=== PATIENT | female | born 1950 | race Caucasian/White ===

== ENCOUNTER 2018-04-19 09:38 | Emergency (ER) | payer MEDICARE, MEDICAID, SELFPAY ==
[2018-04-19 09:49] VITALS: BP 136/72; PULSE 70; RESP 14; TEMP 37.2; O2SAT 99
--- NOTE | 2018-04-19 10:11 | DI.RAD.S_ITS ---
PROCEDURE: XR CHEST 2V INDICATIONS: fatigue, body ache TECHNIQUE: 2 views of the chest were acquired. COMPARISON: None. FINDINGS: Surgical changes and devices: None. Lungs and pleura: No pleural effusions or pneumothorax. Lungs are clear. Mediastinum: The cardiac contours are within normal limits. The aorta demonstrates calcification and tortuosity. Bones and chest wall: Age-appropriate bony degenerative changes are seen. No suspicious bony abnormalities. Soft tissues appear unremarkable. IMPRESSION: No focal infiltrates are seen. Dictated by: Jayesh Xie M.D. on 04/19/2018 at 9:33 Approved by: Jayesh Xie M.D. on 04/19/2018 at 9:34
[2018-04-19 10:14] LABS: Add Manual Diff / Slide Review NO; Basophils Percent Auto 0.9 % (0-2); Eosinophils Percent Auto 2.5 % (2-4); Hemoglobin 12.3 g/dL (12.0-16.0); Lymphocytes Percent Auto 34.4 % (25-40); Mean Corpuscular HGB Conc 34.1 % (30-36); Mean Corpuscular Hemoglobin 31.5 PG (26-34); Mean Corpuscular Volume 92.3 fL (80-100); Monocytes Percent Auto 7.5 % (3-14); Neutrophils Absolute Auto 3600 /uL (3000-5900); Neutrophils Percent Auto 54.7 % (50-75); Platelet Count 314 X10^3/uL (150-400); Red Blood Cell Count 3.91 X10^6/uL (4.0-5.2); Red Cell Distribution Width 13.4 % (11.6-14.8); White Blood Cell Count 6.6 X10^3/uL (4.5-11.0)
[2018-04-19] MEDS: SODIUM CHLORIDE 0.9% 1,000 ML 1000 ML IV (10:23)
[2018-04-19 10:27] LABS: Alanine Aminotransferase 38 IU/L (9-52); Albumin 4.4 g/dL (3.5-5.0); Albumin Globulin Ratio 1.6 (1.0-2.8); Alkaline Phosphatase 62 U/L (38-126); Aspartate Aminotransferase 47 IU/L (14-36); BUN Creatinine Ratio 24.3 (6-22); Bilirubin Total 0.5 mg/dL (0.2-1.3); Blood Urea Nitrogen 17 mg/dL (7-17); Calcium 9.6 mg/dL (8.4-10.2); Carbon Dioxide 27 mmol/L (22-32); Chloride 100 mmol/L (98-107); Estimated Glomerular Filt Rate > 60.0 mL/min (>60); Globulin 2.7 g/dL (1.7-4.1); Glucose 114 mg/dL (80-110); HEMOLYSIS < 15 (0-50); Potassium 3.8 mmol/L (3.4-5.1); Sodium 139 mmol/L (137-145); Total Protein 7.1 g/dL (6.3-8.2)
[2018-04-19 10:40] LABS: Troponin I < 0.012 ng/mL (0.01-0.034)
--- NOTE | 2018-04-19 11:06 | ED.RECABL ---
HPI - Recheck/Abnormal Lab/Rx General Chief Complaint: Recheck/Abnormal Lab/Rx Stated Complaint: hypocalcemic Time Seen by Provider: 04/19/18 09:50 Source: patient Mode of arrival: ambulatory Limitations: no limitations History of Present Illness HPI narrative: 67-year-old female, nonsmoker with history of hyper parathyroidism presents with a chief complaint of fatigue, mild nausea for the past day or 2. She states she feels quite similar to prior episodes of hypocalcemia. She denies any dizziness or lightheadedness. She denies any chest pain or shortness of breath. She denies vomiting or diarrhea. 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 The patient admittedly drink no water yesterday and is at the breaking point in terms of her stress level. She has not been sleeping properly. Related Data Home Medications Medication Instructions Recorded Confirmed Carditone 1 dose PO DAILY 04/19/18 04/19/18 Fish Oil 1 cap PO DAILY 04/19/18 04/19/18 Vitamin B 1 dose PO DAILY 04/19/18 04/19/18 Vitamin C 1 tab PO DAILY 04/19/18 04/19/18 benazepril 20 mg PO BEDTIME 04/19/18 04/19/18 calcium carbonate [Calcium 500] 500 mg PO DAILY 04/19/18 04/19/18 krill oil 1 cap PO DAILY 04/19/18 04/19/18 parathyroid hormone [Natpara] 100 mcg SUBCUT DAILY 04/19/18 04/19/18 vitamin E 1 cap PO DAILY 04/19/18 04/19/18 Review of Systems Review of Systems All systems reviewed & are unremarkable except as noted in HPI and below Constitutional Denies chills, Denies fever(s), Reports lethargy and Reports weakness Eyes Denies change in vision, Denies eye discharge, Denies irritation and Denies loss of vision ENT Ears, Nose, Mouth, and Throat: Denies change in voice, Denies neck pain and Denies sore throat Cardiovascular Denies chest pain, Denies irregular heart rhythm, Denies lightheadedness, Denies palpitations, Denies dyspnea, Denies dyspnea on exertion and Denies orthopnea Respiratory Denies cough, Denies dyspnea, Denies dyspnea on exertion and Denies wheezing Gastrointestinal Gastrointestinal: Denies abdominal pain, Denies change in bowel habits, Denies diarrhea, Reports nausea and Denies vomiting Genitourinary Denies hematuria, Denies flank pain, Denies urinary incontinence and Denies urinary urgency Musculoskeletal Denies neck pain Integumentary/Breasts Denies pruritus, Denies erythema, Denies rash and Denies wounds Neurologic Denies confusion, Denies loss of vision and Reports weakness Psychiatric Denies anxiety, Denies confusion, Denies depression, Denies homicidal ideation and Denies suicidal ideation Endocrine Denies palpitations Hematologic/Lymphatic Denies easy bruising Allergic/Immunologic Denies wheezing PFSH Social History Smoking Status: Never smoker Exam Narrative Exam Narrative: 67-year-old female, tearful and anxious Initial Vital Signs Initial Vital Signs: Vital Signs Temperature 99 F 04/19/18 09:49 Pulse Rate 70 04/19/18 09:49 Respiratory Rate 14 04/19/18 09:49 Blood Pressure 136/72 04/19/18 09:49 Pulse Oximetry 99 04/19/18 09:49 Const General: cooperative, well developed, in distress and anxious Nutritional Appearance: well nourished Orientation: alert, awake, oriented x3 and not confused [facility] Head: normocephalic and atraumatic Ears: external ears normal and TM's normal bilaterally Nose: external nose normal and No nasal discharge Face and sinus: sinuses nontender, face symmetric, no sinus tenderness and dry mucous membranes Teeth and gingiva: dentition normal Throat: tonsils normal and uvula midline Eyes General: appearance normal, both eyes and all related structures Eyelids: eyelids normal Conjunctivae: conjunctivae normal Sclera: sclerae normal Pupils: PERRL EOM: EOM intact bilaterally Neck Neck: normal visual inspection, trachea midline, No lymphadenopathy, No midline deformity and No JVD Lymphatic: No lymphedema Chest Chest: normal inspection of the chest Resp Effort & Inspection: normal respiratory effort, able to speak in complete sentences, no respiratory distress and no use of accessory muscles Auscultation: clear to auscultation bilaterally, no rales, no rhonchi and no wheezes GI Inspection: non-distended Palpation: soft, no hepatosplenomegaly, No guarding, No pulsatile mass and No tender Auscultation: normal bowel sounds Skin General: no rashes or lesions noted, No jaundice and No petechiae Neuro General: alert, awake, oriented x3, gait normal and no focal motor deficits Speech: speech normal Extrem General: full ROM, no clubbing, cyanosis or edema, no pedal edema and no calf tenderness Psych Appearance: well kempt Attitude: cooperative Course Orders Ordered: ED Orders 04/19/18 10:01 EKG-12 Lead Stat 04/19/18 10:07 Complete Blood Count AUTO DIFF Stat Comprehensive Metabolic Panel Stat Troponin I Stat 04/19/18 10:11 XR chest 2V Stat Discontinued Medications Sodium Chloride (Normal Saline 0.9%) 1,000 mls @ 1,000 mls/hr IV BOLUS ONE Stop: 04/19/18 11:10 Last Infusion: 04/19/18 11:21 Dose: 0 mls/hr Admin: 04/19/18 10:23 Dose: 1,000 mls/hr Reevaluation(s) Reevaluation #1: patient reports a near complete resolution of symptoms after above-stated therapies Vital Signs - 8 hr 04/19/18 11:49 Pulse Rate 65 Respiratory Rate 20 Blood Pressure [Right Arm] 116/71 Pulse Oximetry 98 MDM - Recheck/Abnormal Lab/Rx Medical Records Attestation: I reviewed the patient's medical records. Lab Data Attestation: I reviewed the patient's lab results. Result diagrams: 04/19/18 10:07 04/19/18 10:07 Lab Results 04/19/18 04/19/18 Range/Units 10:07 10:07 WBC 6.6 (4.5-11.0) X10^3/uL RBC 3.91 L (4.0-5.2) X10^6/uL Hgb 12.3 (12.0-16.0) g/dL Hct 36.0 (36-46) % MCV 92.3 (80-100) fL MCH 31.5 (26-34) PG MCHC 34.1 (30-36) % RDW 13.4 (11.6-14.8) % Plt Count 314 (150-400) X10^3/uL Neut % (Auto) 54.7 (50-75) % Lymph % (Auto) 34.4 (25-40) % Potter % (Auto) 7.5 (3-14) % Eos % (Auto) 2.5 (2-4) % Baso % (Auto) 0.9 (0-2) % Neut # (Auto) 3600 (3820-9587) /uL Sodium 139 (137-145) mmol/L Potassium 3.8 (3.4-5.1) mmol/L Chloride 100 (98-107) mmol/L Carbon Dioxide 27 (22-32) mmol/L BUN 17 (7-17) mg/dL Creatinine 0.70 (0.52-1.04) mg/dL Estimated GFR > 60.0 (>60) mL/min BUN/Creatinine Ratio 24.3 H (6-22) Glucose 114 H (80-110) mg/dL Calcium 9.6 (8.4-10.2) mg/dL Total Bilirubin 0.5 (0.2-1.3) mg/dL AST 47 H (14-36) IU/L ALT 38 (9-52) IU/L Alkaline Phosphatase 62 (38-126) U/L Troponin I < 0.012 (0.01-0.034) ng/mL Total Protein 7.1 (6.3-8.2) g/dL Albumin 4.4 (3.5-5.0) g/dL Globulin 2.7 (1.7-4.1) g/dL Albumin/Globulin Ratio 1.6 (1.0-2.8) Urine Dip Bedside Urine Glucose Negative Bedside Urine Bilirubin - Negative Bedside Urine Ketone - Negative Urine Specific [place] 1.010 Bedside Urine Occult Blood - Negative Bedside Urine pH 8.0 Bedside Urine Protein - Negative Bedside Urine Urobilinogen - Negative Bedside Urine Nitrite - Negative Bedside Urine Leukocytes - Negative Esterase MDM Narrative Medical decision making narrative: patient evaluated for potential hypocalcemia but alternative diagnoses such as cardiac disease, dehydration among others were considered. Labs with rule out hypocalcemia. Further discussion with suggest that her symptoms are multifactorial, stemming from profound stress, lack of sleep and dehydration. Discharge Plan Departure Patient Disposition: Home Clinical Impression: Acute dehydration, Fatigue Discharge Date/Time: 04/19/18 12:51 Interventions: ED Discharge Assessment Last Done: 04/19/18 12:51 Instructions: DI for Dehydration -- Adult Activity Restrictions/Additional Instructions: *You have been diagnosed with [ Acute dehydration, fatigue ] *What to do: *Take medications as directed *Follow up with your primary care provider in 2-3 days, call for an appointment. Let them know you were seen in the Emergency Department and that we ask that you be seen in follow up *Return to ER if you should have any new, worsening or concerning symptoms Prescriptions: No Action benazepril 20 mg tablet 20 mg PO BEDTIME RF: 0 parathyroid hormone [Natpara] 100 mcg/dose cartridge 100 mcg subcut DAILY RF: 0 calcium carbonate [Calcium 500] 500 mg calcium (1,250 mg) Tablet 500 mg PO DAILY RF: 0 Carditone 1 dose PO DAILY RF: 0 Fish Oil 1 cap PO DAILY RF: 0 Vitamin B 1 dose PO DAILY RF: 0 Vitamin C 1 tab PO DAILY RF: 0 krill oil 1 cap PO DAILY RF: 0 vitamin E 1 cap PO DAILY RF: 0 Referrals: Giovana Kingsley MD [Primary Care Provider] -
[2018-04-19 11:49] VITALS: BP 116/71; PULSE 59; PULSE 65; RESP 15; RESP 20; O2SAT 94; O2SAT 98
== END 2018-04-19 12:51 | disposition home or self-care (01) ==
PROVIDERS: Emergency Provider Emergency Medicine; PCP Internal Medicine Endocrinology, Diabetes & Metabolism
DX: E86.0 Dehydration (principal); R53.83 Other fatigue
CPT/HCPCS: 36415; 36591; 71046; 80053; 81003; 84484; 85025; 93005; 96360; 99283

== ENCOUNTER → 2018-11-12 11:46 | Outpatient (CLI) | payer MEDICARE, MEDICAID, SELFPAY ==
--- NOTE | 2018-11-12 | DI.MG.S_ITS ---
BILATERAL DIGITAL SCREENING MAMMOGRAM 3D/2D WITH CAD: 11/12/2018 CLINICAL: Routine screening. Comparison is made to exams dated: 11/13/2006 mammogram - [facility], 10/02/2011 mammogram, and 09/26/2010 mammogram - [facility]. The tissue of both breasts is extremely dense, which lowers the sensitivity of mammography. Current study was also evaluated with a Computer Aided Detection (CAD) system. No significant masses, calcifications, or other findings are seen in either breast. There has been no significant interval change. IMPRESSION: NEGATIVE There is no mammographic evidence of malignancy. A 1 year screening mammogram is recommended. This exam was interpreted at Station ID: [id number]. NOTE: For mammograms, a report in lay terms will be sent to the patient. Approximately 15% of breast malignancies will not be visualized mammographically. In the management of a palpable breast mass, a negative mammogram must not discourage biopsy of a clinically suspicious lesion. Electronically Signed By: Ravindra buck/leonard:11/12/2018 12:14:33 letter sent: Normal Exam ACR BI-RADS Category 1: Negative [id number]
== END ==
PROVIDERS: PCP Nurse Practitioner; Visit Provider Nurse Practitioner
DX: Z12.31 Encounter for screening mammogram for malignant neoplasm of breast (principal)
CPT/HCPCS: 77063; 77067

== ENCOUNTER → 2018-12-09 13:16 | Outpatient (CLI) | payer MEDICARE, MEDICAID, SELFPAY | PROVIDERS: PCP Nurse Practitioner; Visit Provider Nurse Practitioner Family | DX: M85.832 Other specified disorders of bone density and structure, left forearm (principal); Z78.0 Asymptomatic menopausal state | CPT/HCPCS: 77080; 77081 ==

== ENCOUNTER → 2019-03-18 09:43 | Outpatient (CLI) | payer MEDICARE, MEDICAID, SELFPAY ==
[2019-03-18 10:39] LABS: Calcium 10.2 mg/dL (8.4-10.2); Estimated Glomerular Filt Rate > 60.0 mL/min (>60)
== END ==
PROVIDERS: PCP Nurse Practitioner; Visit Provider Internal Medicine Endocrinology, Diabetes & Metabolism
DX: E20.9 Hypoparathyroidism, unspecified (principal)
CPT/HCPCS: 36415; 82310; 82565

== ENCOUNTER → 2019-03-22 11:17 | Outpatient (CLI) | payer MEDICARE, MEDICAID, SELFPAY ==
[2019-03-22 12:26] LABS: Calcium 8.3 mg/dL (8.4-10.2); Estimated Glomerular Filt Rate > 60.0 mL/min (>60)
== END ==
PROVIDERS: PCP Nurse Practitioner; Visit Provider Internal Medicine Endocrinology, Diabetes & Metabolism
DX: E20.9 Hypoparathyroidism, unspecified (principal)
CPT/HCPCS: 36415; 82310; 82565

== ENCOUNTER → 2019-04-06 16:36 | Outpatient (CLI) | payer MEDICARE, MEDICAID, SELFPAY ==
[2019-04-06 17:59] LABS: Calcium 9.3 mg/dL (8.4-10.2); Phosphorous 5.4 mg/dL (2.8-4.1)
== END ==
PROVIDERS: PCP Nurse Practitioner; Visit Provider Internal Medicine Endocrinology, Diabetes & Metabolism
DX: E20.9 Hypoparathyroidism, unspecified (principal)
CPT/HCPCS: 36415; 82310; 84100

== ENCOUNTER → 2019-04-13 15:39 | Outpatient (CLI) | payer MEDICARE, MEDICAID, SELFPAY ==
[2019-04-13 16:41] LABS: Calcium 9.4 mg/dL (8.4-10.2); Phosphorous 4.9 mg/dL (2.8-4.1)
== END ==
PROVIDERS: PCP Nurse Practitioner; Visit Provider Internal Medicine Endocrinology, Diabetes & Metabolism
DX: E20.9 Hypoparathyroidism, unspecified (principal)
CPT/HCPCS: 36415; 82310; 84100

== ENCOUNTER → 2019-04-21 08:15 | Outpatient (CLI) | payer MEDICARE, MEDICAID, SELFPAY ==
[2019-04-21 09:15] LABS: Calcium 9.1 mg/dL (8.4-10.2); Phosphorous 5.2 mg/dL (2.8-4.1)
== END ==
PROVIDERS: Visit Provider Internal Medicine Endocrinology, Diabetes & Metabolism
DX: E20.9 Hypoparathyroidism, unspecified (principal)
CPT/HCPCS: 36415; 82310; 84100

== ENCOUNTER 2019-04-22 15:00 | Outpatient (RCR) | payer MEDICARE, MEDICAID, SELFPAY ==
--- NOTE | 2018-12-31 17:00 | PT.OIE ---
Current Diagnoses Other chronic pain (12/31/18) Low back pain (12/31/18) Muscle weakness (generalized) (12/31/18) Other abnormalities of gait and mobility (12/31/18) Past Surgical History (Last Updated 01/02/19 @ 12:52 by Lisa Asif, PT) Status post total hip replacement, right (Acute) Provider Visit Care Team Role Provider Type JOSSELYN Gilman Attending Provider Non-Staff Primary Care Provider Specialty: Medical Address: [address] [place] [address], [phone] Email: Physical Therapy Initial Evaluation PT-OP-A Visit Information Start: 12/31/18 08:04 Freq: Status: Active Protocol: Document 12/31/18 09:57 LRN (Rec: 12/31/18 10:49 LRN [id number]) Out-Patient Physical Therapy Visit Information Visit Information Visit Type Initial Evaluation Visit Start Time 09:57 Visit Stop Time 10:49 Total Visit Minutes 52 Visit Number 1 Evaluation Information Evaluation Date 12/31/18 Precautions Precautions Pt reported: R MALENA - 15 yrs ago Osteoarthritis PT-OP-B Current Condition Start: 12/31/18 08:04 Freq: Status: Active Protocol: Document 12/31/18 09:57 LRN (Rec: 12/31/18 10:49 LRN [id number]) Current Condition History of Current Condition Onset Date 3.5 weeks ago Current Complaints Ongoing off/on bouts of debilitatin back pain History of Current Condition Back pain since a teenager. Had to wear a brace as a teen because of damage noted from chiropractor. HAs had bouts of back pain. 3.5 weeks ago had onset of back pain that resolved after 3 weeks. Typically the pain resolves in 3-10 days. During her 3/5 weeks of pain she was seeing the chiropractor who she sees regularly (1/week to 1x every 2.5 weeks, without insurance 1x/2 months) for good self care. Currently she is aware of some pain and must position spine to get relief of pain. Pain 1/10 sitting. Pain is a dull aching, irritating, oppressive, constant. States she tries to deny it, then it takes me out. Bouts of pain onset is every 2-3 months. Prior Treatments and Tests X-rays from [facility]. 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 Treatment Goals Patient/Caregiver Goals Wants to be able to get better and need PT to make sure her bout of pain doesn't return. Prior Functional Status Baseline Function- ADL's Independent Baseline Function- Mobility Independent Baseline Function- Recreation/Hobbies Pet sit & dog sit. Cooking Current Functional Impairments (Reported) Functional Limitations- ADL's Can't help a child into lap (3 and 7 yr old) or pick the 3 yr old up. Personal Factors Other Personal Factors That May Effect Chronic low back pain, Therapy/Recovery arthritis, neck pain, controlled HBP, R MALENA, PT-OP-C Subjective Start: 12/31/18 08:04 Freq: Status: Active Protocol: Document 12/31/18 09:57 LRN (Rec: 12/31/18 10:49 LRN [id number]) Patient Questionnaires Oswestry Low Back Index Oswestry Score 26 Oswestry Impairment 20 to 39% Impaired (Score 20- 39) OP-PT Pain Assessment Pain Assessment Grid Paper Pain Assessment Grid Completed Yes Comments Pain Comments Pain in posterior aspect of the neck, R upper back, in the low back (QL, paraspinals) and lateral R hip. Pain rated 1-4/10. PT-OP-E Functional Tests Start: 12/31/18 08:04 Freq: Status: Active Protocol: Document 12/31/18 09:57 LRN (Rec: 12/31/18 10:49 LRN [id number]) Functional Tests Timed Up and Go (TUG) Score 11 TUG Impairment Rating 1 to <20% Impaired (Score 11) PT-OP-F Manual Assessment Start: 12/31/18 08:04 Freq: Status: Active Protocol: Document 12/31/18 09:57 LRN (Rec: 12/31/18 18:59 LRN [id number]) Manual Assessments Soft Tissue Assessment Soft Tissue Mobility Assessment Muscle guarding and tenderness at L Gluteus Mina and along the L sacral border. PT-OP-G Mobility & Gait Start: 12/31/18 08:04 Freq: Status: Active Protocol: Document 12/31/18 09:57 LRN (Rec: 12/31/18 18:59 LRN [id number]) OP Mobility Evaluation Bed Mobility Supine to and from Sit Pt came up in sit up rotating in the direction she was transferring and placing her legs in a 90/90 scissored fashion. Sit to Supine she uses her R UE to assist the R leg. Transfers Sit to Stand Independent but with unequal weight bearing of the LE's. Car Transfers Uses R UE to assist R leg into car. OP Gait Assessment Comments Gait Comments Pt ambulates independently without assistive device with excessive trunk sway bilaterally. She ambulates with a Trendelenburg type gait bilaterally L>R. PT-OP-H Neuro Start: 12/31/18 08:04 Freq: Status: Active Protocol: Document 12/31/18 09:57 LRN (Rec: 12/31/18 18:59 LRN [id number]) Sensation Evaluation Gross Sensation Gross Sensation WNL Deep Tendon Reflex & Clonus Assessment Deep Tendon Reflex Right Achilles Deep Tendon Reflex 2+ Normal Left Achilles Deep Tendon Reflex 1+ Diminished Bilateral Patellar Deep Tendon Reflex 3+ Normal But Brisk PT-OP-J Posture/Palpation/Skin Start: 12/31/18 08:04 Freq: Status: Active Protocol: Document 12/31/18 09:57 LRN (Rec: 12/31/18 18:59 LRN [id number]) Posture Evaluation Comments Posture Comments Standing: Forward head, depressed R shoulder, decreased thoracic and lumbar curvature, pelvis neutral. Palpation Assessment Location Innominates Palpation Details R Leg long in supine, Longer in long sit. Sacrum Palpation Location L Lateral Border Palpation Findings Tenderness Hips Palpation Location Upper Gluteus Mina Palpation Findings Tenderness Lumbar spine Palpation Location L/S PA glides elicited no complaints of pain. PT-OP-K Range of Motion Start: 12/31/18 08:04 Freq: Status: Active Protocol: Document 12/31/18 09:57 LRN (Rec: 12/31/18 18:59 LRN [id number]) Hip Goniometric Range of Motion Hip Right Passive Testing Position Supine Straight Leg Raise 80 Extension 0 Internal Rotation 40 External Rotation 70 Left Passive Testing Position Supine Straight Leg Raise 70 Extension 5 Internal Rotation 55 External Rotation 55 PT-OP-L Special Tests Start: 12/31/18 08:04 Freq: Status: Active Protocol: Document 12/31/18 09:57 LRN (Rec: 12/31/18 18:59 LRN [id number]) Special Tests Lumbar Spine Special Tests Straight Leg Raise Test Results postive left for possible neural tension and soft tissue tightness Comments 70 deg's left due to LE tightness, 80 deg's right. PT-OP-M Strength Start: 12/31/18 08:04 Freq: Status: Active Protocol: Document 12/31/18 09:57 LRN (Rec: 12/31/18 18:59 LRN [id number]) Hip Strength Hip Manual Muscle Testing Right Flexion (L2) 3 Fair Extension (S1) 2 Poor Abduction 3 Fair Adduction 3 Fair External Rotation 3 Fair Internal Rotation 3 Fair Left Flexion (L2) 3 Fair Extension (S1) 3 Fair Abduction 3+ Fair+ Adduction 4 Good External Rotation 3 Fair Internal Rotation 3 Fair PT-OP-Q Treatments Start: 12/31/18 08:04 Freq: Status: Active Protocol: Document 12/31/18 09:57 LRN (Rec: 12/31/18 18:59 LRN [id number]) Self-Care/Home Management Treatment Education Patient Education Body Mechanics Posture Other Education Educated pt in proper body mechanics for lifting and 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 Discussed at length the effect of improper moving on her back. PT-OP-T Assessment and Plan Start: 12/31/18 08:04 Freq: Status: Active Protocol: Document 12/31/18 09:57 LRN (Rec: 12/31/18 10:49 LRN [id number]) Physical Therapy Assessment Rehab Potential Rehabilitation Potential Good Evaluation Complexity Number of Personal Factors/Comorbidities 3 or More Number of Body Systems Impaired 4 or More Clinical Presentation at Evaluation Evolving Impairments Impairments Functional Mobility Gait Pain Posture ROM Strength Transfers Other Concerns Age Related Concerns Effect of condition on social and work environment. Barriers to Rehabilitation Chronicity of condition Pt has poor self awareness R MALENA Arthritis Goals Four Impairment Excessive trunk sway with gait Short Term Goal (STG) Improve Hip strength with pt able to demonstrate good hip shift on single leg weightbearing. Care Home Goal (LTG) Pt will demonstrate improved gait mechanics of decreased trunk sway LTG Duration 03/11/19 Three Impairment Poor body mechanics Short Term Goal (STG) Pt will be educated in proper body mechanics for lifting, moving objects, sitting for sewing. STG Duration 01/07/19 Two Impairment Chronic low back pain rated 1 - 4/10 Short Term Goal (STG) Decrease R>L LBP to no greater than 1-2/10 with patient able to properly transfer and lift objects with no increase in pain greater than 2/10 STG Duration 01/21/19 Case Assembler Goal (LTG) Decrease R>L LBP to no greater than 1/10 with pt able to manage her pain. LTG Duration 03/11/19 One Impairment Pt lacks appropriate self care HEP STG Duration 02/04/19 Care Home Goal (LTG) Pt will be independent with a self care HEP. LTG Duration 03/11/19 Assessment Summary Assessment Pt presents with a pelvic obliquity (R anteriorly rotated innominate/L posteriorly rotated innominate ), possibly due to her long standing history of back pain and dysfunctional gait since her R MALENA. The pt also demonstrates poor body mechanics with transfers ( getting up from supine) and lifting, and postural deviations that would be expected to exacerbate her back pain. 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 The pt will benefit from skilled physical therapy to normalize pelvic positioning and gain stabilization of the pelvis and core with possibly use of an SIJ belt if she is unable to maintain neutral after prolonged sitting. Physical Therapy Plan Frequency and Duration Frequency of Treatment 2x/Week Plan of Care Start Date 12/31/18 Plan of Care End Date 03/11/19 Therapeutic Interventions Therapeutic Interventions Balance Training Home Exercise Program Joint Mobilizations Manual Therapy Neuromuscular Re-education Patient/Caregiver Education Self-Care/Home Management Soft Tissue Mobilization Taping Therapeutic Activities Therapeutic Exercises Next Visit Focus/Plan Next Note Type Treatment Note Next Visit Plan August Test; JMT for neutral pelvis positioning; education for pt to self correct posture & for proper body mechanics with transfers and lifting; initiation and progression of a HEP for pelvic/core stabilization; self care education for modalities; gait training. K-tape assessment and if tolerated K-tape for pelvic stabilization. End with cryotherapy is needed.
--- NOTE | 2019-01-03 16:08 | PT.OTN ---
Current Diagnoses Other chronic pain (01/03/19) Low back pain (01/03/19) Muscle weakness (generalized) (01/03/19) Other abnormalities of gait and mobility (01/03/19) Physical Therapy Treatment Note PT-OP-A Visit Information Start: 12/31/18 08:04 Freq: Status: Active Protocol: Document 01/03/19 13:34 LRN (Rec: 01/03/19 14:20 LRN [id number]) Out-Patient Physical Therapy Visit Information Visit Information Visit Type Treatment Note Visit Start Time 13:34 Visit Stop Time 14:20 Total Visit Minutes 46 Visit Number 2 Evaluation Information Evaluation Date 12/31/18 Precautions Precautions Pt reported: R MALENA - 13 yrs ago Osteoarthritis PT-OP-B Current Condition Start: 12/31/18 08:04 Freq: Status: Active Protocol: Document 12/31/18 09:57 LRN (Rec: 12/31/18 10:49 LRN [id number]) Current Condition History of Current Condition Onset Date 3.5 weeks ago Current Complaints Ongoing off/on bouts of debilitatin back pain History of Current Condition Back pain since a teenager. Had to wear a brace as a teen because of damage noted from chiropractor. HAs had bouts of back pain. 3.5 weeks ago had onset of back pain that resolved after 3 weeks. Typically the pain resolves in 3-10 days. During her 3/5 weeks of pain she was seeing the chiropractor who she sees regularly (1/week to 1x every 2.5 weeks, without insurance 1x/2 months) for good self care. Currently she is aware of some pain and must position spine to get relief of pain. Pain 1/10 sitting. Pain is a dull aching, irritating, oppressive, constant. States she tries to deny it, then it takes me out. Bouts of pain onset is every 2-3 months. Prior Treatments and Tests X-rays from [facility]. 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 Treatment Goals Patient/Caregiver Goals Wants to be able to get better and need PT to make sure her bout of pain doesn't return. Prior Functional Status Baseline Function- ADL's Independent Baseline Function- Mobility Independent Baseline Function- Recreation/Hobbies Pet sit & dog sit. Cooking Current Functional Impairments (Reported) Functional Limitations- ADL's Can't help a child into lap (3 and 7 yr old) or pick the 3 yr old up. Personal Factors Other Personal Factors That May Effect Chronic low back pain, Therapy/Recovery arthritis, neck pain, controlled HBP, R MALENA, PT-OP-C Subjective Start: 12/31/18 08:04 Freq: Status: Active Protocol: Document 01/03/19 13:34 LRN (Rec: 01/03/19 14:20 LRN [id number]) OP-PT Subjective Patient Comments Patient Comments Woke this morning with back pain. PT-OP-E Functional Tests Start: 12/31/18 08:04 Freq: Status: Active Protocol: Document 12/31/18 09:57 LRN (Rec: 12/31/18 10:49 LRN [id number]) Functional Tests Timed Up and Go (TUG) Score 11 TUG Impairment Rating 1 to <20% Impaired (Score 11) PT-OP-F Manual Assessment Start: 12/31/18 08:04 Freq: Status: Active Protocol: Document 12/31/18 09:57 LRN (Rec: 12/31/18 18:59 LRN [id number]) Manual Assessments Soft Tissue Assessment Soft Tissue Mobility Assessment Muscle guarding and tenderness at L Gluteus Mina and along the L sacral border. PT-OP-G Mobility & Gait Start: 12/31/18 08:04 Freq: Status: Active Protocol: Document 12/31/18 09:57 LRN (Rec: 12/31/18 18:59 LRN [id number]) OP Mobility Evaluation Bed Mobility Supine to and from Sit Pt came up in sit up rotating in the direction she was transferring and placing her legs in a 90/90 scissored fashion. Sit to Supine she uses her R UE to assist the R leg. Transfers Sit to Stand Independent but with unequal weight bearing of the LE's. Car Transfers Uses R UE to assist R leg into car. OP Gait Assessment Comments Gait Comments Pt ambulates independently without assistive device with excessive trunk sway bilaterally. She ambulates with a Trendelenburg type gait bilaterally L>R. PT-OP-H Neuro Start: 12/31/18 08:04 Freq: Status: Active Protocol: Document 12/31/18 09:57 LRN (Rec: 12/31/18 18:59 LRN [id number]) Sensation Evaluation Gross Sensation Gross Sensation WNL Deep Tendon Reflex & Clonus Assessment Deep Tendon Reflex Right Achilles Deep Tendon Reflex 2+ Normal Left Achilles Deep Tendon Reflex 1+ Diminished Bilateral Patellar Deep Tendon Reflex 3+ Normal But Brisk PT-OP-J Posture/Palpation/Skin Start: 12/31/18 08:04 Freq: Status: Active Protocol: Document 12/31/18 09:57 LRN (Rec: 12/31/18 18:59 LRN [id number]) Posture Evaluation Comments Posture Comments Standing: Forward head, depressed R shoulder, decreased thoracic and lumbar curvature, pelvis neutral. Palpation Assessment Location Innominates Palpation Details R Leg long in supine, Longer in long sit. Sacrum Palpation Location L Lateral Border Palpation Findings Tenderness Hips Palpation Location Upper Gluteus Mina Palpation Findings Tenderness Lumbar spine Palpation Location L/S PA glides elicited no complaints of pain. PT-OP-K Range of Motion Start: 12/31/18 08:04 Freq: Status: Active Protocol: Document 12/31/18 09:57 LRN (Rec: 12/31/18 18:59 LRN [id number]) Hip Goniometric Range of Motion Hip Right Passive Testing Position Supine Straight Leg Raise 80 Extension 0 Internal Rotation 40 External Rotation 70 Left Passive Testing Position Supine Straight Leg Raise 70 Extension 5 Internal Rotation 55 External Rotation 55 PT-OP-L Special Tests Start: 12/31/18 08:04 Freq: Status: Active Protocol: Document 12/31/18 09:57 LRN (Rec: 12/31/18 18:59 LRN [id number]) Special Tests Lumbar Spine Special Tests Straight Leg Raise Test Results postive left for possible neural tension and soft tissue tightness Comments 70 deg's left due to LE tightness, 80 deg's right. PT-OP-M Strength Start: 12/31/18 08:04 Freq: Status: Active Protocol: Document 12/31/18 09:57 LRN (Rec: 12/31/18 18:59 LRN [id number]) Hip Strength Hip Manual Muscle Testing Right Flexion (L2) 3 Fair Extension (S1) 2 Poor Abduction 3 Fair Adduction 3 Fair External Rotation 3 Fair Internal Rotation 3 Fair Left Flexion (L2) 3 Fair Extension (S1) 3 Fair Abduction 3+ Fair+ Adduction 4 Good External Rotation 3 Fair Internal Rotation 3 Fair PT-OP-Q Treatments Start: 12/31/18 08:04 Freq: Status: Active Protocol: Document 01/03/19 13:34 LRN (Rec: 01/03/19 14:20 LRN [id number]) Therapeutic Exercises Supine Exercises TA Supine Exercise Name TA Reps/Minutes 10 x 10 sec Comments Pt tightened R side > L to start and pt holds breath. Kegel Supine Exercise Name Kegel Reps/Minutes 10 x 10 sec hold Standing Exercises Training for equal weightbearing Standing Exercise Name Standing w/without R SIJ compression Comments Discussion and training Therapeutic Activity Therapeutic Activity Transfers & moving on plinth Name Shifting to right on plinth; Sup<>Sit<>Stand Comments Educating and training of patient Manual Therapy Treatment Joint Mobilizations SIJ Joint R SIJ Direction Correction for R innominate inflare Grade III Body Position Hooklying Comments CR MFR Self-Care/Home Management Treatment Education Patient Education Home Exercise Program Posture Other Education Educated pt in core anatomy and standing posture with equal weightbearing. Activities Self-Care/Home Management Activities Reviewed pt's current ex' program. Issued & reviewed HEP: LORE Hoyt ex's PT-OP-T Assessment and Plan Start: 12/31/18 08:04 Freq: Status: Active Protocol: Document 01/03/19 13:34 LRN (Rec: 01/03/19 14:20 LRN [id number]) Physical Therapy Assessment Assessment Summary Assessment + August Test more on R than L. Good Maxine understanding of isolating, but pt needs to work on isolating from hip AD' s. TA is asymmetrical and pt holds breath. Training needed for neutral positioning with ex by equal core & trunk ext muscle contractions. Compression of R SIJ provided pt relief of feeling of instability with SLS; therefore pt needs SI Belt. Physical Therapy Plan Frequency and Duration Frequency of Treatment 2x/Week Plan of Care Start Date 12/31/18 Plan of Care End Date 03/11/19 Next Visit Focus/Plan Next Note Type Treatment Note Next Visit Plan Set pt up with SI belt for compression at R SIJ. JMT for neutral pelvis positioning ( correction of R inflare); education for proper body mechanics for lifting; progression of HEP for pelvic/ core stabilization (start roll in/outs); self care education for modalities; gait training . K-tape assessment and if tolerated K-tape for pelvic stabilization. End with cryotherapy is needed.
--- NOTE | 2019-01-07 12:23 | PT.OTN ---
Current Diagnoses Other chronic pain (01/07/19) Low back pain (01/07/19) Muscle weakness (generalized) (01/07/19) Other abnormalities of gait and mobility (01/07/19) Physical Therapy Treatment Note PT-OP-A Visit Information Start: 12/31/18 08:04 Freq: Status: Active Protocol: Document 01/07/19 11:25 LRN (Rec: 01/07/19 12:21 LRN [id number]) Out-Patient Physical Therapy Visit Information Visit Information Visit Type Treatment Note Visit Start Time 11:25 Visit Stop Time 12:07 Total Visit Minutes 42 Visit Number 3 Number of BEER BREWER Visits 0 Evaluation Information Evaluation Date 12/31/18 Precautions Precautions Pt reported: R MALENA - 15 yrs ago Osteoarthritis PT-OP-B Current Condition Start: 12/31/18 08:04 Freq: Status: Active Protocol: Document 12/31/18 09:57 LRN (Rec: 12/31/18 10:49 LRN [id number]) Current Condition History of Current Condition Onset Date 3.5 weeks ago Current Complaints Ongoing off/on bouts of debilitatin back pain History of Current Condition Back pain since a teenager. Had to wear a brace as a teen because of damage noted from chiropractor. HAs had bouts of back pain. 3.5 weeks ago had onset of back pain that resolved after 3 weeks. Typically the pain resolves in 3-10 days. During her 3/5 weeks of pain she was seeing the chiropractor who she sees regularly (1/week to 1x every 2.5 weeks, without insurance 1x/2 months) for good self care. Currently she is aware of some pain and must position spine to get relief of pain. Pain 1/10 sitting. Pain is a dull aching, irritating, oppressive, constant. States she tries to deny it, then it takes me out. Bouts of pain onset is every 2-3 months. Prior Treatments and Tests X-rays from [facility]. 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 Treatment Goals Patient/Caregiver Goals Wants to be able to get better and need PT to make sure her bout of pain doesn't return. Prior Functional Status Baseline Function- ADL's Independent Baseline Function- Mobility Independent Baseline Function- Recreation/Hobbies Pet sit & dog sit. Cooking Current Functional Impairments (Reported) Functional Limitations- ADL's Can't help a child into lap (3 and 7 yr old) or pick the 3 yr old up. Personal Factors Other Personal Factors That May Effect Chronic low back pain, Therapy/Recovery arthritis, neck pain, controlled HBP, R MALENA, PT-OP-C Subjective Start: 12/31/18 08:04 Freq: Status: Active Protocol: Document 01/07/19 11:25 LRN (Rec: 01/07/19 12:21 LRN [id number]) OP-PT Subjective Patient Comments Patient Comments States she had a good day 2 days ago, but had a terrible day today after getting up from sleeping. Pain in the low back until after moving for awhile. PT-OP-E Functional Tests Start: 12/31/18 08:04 Freq: Status: Active Protocol: Document 12/31/18 09:57 LRN (Rec: 12/31/18 10:49 LRN [id number]) Functional Tests Timed Up and Go (TUG) Score 11 TUG Impairment Rating 1 to <20% Impaired (Score 11) PT-OP-F Manual Assessment Start: 12/31/18 08:04 Freq: Status: Active Protocol: Document 12/31/18 09:57 LRN (Rec: 12/31/18 18:59 LRN [id number]) Manual Assessments Soft Tissue Assessment Soft Tissue Mobility Assessment Muscle guarding and tenderness at L Gluteus Mina and along the L sacral border. PT-OP-G Mobility & Gait Start: 12/31/18 08:04 Freq: Status: Active Protocol: Document 12/31/18 09:57 LRN (Rec: 12/31/18 18:59 LRN [id number]) OP Mobility Evaluation Bed Mobility Supine to and from Sit Pt came up in sit up rotating in the direction she was transferring and placing her legs in a 90/90 scissored fashion. Sit to Supine she uses her R UE to assist the R leg. Transfers Sit to Stand Independent but with unequal weight bearing of the LE's. Car Transfers Uses R UE to assist R leg into car. OP Gait Assessment Comments Gait Comments Pt ambulates independently without assistive device with excessive trunk sway bilaterally. She ambulates with a Trendelenburg type gait bilaterally L>R. PT-OP-H Neuro Start: 12/31/18 08:04 Freq: Status: Active Protocol: Document 12/31/18 09:57 LRN (Rec: 12/31/18 18:59 LRN [id number]) Sensation Evaluation Gross Sensation Gross Sensation WNL Deep Tendon Reflex & Clonus Assessment Deep Tendon Reflex Right Achilles Deep Tendon Reflex 2+ Normal Left Achilles Deep Tendon Reflex 1+ Diminished Bilateral Patellar Deep Tendon Reflex 3+ Normal But Brisk PT-OP-J Posture/Palpation/Skin Start: 12/31/18 08:04 Freq: Status: Active Protocol: Document 12/31/18 09:57 LRN (Rec: 12/31/18 18:59 LRN [id number]) Posture Evaluation Comments Posture Comments Standing: Forward head, depressed R shoulder, decreased thoracic and lumbar curvature, pelvis neutral. Palpation Assessment Location Innominates Palpation Details R Leg long in supine, Longer in long sit. Sacrum Palpation Location L Lateral Border Palpation Findings Tenderness Hips Palpation Location Upper Gluteus Mina Palpation Findings Tenderness Lumbar spine Palpation Location L/S PA glides elicited no complaints of pain. PT-OP-K Range of Motion Start: 12/31/18 08:04 Freq: Status: Active Protocol: Document 12/31/18 09:57 LRN (Rec: 12/31/18 18:59 LRN [id number]) Hip Goniometric Range of Motion Hip Right Passive Testing Position Supine Straight Leg Raise 80 Extension 0 Internal Rotation 40 External Rotation 70 Left Passive Testing Position Supine Straight Leg Raise 70 Extension 5 Internal Rotation 55 External Rotation 55 PT-OP-L Special Tests Start: 12/31/18 08:04 Freq: Status: Active Protocol: Document 12/31/18 09:57 LRN (Rec: 12/31/18 18:59 LRN [id number]) Special Tests Lumbar Spine Special Tests Straight Leg Raise Test Results postive left for possible neural tension and soft tissue tightness Comments 70 deg's left due to LE tightness, 80 deg's right. PT-OP-M Strength Start: 12/31/18 08:04 Freq: Status: Active Protocol: Document 12/31/18 09:57 LRN (Rec: 12/31/18 18:59 LRN [id number]) Hip Strength Hip Manual Muscle Testing Right Flexion (L2) 3 Fair Extension (S1) 2 Poor Abduction 3 Fair Adduction 3 Fair External Rotation 3 Fair Internal Rotation 3 Fair Left Flexion (L2) 3 Fair Extension (S1) 3 Fair Abduction 3+ Fair+ Adduction 4 Good External Rotation 3 Fair Internal Rotation 3 Fair PT-OP-Q Treatments Start: 12/31/18 08:04 Freq: Status: Active Protocol: Document 01/07/19 11:25 LRN (Rec: 01/07/19 12:21 LRN [id number]) Therapeutic Exercises Supine Exercises TA Supine Exercise Name TA strengthening L > R Reps/Minutes 10 x 10 sec, 2 sets. Comments Extra time taken for pt to tighten L side equal to R. Therapeutic Activity Therapeutic Activity Transfers & moving on plinth Name Shifting to right on plinth; Sup<>Sit<>Stand Comments Review and training needed. Hip hinging with sit to stand. Manual Therapy Treatment Soft Tissue Mobilization LB L>R Body Location R Paraspinals & QL, L gluteals & QL Mobilization Type Cross-Friction Strumming Intensity/Depth Moderate Body Position Prone Joint Mobilizations SACRAL Joint Sacrum Direction Correction for a L rotated sacrum Body Position Prone Comments MFR & CR of hip IR. SIJ Joint R & L SIJ Direction Correction for R innominate inflare & anter rot R innominate. L outflare Grade III Body Position Supine Reps/Duration 2x R side, 1x L side. After LB STM 1x R side Comments CR MFR PT-OP-T Assessment and Plan Start: 12/31/18 08:04 Freq: Status: Active Protocol: Document 01/07/19 11:25 LRN (Rec: 01/07/19 12:21 LRN [id number]) Physical Therapy Assessment Assessment Summary Assessment Difficult correcting pelvic obliquity. Able to correct R anter rotation, not completely the R inflare/L outflare. Pt is moving well with sup<>sit and rolling. Need training for sit to stand. Pt to monitor posture more in standing to maintain neutral spine. Spine appears aligned but sacrum was L rotated. Tightness R gluteals once sacrum position corrected. Pt has weak L TA; therefore further strengthening needed to imiprove symmetry and stabilize pelvis. Physical Therapy Plan Frequency and Duration Frequency of Treatment 2x/Week Plan of Care Start Date 12/31/18 Plan of Care End Date 03/11/19 Next Visit Focus/Plan Next Note Type Treatment Note Next Visit Plan Try set up of SI belt for compression at R SIJ. Cont. JMT for neutral pelvis positioning (correction of R inflare); education for proper body mechanics for lifting; progression of HEP for pelvic/ core stabilization (start roll in/outs); self care education for modalities; gait training . K-tape assessment and if tolerated K-tape for pelvic stabilization. End with cryotherapy is needed.
--- NOTE | 2019-01-13 16:13 | PT.OTN ---
Current Diagnoses Other chronic pain (01/13/19) Low back pain (01/13/19) Muscle weakness (generalized) (01/13/19) Other abnormalities of gait and mobility (01/13/19) Physical Therapy Treatment Note PT-OP-A Visit Information Start: 12/31/18 08:04 Freq: Status: Active Protocol: Document 01/13/19 15:05 LRN (Rec: 01/13/19 16:03 LRN [id number]) Out-Patient Physical Therapy Visit Information Visit Information Visit Type Treatment Note Visit Start Time 15:05 Visit Stop Time 15:50 Total Visit Minutes 45 Visit Number 4 Number of RAILROAD SIGNAL OPERATOR Visits 0 Evaluation Information Evaluation Date 12/31/18 Precautions Precautions Pt reported: R MALENA - 15 yrs ago Osteoarthritis PT-OP-B Current Condition Start: 12/31/18 08:04 Freq: Status: Active Protocol: Document 12/31/18 09:57 LRN (Rec: 12/31/18 10:49 LRN [id number]) Current Condition History of Current Condition Onset Date 3.5 weeks ago Current Complaints Ongoing off/on bouts of debilitatin back pain History of Current Condition Back pain since a teenager. Had to wear a brace as a teen because of damage noted from chiropractor. HAs had bouts of back pain. 3.5 weeks ago had onset of back pain that resolved after 3 weeks. Typically the pain resolves in 3-10 days. During her 3/5 weeks of pain she was seeing the chiropractor who she sees regularly (1/week to 1x every 2.5 weeks, without insurance 1x/2 months) for good self care. Currently she is aware of some pain and must position spine to get relief of pain. Pain 1/10 sitting. Pain is a dull aching, irritating, oppressive, constant. States she tries to deny it, then it takes me out. Bouts of pain onset is every 2-3 months. Prior Treatments and Tests X-rays from [facility]. 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 Treatment Goals Patient/Caregiver Goals Wants to be able to get better and need PT to make sure her bout of pain doesn't return. Prior Functional Status Baseline Function- ADL's Independent Baseline Function- Mobility Independent Baseline Function- Recreation/Hobbies Pet sit & dog sit. Cooking Current Functional Impairments (Reported) Functional Limitations- ADL's Can't help a child into lap (3 and 7 yr old) or pick the 3 yr old up. Personal Factors Other Personal Factors That May Effect Chronic low back pain, Therapy/Recovery arthritis, neck pain, controlled HBP, R MALENA, PT-OP-C Subjective Start: 12/31/18 08:04 Freq: Status: Active Protocol: Document 01/13/19 15:05 LRN (Rec: 01/13/19 16:03 LRN [id number]) OP-PT Subjective Patient Comments Patient Comments States she is more aware of how she is walking when waking has pain in the R hip muscles and can press on it to relieve it while walking. Pain c/o same. PT-OP-E Functional Tests Start: 12/31/18 08:04 Freq: Status: Active Protocol: Document 12/31/18 09:57 LRN (Rec: 12/31/18 10:49 LRN [id number]) Functional Tests Timed Up and Go (TUG) Score 11 TUG Impairment Rating 1 to <20% Impaired (Score 11) PT-OP-F Manual Assessment Start: 12/31/18 08:04 Freq: Status: Active Protocol: Document 12/31/18 09:57 LRN (Rec: 12/31/18 18:59 LRN [id number]) Manual Assessments Soft Tissue Assessment Soft Tissue Mobility Assessment Muscle guarding and tenderness at L Gluteus Mina and along the L sacral border. PT-OP-G Mobility & Gait Start: 12/31/18 08:04 Freq: Status: Active Protocol: Document 12/31/18 09:57 LRN (Rec: 12/31/18 18:59 LRN [id number]) OP Mobility Evaluation Bed Mobility Supine to and from Sit Pt came up in sit up rotating in the direction she was transferring and placing her legs in a 90/90 scissored fashion. Sit to Supine she uses her R UE to assist the R leg. Transfers Sit to Stand Independent but with unequal weight bearing of the LE's. Car Transfers Uses R UE to assist R leg into car. OP Gait Assessment Comments Gait Comments Pt ambulates independently without assistive device with excessive trunk sway bilaterally. She ambulates with a Trendelenburg type gait bilaterally L>R. PT-OP-H Neuro Start: 12/31/18 08:04 Freq: Status: Active Protocol: Document 12/31/18 09:57 LRN (Rec: 12/31/18 18:59 LRN [id number]) Sensation Evaluation Gross Sensation Gross Sensation WNL Deep Tendon Reflex & Clonus Assessment Deep Tendon Reflex Right Achilles Deep Tendon Reflex 2+ Normal Left Achilles Deep Tendon Reflex 1+ Diminished Bilateral Patellar Deep Tendon Reflex 3+ Normal But Brisk PT-OP-J Posture/Palpation/Skin Start: 12/31/18 08:04 Freq: Status: Active Protocol: Document 12/31/18 09:57 LRN (Rec: 12/31/18 18:59 LRN [id number]) Posture Evaluation Comments Posture Comments Standing: Forward head, depressed R shoulder, decreased thoracic and lumbar curvature, pelvis neutral. Palpation Assessment Location Innominates Palpation Details R Leg long in supine, Longer in long sit. Sacrum Palpation Location L Lateral Border Palpation Findings Tenderness Hips Palpation Location Upper Gluteus Mina Palpation Findings Tenderness Lumbar spine Palpation Location L/S PA glides elicited no complaints of pain. PT-OP-K Range of Motion Start: 12/31/18 08:04 Freq: Status: Active Protocol: Document 12/31/18 09:57 LRN (Rec: 12/31/18 18:59 LRN [id number]) Hip Goniometric Range of Motion Hip Right Passive Testing Position Supine Straight Leg Raise 80 Extension 0 Internal Rotation 40 External Rotation 70 Left Passive Testing Position Supine Straight Leg Raise 70 Extension 5 Internal Rotation 55 External Rotation 55 PT-OP-L Special Tests Start: 12/31/18 08:04 Freq: Status: Active Protocol: Document 12/31/18 09:57 LRN (Rec: 12/31/18 18:59 LRN [id number]) Special Tests Lumbar Spine Special Tests Straight Leg Raise Test Results postive left for possible neural tension and soft tissue tightness Comments 70 deg's left due to LE tightness, 80 deg's right. PT-OP-M Strength Start: 12/31/18 08:04 Freq: Status: Active Protocol: Document 12/31/18 09:57 LRN (Rec: 12/31/18 18:59 LRN [id number]) Hip Strength Hip Manual Muscle Testing Right Flexion (L2) 3 Fair Extension (S1) 2 Poor Abduction 3 Fair Adduction 3 Fair External Rotation 3 Fair Internal Rotation 3 Fair Left Flexion (L2) 3 Fair Extension (S1) 3 Fair Abduction 3+ Fair+ Adduction 4 Good External Rotation 3 Fair Internal Rotation 3 Fair PT-OP-Q Treatments Start: 12/31/18 08:04 Freq: Status: Active Protocol: Document 01/13/19 15:05 LRN (Rec: 01/13/19 16:03 LRN [id number]) Therapeutic Exercises Supine Exercises Piriformis stretch Supine Exercise Name Piriformis Stretch Side left Reps/Minutes 2' Lateral hip stretch Supine Exercise Name Lateral Hip Stretch Side left Reps/Minutes 2' TA Supine Exercise Name TA strengthening L > R Equipment Used Ball push into thighs Reps/Minutes 10 x 10 sec, 2 sets. Comments Extra time taken for pt to tighten L side equal to R. Manual Therapy Treatment Soft Tissue Mobilization LB L>R Body Location L gluteals & QL Mobilization Type Cross-Friction Strumming Intensity/Depth Moderate Body Position Prone Joint Mobilizations Lumbar Joint L4-5, L5-S1 Direction Correcting a R rotation Grade II Body Position Prone Reps/Duration 5' SACRAL Joint Sacrum Direction Correction for a R rotated sacrum Body Position Prone Reps/Duration 6' Comments MFR. SIJ Joint L SIJ Direction Correction for R innominate inflare & anter rot R innominate. L outflare Grade III Body Position Supine Reps/Duration L side x 2 Comments CR MFR Self-Care/Home Management Treatment Education Patient Education Home Exercise Program Activities Self-Care/Home Management Activities Issue & reviewd HEP: Left Lateral Hip & Piriformis stretch PT-OP-T Assessment and Plan Start: 12/31/18 08:04 Freq: Status: Active Protocol: Document 01/13/19 15:05 LRN (Rec: 01/13/19 16:03 LRN [id number]) Physical Therapy Assessment Assessment Summary Assessment Not able to correct R inflare due to R hip pain with isometric hip AB; therefore corrected per L Outflare with difficulty. Pt contracts R abdomen > L; therefore more retraining is needed to engage L core. Pt feels unlevel when standing symmetrically. Pt is not painful in the R SIJ on palpation, but is tender in the hip muscles; therefore may not need SI Belt for compression. Tight L hip and lumbar paraspinal muscles are present. Lower lumbar spine is in R rotation. Physical Therapy Plan Frequency and Duration Frequency of Treatment 2x/Week Plan of Care Start Date 12/31/18 Plan of Care End Date 03/11/19 Next Visit Focus/Plan Next Note Type Treatment Note Next Visit Plan Assess for need of SI belt to stabilize R SIJ & K-tape if need to stabilize. Cont JMT to normalize pelvic positioning (correcting L outflare/R inflare). Add Roll in/outs & hip AB/AD symmetrical strengthening. Educate in self care with modalities. Gait training. Cryotherapy if needed.
--- NOTE | 2019-01-19 16:30 | PT.OTN ---
Current Diagnoses Other chronic pain (01/19/19) Low back pain (01/19/19) Muscle weakness (generalized) (01/19/19) Other abnormalities of gait and mobility (01/19/19) Physical Therapy Treatment Note PT-OP-A Visit Information Start: 12/31/18 08:04 Freq: Status: Active Protocol: Document 01/19/19 12:45 LRN (Rec: 01/19/19 13:33 LRN [id number]) Out-Patient Physical Therapy Visit Information Visit Information Visit Type Treatment Note Visit Start Time 12:45 Visit Stop Time 13:32 Total Visit Minutes 47 Visit Number 5 Number of CONSUMER SERVICES CONSULTANT Visits 0 Evaluation Information Evaluation Date 12/31/18 Precautions Precautions Pt reported: R MALENA - 15 yrs ago Osteoarthritis PT-OP-B Current Condition Start: 12/31/18 08:04 Freq: Status: Active Protocol: Document 12/31/18 09:57 LRN (Rec: 12/31/18 10:49 LRN [id number]) Current Condition History of Current Condition Onset Date 3.5 weeks ago Current Complaints Ongoing off/on bouts of debilitatin back pain History of Current Condition Back pain since a teenager. Had to wear a brace as a teen because of damage noted from chiropractor. HAs had bouts of back pain. 3.5 weeks ago had onset of back pain that resolved after 3 weeks. Typically the pain resolves in 3-10 days. During her 3/5 weeks of pain she was seeing the chiropractor who she sees regularly (1/week to 1x every 2.5 weeks, without insurance 1x/2 months) for good self care. Currently she is aware of some pain and must position spine to get relief of pain. Pain 1/10 sitting. Pain is a dull aching, irritating, oppressive, constant. States she tries to deny it, then it takes me out. Bouts of pain onset is every 2-3 months. Prior Treatments and Tests X-rays from [facility]. 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 Treatment Goals Patient/Caregiver Goals Wants to be able to get better and need PT to make sure her bout of pain doesn't return. Prior Functional Status Baseline Function- ADL's Independent Baseline Function- Mobility Independent Baseline Function- Recreation/Hobbies Pet sit & dog sit. Cooking Current Functional Impairments (Reported) Functional Limitations- ADL's Can't help a child into lap (3 and 7 yr old) or pick the 3 yr old up. Personal Factors Other Personal Factors That May Effect Chronic low back pain, Therapy/Recovery arthritis, neck pain, controlled HBP, R MALENA, PT-OP-C Subjective Start: 12/31/18 08:04 Freq: Status: Active Protocol: Document 01/19/19 12:45 LRN (Rec: 01/19/19 13:33 LRN [id number]) OP-PT Subjective Patient Comments Patient Comments Pain is present in the R hip every morning except today. States she eliminates the pain by putting pressure on the muscle. PT-OP-E Functional Tests Start: 12/31/18 08:04 Freq: Status: Active Protocol: Document 12/31/18 09:57 LRN (Rec: 12/31/18 10:49 LRN [id number]) Functional Tests Timed Up and Go (TUG) Score 11 TUG Impairment Rating 1 to <20% Impaired (Score 11) PT-OP-F Manual Assessment Start: 12/31/18 08:04 Freq: Status: Active Protocol: Document 12/31/18 09:57 LRN (Rec: 12/31/18 18:59 LRN [id number]) Manual Assessments Soft Tissue Assessment Soft Tissue Mobility Assessment Muscle guarding and tenderness at L Gluteus Mina and along the L sacral border. PT-OP-G Mobility & Gait Start: 12/31/18 08:04 Freq: Status: Active Protocol: Document 12/31/18 09:57 LRN (Rec: 12/31/18 18:59 LRN [id number]) OP Mobility Evaluation Bed Mobility Supine to and from Sit Pt came up in sit up rotating in the direction she was transferring and placing her legs in a 90/90 scissored fashion. Sit to Supine she uses her R UE to assist the R leg. Transfers Sit to Stand Independent but with unequal weight bearing of the LE's. Car Transfers Uses R UE to assist R leg into car. OP Gait Assessment Comments Gait Comments Pt ambulates independently without assistive device with excessive trunk sway bilaterally. She ambulates with a Trendelenburg type gait bilaterally L>R. PT-OP-H Neuro Start: 12/31/18 08:04 Freq: Status: Active Protocol: Document 12/31/18 09:57 LRN (Rec: 12/31/18 18:59 LRN [id number]) Sensation Evaluation Gross Sensation Gross Sensation WNL Deep Tendon Reflex & Clonus Assessment Deep Tendon Reflex Right Achilles Deep Tendon Reflex 2+ Normal Left Achilles Deep Tendon Reflex 1+ Diminished Bilateral Patellar Deep Tendon Reflex 3+ Normal But Brisk PT-OP-J Posture/Palpation/Skin Start: 12/31/18 08:04 Freq: Status: Active Protocol: Document 12/31/18 09:57 LRN (Rec: 12/31/18 18:59 LRN [id number]) Posture Evaluation Comments Posture Comments Standing: Forward head, depressed R shoulder, decreased thoracic and lumbar curvature, pelvis neutral. Palpation Assessment Location Innominates Palpation Details R Leg long in supine, Longer in long sit. Sacrum Palpation Location L Lateral Border Palpation Findings Tenderness Hips Palpation Location Upper Gluteus Mina Palpation Findings Tenderness Lumbar spine Palpation Location L/S PA glides elicited no complaints of pain. PT-OP-K Range of Motion Start: 12/31/18 08:04 Freq: Status: Active Protocol: Document 12/31/18 09:57 LRN (Rec: 12/31/18 18:59 LRN [id number]) Hip Goniometric Range of Motion Hip Right Passive Testing Position Supine Straight Leg Raise 80 Extension 0 Internal Rotation 40 External Rotation 70 Left Passive Testing Position Supine Straight Leg Raise 70 Extension 5 Internal Rotation 55 External Rotation 55 PT-OP-L Special Tests Start: 12/31/18 08:04 Freq: Status: Active Protocol: Document 12/31/18 09:57 LRN (Rec: 12/31/18 18:59 LRN [id number]) Special Tests Lumbar Spine Special Tests Straight Leg Raise Test Results postive left for possible neural tension and soft tissue tightness Comments 70 deg's left due to LE tightness, 80 deg's right. PT-OP-M Strength Start: 12/31/18 08:04 Freq: Status: Active Protocol: Document 12/31/18 09:57 LRN (Rec: 12/31/18 18:59 LRN [id number]) Hip Strength Hip Manual Muscle Testing Right Flexion (L2) 3 Fair Extension (S1) 2 Poor Abduction 3 Fair Adduction 3 Fair External Rotation 3 Fair Internal Rotation 3 Fair Left Flexion (L2) 3 Fair Extension (S1) 3 Fair Abduction 3+ Fair+ Adduction 4 Good External Rotation 3 Fair Internal Rotation 3 Fair PT-OP-Q Treatments Start: 12/31/18 08:04 Freq: Status: Active Protocol: Document 01/19/19 12:45 LRN (Rec: 01/19/19 13:33 LRN [id number]) Therapeutic Exercises Supine Exercises LE Roll in/out Supine Exercise Name LE Roll in/out with deep breathing Side bilateral Reps/Minutes 10 x Comments Extra time for training Piriformis stretch Supine Exercise Name Piriformis Stretch Side bilateral Reps/Minutes 2' Comments Careful of R MALENA Lateral hip stretch Supine Exercise Name Lateral Hip Stretch Side left Reps/Minutes 2' Comments Careful of R MALENA Sidelying Exercises Clamshell Sidelying Exercise Name Clamshell Side bilateral Reps/Minutes 10x Manual Therapy Treatment Soft Tissue Mobilization LB L>R Body Location L gluteals & QL Mobilization Type Cross-Friction Strumming Intensity/Depth Moderate Body Position Prone Joint Mobilizations Lumbar Joint L4-5, L5-S1 Direction Correcting a L rotation Grade II Body Position Prone Reps/Duration 5' SACRAL Joint Sacrum Direction Correction for a mild L rotated sacrum Body Position Prone Reps/Duration 3' Comments MFR. SIJ Joint L SIJ & R SIJ Direction Correction for R innominate inflare & anter rot R innominate. L outflare Grade III Body Position Supine Reps/Duration L side x 2 Comments Pt educated in self correction technique for bilateral sides, starting with R, then L if needed. Self-Care/Home Management Treatment Education Patient Education Home Exercise Program Other Education Pt educated in safe and proper removal of K-tape test spot in L lower abdomen. Pt I/S in allergic reaction symptoms with I/S to remove immediately with symptoms. Pt I/S to remove K-tape within 5 days. Activities Self-Care/Home Management Activities Issued & reviewed HEP and Lev 2 T-Band issued: LE roll in/ out. I/S pt in self mob for pelvic R inflare/L outflare (see manual therapy). I/S pt in R lateral shift of pelvis with RLE weightbearing during gait. PT-OP-T Assessment and Plan Start: 12/31/18 08:04 Freq: Status: Active Protocol: Document 01/19/19 12:45 LRN (Rec: 01/19/19 13:33 LRN [id number]) Physical Therapy Assessment Assessment Summary Assessment Pt frustrated her back continues to hurt. Pt has mild rotation of sacrum and lumbar spine now to the left. Clamshell is difficult on R: due to pelvic instability. Physical Therapy Plan Frequency and Duration Frequency of Treatment 2x/Week Plan of Care Start Date 12/31/18 Plan of Care End Date 03/11/19 Next Visit Focus/Plan Next Note Type Treatment Note Next Visit Plan Gait training, Assess response to K-tape. Review HEP (Roll in/outs with Deep breath and Kegel). Start Lumbar active mobility (table slides) Assess for need of SI belt to stabilize R SIJ & K-tape if need to stabilize. Cont JMT to normalize pelvic positioning (try correcting L outflare to start, R inflare if needed). Add hip AB/AD symmetrical strengthening. Educate in self care with modalities. Cryotherapy if needed.
--- NOTE | 2019-02-04 16:07 | PT.OTN ---
Current Diagnoses Other chronic pain (02/04/19) Low back pain (02/04/19) Muscle weakness (generalized) (02/04/19) Other abnormalities of gait and mobility (02/04/19) Physical Therapy Treatment Note PT-OP-A Visit Information Start: 12/31/18 08:04 Freq: Status: Active Protocol: Document 02/04/19 11:20 LRN (Rec: 02/04/19 12:12 LRN [id number]) Out-Patient Physical Therapy Visit Information Visit Information Visit Type Treatment Note Visit Start Time 11:20 Visit Stop Time 12:12 Total Visit Minutes 52 Visit Number 7 Number of MILL CONTROLLER Visits 0 Evaluation Information Evaluation Date 12/31/18 Precautions Precautions Pt reported: R MALENA - 15 yrs ago Osteoarthritis PT-OP-B Current Condition Start: 12/31/18 08:04 Freq: Status: Active Protocol: Document 12/31/18 09:57 LRN (Rec: 12/31/18 10:49 LRN [id number]) Current Condition History of Current Condition Onset Date 3.5 weeks ago Current Complaints Ongoing off/on bouts of debilitatin back pain History of Current Condition Back pain since a teenager. Had to wear a brace as a teen because of damage noted from chiropractor. HAs had bouts of back pain. 3.5 weeks ago had onset of back pain that resolved after 3 weeks. Typically the pain resolves in 3-10 days. During her 3/5 weeks of pain she was seeing the chiropractor who she sees regularly (1/week to 1x every 2.5 weeks, without insurance 1x/2 months) for good self care. Currently she is aware of some pain and must position spine to get relief of pain. Pain 1/10 sitting. Pain is a dull aching, irritating, oppressive, constant. States she tries to deny it, then it takes me out. Bouts of pain onset is every 2-3 months. Prior Treatments and Tests X-rays from [facility]. 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 Treatment Goals Patient/Caregiver Goals Wants to be able to get better and need PT to make sure her bout of pain doesn't return. Prior Functional Status Baseline Function- ADL's Independent Baseline Function- Mobility Independent Baseline Function- Recreation/Hobbies Pet sit & dog sit. Cooking Current Functional Impairments (Reported) Functional Limitations- ADL's Can't help a child into lap (3 and 7 yr old) or pick the 3 yr old up. Personal Factors Other Personal Factors That May Effect Chronic low back pain, Therapy/Recovery arthritis, neck pain, controlled HBP, R MALENA, PT-OP-C Subjective Start: 12/31/18 08:04 Freq: Status: Active Protocol: Document 02/04/19 11:20 LRN (Rec: 02/04/19 12:12 LRN [id number]) OP-PT Subjective Patient Comments Patient Comments No change PT-OP-E Functional Tests Start: 12/31/18 08:04 Freq: Status: Active Protocol: Document 12/31/18 09:57 LRN (Rec: 12/31/18 10:49 LRN [id number]) Functional Tests Timed Up and Go (TUG) Score 11 TUG Impairment Rating 1 to <20% Impaired (Score 11) PT-OP-F Manual Assessment Start: 12/31/18 08:04 Freq: Status: Active Protocol: Document 12/31/18 09:57 LRN (Rec: 12/31/18 18:59 LRN [id number]) Manual Assessments Soft Tissue Assessment Soft Tissue Mobility Assessment Muscle guarding and tenderness at L Gluteus Mina and along the L sacral border. PT-OP-G Mobility & Gait Start: 12/31/18 08:04 Freq: Status: Active Protocol: Document 12/31/18 09:57 LRN (Rec: 12/31/18 18:59 LRN [id number]) OP Mobility Evaluation Bed Mobility Supine to and from Sit Pt came up in sit up rotating in the direction she was transferring and placing her legs in a 90/90 scissored fashion. Sit to Supine she uses her R UE to assist the R leg. Transfers Sit to Stand Independent but with unequal weight bearing of the LE's. Car Transfers Uses R UE to assist R leg into car. OP Gait Assessment Comments Gait Comments Pt ambulates independently without assistive device with excessive trunk sway bilaterally. She ambulates with a Trendelenburg type gait bilaterally L>R. PT-OP-H Neuro Start: 12/31/18 08:04 Freq: Status: Active Protocol: Document 12/31/18 09:57 LRN (Rec: 12/31/18 18:59 LRN [id number]) Sensation Evaluation Gross Sensation Gross Sensation WNL Deep Tendon Reflex & Clonus Assessment Deep Tendon Reflex Right Achilles Deep Tendon Reflex 2+ Normal Left Achilles Deep Tendon Reflex 1+ Diminished Bilateral Patellar Deep Tendon Reflex 3+ Normal But Brisk PT-OP-J Posture/Palpation/Skin Start: 12/31/18 08:04 Freq: Status: Active Protocol: Document 12/31/18 09:57 LRN (Rec: 12/31/18 18:59 LRN [id number]) Posture Evaluation Comments Posture Comments Standing: Forward head, depressed R shoulder, decreased thoracic and lumbar curvature, pelvis neutral. Palpation Assessment Location Innominates Palpation Details R Leg long in supine, Longer in long sit. Sacrum Palpation Location L Lateral Border Palpation Findings Tenderness Hips Palpation Location Upper Gluteus Mina Palpation Findings Tenderness Lumbar spine Palpation Location L/S PA glides elicited no complaints of pain. PT-OP-K Range of Motion Start: 12/31/18 08:04 Freq: Status: Active Protocol: Document 12/31/18 09:57 LRN (Rec: 12/31/18 18:59 LRN [id number]) Hip Goniometric Range of Motion Hip Right Passive Testing Position Supine Straight Leg Raise 80 Extension 0 Internal Rotation 40 External Rotation 70 Left Passive Testing Position Supine Straight Leg Raise 70 Extension 5 Internal Rotation 55 External Rotation 55 PT-OP-L Special Tests Start: 12/31/18 08:04 Freq: Status: Active Protocol: Document 12/31/18 09:57 LRN (Rec: 12/31/18 18:59 LRN [id number]) Special Tests Lumbar Spine Special Tests Straight Leg Raise Test Results postive left for possible neural tension and soft tissue tightness Comments 70 deg's left due to LE tightness, 80 deg's right. PT-OP-M Strength Start: 12/31/18 08:04 Freq: Status: Active Protocol: Document 12/31/18 09:57 LRN (Rec: 12/31/18 18:59 LRN [id number]) Hip Strength Hip Manual Muscle Testing Right Flexion (L2) 3 Fair Extension (S1) 2 Poor Abduction 3 Fair Adduction 3 Fair External Rotation 3 Fair Internal Rotation 3 Fair Left Flexion (L2) 3 Fair Extension (S1) 3 Fair Abduction 3+ Fair+ Adduction 4 Good External Rotation 3 Fair Internal Rotation 3 Fair PT-OP-Q Treatments Start: 12/31/18 08:04 Freq: Status: Active Protocol: Document 02/04/19 11:20 LRN (Rec: 02/04/19 12:12 LRN [id number]) Therapeutic Exercises Supine Exercises TA w/nida heel slides Supine Exercise Name TA with nida heel slides Reps/Minutes 2' Sitting Exercises Lower trunk stretch Sitting Exercise Name Supported forward and sideways table lean using a chair Side bilateral LE Roll in/out w/Deep Breathing Sitting Exercise Name LE Roll in/out, Deep breathing , Kegel Reps/Minutes 10 x Comments Time taken to practice & review Standing Exercises Sit to Stand Standing Exercise Name Sit to Stand Reps/Minutes 10x Up/down stairs Standing Exercise Name Up/Down 1 set of stairs Comments Pt wearing Blue strap as L. SI compression. Gait Training Gait Activity Gait for weight shift & posture Description Gait correction training Device Used none Surface level Distance/Duration 10' Treatment Focus For wgt shift primarily L and level shoulders Manual Therapy Treatment Soft Tissue Mobilization LB L>R Body Location R>L QL, lumbar paraspinals, upper gluteals Mobilization Type Cross-Friction Strumming Intensity/Depth Moderate Body Position Prone Joint Mobilizations Lumbar Joint L4-5, L5-S1 Direction Correcting a R rotation Grade II Body Position Prone SACRAL Joint Sacrum Direction Correction for a L rotated sacrum Body Position Prone Comments MFR. SIJ Joint R SIJ Direction Correction for L innominate outflare Grade III Body Position Supine Comments L SIJ discontinued due to pain . Taping R SIJ compression Body Location R SIJ Type of Tape Kinesio Tape Comments Added short I-strip to the sacral end to keep tape from peeling off. Pt to remove in 1 day. Self-Care/Home Management Treatment Activities Self-Care/Home Management Activities Fax sent to [facility] requesting prescription of SI Belt for pt. PT-OP-T Assessment and Plan Start: 12/31/18 08:04 Freq: Status: Active Protocol: Document 02/04/19 11:20 LRN (Rec: 02/04/19 12:12 LRN [id number]) Physical Therapy Assessment Assessment Summary Assessment Pt is improving in her gait mechanics but today demonstrates a mild Trendelenberg gait to the right. K-tape for R SIJ compression doesn't appear to provide significant pain relief. Blue strap may be helpful since pt did not complain of pain with stairs and sit to stands after placement. Further assessment of benefit of use is needed. Physical Therapy Plan Frequency and Duration Frequency of Treatment 2x/Week Plan of Care Start Date 12/31/18 Plan of Care End Date 03/11/19 Next Visit Focus/Plan Next Note Type Treatment Note Next Visit Plan Assess for need of SI belt to stabilize R SIJ & assess response to K-tape; might try R SI compression with star tape at SIJ if current taping not effective. Review HEP ( Roll in/outs with Deep breath and Kegel) and Lumbar active mobility (table slides). Start lumbar ROM and strengthening ex's. Cont JMT to normalize pelvic positioning (try correcting L outflare to start, R inflare if needed). Gait training. Add hip AB/AD symmetrical strengthening. Educate in self care with modalities. Cryotherapy if needed.
--- NOTE | 2019-02-08 14:44 | PT.OTN ---
Current Diagnoses Other chronic pain (02/08/19) Low back pain (02/08/19) Muscle weakness (generalized) (02/08/19) Other abnormalities of gait and mobility (02/08/19) Physical Therapy Treatment Note PT-OP-A Visit Information Start: 12/31/18 08:04 Freq: Status: Active Protocol: Document 02/08/19 12:46 LRN (Rec: 02/08/19 13:37 LRN [id number]) Out-Patient Physical Therapy Visit Information Visit Information Visit Type Treatment Note Visit Start Time 12:55 Visit Stop Time 13:34 Total Visit Minutes 39 Visit Number 8 Number of HORSE WRANGLER Visits 0 Evaluation Information Evaluation Date 12/31/18 Precautions Precautions Pt reported: R MALENA - 15 yrs ago Osteoarthritis PT-OP-B Current Condition Start: 12/31/18 08:04 Freq: Status: Active Protocol: Document 12/31/18 09:57 LRN (Rec: 12/31/18 10:49 LRN [id number]) Current Condition History of Current Condition Onset Date 3.5 weeks ago Current Complaints Ongoing off/on bouts of debilitatin back pain History of Current Condition Back pain since a teenager. Had to wear a brace as a teen because of damage noted from chiropractor. HAs had bouts of back pain. 3.5 weeks ago had onset of back pain that resolved after 3 weeks. Typically the pain resolves in 3-10 days. During her 3/5 weeks of pain she was seeing the chiropractor who she sees regularly (1/week to 1x every 2.5 weeks, without insurance 1x/2 months) for good self care. Currently she is aware of some pain and must position spine to get relief of pain. Pain 1/10 sitting. Pain is a dull aching, irritating, oppressive, constant. States she tries to deny it, then it takes me out. Bouts of pain onset is every 2-3 months. Prior Treatments and Tests X-rays from [facility]. 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 Treatment Goals Patient/Caregiver Goals Wants to be able to get better and need PT to make sure her bout of pain doesn't return. Prior Functional Status Baseline Function- ADL's Independent Baseline Function- Mobility Independent Baseline Function- Recreation/Hobbies Pet sit & dog sit. Cooking Current Functional Impairments (Reported) Functional Limitations- ADL's Can't help a child into lap (3 and 7 yr old) or pick the 3 yr old up. Personal Factors Other Personal Factors That May Effect Chronic low back pain, Therapy/Recovery arthritis, neck pain, controlled HBP, R MALENA, PT-OP-C Subjective Start: 12/31/18 08:04 Freq: Status: Active Protocol: Document 02/08/19 12:46 LRN (Rec: 02/08/19 13:37 LRN [id number]) OP-PT Subjective Patient Comments Patient Comments Horrid pain in the morning and on 2nd IBP today due to R hip and back pain. Pain is not on standing, it is with first step and walking. PT-OP-E Functional Tests Start: 12/31/18 08:04 Freq: Status: Active Protocol: Document 12/31/18 09:57 LRN (Rec: 12/31/18 10:49 LRN [id number]) Functional Tests Timed Up and Go (TUG) Score 11 TUG Impairment Rating 1 to <20% Impaired (Score 11) PT-OP-F Manual Assessment Start: 12/31/18 08:04 Freq: Status: Active Protocol: Document 12/31/18 09:57 LRN (Rec: 12/31/18 18:59 LRN [id number]) Manual Assessments Soft Tissue Assessment Soft Tissue Mobility Assessment Muscle guarding and tenderness at L Gluteus Mina and along the L sacral border. PT-OP-G Mobility & Gait Start: 12/31/18 08:04 Freq: Status: Active Protocol: Document 12/31/18 09:57 LRN (Rec: 12/31/18 18:59 LRN [id number]) OP Mobility Evaluation Bed Mobility Supine to and from Sit Pt came up in sit up rotating in the direction she was transferring and placing her legs in a 90/90 scissored fashion. Sit to Supine she uses her R UE to assist the R leg. Transfers Sit to Stand Independent but with unequal weight bearing of the LE's. Car Transfers Uses R UE to assist R leg into car. OP Gait Assessment Comments Gait Comments Pt ambulates independently without assistive device with excessive trunk sway bilaterally. She ambulates with a Trendelenburg type gait bilaterally L>R. PT-OP-H Neuro Start: 12/31/18 08:04 Freq: Status: Active Protocol: Document 12/31/18 09:57 LRN (Rec: 12/31/18 18:59 LRN [id number]) Sensation Evaluation Gross Sensation Gross Sensation WNL Deep Tendon Reflex & Clonus Assessment Deep Tendon Reflex Right Achilles Deep Tendon Reflex 2+ Normal Left Achilles Deep Tendon Reflex 1+ Diminished Bilateral Patellar Deep Tendon Reflex 3+ Normal But Brisk PT-OP-J Posture/Palpation/Skin Start: 12/31/18 08:04 Freq: Status: Active Protocol: Document 12/31/18 09:57 LRN (Rec: 12/31/18 18:59 LRN [id number]) Posture Evaluation Comments Posture Comments Standing: Forward head, depressed R shoulder, decreased thoracic and lumbar curvature, pelvis neutral. Palpation Assessment Location Innominates Palpation Details R Leg long in supine, Longer in long sit. Sacrum Palpation Location L Lateral Border Palpation Findings Tenderness Hips Palpation Location Upper Gluteus Mina Palpation Findings Tenderness Lumbar spine Palpation Location L/S PA glides elicited no complaints of pain. PT-OP-K Range of Motion Start: 12/31/18 08:04 Freq: Status: Active Protocol: Document 12/31/18 09:57 LRN (Rec: 12/31/18 18:59 LRN [id number]) Hip Goniometric Range of Motion Hip Right Passive Testing Position Supine Straight Leg Raise 80 Extension 0 Internal Rotation 40 External Rotation 70 Left Passive Testing Position Supine Straight Leg Raise 70 Extension 5 Internal Rotation 55 External Rotation 55 PT-OP-L Special Tests Start: 12/31/18 08:04 Freq: Status: Active Protocol: Document 12/31/18 09:57 LRN (Rec: 12/31/18 18:59 LRN [id number]) Special Tests Lumbar Spine Special Tests Straight Leg Raise Test Results postive left for possible neural tension and soft tissue tightness Comments 70 deg's left due to LE tightness, 80 deg's right. PT-OP-M Strength Start: 12/31/18 08:04 Freq: Status: Active Protocol: Document 12/31/18 09:57 LRN (Rec: 12/31/18 18:59 LRN [id number]) Hip Strength Hip Manual Muscle Testing Right Flexion (L2) 3 Fair Extension (S1) 2 Poor Abduction 3 Fair Adduction 3 Fair External Rotation 3 Fair Internal Rotation 3 Fair Left Flexion (L2) 3 Fair Extension (S1) 3 Fair Abduction 3+ Fair+ Adduction 4 Good External Rotation 3 Fair Internal Rotation 3 Fair PT-OP-Q Treatments Start: 12/31/18 08:04 Freq: Status: Active Protocol: Document 02/08/19 12:46 LRN (Rec: 02/08/19 13:37 LRN [id number]) Cardio Equipment Bicycle (Upright) Duration (Minutes) 4 Resistance 3-4 Seat Position 5 Other 70+ rpm Therapeutic Exercises Supine Exercises LTR Supine Exercise Name LTR Side bilateral Reps/Minutes 10x each SKTC stretch Supine Exercise Name SKTC stretch Side bilateral Reps/Minutes 3' TA w/nida heel slides Supine Exercise Name TA with nida heel slides Reps/Minutes 2' Piriformis stretch Supine Exercise Name Piriformis Stretch Side bilateral Reps/Minutes 2' Comments Careful of R MALENA Lateral hip stretch Supine Exercise Name Lateral Hip Stretch Side left Reps/Minutes 2' Comments Careful of R MALENA Standing Exercises ABdominal Bracing/Posture Standing Exercise Name Abdominal bracing to improve posture Reps/Minutes 2' Lateral trunk stretch Standing Exercise Name Lateral trunk stretch Side right Gait Training Gait Activity Gait for weight shift & posture Description Gait correction training Device Used none Surface level Distance/Duration 10' Treatment Focus For wgt shift primarily L and level shoulders, core tight Self-Care/Home Management Treatment Education Patient Education Home Exercise Program Other Education Pt education in active ROM ex in bed prior to getting out of bed and walking. Activities Self-Care/Home Management Activities Issued & reviewed HEP: SKTC stretch and written I/S for LTR ex (knee sway). PT-OP-T Assessment and Plan Start: 12/31/18 08:04 Freq: Status: Active Protocol: Document 02/08/19 12:46 LRN (Rec: 02/08/19 13:37 LRN [id number]) Physical Therapy Assessment Goals Four Impairment Excessive trunk sway with gait Short Term Goal (STG) Improve Hip strength with pt able to demonstrate good hip shift on single leg weightbearing. Skilled Nursing Goal (LTG) Pt will demonstrate improved gait mechanics of decreased trunk sway LTG Duration 03/11/19 Three Impairment Poor body mechanics Short Term Goal (STG) Pt will be educated in proper body mechanics for lifting, moving objects, sitting for sewing. STG Duration 01/07/19 Two Impairment Chronic low back pain rated 1 - 4/10 Short Term Goal (STG) Decrease R>L LBP to no greater than 1-2/10 with patient able to properly transfer and lift objects with no increase in pain greater than 2/10 STG Duration 01/21/19 Bariatric Program Coordinator Goal (LTG) Decrease R>L LBP to no greater than 1/10 with pt able to manage her pain. LTG Duration 03/11/19 One Impairment Pt lacks appropriate self care HEP STG Duration 02/04/19 Bariatric Program Coordinator Goal (LTG) Pt will be independent with a self care HEP. LTG Duration 03/11/19 Assessment Summary Assessment Pt gait improved with less sway, but needs v. and phy. cuing still. No noteable improvement with K-tape. Physical Therapy Plan Frequency and Duration Frequency of Treatment 2x/Week Plan of Care Start Date 12/31/18 Plan of Care End Date 03/11/19 Next Visit Focus/Plan Next Note Type Treatment Note Next Visit Plan Start with blue strap for R SIJ compression before exercise. Can try R SI compression with star tape at SIJ, discuss with pt. Review HEP (Roll in/outs with Deep breath and Kegel) and Lumbar active mobility (table slides) . Start lumbar ROM (add ?R QL stretch) and strengthening ex 's. Cont JMT to normalize pelvic positioning (try correcting L outflare to start , R inflare if needed). Gait training. Add hip AB/AD symmetrical strengthening. Educate in self care with modalities. Cryotherapy if needed.
--- NOTE | 2019-02-11 11:27 | PT.OTN ---
Current Diagnoses Other chronic pain (02/11/19) Low back pain (02/11/19) Muscle weakness (generalized) (02/11/19) Other abnormalities of gait and mobility (02/11/19) Physical Therapy Treatment Note PT-OP-A Visit Information Start: 12/31/18 08:04 Freq: Status: Active Protocol: Document 02/11/19 08:15 LRN (Rec: 02/11/19 09:02 LRN [id number]) Out-Patient Physical Therapy Visit Information Visit Information Visit Type Treatment Note Visit Start Time 08:15 Visit Stop Time 08:59 Total Visit Minutes 44 Visit Number 9 Number of CABLE LAYER Visits 0 Evaluation Information Evaluation Date 12/31/18 Precautions Precautions Pt reported: R MALENA - 15 yrs ago Osteoarthritis PT-OP-B Current Condition Start: 12/31/18 08:04 Freq: Status: Active Protocol: Document 12/31/18 09:57 LRN (Rec: 12/31/18 10:49 LRN [id number]) Current Condition History of Current Condition Onset Date 3.5 weeks ago Current Complaints Ongoing off/on bouts of debilitatin back pain History of Current Condition Back pain since a teenager. Had to wear a brace as a teen because of damage noted from chiropractor. HAs had bouts of back pain. 3.5 weeks ago had onset of back pain that resolved after 3 weeks. Typically the pain resolves in 3-10 days. During her 3/5 weeks of pain she was seeing the chiropractor who she sees regularly (1/week to 1x every 2.5 weeks, without insurance 1x/2 months) for good self care. Currently she is aware of some pain and must position spine to get relief of pain. Pain 1/10 sitting. Pain is a dull aching, irritating, oppressive, constant. States she tries to deny it, then it takes me out. Bouts of pain onset is every 2-3 months. Prior Treatments and Tests X-rays from [facility]. 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 Treatment Goals Patient/Caregiver Goals Wants to be able to get better and need PT to make sure her bout of pain doesn't return. Prior Functional Status Baseline Function- ADL's Independent Baseline Function- Mobility Independent Baseline Function- Recreation/Hobbies Pet sit & dog sit. Cooking Current Functional Impairments (Reported) Functional Limitations- ADL's Can't help a child into lap (3 and 7 yr old) or pick the 3 yr old up. Personal Factors Other Personal Factors That May Effect Chronic low back pain, Therapy/Recovery arthritis, neck pain, controlled HBP, R MALENA, PT-OP-C Subjective Start: 12/31/18 08:04 Freq: Status: Active Protocol: Document 02/11/19 08:15 LRN (Rec: 02/11/19 09:02 LRN [id number]) OP-PT Subjective Patient Comments Patient Comments Glad she is now more aware of her body. States in morning no pain lying in bed, no pain in middle of the night when get up walking. The stretches in bed help in the morning to reduce the pain to a level not needing meds (6/10 vs 8/10 ). After having morning routine & coffee, pain decreases to 4/10. Pain is still constant. No pain at end of therapy. PT-OP-E Functional Tests Start: 12/31/18 08:04 Freq: Status: Active Protocol: Document 12/31/18 09:57 LRN (Rec: 12/31/18 10:49 LRN [id number]) Functional Tests Timed Up and Go (TUG) Score 11 TUG Impairment Rating 1 to <20% Impaired (Score 11) PT-OP-F Manual Assessment Start: 12/31/18 08:04 Freq: Status: Active Protocol: Document 12/31/18 09:57 LRN (Rec: 12/31/18 18:59 LRN [id number]) Manual Assessments Soft Tissue Assessment Soft Tissue Mobility Assessment Muscle guarding and tenderness at L Gluteus Mina and along the L sacral border. PT-OP-G Mobility & Gait Start: 12/31/18 08:04 Freq: Status: Active Protocol: Document 12/31/18 09:57 LRN (Rec: 12/31/18 18:59 LRN [id number]) OP Mobility Evaluation Bed Mobility Supine to and from Sit Pt came up in sit up rotating in the direction she was transferring and placing her legs in a 90/90 scissored fashion. Sit to Supine she uses her R UE to assist the R leg. Transfers Sit to Stand Independent but with unequal weight bearing of the LE's. Car Transfers Uses R UE to assist R leg into car. OP Gait Assessment Comments Gait Comments Pt ambulates independently without assistive device with excessive trunk sway bilaterally. She ambulates with a Trendelenburg type gait bilaterally L>R. PT-OP-H Neuro Start: 12/31/18 08:04 Freq: Status: Active Protocol: Document 12/31/18 09:57 LRN (Rec: 12/31/18 18:59 LRN [id number]) Sensation Evaluation Gross Sensation Gross Sensation WNL Deep Tendon Reflex & Clonus Assessment Deep Tendon Reflex Right Achilles Deep Tendon Reflex 2+ Normal Left Achilles Deep Tendon Reflex 1+ Diminished Bilateral Patellar Deep Tendon Reflex 3+ Normal But Brisk PT-OP-J Posture/Palpation/Skin Start: 12/31/18 08:04 Freq: Status: Active Protocol: Document 12/31/18 09:57 LRN (Rec: 12/31/18 18:59 LRN [id number]) Posture Evaluation Comments Posture Comments Standing: Forward head, depressed R shoulder, decreased thoracic and lumbar curvature, pelvis neutral. Palpation Assessment Location Innominates Palpation Details R Leg long in supine, Longer in long sit. Sacrum Palpation Location L Lateral Border Palpation Findings Tenderness Hips Palpation Location Upper Gluteus Mina Palpation Findings Tenderness Lumbar spine Palpation Location L/S PA glides elicited no complaints of pain. PT-OP-K Range of Motion Start: 12/31/18 08:04 Freq: Status: Active Protocol: Document 12/31/18 09:57 LRN (Rec: 12/31/18 18:59 LRN [id number]) Hip Goniometric Range of Motion Hip Right Passive Testing Position Supine Straight Leg Raise 80 Extension 0 Internal Rotation 40 External Rotation 70 Left Passive Testing Position Supine Straight Leg Raise 70 Extension 5 Internal Rotation 55 External Rotation 55 PT-OP-L Special Tests Start: 12/31/18 08:04 Freq: Status: Active Protocol: Document 12/31/18 09:57 LRN (Rec: 12/31/18 18:59 LRN [id number]) Special Tests Lumbar Spine Special Tests Straight Leg Raise Test Results postive left for possible neural tension and soft tissue tightness Comments 70 deg's left due to LE tightness, 80 deg's right. PT-OP-M Strength Start: 12/31/18 08:04 Freq: Status: Active Protocol: Document 12/31/18 09:57 LRN (Rec: 12/31/18 18:59 LRN [id number]) Hip Strength Hip Manual Muscle Testing Right Flexion (L2) 3 Fair Extension (S1) 2 Poor Abduction 3 Fair Adduction 3 Fair External Rotation 3 Fair Internal Rotation 3 Fair Left Flexion (L2) 3 Fair Extension (S1) 3 Fair Abduction 3+ Fair+ Adduction 4 Good External Rotation 3 Fair Internal Rotation 3 Fair PT-OP-Q Treatments Start: 12/31/18 08:04 Freq: Status: Active Protocol: Document 02/11/19 08:15 LRN (Rec: 02/11/19 10:28 LRN [id number]) Therapeutic Exercises Standing Exercises Gait-motor relearning Standing Exercise Name See Gait training Hamstring/LE neural stretch Standing Exercise Name Hamstring/LE neural stretch Side bilateral Equipment Used Steps Hip Hinging Standing Exercise Name Hip Hinging Reps/Minutes 3 Gait Training Gait Activity Gait for weight shift & posture Description Gait correction training Device Used none Surface level Treatment Focus For wgt shift primarily L and level shoulders, core tight Manual Therapy Treatment Soft Tissue Mobilization R Piriformis & Upper Gluteal Body Location R Piriformis & Upper Gluteal Mobilization Type Myofascial Release,Sustained Pressure Intensity/Depth Superficial & Moderate Depth Body Position Prone SIJ Body Location R SIJ Mobilization Type Myofascial Release Intensity/Depth Moderate Body Position Supine Comments PA and downward glide for release of R SIJ. Sacrum Body Location Correcting a L rotated & R SB sacrum Mobilization Type Myofascial Release Intensity/Depth Moderate Body Position Prone LB L>R Body Location R>L QL, lumbar paraspinals, upper gluteals Mobilization Type Cross-Friction,Strumming Intensity/Depth Moderate Body Position Prone Joint Mobilizations Lumbar Joint L4-5, L5-S1 Direction Correcting a R rotation Grade II Body Position Prone Self-Care/Home Management Treatment Education Other Education Pt education in Sacral/LE anatomy and positioning PT-OP-T Assessment and Plan Start: 12/31/18 08:04 Freq: Status: Active Protocol: Document 02/11/19 08:15 LRN (Rec: 08/30/19 10:28 LRN [id number]) Physical Therapy Assessment Assessment Summary Assessment Pt awareness and less back pain noted by pt. Her pain appears to be centralized at the R SIJ and Sciatic pain in superficial region of R hip. Pt R SIJ is compressed and needs further mobilization. She notes improvement and is finding ways to reduce her pain through core tightening. Physical Therapy Plan Frequency and Duration Frequency of Treatment 2x/Week Plan of Care Start Date 12/31/18 Plan of Care End Date 03/11/19 Next Visit Focus/Plan Next Visit Plan Address Body Mechanics per goal #3. Check for SI Belt referral. Check SI symmetry. Review HEP (Roll in/outs with Deep breath and Kegel) and Lumbar active mobility (table slides). Start lumbar ROM ( add ?R QL stretch) and strengthening ex's. Cont JMT to normalize pelvic positioning (try correcting L outflare to start, R inflare if needed). Gait training. Add hip AB/AD symmetrical strengthening. Educate in self care with modalities. Cryotherapy if needed.
--- NOTE | 2019-02-18 15:13 | PT.OTN ---
Current Diagnoses Other chronic pain (02/18/19) Low back pain (02/18/19) Muscle weakness (generalized) (02/18/19) Other abnormalities of gait and mobility (02/18/19) Physical Therapy Treatment Note PT-OP-A Visit Information Start: 12/31/18 08:04 Freq: Status: Active Protocol: Document 02/18/19 08:18 LRN (Rec: 02/18/19 09:07 LRN [id number]) Out-Patient Physical Therapy Visit Information Visit Information Visit Type Progress Note Visit Start Time 08:18 Visit Stop Time 09:08 Total Visit Minutes 50 Visit Number 10 Number of VP MEDICAL Visits 0 Evaluation Information Evaluation Date 12/31/18 Precautions Precautions Pt reported: R MALENA - 15 yrs ago Osteoarthritis PT-OP-B Current Condition Start: 12/31/18 08:04 Freq: Status: Active Protocol: Document 12/31/18 09:57 LRN (Rec: 12/31/18 10:49 LRN [id number]) Current Condition History of Current Condition Onset Date 3.5 weeks ago Current Complaints Ongoing off/on bouts of debilitatin back pain History of Current Condition Back pain since a teenager. Had to wear a brace as a teen because of damage noted from chiropractor. HAs had bouts of back pain. 3.5 weeks ago had onset of back pain that resolved after 3 weeks. Typically the pain resolves in 3-10 days. During her 3/5 weeks of pain she was seeing the chiropractor who she sees regularly (1/week to 1x every 2.5 weeks, without insurance 1x/2 months) for good self care. Currently she is aware of some pain and must position spine to get relief of pain. Pain 1/10 sitting. Pain is a dull aching, irritating, oppressive, constant. States she tries to deny it, then it takes me out. Bouts of pain onset is every 2-3 months. Prior Treatments and Tests X-rays from [facility]. 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 Treatment Goals Patient/Caregiver Goals Wants to be able to get better and need PT to make sure her bout of pain doesn't return. Prior Functional Status Baseline Function- ADL's Independent Baseline Function- Mobility Independent Baseline Function- Recreation/Hobbies Pet sit & dog sit. Cooking Current Functional Impairments (Reported) Functional Limitations- ADL's Can't help a child into lap (3 and 7 yr old) or pick the 3 yr old up. Personal Factors Other Personal Factors That May Effect Chronic low back pain, Therapy/Recovery arthritis, neck pain, controlled HBP, R MALENA, PT-OP-C Subjective Start: 12/31/18 08:04 Freq: Status: Active Protocol: Document 02/18/19 08:18 LRN (Rec: 02/18/19 09:07 LRN [id number]) OP-PT Subjective Patient Comments Patient Comments Having less pain when 1st walking getting out of bed by 50%. PT-OP-E Functional Tests Start: 12/31/18 08:04 Freq: Status: Active Protocol: Document 12/31/18 09:57 LRN (Rec: 12/31/18 10:49 LRN [id number]) Functional Tests Timed Up and Go (TUG) Score 11 TUG Impairment Rating 1 to <20% Impaired (Score 11) PT-OP-F Manual Assessment Start: 12/31/18 08:04 Freq: Status: Active Protocol: Document 12/31/18 09:57 LRN (Rec: 12/31/18 18:59 LRN [id number]) Manual Assessments Soft Tissue Assessment Soft Tissue Mobility Assessment Muscle guarding and tenderness at L Gluteus Mina and along the L sacral border. PT-OP-G Mobility & Gait Start: 12/31/18 08:04 Freq: Status: Active Protocol: Document 12/31/18 09:57 LRN (Rec: 12/31/18 18:59 LRN [id number]) OP Mobility Evaluation Bed Mobility Supine to and from Sit Pt came up in sit up rotating in the direction she was transferring and placing her legs in a 90/90 scissored fashion. Sit to Supine she uses her R UE to assist the R leg. Transfers Sit to Stand Independent but with unequal weight bearing of the LE's. Car Transfers Uses R UE to assist R leg into car. OP Gait Assessment Comments Gait Comments Pt ambulates independently without assistive device with excessive trunk sway bilaterally. She ambulates with a Trendelenburg type gait bilaterally L>R. PT-OP-H Neuro Start: 12/31/18 08:04 Freq: Status: Active Protocol: Document 12/31/18 09:57 LRN (Rec: 12/31/18 18:59 LRN [id number]) Sensation Evaluation Gross Sensation Gross Sensation WNL Deep Tendon Reflex & Clonus Assessment Deep Tendon Reflex Right Achilles Deep Tendon Reflex 2+ Normal Left Achilles Deep Tendon Reflex 1+ Diminished Bilateral Patellar Deep Tendon Reflex 3+ Normal But Brisk PT-OP-J Posture/Palpation/Skin Start: 12/31/18 08:04 Freq: Status: Active Protocol: Document 12/31/18 09:57 LRN (Rec: 12/31/18 18:59 LRN [id number]) Posture Evaluation Comments Posture Comments Standing: Forward head, depressed R shoulder, decreased thoracic and lumbar curvature, pelvis neutral. Palpation Assessment Location Innominates Palpation Details R Leg long in supine, Longer in long sit. Sacrum Palpation Location L Lateral Border Palpation Findings Tenderness Hips Palpation Location Upper Gluteus Mina Palpation Findings Tenderness Lumbar spine Palpation Location L/S PA glides elicited no complaints of pain. PT-OP-K Range of Motion Start: 12/31/18 08:04 Freq: Status: Active Protocol: Document 12/31/18 09:57 LRN (Rec: 12/31/18 18:59 LRN [id number]) Hip Goniometric Range of Motion Hip Right Passive Testing Position Supine Straight Leg Raise 80 Extension 0 Internal Rotation 40 External Rotation 70 Left Passive Testing Position Supine Straight Leg Raise 70 Extension 5 Internal Rotation 55 External Rotation 55 PT-OP-L Special Tests Start: 12/31/18 08:04 Freq: Status: Active Protocol: Document 12/31/18 09:57 LRN (Rec: 12/31/18 18:59 LRN [id number]) Special Tests Lumbar Spine Special Tests Straight Leg Raise Test Results postive left for possible neural tension and soft tissue tightness Comments 70 deg's left due to LE tightness, 80 deg's right. PT-OP-M Strength Start: 12/31/18 08:04 Freq: Status: Active Protocol: Document 12/31/18 09:57 LRN (Rec: 12/31/18 18:59 LRN [id number]) Hip Strength Hip Manual Muscle Testing Right Flexion (L2) 3 Fair Extension (S1) 2 Poor Abduction 3 Fair Adduction 3 Fair External Rotation 3 Fair Internal Rotation 3 Fair Left Flexion (L2) 3 Fair Extension (S1) 3 Fair Abduction 3+ Fair+ Adduction 4 Good External Rotation 3 Fair Internal Rotation 3 Fair PT-OP-Q Treatments Start: 12/31/18 08:04 Freq: Status: Active Protocol: Document 02/18/19 08:18 LRN (Rec: 02/18/19 11:10 LRN [id number]) Cardio Equipment Bicycle (Upright) Duration (Minutes) 6 Resistance 3-4 Seat Position 5 Other 70+ rpm Therapeutic Exercises Supine Exercises SLR Supine Exercise Name SLR Side bilateral Reps/Minutes 2x Comments MMT taken Piriformis stretch Supine Exercise Name Piriformis Stretch Side bilateral Reps/Minutes 2' Comments Careful of R MALENA Lateral hip stretch Supine Exercise Name Lateral Hip Stretch Side left Reps/Minutes 2' Comments Careful of R MALENA TA Supine Exercise Name TA reflexive activation Sidelying Exercises Hip AB/AD Sidelying Exercise Name Hip AB/AD Reps/Minutes 2x Comments MMT taken Clamshell Sidelying Exercise Name Clamshell Side bilateral Reps/Minutes 10x Comments Cueing for TA tightening Standing Exercises Gait-motor relearning Standing Exercise Name See Gait training Hip Hinging Standing Exercise Name Hip Hinging Reps/Minutes 1 Gait Training Gait Activity Gait for weight shift & posture Description Gait correction training Device Used none Surface level Treatment Focus For hip shift R and level shoulders, core tight Manual Therapy Treatment Soft Tissue Mobilization R Piriformis & Upper Gluteal Body Location R Piriformis & Upper Gluteal Mobilization Type Myofascial Release,Sustained Pressure Intensity/Depth Superficial & Moderate Depth Body Position Prone SIJ Body Location R & L SIJ Mobilization Type Myofascial Release Intensity/Depth Moderate Body Position Supine Comments Frankie PA and downward glide for release of R SIJ. Sacrum Body Location Correcting a L rotated & R SB sacrum Mobilization Type Myofascial Release Intensity/Depth Moderate Body Position Prone LB L>R Body Location R>L lumbar paraspinals, upper gluteals Mobilization Type Strumming Intensity/Depth Moderate Body Position Prone Joint Mobilizations Lumbar Joint L4-5, L5-S1 Direction Correcting a L rotation Grade II Body Position Prone SACRAL Joint Sacrum Direction Correction for a L rotated sacrum Body Position Prone Comments MFR. Self-Care/Home Management Treatment Education Patient Education Body Mechanics Other Education Pt educated in proper body mechanics for bending and lifting. PT-OP-T Assessment and Plan Start: 12/31/18 08:04 Freq: Status: Active Protocol: Document 02/18/19 08:18 LRN (Rec: 02/18/19 09:07 LRN [id number]) Physical Therapy Assessment Rehab Potential Rehabilitation Potential Good Evaluation Complexity Number of Personal Factors/Comorbidities 3 or More Number of Body Systems Impaired 4 or More Clinical Presentation at Evaluation Evolving Impairments Impairments Functional Mobility,Gait,Pain, Posture,ROM,Strength,Transfers Other Concerns Age Related Concerns Effect of condition on social and work environment. Barriers to Rehabilitation Chronicity of condition Pt has poor self awareness R MALENA Arthritis Goals Four Impairment Excessive trunk sway with gait Short Term Goal (STG) Improve Hip strength with pt able to demonstrate good hip shift on single leg weightbearing. STG Duration 03/11/19 (02/18/19: Improving, good hip shift after training) [employer] Protector Goal (LTG) Pt will demonstrate improved gait mechanics of decreased trunk sway LTG Duration 05/11/19 (02/18/19 Improving no sway after training) Three Impairment Poor body mechanics Short Term Goal (STG) Pt will be educated in proper body mechanics for bending, moving objects & sitting for sewing. STG Duration 03/11/19 (02/21/19: GOAL PARTIALLY MET: training given for lifting, bending) Two Impairment Chronic low back pain rated 1 - 4/10 Short Term Goal (STG) Decrease R>L LBP to no greater than 1-2/10 with patient able to properly transfer and lift objects with no increase in pain greater than 2/10. STG Duration 01/21/19 (02/18/19: GOAL MET. Can lift 2# or less and transfer w/o pain) Mcfp Goal (LTG) Decrease R>L LBP to no greater than 1/10 with pt able to manage her pain and to self identify her max capacity for lifting. LTG Duration 05/11/19 (02/18/19: Pain is 7/ 10 after lifting too heavy of weight) One Impairment Pt lacks appropriate self care HEP STG Duration 02/04/19 Mcfp Goal (LTG) Pt will be independent with a self care HEP. LTG Duration 05/11/19 (02/18/19: Progressing) Assessment Summary Assessment Pt pain decreased with first step when 1st out of bed if she stretches before getting up. Pt walks with a very mild limp after manual mob treatment or with pressure to R upper gluteal at trigger point (possibly sciatic nerve) . Pt has habitual limp. Today pt's L SIJ appears compressed but mobilizes easily. Physical Therapy Plan Frequency and Duration Frequency of Treatment 2x/Week Plan of Care Start Date 12/31/18 Plan of Care End Date 03/11/19 Therapeutic Interventions Therapeutic Interventions Balance Training,Home Exercise Program,Joint Mobilizations, Manual Therapy,Neuromuscular Re-education,Patient/Caregiver Education,Self-Care/Home Management,Soft Tissue Mobilization,Taping, Therapeutic Activities, Therapeutic Exercises Next Visit Focus/Plan Next Visit Plan Address Body Mechanics per goal #3. Check for SI Belt referral. Monitor SI symmetry . Review HEP (Roll in/outs with Deep breath and Kegel) and Lumbar active mobility ( table slides). Start lumbar ROM (add ?R QL stretch) and strengthening ex's. Cont JMT to normalize pelvic positioning (L outflare, R inflare if needed). Gait training with book on head. Add hip AB/AD symmetrical strengthening. Cryotherapy if needed.
--- NOTE | 2019-02-18 15:19 | PT.OPPN ---
Current Diagnoses Other chronic pain (02/18/19) Low back pain (02/18/19) Muscle weakness (generalized) (02/18/19) Other abnormalities of gait and mobility (02/18/19) Physical Therapy Progress Note PT-OP-A Visit Information Start: 12/31/18 08:04 Freq: Status: Active Protocol: Document 02/18/19 08:18 LRN (Rec: 02/18/19 09:07 LRN [id number]) Out-Patient Physical Therapy Visit Information Visit Information Visit Type Progress Note Visit Start Time 08:18 Visit Stop Time 09:08 Total Visit Minutes 50 Visit Number 10 Number of CAD DEVELOPER Visits 0 Evaluation Information Evaluation Date 12/31/18 Precautions Precautions Pt reported: R MALENA - 13 yrs ago Osteoarthritis PT-OP-B Current Condition Start: 12/31/18 08:04 Freq: Status: Active Protocol: Document 12/31/18 09:57 LRN (Rec: 12/31/18 10:49 LRN [id number]) Current Condition History of Current Condition Onset Date 3.5 weeks ago Current Complaints Ongoing off/on bouts of debilitatin back pain History of Current Condition Back pain since a teenager. Had to wear a brace as a teen because of damage noted from chiropractor. HAs had bouts of back pain. 3.5 weeks ago had onset of back pain that resolved after 3 weeks. Typically the pain resolves in 3-10 days. During her 3/5 weeks of pain she was seeing the chiropractor who she sees regularly (1/week to 1x every 2.5 weeks, without insurance 1x/2 months) for good self care. Currently she is aware of some pain and must position spine to get relief of pain. Pain 1/10 sitting. Pain is a dull aching, irritating, oppressive, constant. States she tries to deny it, then it takes me out. Bouts of pain onset is every 2-3 months. Prior Treatments and Tests X-rays from [facility]. 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 Treatment Goals Patient/Caregiver Goals Wants to be able to get better and need PT to make sure her bout of pain doesn't return. Prior Functional Status Baseline Function- ADL's Independent Baseline Function- Mobility Independent Baseline Function- Recreation/Hobbies Pet sit & dog sit. Cooking Current Functional Impairments (Reported) Functional Limitations- ADL's Can't help a child into lap (3 and 7 yr old) or pick the 3 yr old up. Personal Factors Other Personal Factors That May Effect Chronic low back pain, Therapy/Recovery arthritis, neck pain, controlled HBP, R MALENA, PT-OP-C Subjective Start: 12/31/18 08:04 Freq: Status: Active Protocol: Document 02/18/19 08:18 LRN (Rec: 02/18/19 09:07 LRN [id number]) OP-PT Subjective Patient Comments Patient Comments Having less pain when 1st walking getting out of bed by 50%. PT-OP-E Functional Tests Start: 12/31/18 08:04 Freq: Status: Active Protocol: Document 12/31/18 09:57 LRN (Rec: 12/31/18 10:49 LRN [id number]) Functional Tests Timed Up and Go (TUG) Score 11 TUG Impairment Rating 1 to <20% Impaired (Score 11) PT-OP-F Manual Assessment Start: 12/31/18 08:04 Freq: Status: Active Protocol: Document 12/31/18 09:57 LRN (Rec: 12/31/18 18:59 LRN [id number]) Manual Assessments Soft Tissue Assessment Soft Tissue Mobility Assessment Muscle guarding and tenderness at L Gluteus Mina and along the L sacral border. PT-OP-G Mobility & Gait Start: 12/31/18 08:04 Freq: Status: Active Protocol: Document 12/31/18 09:57 LRN (Rec: 12/31/18 18:59 LRN [id number]) OP Mobility Evaluation Bed Mobility Supine to and from Sit Pt came up in sit up rotating in the direction she was transferring and placing her legs in a 90/90 scissored fashion. Sit to Supine she uses her R UE to assist the R leg. Transfers Sit to Stand Independent but with unequal weight bearing of the LE's. Car Transfers Uses R UE to assist R leg into car. OP Gait Assessment Comments Gait Comments Pt ambulates independently without assistive device with excessive trunk sway bilaterally. She ambulates with a Trendelenburg type gait bilaterally L>R. PT-OP-H Neuro Start: 12/31/18 08:04 Freq: Status: Active Protocol: Document 12/31/18 09:57 LRN (Rec: 12/31/18 18:59 LRN [id number]) Sensation Evaluation Gross Sensation Gross Sensation WNL Deep Tendon Reflex & Clonus Assessment Deep Tendon Reflex Right Achilles Deep Tendon Reflex 2+ Normal Left Achilles Deep Tendon Reflex 1+ Diminished Bilateral Patellar Deep Tendon Reflex 3+ Normal But Brisk PT-OP-J Posture/Palpation/Skin Start: 12/31/18 08:04 Freq: Status: Active Protocol: Document 12/31/18 09:57 LRN (Rec: 12/31/18 18:59 LRN [id number]) Posture Evaluation Comments Posture Comments Standing: Forward head, depressed R shoulder, decreased thoracic and lumbar curvature, pelvis neutral. Palpation Assessment Location Innominates Palpation Details R Leg long in supine, Longer in long sit. Sacrum Palpation Location L Lateral Border Palpation Findings Tenderness Hips Palpation Location Upper Gluteus Mina Palpation Findings Tenderness Lumbar spine Palpation Location L/S PA glides elicited no complaints of pain. PT-OP-K Range of Motion Start: 12/31/18 08:04 Freq: Status: Active Protocol: Document 12/31/18 09:57 LRN (Rec: 12/31/18 18:59 LRN [id number]) Hip Goniometric Range of Motion Hip Measured in Degrees Right Passive Testing Position Supine Straight Leg Raise 80 Extension 0 Internal Rotation 40 External Rotation 70 Left Passive Testing Position Supine Straight Leg Raise 70 Extension 5 Internal Rotation 55 External Rotation 55 PT-OP-L Special Tests Start: 12/31/18 08:04 Freq: Status: Active Protocol: Document 12/31/18 09:57 LRN (Rec: 12/31/18 18:59 LRN [id number]) Special Tests Lumbar Spine Special Tests Straight Leg Raise Test Results postive left for possible neural tension and soft tissue tightness Comments 70 deg's left due to LE tightness, 80 deg's right. PT-OP-M Strength Start: 12/31/18 08:04 Freq: Status: Active Protocol: Document 12/31/18 09:57 LRN (Rec: 12/31/18 18:59 LRN [id number]) Hip Strength Hip Manual Muscle Testing Right Flexion (L2) 3 Fair Extension (S1) 2 Poor Abduction 3 Fair Adduction 3 Fair External Rotation 3 Fair Internal Rotation 3 Fair Left Flexion (L2) 3 Fair Extension (S1) 3 Fair Abduction 3+ Fair+ Adduction 4 Good External Rotation 3 Fair Internal Rotation 3 Fair PT-OP-T Assessment and Plan Start: 12/31/18 08:04 Freq: Status: Active Protocol: Document 02/18/19 08:18 LRN (Rec: 02/18/19 09:07 LRN [id number]) Physical Therapy Assessment Rehab Potential Rehabilitation Potential Good Evaluation Complexity Number of Personal Factors/Comorbidities 3 or More Number of Body Systems Impaired 4 or More Clinical Presentation at Evaluation Evolving Impairments Impairments Functional Mobility,Gait,Pain, Posture,ROM,Strength,Transfers Other Concerns Age Related Concerns Effect of condition on social and work environment. Barriers to Rehabilitation Chronicity of condition Pt has poor self awareness R MALENA Arthritis Goals Four Impairment Excessive trunk sway with gait Short Term Goal (STG) Improve Hip strength with pt able to demonstrate good hip shift on single leg weightbearing. STG Duration 03/11/19 (02/18/19: Improving, good hip shift after training) Associate Automation Engineer Goal (LTG) Pt will demonstrate improved gait mechanics of decreased trunk sway LTG Duration 05/11/19 (02/18/19 Improving no sway after training) Three Impairment Poor body mechanics Short Term Goal (STG) Pt will be educated in proper body mechanics for bending, moving objects & sitting for sewing. STG Duration 03/11/19 (02/21/19: GOAL PARTIALLY MET: training given for lifting, bending) Two Impairment Chronic low back pain rated 1 - 4/10 Short Term Goal (STG) Decrease R>L LBP to no greater than 1-2/10 with patient able to properly transfer and lift objects with no increase in pain greater than 2/10. STG Duration 01/21/19 (02/18/19: GOAL MET. Can lift 2# or less and transfer w/o pain) Associate Automation Engineer Goal (LTG) Decrease R>L LBP to no greater than 1/10 with pt able to manage her pain and to self identify her max capacity for lifting. LTG Duration 05/11/19 (02/18/19: Pain is 7/ 10 after lifting too heavy of weight) One Impairment Pt lacks appropriate self care HEP STG Duration 02/04/19 Senior Care Goal (LTG) Pt will be independent with a self care HEP. LTG Duration 05/11/19 (02/18/19: Progressing) Assessment Summary Assessment Pt pain decreased with first step when 1st out of bed if she stretches before getting up. Pt walks with a very mild limp after manual mob treatment or with pressure to R upper gluteal at trigger point (possibly sciatic nerve) . Pt has habitual limp. Today pt's L SIJ appears compressed but mobilizes easily. Physical Therapy Plan Frequency and Duration Frequency of Treatment 2x/Week Plan of Care Start Date 12/31/18 Plan of Care End Date 03/11/19 Therapeutic Interventions Therapeutic Interventions Balance Training,Home Exercise Program,Joint Mobilizations, Manual Therapy,Neuromuscular Re-education,Patient/Caregiver Education,Self-Care/Home Management,Soft Tissue Mobilization,Taping, Therapeutic Activities, Therapeutic Exercises Next Visit Focus/Plan Next Visit Plan Address Body Mechanics per goal #3. Check for SI Belt referral. Monitor SI symmetry . Review HEP (Roll in/outs with Deep breath and Kegel) and Lumbar active mobility ( table slides). Start lumbar ROM (add ?R QL stretch) and strengthening ex's. Cont JMT to normalize pelvic positioning (L outflare, R inflare if needed). Gait training with book on head. Add hip AB/AD symmetrical strengthening. Cryotherapy if needed.
--- NOTE | 2019-02-18 15:29 | PT.OTN ---
Current Diagnoses Other chronic pain (02/18/19) Low back pain (02/18/19) Muscle weakness (generalized) (02/18/19) Other abnormalities of gait and mobility (02/18/19) Physical Therapy Treatment Note PT-OP-A Visit Information Start: 12/31/18 08:04 Freq: Status: Active Protocol: Document 02/18/19 08:18 LRN (Rec: 02/18/19 09:07 LRN [id number]) Out-Patient Physical Therapy Visit Information Visit Information Visit Type Progress Note Visit Start Time 08:18 Visit Stop Time 09:08 Total Visit Minutes 50 Visit Number 10 Number of PROFESSOR OF MARKETING Visits 0 Evaluation Information Evaluation Date 12/31/18 Precautions Precautions Pt reported: R MALENA - 15 yrs ago Osteoarthritis PT-OP-B Current Condition Start: 12/31/18 08:04 Freq: Status: Active Protocol: Document 12/31/18 09:57 LRN (Rec: 12/31/18 10:49 LRN [id number]) Current Condition History of Current Condition Onset Date 3.5 weeks ago Current Complaints Ongoing off/on bouts of debilitatin back pain History of Current Condition Back pain since a teenager. Had to wear a brace as a teen because of damage noted from chiropractor. HAs had bouts of back pain. 3.5 weeks ago had onset of back pain that resolved after 3 weeks. Typically the pain resolves in 3-10 days. During her 3/5 weeks of pain she was seeing the chiropractor who she sees regularly (1/week to 1x every 2.5 weeks, without insurance 1x/2 months) for good self care. Currently she is aware of some pain and must position spine to get relief of pain. Pain 1/10 sitting. Pain is a dull aching, irritating, oppressive, constant. States she tries to deny it, then it takes me out. Bouts of pain onset is every 2-3 months. Prior Treatments and Tests X-rays from [facility]. 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 Treatment Goals Patient/Caregiver Goals Wants to be able to get better and need PT to make sure her bout of pain doesn't return. Prior Functional Status Baseline Function- ADL's Independent Baseline Function- Mobility Independent Baseline Function- Recreation/Hobbies Pet sit & dog sit. Cooking Current Functional Impairments (Reported) Functional Limitations- ADL's Can't help a child into lap (3 and 7 yr old) or pick the 3 yr old up. Personal Factors Other Personal Factors That May Effect Chronic low back pain, Therapy/Recovery arthritis, neck pain, controlled HBP, R MALENA, PT-OP-C Subjective Start: 12/31/18 08:04 Freq: Status: Active Protocol: Document 02/18/19 08:18 LRN (Rec: 02/18/19 09:07 LRN [id number]) OP-PT Subjective Patient Comments Patient Comments Having less pain when 1st walking getting out of bed by 50%. PT-OP-E Functional Tests Start: 12/31/18 08:04 Freq: Status: Active Protocol: Document 12/31/18 09:57 LRN (Rec: 12/31/18 10:49 LRN [id number]) Functional Tests Timed Up and Go (TUG) Score 11 TUG Impairment Rating 1 to <20% Impaired (Score 11) PT-OP-F Manual Assessment Start: 12/31/18 08:04 Freq: Status: Active Protocol: Document 12/31/18 09:57 LRN (Rec: 12/31/18 18:59 LRN [id number]) Manual Assessments Soft Tissue Assessment Soft Tissue Mobility Assessment Muscle guarding and tenderness at L Gluteus Mina and along the L sacral border. PT-OP-G Mobility & Gait Start: 12/31/18 08:04 Freq: Status: Active Protocol: Document 12/31/18 09:57 LRN (Rec: 12/31/18 18:59 LRN [id number]) OP Mobility Evaluation Bed Mobility Supine to and from Sit Pt came up in sit up rotating in the direction she was transferring and placing her legs in a 90/90 scissored fashion. Sit to Supine she uses her R UE to assist the R leg. Transfers Sit to Stand Independent but with unequal weight bearing of the LE's. Car Transfers Uses R UE to assist R leg into car. OP Gait Assessment Comments Gait Comments Pt ambulates independently without assistive device with excessive trunk sway bilaterally. She ambulates with a Trendelenburg type gait bilaterally L>R. PT-OP-H Neuro Start: 12/31/18 08:04 Freq: Status: Active Protocol: Document 12/31/18 09:57 LRN (Rec: 12/31/18 18:59 LRN [id number]) Sensation Evaluation Gross Sensation Gross Sensation WNL Deep Tendon Reflex & Clonus Assessment Deep Tendon Reflex Right Achilles Deep Tendon Reflex 2+ Normal Left Achilles Deep Tendon Reflex 1+ Diminished Bilateral Patellar Deep Tendon Reflex 3+ Normal But Brisk PT-OP-J Posture/Palpation/Skin Start: 12/31/18 08:04 Freq: Status: Active Protocol: Document 12/31/18 09:57 LRN (Rec: 12/31/18 18:59 LRN [id number]) Posture Evaluation Comments Posture Comments Standing: Forward head, depressed R shoulder, decreased thoracic and lumbar curvature, pelvis neutral. Palpation Assessment Location Innominates Palpation Details R Leg long in supine, Longer in long sit. Sacrum Palpation Location L Lateral Border Palpation Findings Tenderness Hips Palpation Location Upper Gluteus Mina Palpation Findings Tenderness Lumbar spine Palpation Location L/S PA glides elicited no complaints of pain. PT-OP-K Range of Motion Start: 12/31/18 08:04 Freq: Status: Active Protocol: Document 12/31/18 09:57 LRN (Rec: 12/31/18 18:59 LRN [id number]) Hip Goniometric Range of Motion Hip Right Passive Testing Position Supine Straight Leg Raise 80 Extension 0 Internal Rotation 40 External Rotation 70 Left Passive Testing Position Supine Straight Leg Raise 70 Extension 5 Internal Rotation 55 External Rotation 55 PT-OP-L Special Tests Start: 12/31/18 08:04 Freq: Status: Active Protocol: Document 12/31/18 09:57 LRN (Rec: 12/31/18 18:59 LRN [id number]) Special Tests Lumbar Spine Special Tests Straight Leg Raise Test Results postive left for possible neural tension and soft tissue tightness Comments 70 deg's left due to LE tightness, 80 deg's right. PT-OP-M Strength Start: 12/31/18 08:04 Freq: Status: Active Protocol: Document 12/31/18 09:57 LRN (Rec: 12/31/18 18:59 LRN [id number]) Hip Strength Hip Manual Muscle Testing Right Flexion (L2) 3 Fair Extension (S1) 2 Poor Abduction 3 Fair Adduction 3 Fair External Rotation 3 Fair Internal Rotation 3 Fair Left Flexion (L2) 3 Fair Extension (S1) 3 Fair Abduction 3+ Fair+ Adduction 4 Good External Rotation 3 Fair Internal Rotation 3 Fair PT-OP-Q Treatments Start: 12/31/18 08:04 Freq: Status: Active Protocol: Document 02/18/19 08:18 LRN (Rec: 02/18/19 11:10 LRN [id number]) Cardio Equipment Bicycle (Upright) Duration (Minutes) 6 Resistance 3-4 Seat Position 5 Other 70+ rpm Therapeutic Exercises Supine Exercises SLR Supine Exercise Name SLR Side bilateral Reps/Minutes 2x Comments MMT taken Piriformis stretch Supine Exercise Name Piriformis Stretch Side bilateral Reps/Minutes 2' Comments Careful of R MALENA Lateral hip stretch Supine Exercise Name Lateral Hip Stretch Side left Reps/Minutes 2' Comments Careful of R MALENA TA Supine Exercise Name TA reflexive activation Sidelying Exercises Hip AB/AD Sidelying Exercise Name Hip AB/AD Reps/Minutes 2x Comments MMT taken Clamshell Sidelying Exercise Name Clamshell Side bilateral Reps/Minutes 10x Comments Cueing for TA tightening Standing Exercises Gait-motor relearning Standing Exercise Name See Gait training Hip Hinging Standing Exercise Name Hip Hinging Reps/Minutes 1 Gait Training Gait Activity Gait for weight shift & posture Description Gait correction training Device Used none Surface level Treatment Focus For hip shift R and level shoulders, core tight Manual Therapy Treatment Soft Tissue Mobilization R Piriformis & Upper Gluteal Body Location R Piriformis & Upper Gluteal Mobilization Type Myofascial Release,Sustained Pressure Intensity/Depth Superficial & Moderate Depth Body Position Prone SIJ Body Location R & L SIJ Mobilization Type Myofascial Release Intensity/Depth Moderate Body Position Supine Comments Frankie PA and downward glide for release of R SIJ. Sacrum Body Location Correcting a L rotated & R SB sacrum Mobilization Type Myofascial Release Intensity/Depth Moderate Body Position Prone LB L>R Body Location R>L lumbar paraspinals, upper gluteals Mobilization Type Strumming Intensity/Depth Moderate Body Position Prone Joint Mobilizations Lumbar Joint L4-5, L5-S1 Direction Correcting a L rotation Grade II Body Position Prone SACRAL Joint Sacrum Direction Correction for a L rotated sacrum Body Position Prone Comments MFR. Self-Care/Home Management Treatment Education Patient Education Body Mechanics Other Education Pt educated in proper body mechanics for bending and lifting. PT-OP-T Assessment and Plan Start: 12/31/18 08:04 Freq: Status: Active Protocol: Document 02/18/19 08:18 LRN (Rec: 02/18/19 09:07 LRN [id number]) Physical Therapy Assessment Rehab Potential Rehabilitation Potential Good Evaluation Complexity Number of Personal Factors/Comorbidities 3 or More Number of Body Systems Impaired 4 or More Clinical Presentation at Evaluation Evolving Impairments Impairments Functional Mobility,Gait,Pain, Posture,ROM,Strength,Transfers Other Concerns Age Related Concerns Effect of condition on social and work environment. Barriers to Rehabilitation Chronicity of condition Pt has poor self awareness R MALENA Arthritis Goals Four Impairment Excessive trunk sway with gait Short Term Goal (STG) Improve Hip strength with pt able to demonstrate good hip shift on single leg weightbearing. STG Duration 03/11/19 (02/18/19: Improving, good hip shift after training) Appeals Nurse Goal (LTG) Pt will demonstrate improved gait mechanics of decreased trunk sway LTG Duration 05/11/19 (02/18/19 Improving no sway after training) Three Impairment Poor body mechanics Short Term Goal (STG) Pt will be educated in proper body mechanics for bending, moving objects & sitting for sewing. STG Duration 03/11/19 (02/21/19: GOAL PARTIALLY MET: training given for lifting, bending) Two Impairment Chronic low back pain rated 1 - 4/10 Short Term Goal (STG) Decrease R>L LBP to no greater than 1-2/10 with patient able to properly transfer and lift objects with no increase in pain greater than 2/10. STG Duration 01/21/19 (02/18/19: GOAL MET. Can lift 2# or less and transfer w/o pain) Longterm Goal (LTG) Decrease R>L LBP to no greater than 1/10 with pt able to manage her pain and to self identify her max capacity for lifting. LTG Duration 05/11/19 (02/18/19: Pain is 7/ 10 after lifting too heavy of weight) One Impairment Pt lacks appropriate self care HEP STG Duration 02/04/19 Longterm Goal (LTG) Pt will be independent with a self care HEP. LTG Duration 05/11/19 (02/18/19: Progressing) Assessment Summary Assessment Pt pain decreased with first step when 1st out of bed if she stretches before getting up. Pt walks with a very mild limp after manual mob treatment or with pressure to R upper gluteal at trigger point (possibly sciatic nerve) . Pt has habitual limp. Today pt's L SIJ appears compressed but mobilizes easily. Physical Therapy Plan Frequency and Duration Frequency of Treatment 2x/Week Plan of Care Start Date 12/31/18 Plan of Care End Date 05/11/19 Therapeutic Interventions Therapeutic Interventions Balance Training,Home Exercise Program,Joint Mobilizations, Manual Therapy,Neuromuscular Re-education,Patient/Caregiver Education,Self-Care/Home Management,Soft Tissue Mobilization,Taping, Therapeutic Activities, Therapeutic Exercises Next Visit Focus/Plan Next Visit Plan Address Body Mechanics per goal #3. Check for SI Belt referral. Monitor SI symmetry . Review HEP (Roll in/outs with Deep breath and Kegel) and Lumbar active mobility ( table slides). Start lumbar ROM (add ?R QL stretch) and strengthening ex's. Cont JMT to normalize pelvic positioning (L outflare, R inflare if needed). Gait training with book on head. Add hip AB/AD symmetrical strengthening. Cryotherapy if needed.
--- NOTE | 2019-03-04 15:28 | PT.OTN ---
Current Diagnoses Other chronic pain (03/04/19) Low back pain (03/04/19) Muscle weakness (generalized) (03/04/19) Other abnormalities of gait and mobility (03/04/19) Physical Therapy Treatment Note PT-OP-A Visit Information Start: 12/31/18 08:04 Freq: Status: Active Protocol: Document 03/04/19 12:47 LRN (Rec: 03/04/19 13:37 LRN [id number]) Out-Patient Physical Therapy Visit Information Visit Information Visit Type Treatment Note Visit Note 06/24 after PN Visit Start Time 12:47 Visit Stop Time 13:33 Total Visit Minutes 46 Visit Number 11 Number of CUPOLA TAPPER HELPER Visits 0 Evaluation Information Evaluation Date 12/31/18 Precautions Precautions Pt reported: R MALENA - 15 yrs ago Osteoarthritis PT-OP-B Current Condition Start: 12/31/18 08:04 Freq: Status: Active Protocol: Document 12/31/18 09:57 LRN (Rec: 12/31/18 10:49 LRN [id number]) Current Condition History of Current Condition Onset Date 3.5 weeks ago Current Complaints Ongoing off/on bouts of debilitatin back pain History of Current Condition Back pain since a teenager. Had to wear a brace as a teen because of damage noted from chiropractor. HAs had bouts of back pain. 3.5 weeks ago had onset of back pain that resolved after 3 weeks. Typically the pain resolves in 3-10 days. During her 3/5 weeks of pain she was seeing the chiropractor who she sees regularly (1/week to 1x every 2.5 weeks, without insurance 1x/2 months) for good self care. Currently she is aware of some pain and must position spine to get relief of pain. Pain 1/10 sitting. Pain is a dull aching, irritating, oppressive, constant. States she tries to deny it, then it takes me out. Bouts of pain onset is every 2-3 months. Prior Treatments and Tests X-rays from [facility]. 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 Treatment Goals Patient/Caregiver Goals Wants to be able to get better and need PT to make sure her bout of pain doesn't return. Prior Functional Status Baseline Function- ADL's Independent Baseline Function- Mobility Independent Baseline Function- Recreation/Hobbies Pet sit & dog sit. Cooking Current Functional Impairments (Reported) Functional Limitations- ADL's Can't help a child into lap (3 and 7 yr old) or pick the 3 yr old up. Personal Factors Other Personal Factors That May Effect Chronic low back pain, Therapy/Recovery arthritis, neck pain, controlled HBP, R MALENA, PT-OP-C Subjective Start: 12/31/18 08:04 Freq: Status: Active Protocol: Document 03/04/19 12:47 LRN (Rec: 03/04/19 13:37 LRN [id number]) OP-PT Subjective Patient Comments Patient Comments Been on vacation 10 days, drove 3 days at a time. Past 10 days have been doing ex's prior to getting out of bed and has been painfree without medications. She has been very conscientious of doing ex 's and is still training herself in proper transfer techniques. States she would prefer not to get SI Belt at this time since she has not been having pain during vacation. Patient Reported Progress Improving PT-OP-E Functional Tests Start: 12/31/18 08:04 Freq: Status: Active Protocol: Document 12/31/18 09:57 LRN (Rec: 12/31/18 10:49 LRN [id number]) Functional Tests Timed Up and Go (TUG) Score 11 TUG Impairment Rating 1 to <20% Impaired (Score 11) PT-OP-F Manual Assessment Start: 12/31/18 08:04 Freq: Status: Active Protocol: Document 12/31/18 09:57 LRN (Rec: 12/31/18 18:59 LRN [id number]) Manual Assessments Soft Tissue Assessment Soft Tissue Mobility Assessment Muscle guarding and tenderness at L Gluteus Mina and along the L sacral border. PT-OP-G Mobility & Gait Start: 12/31/18 08:04 Freq: Status: Active Protocol: Document 12/31/18 09:57 LRN (Rec: 12/31/18 18:59 LRN [id number]) OP Mobility Evaluation Bed Mobility Supine to and from Sit Pt came up in sit up rotating in the direction she was transferring and placing her legs in a 90/90 scissored fashion. Sit to Supine she uses her R UE to assist the R leg. Transfers Sit to Stand Independent but with unequal weight bearing of the LE's. Car Transfers Uses R UE to assist R leg into car. OP Gait Assessment Comments Gait Comments Pt ambulates independently without assistive device with excessive trunk sway bilaterally. She ambulates with a Trendelenburg type gait bilaterally L>R. PT-OP-H Neuro Start: 12/31/18 08:04 Freq: Status: Active Protocol: Document 12/31/18 09:57 LRN (Rec: 12/31/18 18:59 LRN [id number]) Sensation Evaluation Gross Sensation Gross Sensation WNL Deep Tendon Reflex & Clonus Assessment Deep Tendon Reflex Right Achilles Deep Tendon Reflex 2+ Normal Left Achilles Deep Tendon Reflex 1+ Diminished Bilateral Patellar Deep Tendon Reflex 3+ Normal But Brisk PT-OP-J Posture/Palpation/Skin Start: 12/31/18 08:04 Freq: Status: Active Protocol: Document 12/31/18 09:57 LRN (Rec: 12/31/18 18:59 LRN [id number]) Posture Evaluation Comments Posture Comments Standing: Forward head, depressed R shoulder, decreased thoracic and lumbar curvature, pelvis neutral. Palpation Assessment Location Innominates Palpation Details R Leg long in supine, Longer in long sit. Sacrum Palpation Location L Lateral Border Palpation Findings Tenderness Hips Palpation Location Upper Gluteus Mina Palpation Findings Tenderness Lumbar spine Palpation Location L/S PA glides elicited no complaints of pain. PT-OP-K Range of Motion Start: 12/31/18 08:04 Freq: Status: Active Protocol: Document 12/31/18 09:57 LRN (Rec: 12/31/18 18:59 LRN [id number]) Hip Goniometric Range of Motion Hip Right Passive Testing Position Supine Straight Leg Raise 80 Extension 0 Internal Rotation 40 External Rotation 70 Left Passive Testing Position Supine Straight Leg Raise 70 Extension 5 Internal Rotation 55 External Rotation 55 PT-OP-L Special Tests Start: 12/31/18 08:04 Freq: Status: Active Protocol: Document 12/31/18 09:57 LRN (Rec: 12/31/18 18:59 LRN [id number]) Special Tests Lumbar Spine Special Tests Straight Leg Raise Test Results postive left for possible neural tension and soft tissue tightness Comments 70 deg's left due to LE tightness, 80 deg's right. PT-OP-M Strength Start: 12/31/18 08:04 Freq: Status: Active Protocol: Document 03/04/19 12:47 LRN (Rec: 03/04/19 15:13 LRN [id number]) Hip Strength Hip Manual Muscle Testing Right Abduction 3 Fair Adduction 3+ Fair+ Left Abduction 4- Good- Adduction 5 Normal PT-OP-Q Treatments Start: 12/31/18 08:04 Freq: Status: Active Protocol: Document 03/04/19 12:47 LRN (Rec: 03/04/19 13:37 LRN [id number]) Cardio Equipment Bicycle (Upright) Duration (Minutes) 7 Resistance 3-4 Seat Position 5 Other 70+ rpm Gym Equipment Cable Column (Body Solid) Leg Extension Details Seat 5 holes showing Resistance 10# Reps/Time 10x Leg Curl Details Seat 5 holes showing Resistance 20# Reps/Time 10x Therapeutic Exercises Supine Exercises Iliopsoas stretch Supine Exercise Name Iliopsoas stretch f/b active stretch Side bilateral Reps/Minutes 60 sec stretch x 2 Therapeutic Activity Therapeutic Activity Body mechanics training Name Body mechanics training Reps/Minutes 4' Comments Transfers, squatting, lifting, pushing, pulling. Discussed pros/cons for use of SI Belt. Neuro Re-Education Treatment Movement Re-Education Movement Re-education Activities Walking with improved posture with book on head. PT-OP-T Assessment and Plan Start: 12/31/18 08:04 Freq: Status: Active Protocol: Document 03/04/19 12:47 LRN (Rec: 03/04/19 13:37 LRN [id number]) Physical Therapy Assessment Goals Four Impairment Excessive trunk sway with gait Short Term Goal (STG) Improve Hip strength with pt able to demonstrate good hip shift on single leg weightbearing. STG Duration 03/11/19 (02/18/19: Improving, good hip shift after training) Group Home Goal (LTG) Pt will demonstrate improved gait mechanics of decreased trunk sway LTG Duration 05/11/19 (02/18/19 Improving no sway after training) Three Impairment Poor body mechanics Short Term Goal (STG) Pt will be educated in proper body mechanics for bending, moving objects & sitting for sewing. STG Duration 03/11/19 (02/21/19: GOAL MOSTLY MET: training needed for sitting to sew) Two Impairment Chronic low back pain rated 1 - 4/10 Short Term Goal (STG) Decrease R>L LBP to no greater than 1-2/10 with patient able to properly transfer and lift objects with no increase in pain greater than 2/10. STG Duration 01/21/19 (02/18/19: GOAL MET. Can lift 2# or less and transfer w/o pain) Wood Heel Flap Trimmer Goal (LTG) Decrease R>L LBP to no greater than 1/10 with pt able to manage her pain and to self identify her max capacity for lifting. LTG Duration 05/11/19 (02/18/19: Pain is 7/ 10 after lifting too heavy of weight) One Impairment Pt lacks appropriate self care HEP STG Duration 02/04/19 Group Home Goal (LTG) Pt will be independent with a self care HEP. LTG Duration 05/11/19 (02/18/19: Progressing) Assessment Summary Assessment Pt has had resolution of back pain during vacation, possible psychological component if pain returns now that the patient will be back to her normal routine. Pt not wanting SI Belt since no pain. Pt shows mild trunk sway with gait and is able to make 2/6 passes with soft book on head without book falling during neuro re-ed training. Pt lacks automatic stabilization of core anteriorly with all activities , much vcuing is still needed. Physical Therapy Plan Frequency and Duration Frequency of Treatment 2x/Week Plan of Care Start Date 12/31/18 Plan of Care End Date 05/11/19 Next Visit Focus/Plan Next Note Type Treatment Note Next Visit Plan Address Body Mechanics for sitting and sewing, per goal # 3. Monitor SI symmetry. Review HEP (Roll in/outs with Deep breath and Kegel) and Lumbar active mobility (table slides). Start lumbar ROM ( add ?R QL stretch). Progress core stabilization ex's for elimination of pain with lifting of pt's max weighted objects. Cont JMT to normalize pelvic positioning ( L outflare, R inflare if needed). Add hip AB/AD symmetrical strengthening. Cryotherapy if needed.
--- NOTE | 2019-03-08 12:46 | PT.OTN ---
Current Diagnoses Other chronic pain (03/08/19) Low back pain (03/08/19) Muscle weakness (generalized) (03/08/19) Other abnormalities of gait and mobility (03/08/19) Physical Therapy Treatment Note PT-OP-A Visit Information Start: 12/31/18 08:04 Freq: Status: Active Protocol: Document 03/08/19 09:06 LRN (Rec: 03/08/19 09:52 LRN [id number]) Out-Patient Physical Therapy Visit Information Visit Information Visit Type Treatment Note Visit Note 07/25 after PN Visit Start Time 09:06 Visit Stop Time 09:48 Total Visit Minutes 42 Visit Number 12 Number of HEATING AND VENTILATING TENDER Visits 0 Evaluation Information Evaluation Date 12/31/18 Precautions Precautions Pt reported: R MALENA - 15 yrs ago Osteoarthritis PT-OP-B Current Condition Start: 12/31/18 08:04 Freq: Status: Active Protocol: Document 12/31/18 09:57 LRN (Rec: 12/31/18 10:49 LRN [id number]) Current Condition History of Current Condition Onset Date 3.5 weeks ago Current Complaints Ongoing off/on bouts of debilitatin back pain History of Current Condition Back pain since a teenager. Had to wear a brace as a teen because of damage noted from chiropractor. HAs had bouts of back pain. 3.5 weeks ago had onset of back pain that resolved after 3 weeks. Typically the pain resolves in 3-10 days. During her 3/5 weeks of pain she was seeing the chiropractor who she sees regularly (1/week to 1x every 2.5 weeks, without insurance 1x/2 months) for good self care. Currently she is aware of some pain and must position spine to get relief of pain. Pain 1/10 sitting. Pain is a dull aching, irritating, oppressive, constant. States she tries to deny it, then it takes me out. Bouts of pain onset is every 2-3 months. Prior Treatments and Tests [facility]rays from [facility]. 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 Treatment Goals Patient/Caregiver Goals Wants to be able to get better and need PT to make sure her bout of pain doesn't return. Prior Functional Status Baseline Function- ADL's Independent Baseline Function- Mobility Independent Baseline Function- Recreation/Hobbies Pet sit & dog sit. Cooking Current Functional Impairments (Reported) Functional Limitations- ADL's Can't help a child into lap (3 and 7 yr old) or pick the 3 yr old up. 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 Pain 1st in the morning returned the past few days requiring use of medication. PT-OP-E Functional Tests Start: 12/31/18 08:04 Freq: Status: Active Protocol: Document 12/31/18 09:57 LRN (Rec: 12/31/18 10:49 LRN [id number]) Functional Tests Timed Up and Go (TUG) Score 11 TUG Impairment Rating 1 to <20% Impaired (Score 11) PT-OP-F Manual Assessment Start: 12/31/18 08:04 Freq: Status: Active Protocol: Document 12/31/18 09:57 LRN (Rec: 12/31/18 18:59 LRN [id number]) Manual Assessments Soft Tissue Assessment Soft Tissue Mobility Assessment Muscle guarding and tenderness at L Gluteus Mina and along the L sacral border. PT-OP-G Mobility & Gait Start: 12/31/18 08:04 Freq: Status: Active Protocol: Document 12/31/18 09:57 LRN (Rec: 12/31/18 18:59 LRN [id number]) OP Mobility Evaluation Bed Mobility Supine to and from Sit Pt came up in sit up rotating in the direction she was transferring and placing her legs in a 90/90 scissored fashion. Sit to Supine she uses her R UE to assist the R leg. Transfers Sit to Stand Independent but with unequal weight bearing of the LE's. Car Transfers Uses R UE to assist R leg into car. OP Gait Assessment Comments Gait Comments Pt ambulates independently without assistive device with excessive trunk sway bilaterally. She ambulates with a Trendelenburg type gait bilaterally L>R. PT-OP-H Neuro Start: 12/31/18 08:04 Freq: Status: Active Protocol: Document 12/31/18 09:57 LRN (Rec: 12/31/18 18:59 LRN [id number]) Sensation Evaluation Gross Sensation Gross Sensation WNL Deep Tendon Reflex & Clonus Assessment Deep Tendon Reflex Right Achilles Deep Tendon Reflex 2+ Normal Left Achilles Deep Tendon Reflex 1+ Diminished Bilateral Patellar Deep Tendon Reflex 3+ Normal But Brisk PT-OP-J Posture/Palpation/Skin Start: 12/31/18 08:04 Freq: Status: Active Protocol: Document 12/31/18 09:57 LRN (Rec: 12/31/18 18:59 LRN [id number]) Posture Evaluation Comments Posture Comments Standing: Forward head, depressed R shoulder, decreased thoracic and lumbar curvature, pelvis neutral. Palpation Assessment Location Innominates Palpation Details R Leg long in supine, Longer in long sit. Sacrum Palpation Location L Lateral Border Palpation Findings Tenderness Hips Palpation Location Upper Gluteus Mina Palpation Findings Tenderness Lumbar spine Palpation Location L/S PA glides elicited no complaints of pain. PT-OP-K Range of Motion Start: 12/31/18 08:04 Freq: Status: Active Protocol: Document 12/31/18 09:57 LRN (Rec: 12/31/18 18:59 LRN [id number]) Hip Goniometric Range of Motion Hip Right Passive Testing Position Supine Straight Leg Raise 80 Extension 0 Internal Rotation 40 External Rotation 70 Left Passive Testing Position Supine Straight Leg Raise 70 Extension 5 Internal Rotation 55 External Rotation 55 PT-OP-L Special Tests Start: 12/31/18 08:04 Freq: Status: Active Protocol: Document 12/31/18 09:57 LRN (Rec: 12/31/18 18:59 LRN [id number]) Special Tests Lumbar Spine Special Tests Straight Leg Raise Test Results postive left for possible neural tension and soft tissue tightness Comments 70 deg's left due to LE tightness, 80 deg's right. PT-OP-M Strength Start: 12/31/18 08:04 Freq: Status: Active Protocol: Document 03/04/19 12:47 LRN (Rec: 03/04/19 15:13 LRN [id number]) Hip Strength Hip Manual Muscle Testing Right Abduction 3 Fair Adduction 3+ Fair+ Left Abduction 4- Good- Adduction 5 Normal PT-OP-Q Treatments Start: 12/31/18 08:04 Freq: Status: Active Protocol: Document 03/08/19 09:06 LRN (Rec: 03/08/19 09:52 LRN [id number]) Cardio Equipment Bicycle (Upright) Duration (Minutes) 8 Resistance 3-4 Seat Position 5 Other 70+ rpm Gym Equipment Cable Column (Body Solid) Hip Adduction Details Seat 5 holes Resistance 20# Reps/Time 10x Hip Abduction Details Seat 5 holes Resistance 10# Reps/Time 10x Therapeutic Exercises Supine Exercises TA w/frankie heel slides Supine Exercise Name TA with frankie heel slides Reps/Minutes 6' Sitting Exercises Trunk rotation Sitting Exercise Name Trunk rotatiob Side bilateral Reps/Minutes 10 x each Therapeutic Activity Therapeutic Activity Body mechanics training Name Body mechanics training Reps/Minutes 8' Comments Sitting for sewing motions, Transfers, squatting, lifting. Gait Training Gait Activity Gait for weight shift & posture Description Gait correction training Device Used none Surface level Treatment Focus For hip shift R and level shoulders, core tight Manual Therapy Treatment Joint Mobilizations SIJ Joint R SIJ Direction Correcting a R inflared innominate Body Position Supine Reps/Duration 12' Comments MFR Self-Care/Home Management Treatment Activities Self-Care/Home Management Activities Pt to work on Frankie heel slides, frankie BKFO in supine, transfers & squatting & properly. She will monitor sleep position and bed quality. Pt to hold Ilipsoas stretch. PT-OP-T Assessment and Plan Start: 12/31/18 08:04 Freq: Status: Active Protocol: Document 03/08/19 09:06 LRN (Rec: 03/08/19 09:52 LRN [id number]) Physical Therapy Assessment Goals Four Impairment Excessive trunk sway with gait Short Term Goal (STG) Improve Hip strength with pt able to demonstrate good hip shift on single leg weightbearing. STG Duration 03/11/19 (02/18/19: Improving, good hip shift after training) Care Home Goal (LTG) Pt will demonstrate improved gait mechanics of decreased trunk sway LTG Duration 05/11/19 (02/18/19 Improving no sway after training) Three Impairment Poor body mechanics Short Term Goal (STG) Pt will be educated in proper body mechanics for bending, moving objects & sitting for sewing. STG Duration 03/11/19 (03/08/19: GOAL MET) Two Impairment Chronic low back pain rated 1 - 4/10 Short Term Goal (STG) Decrease R>L LBP to no greater than 1-2/10 with patient able to properly transfer and lift objects with no increase in pain greater than 2/10. STG Duration 01/21/19 (02/18/19: GOAL MET. Can lift 2# or less and transfer w/o pain) Support Team Member Goal (LTG) Decrease R>L LBP to no greater than 1/10 with pt able to manage her pain and to self identify her max capacity for lifting. LTG Duration 05/11/19 (02/18/19: Pain is 7/ 10 after lifting too heavy of weight) One Impairment Pt lacks appropriate self care HEP STG Duration 02/04/19 Care Home Goal (LTG) Pt will be independent with a self care HEP. LTG Duration 05/11/19 (02/18/19: Progressing) Progress Towards Goals Progress Comments GOAL #3 MET. Assessment Summary Assessment Pt R innominate inflared but easily corrected. Her back no longer clicks but she describes rubbing feeling. Pt cognitively feeling the R leg is long although it appears symmetrical in length. Pt trunk leans with gait out of habit. Physical Therapy Plan Frequency and Duration Frequency of Treatment 2x/Week Plan of Care Start Date 12/31/18 Plan of Care End Date 05/11/19 Next Visit Focus/Plan Next Note Type Treatment Note Next Visit Plan Monitor SI symmetry. Review HEP (Roll in/outs with Deep breath and Kegel) and Lumbar active mobility (table slides) . Start lumbar ROM (add ?R QL stretch). Progress core stabilization ex's for elimination of pain with lifting of pt's max weighted objects. Cont JMT to normalize pelvic positioning ( L outflare, R inflare if needed). Cryotherapy if needed.
--- NOTE | 2019-03-11 14:59 | PT.OTN ---
Current Diagnoses Other chronic pain (03/11/19) Low back pain (03/11/19) Muscle weakness (generalized) (03/11/19) Other abnormalities of gait and mobility (03/11/19) Physical Therapy Treatment Note PT-OP-A Visit Information Start: 12/31/18 08:04 Freq: Status: Active Protocol: Document 03/11/19 12:50 LRN (Rec: 03/11/19 13:16 LRN [id number]) Out-Patient Physical Therapy Visit Information Visit Information Visit Type Treatment Note Visit Note 08/22 after PN Visit Start Time 12:50 Visit Stop Time 13:39 Total Visit Minutes 49 Visit Number 13 Number of CERTIFIED INCOME TAX PREPARER Visits 0 Evaluation Information Evaluation Date 12/31/18 Precautions Precautions Pt reported: R MALENA - 15 yrs ago Osteoarthritis PT-OP-B Current Condition Start: 12/31/18 08:04 Freq: Status: Active Protocol: Document 12/31/18 09:57 LRN (Rec: 12/31/18 10:49 LRN [id number]) Current Condition History of Current Condition Onset Date 3.5 weeks ago Current Complaints Ongoing off/on bouts of debilitatin back pain History of Current Condition Back pain since a teenager. Had to wear a brace as a teen because of damage noted from chiropractor. HAs had bouts of back pain. 3.5 weeks ago had onset of back pain that resolved after 3 weeks. Typically the pain resolves in 3-10 days. During her 3/5 weeks of pain she was seeing the chiropractor who she sees regularly (1/week to 1x every 2.5 weeks, without insurance 1x/2 months) for good self care. Currently she is aware of some pain and must position spine to get relief of pain. Pain 1/10 sitting. Pain is a dull aching, irritating, oppressive, constant. States she tries to deny it, then it takes me out. Bouts of pain onset is every 2-3 months. Prior Treatments and Tests X-rays from [facility]. 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 Treatment Goals Patient/Caregiver Goals Wants to be able to get better and need PT to make sure her bout of pain doesn't return. Prior Functional Status Baseline Function- ADL's Independent Baseline Function- Mobility Independent Baseline Function- Recreation/Hobbies Pet sit & dog sit. Cooking Current Functional Impairments (Reported) Functional Limitations- ADL's Can't help a child into lap (3 and 7 yr old) or pick the 3 yr old up. Personal Factors Other Personal Factors That May Effect Chronic low back pain, Therapy/Recovery arthritis, neck pain, controlled HBP, R MALENA, PT-OP-C Subjective Start: 12/31/18 08:04 Freq: Status: Active Protocol: Document 03/11/19 12:50 LRN (Rec: 03/11/19 13:16 LRN [id number]) OP-PT Subjective Patient Comments Patient Comments Since last visit she states she has felt good. Getting up first in morning doing bed ex 's and not having pain with first step. PT-OP-E Functional Tests Start: 12/31/18 08:04 Freq: Status: Active Protocol: Document 12/31/18 09:57 LRN (Rec: 12/31/18 10:49 LRN [id number]) Functional Tests Timed Up and Go (TUG) Score 11 TUG Impairment Rating 1 to <20% Impaired (Score 11) PT-OP-F Manual Assessment Start: 12/31/18 08:04 Freq: Status: Active Protocol: Document 12/31/18 09:57 LRN (Rec: 12/31/18 18:59 LRN [id number]) Manual Assessments Soft Tissue Assessment Soft Tissue Mobility Assessment Muscle guarding and tenderness at L Gluteus Mina and along the L sacral border. PT-OP-G Mobility & Gait Start: 12/31/18 08:04 Freq: Status: Active Protocol: Document 12/31/18 09:57 LRN (Rec: 12/31/18 18:59 LRN [id number]) OP Mobility Evaluation Bed Mobility Supine to and from Sit Pt came up in sit up rotating in the direction she was transferring and placing her legs in a 90/90 scissored fashion. Sit to Supine she uses her R UE to assist the R leg. Transfers Sit to Stand Independent but with unequal weight bearing of the LE's. Car Transfers Uses R UE to assist R leg into car. OP Gait Assessment Comments Gait Comments Pt ambulates independently without assistive device with excessive trunk sway bilaterally. She ambulates with a Trendelenburg type gait bilaterally L>R. PT-OP-H Neuro Start: 12/31/18 08:04 Freq: Status: Active Protocol: Document 12/31/18 09:57 LRN (Rec: 12/31/18 18:59 LRN [id number]) Sensation Evaluation Gross Sensation Gross Sensation WNL Deep Tendon Reflex & Clonus Assessment Deep Tendon Reflex Right Achilles Deep Tendon Reflex 2+ Normal Left Achilles Deep Tendon Reflex 1+ Diminished Bilateral Patellar Deep Tendon Reflex 3+ Normal But Brisk PT-OP-J Posture/Palpation/Skin Start: 12/31/18 08:04 Freq: Status: Active Protocol: Document 12/31/18 09:57 LRN (Rec: 12/31/18 18:59 LRN [id number]) Posture Evaluation Comments Posture Comments Standing: Forward head, depressed R shoulder, decreased thoracic and lumbar curvature, pelvis neutral. Palpation Assessment Location Innominates Palpation Details R Leg long in supine, Longer in long sit. Sacrum Palpation Location L Lateral Border Palpation Findings Tenderness Hips Palpation Location Upper Gluteus Mina Palpation Findings Tenderness Lumbar spine Palpation Location L/S PA glides elicited no complaints of pain. PT-OP-K Range of Motion Start: 12/31/18 08:04 Freq: Status: Active Protocol: Document 12/31/18 09:57 LRN (Rec: 12/31/18 18:59 LRN [id number]) Hip Goniometric Range of Motion Hip Right Passive Testing Position Supine Straight Leg Raise 80 Extension 0 Internal Rotation 40 External Rotation 70 Left Passive Testing Position Supine Straight Leg Raise 70 Extension 5 Internal Rotation 55 External Rotation 55 PT-OP-L Special Tests Start: 12/31/18 08:04 Freq: Status: Active Protocol: Document 12/31/18 09:57 LRN (Rec: 12/31/18 18:59 LRN [id number]) Special Tests Lumbar Spine Special Tests Straight Leg Raise Test Results postive left for possible neural tension and soft tissue tightness Comments 70 deg's left due to LE tightness, 80 deg's right. PT-OP-M Strength Start: 12/31/18 08:04 Freq: Status: Active Protocol: Document 03/04/19 12:47 LRN (Rec: 03/04/19 15:13 LRN [id number]) Hip Strength Hip Manual Muscle Testing Right Abduction 3 Fair Adduction 3+ Fair+ Left Abduction 4- Good- Adduction 5 Normal PT-OP-Q Treatments Start: 12/31/18 08:04 Freq: Status: Active Protocol: Document 03/11/19 12:50 LRN (Rec: 03/11/19 13:16 LRN [id number]) Cardio Equipment Bicycle (Upright) Duration (Minutes) 8 Resistance 4 Seat Position 5 Other 70+ rpm Gym Equipment Cable Column (Body Solid) Hip Adduction Details Seat 5 holes Resistance 20# Reps/Time 15x 2 Hip Abduction Details Seat 5 holes Resistance 10# Reps/Time 15x , 10x Leg Extension Details Seat 5 holes showing Resistance 10# Reps/Time 15x 2 Leg Curl Details Seat 5 holes showing Resistance 20# Reps/Time 15x 2 Gait Training Gait Activity Gait for weight shift & posture Description Gait correction training Device Used none Surface level Treatment Focus For hip shift R and level shoulders, core tight Manual Therapy Treatment Joint Mobilizations SIJ Joint R SIJ Direction Correcting a R inflared innominate Body Position Supine Reps/Duration 8' Comments MFR Self-Care/Home Management Treatment Education Patient Education Home Exercise Program Activities Self-Care/Home Management Activities I/S and reviewed with pt SI joint dysfunction correction for a R innominate inflare. Discussed appropriate exercises for R vs L and when to use the self correction technique. PT-OP-T Assessment and Plan Start: 12/31/18 08:04 Freq: Status: Active Protocol: Document 03/11/19 12:50 LRN (Rec: 03/11/19 13:17 LRN [id number]) Physical Therapy Assessment Assessment Summary Assessment R innominate inflare corrected (after dual fabricio strengthening) with MET treatment. Pt conts to have reports of no clicking in her back. LBP after hip AD strengthening on dual fabricio due to max positioning of hip AD's to start, possibly innominate inflare. Pt habitually walks with trunk sway due to lack of left hip shifting; therefore continued training needed. Physical Therapy Plan Frequency and Duration Frequency of Treatment 2x/Week Plan of Care Start Date 12/31/18 Plan of Care End Date 05/11/19 Next Visit Focus/Plan Next Note Type Treatment Note Next Visit Plan Monitor SI symmetry. Review HEP (Roll in/outs with Deep breath and Kegel) and Lumbar active mobility (table slides) . Start lumbar ROM (add ?R QL stretch). Progress core stabilization ex's for elimination of pain with lifting of pt's max weighted objects (~3#). Cont JMT to normalize pelvic positioning ( L outflare, R inflare if needed). Cryotherapy if needed.
--- NOTE | 2019-03-18 16:54 | PT.OTN ---
Current Diagnoses Other chronic pain (03/18/19) Low back pain (03/18/19) Muscle weakness (generalized) (03/18/19) Other abnormalities of gait and mobility (03/18/19) Physical Therapy Treatment Note PT-OP-A Visit Information Start: 12/31/18 08:04 Freq: Status: Active Protocol: Document 03/18/19 10:00 LRN (Rec: 03/18/19 10:34 LRN [id number]) Out-Patient Physical Therapy Visit Information Visit Information Visit Type Treatment Note Visit Note 09/22 after PN Visit Start Time 10:00 Visit Stop Time 10:22 Total Visit Minutes 20 Visit Number 14 Number of CHARTER COACH DRIVER Visits 0 Evaluation Information Evaluation Date 12/31/18 Precautions Precautions Pt reported: R MALENA - 15 yrs ago Osteoarthritis PT-OP-B Current Condition Start: 12/31/18 08:04 Freq: Status: Active Protocol: Document 12/31/18 09:57 LRN (Rec: 12/31/18 10:49 LRN [id number]) Current Condition History of Current Condition Onset Date 3.5 weeks ago Current Complaints Ongoing off/on bouts of debilitatin back pain History of Current Condition Back pain since a teenager. Had to wear a brace as a teen because of damage noted from chiropractor. HAs had bouts of back pain. 3.5 weeks ago had onset of back pain that resolved after 3 weeks. Typically the pain resolves in 3-10 days. During her 3/5 weeks of pain she was seeing the chiropractor who she sees regularly (1/week to 1x every 2.5 weeks, without insurance 1x/2 months) for good self care. Currently she is aware of some pain and must position spine to get relief of pain. Pain 1/10 sitting. Pain is a dull aching, irritating, oppressive, constant. States she tries to deny it, then it takes me out. Bouts of pain onset is every 2-3 months. Prior Treatments and Tests X-rays from [facility]. 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 Treatment Goals Patient/Caregiver Goals Wants to be able to get better and need PT to make sure her bout of pain doesn't return. Prior Functional Status Baseline Function- ADL's Independent Baseline Function- Mobility Independent Baseline Function- Recreation/Hobbies Pet sit & dog sit. Cooking Current Functional Impairments (Reported) Functional Limitations- ADL's Can't help a child into lap (3 and 7 yr old) or pick the 3 yr old up. Personal Factors Other Personal Factors That May Effect Chronic low back pain, Therapy/Recovery arthritis, neck pain, controlled HBP, R MALENA, PT-OP-C Subjective Start: 12/31/18 08:04 Freq: Status: Active Protocol: Document 03/18/19 10:00 LRN (Rec: 03/18/19 10:34 LRN [id number]) OP-PT Subjective Patient Comments Patient Comments Having testing for other health issues; therefore requests only 10' treatment today. Has not had pain getting up in the morning if she does her ex's. PT-OP-E Functional Tests Start: 12/31/18 08:04 Freq: Status: Active Protocol: Document 12/31/18 09:57 LRN (Rec: 12/31/18 10:49 LRN [id number]) Functional Tests Timed Up and Go (TUG) Score 11 TUG Impairment Rating 1 to <20% Impaired (Score 11) PT-OP-F Manual Assessment Start: 12/31/18 08:04 Freq: Status: Active Protocol: Document 12/31/18 09:57 LRN (Rec: 12/31/18 18:59 LRN [id number]) Manual Assessments Soft Tissue Assessment Soft Tissue Mobility Assessment Muscle guarding and tenderness at L Gluteus Mina and along the L sacral border. PT-OP-G Mobility & Gait Start: 12/31/18 08:04 Freq: Status: Active Protocol: Document 12/31/18 09:57 LRN (Rec: 12/31/18 18:59 LRN [id number]) OP Mobility Evaluation Bed Mobility Supine to and from Sit Pt came up in sit up rotating in the direction she was transferring and placing her legs in a 90/90 scissored fashion. Sit to Supine she uses her R UE to assist the R leg. Transfers Sit to Stand Independent but with unequal weight bearing of the LE's. Car Transfers Uses R UE to assist R leg into car. OP Gait Assessment Comments Gait Comments Pt ambulates independently without assistive device with excessive trunk sway bilaterally. She ambulates with a Trendelenburg type gait bilaterally L>R. PT-OP-H Neuro Start: 12/31/18 08:04 Freq: Status: Active Protocol: Document 12/31/18 09:57 LRN (Rec: 12/31/18 18:59 LRN [id number]) Sensation Evaluation Gross Sensation Gross Sensation WNL Deep Tendon Reflex & Clonus Assessment Deep Tendon Reflex Right Achilles Deep Tendon Reflex 2+ Normal Left Achilles Deep Tendon Reflex 1+ Diminished Bilateral Patellar Deep Tendon Reflex 3+ Normal But Brisk PT-OP-J Posture/Palpation/Skin Start: 12/31/18 08:04 Freq: Status: Active Protocol: Document 12/31/18 09:57 LRN (Rec: 12/31/18 18:59 LRN [id number]) Posture Evaluation Comments Posture Comments Standing: Forward head, depressed R shoulder, decreased thoracic and lumbar curvature, pelvis neutral. Palpation Assessment Location Innominates Palpation Details R Leg long in supine, Longer in long sit. Sacrum Palpation Location L Lateral Border Palpation Findings Tenderness Hips Palpation Location Upper Gluteus Mina Palpation Findings Tenderness Lumbar spine Palpation Location L/S PA glides elicited no complaints of pain. PT-OP-K Range of Motion Start: 12/31/18 08:04 Freq: Status: Active Protocol: Document 12/31/18 09:57 LRN (Rec: 12/31/18 18:59 LRN [id number]) Hip Goniometric Range of Motion Hip Right Passive Testing Position Supine Straight Leg Raise 80 Extension 0 Internal Rotation 40 External Rotation 70 Left Passive Testing Position Supine Straight Leg Raise 70 Extension 5 Internal Rotation 55 External Rotation 55 PT-OP-L Special Tests Start: 12/31/18 08:04 Freq: Status: Active Protocol: Document 12/31/18 09:57 LRN (Rec: 12/31/18 18:59 LRN [id number]) Special Tests Lumbar Spine Special Tests Straight Leg Raise Test Results postive left for possible neural tension and soft tissue tightness Comments 70 deg's left due to LE tightness, 80 deg's right. PT-OP-M Strength Start: 12/31/18 08:04 Freq: Status: Active Protocol: Document 03/04/19 12:47 LRN (Rec: 03/04/19 15:13 LRN [id number]) Hip Strength Hip Manual Muscle Testing Right Abduction 3 Fair Adduction 3+ Fair+ Left Abduction 4- Good- Adduction 5 Normal PT-OP-Q Treatments Start: 12/31/18 08:04 Freq: Status: Active Protocol: Document 03/18/19 10:00 LRN (Rec: 03/18/19 10:34 LRN [id number]) Gym Equipment Cable Column (Body Solid) Hip Adduction Details Seat 5 holes Resistance 30# Reps/Time 10x 2 Hip Abduction Details Seat 5 holes Resistance 15# Reps/Time 10 x 2 Leg Extension Details Seat 5 holes showing Resistance 15# Reps/Time 10x 2 Leg Curl Details Seat 5 holes showing Resistance 25# Reps/Time 10x 2 Therapeutic Exercises Sitting Exercises TA Double heel slide Sitting Exercise Name TA Double heel slides > nida hip flex Side bilateral Gait Training Gait Activity Gait for weight shift & posture Description Gait correction training Device Used none Surface level Treatment Focus For hip shift R and level shoulders, core tight PT-OP-T Assessment and Plan Start: 12/31/18 08:04 Freq: Status: Active Protocol: Document 03/18/19 10:00 LRN (Rec: 03/18/19 10:34 LRN [id number]) Physical Therapy Assessment Goals Three Impairment Poor body mechanics Short Term Goal (STG) Pt will be educated in proper body mechanics for bending, moving objects & sitting for sewing. STG Duration 03/11/19 (03/08/19: GOAL MET) Two Impairment Chronic low back pain rated 1 - 4/10 Short Term Goal (STG) Decrease R>L LBP to no greater than 1-2/10 with patient able to properly transfer and lift objects with no increase in pain greater than 2/10. STG Duration 01/21/19 (02/18/19: GOAL MET. Can lift 2# or less and transfer w/o pain) Platform Man Goal (LTG) Decrease R>L LBP to no greater than 1/10 with pt able to manage her pain and to self identify her max capacity for lifting. LTG Duration 05/11/19 (02/18/19: Pain is 7/ 10 after lifting too heavy of weight) One Impairment Pt lacks appropriate self care HEP STG Duration 02/04/19 Fdc Goal (LTG) Pt will be independent with a self care HEP. LTG Duration 05/11/19 (: Pt needs self care mobs for SI dys) Progress Towards Goals Progress Comments Goal #1: Progressing. STG #2 MET LTG #2: Needs assessment. GOAL #3 MET. STG: #4 Need MMT of hip strength. LT MET. Assessment Summary Assessment Pt is able to walk properly when concentrating. Habitually she has a limping gait. Pt not having pain in the mornings currently. Physical Therapy Plan Frequency and Duration Frequency of Treatment 2x/Week Plan of Care Start Date 12/31/18 Plan of Care End Date 05/11/19 Next Visit Focus/Plan Next Note Type Treatment Note Next Visit Plan Cont plan for progression for self care to DC and decrease pain with lifting max weight limit knowledge. Need to review self care for SI dysfunction: Monitor SI symmetry. Review HEP (Roll in /outs with Deep breath and Kegel) and Lumbar active mobility (table slides). Start lumbar ROM (add ?R QL stretch). Progress core stabilization ex's for elimination of pain with lifting of pt's max weighted objects (~3#). JMT as needed to normalize pelvic positioning (L outflare, R inflare if needed).
--- NOTE | 2019-03-29 11:00 | PT.OTN ---
Current Diagnoses Other chronic pain (03/29/19) Low back pain (03/29/19) Muscle weakness (generalized) (03/29/19) Other abnormalities of gait and mobility (03/29/19) Physical Therapy Treatment Note PT-OP-A Visit Information Start: 12/31/18 08:04 Freq: Status: Active Protocol: Document 03/29/19 09:53 LRN (Rec: 03/29/19 10:37 LRN [id number]) Out-Patient Physical Therapy Visit Information Visit Information Visit Type Treatment Note Visit Note 10/22 after PN Visit Start Time 09:53 Visit Stop Time 10:37 Total Visit Minutes 44 Visit Number 15 Number of ELECTRO MECHANIC Visits 0 Evaluation Information Evaluation Date 12/31/18 Precautions Precautions Pt reported: R MALENA - 15 yrs ago Osteoarthritis PT-OP-B Current Condition Start: 12/31/18 08:04 Freq: Status: Active Protocol: Document 12/31/18 09:57 LRN (Rec: 12/31/18 10:49 LRN [id number]) Current Condition History of Current Condition Onset Date 3.5 weeks ago Current Complaints Ongoing off/on bouts of debilitatin back pain History of Current Condition Back pain since a teenager. Had to wear a brace as a teen because of damage noted from chiropractor. HAs had bouts of back pain. 3.5 weeks ago had onset of back pain that resolved after 3 weeks. Typically the pain resolves in 3-10 days. During her 3/5 weeks of pain she was seeing the chiropractor who she sees regularly (1/week to 1x every 2.5 weeks, without insurance 1x/2 months) for good self care. Currently she is aware of some pain and must position spine to get relief of pain. Pain 1/10 sitting. Pain is a dull aching, irritating, oppressive, constant. States she tries to deny it, then it takes me out. Bouts of pain onset is every 2-3 months. Prior Treatments and Tests X-rays from [facility]. 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 Treatment Goals Patient/Caregiver Goals Wants to be able to get better and need PT to make sure her bout of pain doesn't return. Prior Functional Status Baseline Function- ADL's Independent Baseline Function- Mobility Independent Baseline Function- Recreation/Hobbies Pet sit & dog sit. Cooking Current Functional Impairments (Reported) Functional Limitations- ADL's Can't help a child into lap (3 and 7 yr old) or pick the 3 yr old up. Personal Factors Other Personal Factors That May Effect Chronic low back pain, Therapy/Recovery arthritis, neck pain, controlled HBP, R MALENA, PT-OP-C Subjective Start: 12/31/18 08:04 Freq: Status: Active Protocol: Document 03/29/19 09:53 LRN (Rec: 03/29/19 10:37 LRN [id number]) OP-PT Subjective Patient Comments Patient Comments Having more good days than bad . This morning got up and did stretches and had pain for 1 hour. States she had climbed over a fence the day before. PT-OP-E Functional Tests Start: 12/31/18 08:04 Freq: Status: Active Protocol: Document 12/31/18 09:57 LRN (Rec: 12/31/18 10:49 LRN [id number]) Functional Tests Timed Up and Go (TUG) Score 11 TUG Impairment Rating 1 to <20% Impaired (Score 11) PT-OP-F Manual Assessment Start: 12/31/18 08:04 Freq: Status: Active Protocol: Document 12/31/18 09:57 LRN (Rec: 12/31/18 18:59 LRN [id number]) Manual Assessments Soft Tissue Assessment Soft Tissue Mobility Assessment Muscle guarding and tenderness at L Gluteus Mina and along the L sacral border. PT-OP-G Mobility & Gait Start: 12/31/18 08:04 Freq: Status: Active Protocol: Document 12/31/18 09:57 LRN (Rec: 12/31/18 18:59 LRN [id number]) OP Mobility Evaluation Bed Mobility Supine to and from Sit Pt came up in sit up rotating in the direction she was transferring and placing her legs in a 90/90 scissored fashion. Sit to Supine she uses her R UE to assist the R leg. Transfers Sit to Stand Independent but with unequal weight bearing of the LE's. Car Transfers Uses R UE to assist R leg into car. OP Gait Assessment Comments Gait Comments Pt ambulates independently without assistive device with excessive trunk sway bilaterally. She ambulates with a Trendelenburg type gait bilaterally L>R. PT-OP-H Neuro Start: 12/31/18 08:04 Freq: Status: Active Protocol: Document 12/31/18 09:57 LRN (Rec: 12/31/18 18:59 LRN [id number]) Sensation Evaluation Gross Sensation Gross Sensation WNL Deep Tendon Reflex & Clonus Assessment Deep Tendon Reflex Right Achilles Deep Tendon Reflex 2+ Normal Left Achilles Deep Tendon Reflex 1+ Diminished Bilateral Patellar Deep Tendon Reflex 3+ Normal But Brisk PT-OP-J Posture/Palpation/Skin Start: 12/31/18 08:04 Freq: Status: Active Protocol: Document 12/31/18 09:57 LRN (Rec: 12/31/18 18:59 LRN [id number]) Posture Evaluation Comments Posture Comments Standing: Forward head, depressed R shoulder, decreased thoracic and lumbar curvature, pelvis neutral. Palpation Assessment Location Innominates Palpation Details R Leg long in supine, Longer in long sit. Sacrum Palpation Location L Lateral Border Palpation Findings Tenderness Hips Palpation Location Upper Gluteus Mina Palpation Findings Tenderness Lumbar spine Palpation Location L/S PA glides elicited no complaints of pain. PT-OP-K Range of Motion Start: 12/31/18 08:04 Freq: Status: Active Protocol: Document 12/31/18 09:57 LRN (Rec: 12/31/18 18:59 LRN [id number]) Hip Goniometric Range of Motion Hip Right Passive Testing Position Supine Straight Leg Raise 80 Extension 0 Internal Rotation 40 External Rotation 70 Left Passive Testing Position Supine Straight Leg Raise 70 Extension 5 Internal Rotation 55 External Rotation 55 PT-OP-L Special Tests Start: 12/31/18 08:04 Freq: Status: Active Protocol: Document 12/31/18 09:57 LRN (Rec: 12/31/18 18:59 LRN [id number]) Special Tests Lumbar Spine Special Tests Straight Leg Raise Test Results postive left for possible neural tension and soft tissue tightness Comments 70 deg's left due to LE tightness, 80 deg's right. PT-OP-M Strength Start: 12/31/18 08:04 Freq: Status: Active Protocol: Document 03/04/19 12:47 LRN (Rec: 03/04/19 15:13 LRN [id number]) Hip Strength Hip Manual Muscle Testing Right Abduction 3 Fair Adduction 3+ Fair+ Left Abduction 4- Good- Adduction 5 Normal PT-OP-Q Treatments Start: 12/31/18 08:04 Freq: Status: Active Protocol: Document 03/29/19 09:53 LRN (Rec: 03/29/19 10:37 LRN [id number]) Gym Equipment Cable Column (Body Solid) Hip Adduction Details Seat 5 holes Resistance 25# Reps/Time 10x 3 Hip Abduction Details Seat 5 holes Resistance 15# Reps/Time 10 x 3 Leg Extension Details Seat 5 holes showing Resistance 15# Reps/Time 6x Leg Curl Details Seat 5 holes showing Resistance 25# Reps/Time 10x 3 Therapeutic Exercises Supine Exercises Sacral Rocking Supine Exercise Name Sacral rocking: Head>Feet Reps/Minutes 3' DKTC stretch Supine Exercise Name DKTC stretch Reps/Minutes 3' Hamstring/LE neural stretch Supine Exercise Name Hamstring/LE neural stretch Side bilateral Reps/Minutes 4' SKTC stretch Supine Exercise Name SKTC stretch Side bilateral Reps/Minutes 3' Piriformis stretch Supine Exercise Name Piriformis Stretch Side bilateral Reps/Minutes 3' Comments Careful of R MALENA Self-Care/Home Management Treatment Education Patient Education Home Exercise Program Activities Self-Care/Home Management Activities Issued & reviewed HEP: Frankie knee flex/ext & hip AB strengthening with T-Band. Reviewed and educated pt in self correction technique for SIJ rotational dysfunction. PT-OP-T Assessment and Plan Start: 12/31/18 08:04 Freq: Status: Active Protocol: Document 03/29/19 09:53 LRN (Rec: 03/29/19 10:37 LRN [id number]) Physical Therapy Assessment Goals Four Impairment Excessive trunk sway with gait Short Term Goal (STG) Improve Hip strength with pt able to demonstrate good hip shift on single leg weightbearing. STG Duration 03/11/19 (02/18/19: Improving, good hip shift after training) Shelter Goal (LTG) Pt will demonstrate improved gait mechanics of decreased trunk sway LTG Duration 05/11/19 (02/18/19 Improving no sway after training) Three Impairment Poor body mechanics Short Term Goal (STG) Pt will be educated in proper body mechanics for bending, moving objects & sitting for sewing. STG Duration 03/11/19 (03/08/19: GOAL MET) Two Impairment Chronic low back pain rated 1 - 4/10 Short Term Goal (STG) Decrease R>L LBP to no greater than 1-2/10 with patient able to properly transfer and lift objects with no increase in pain greater than 2/10. STG Duration 01/21/19 (02/18/19: GOAL MET. Can lift 2# or less and transfer w/o pain) Shelter Goal (LTG) Decrease R>L LBP to no greater than 1/10 with pt able to manage her pain and to self identify her max capacity for lifting. LTG Duration 05/11/19 (02/18/19: Pain is 7/ 10 after lifting too heavy of weight) One Impairment Pt lacks appropriate self care HEP STG Duration 02/04/19 Shelter Goal (LTG) Pt will be independent with a self care HEP. LTG Duration 05/11/19 (: Pt needs review of self care mobs for SI dys) Assessment Summary Assessment Pt has fair recall of ex's; therefore handouts needed for HEP. Pt habitually walking with a limp. Overall pt's pain is intermittent, but appears related to activities that can cause onset of pain. Pt needs improved awareness of activities that can cause increase in pain Physical Therapy Plan Frequency and Duration Frequency of Treatment 2x/Week Plan of Care Start Date 12/31/18 Plan of Care End Date 05/11/19 Next Visit Focus/Plan Next Note Type Treatment Note Next Visit Plan Review HEP (Roll in/outs with Deep breath and Kegel) and Lumbar active mobility (table slides). Start lumbar ROM ( add ?R QL stretch). Monitor SI symmetry for JMT to normalize pelvic positioning ( L outflare, R inflare if needed). Review self care for SI dysfunction until pt able to perform independently for self care. Progress core stabilization ex's for elimination of pain with lifting of pt's max weighted objects (~3#). Assess for DC when pt is on an indep self care program.
--- NOTE | 2019-04-01 15:26 | PT.OTN ---
Current Diagnoses Other chronic pain (04/01/19) Low back pain (04/01/19) Muscle weakness (generalized) (04/01/19) Other abnormalities of gait and mobility (04/01/19) Physical Therapy Treatment Note PT-OP-A Visit Information Start: 12/31/18 08:04 Freq: Status: Active Protocol: Document 04/01/19 09:13 LRN (Rec: 04/01/19 09:57 LRN [id number]) Out-Patient Physical Therapy Visit Information Visit Information Visit Type Treatment Note Visit Note 11/22 after PN Visit Start Time 09:13 Visit Stop Time 09:56 Total Visit Minutes 43 Visit Number 16 Number of MEDIA LAW FACULTY MEMBER Visits 0 Evaluation Information Evaluation Date 12/31/18 Precautions Precautions Pt reported: R MALENA - 15 yrs ago Osteoarthritis PT-OP-B Current Condition Start: 12/31/18 08:04 Freq: Status: Active Protocol: Document 12/31/18 09:57 LRN (Rec: 12/31/18 10:49 LRN [id number]) Current Condition History of Current Condition Onset Date 3.5 weeks ago Current Complaints Ongoing off/on bouts of debilitatin back pain History of Current Condition Back pain since a teenager. Had to wear a brace as a teen because of damage noted from chiropractor. HAs had bouts of back pain. 3.5 weeks ago had onset of back pain that resolved after 3 weeks. Typically the pain resolves in 3-10 days. During her 3/5 weeks of pain she was seeing the chiropractor who she sees regularly (1/week to 1x every 2.5 weeks, without insurance 1x/2 months) for good self care. Currently she is aware of some pain and must position spine to get relief of pain. Pain 1/10 sitting. Pain is a dull aching, irritating, oppressive, constant. States she tries to deny it, then it takes me out. Bouts of pain onset is every 2-3 months. Prior Treatments and Tests X-rays from [facility]. 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 Treatment Goals Patient/Caregiver Goals Wants to be able to get better and need PT to make sure her bout of pain doesn't return. Prior Functional Status Baseline Function- ADL's Independent Baseline Function- Mobility Independent Baseline Function- Recreation/Hobbies Pet sit & dog sit. Cooking Current Functional Impairments (Reported) Functional Limitations- ADL's Can't help a child into lap (3 and 7 yr old) or pick the 3 yr old up. Personal Factors Other Personal Factors That May Effect Chronic low back pain, Therapy/Recovery arthritis, neck pain, controlled HBP, R MALENA, PT-OP-C Subjective Start: 12/31/18 08:04 Freq: Status: Active Protocol: Document 04/01/19 09:13 LRN (Rec: 04/01/19 09:57 LRN [id number]) OP-PT Subjective Patient Comments Patient Comments States she has had 1 day in the past month she has had to use medication for pain. States she is doing her stretches in the morning. If having pain it only lasts 1/2 day. Last visit she had anxiety and emotional stress because she had thought her house had caught on fire, but it hadn't. PT-OP-E Functional Tests Start: 12/31/18 08:04 Freq: Status: Active Protocol: Document 12/31/18 09:57 LRN (Rec: 12/31/18 10:49 LRN [id number]) Functional Tests Timed Up and Go (TUG) Score 11 TUG Impairment Rating 1 to <20% Impaired (Score 11) PT-OP-F Manual Assessment Start: 12/31/18 08:04 Freq: Status: Active Protocol: Document 12/31/18 09:57 LRN (Rec: 12/31/18 18:59 LRN [id number]) Manual Assessments Soft Tissue Assessment Soft Tissue Mobility Assessment Muscle guarding and tenderness at L Gluteus Mina and along the L sacral border. PT-OP-G Mobility & Gait Start: 12/31/18 08:04 Freq: Status: Active Protocol: Document 12/31/18 09:57 LRN (Rec: 12/31/18 18:59 LRN [id number]) OP Mobility Evaluation Bed Mobility Supine to and from Sit Pt came up in sit up rotating in the direction she was transferring and placing her legs in a 90/90 scissored fashion. Sit to Supine she uses her R UE to assist the R leg. Transfers Sit to Stand Independent but with unequal weight bearing of the LE's. Car Transfers Uses R UE to assist R leg into car. OP Gait Assessment Comments Gait Comments Pt ambulates independently without assistive device with excessive trunk sway bilaterally. She ambulates with a Trendelenburg type gait bilaterally L>R. PT-OP-H Neuro Start: 12/31/18 08:04 Freq: Status: Active Protocol: Document 12/31/18 09:57 LRN (Rec: 12/31/18 18:59 LRN [id number]) Sensation Evaluation Gross Sensation Gross Sensation WNL Deep Tendon Reflex & Clonus Assessment Deep Tendon Reflex Right Achilles Deep Tendon Reflex 2+ Normal Left Achilles Deep Tendon Reflex 1+ Diminished Bilateral Patellar Deep Tendon Reflex 3+ Normal But Brisk PT-OP-J Posture/Palpation/Skin Start: 12/31/18 08:04 Freq: Status: Active Protocol: Document 12/31/18 09:57 LRN (Rec: 12/31/18 18:59 LRN [id number]) Posture Evaluation Comments Posture Comments Standing: Forward head, depressed R shoulder, decreased thoracic and lumbar curvature, pelvis neutral. Palpation Assessment Location Innominates Palpation Details R Leg long in supine, Longer in long sit. Sacrum Palpation Location L Lateral Border Palpation Findings Tenderness Hips Palpation Location Upper Gluteus Mina Palpation Findings Tenderness Lumbar spine Palpation Location L/S PA glides elicited no complaints of pain. PT-OP-K Range of Motion Start: 12/31/18 08:04 Freq: Status: Active Protocol: Document 12/31/18 09:57 LRN (Rec: 12/31/18 18:59 LRN [id number]) Hip Goniometric Range of Motion Hip Right Passive Testing Position Supine Straight Leg Raise 80 Extension 0 Internal Rotation 40 External Rotation 70 Left Passive Testing Position Supine Straight Leg Raise 70 Extension 5 Internal Rotation 55 External Rotation 55 PT-OP-L Special Tests Start: 12/31/18 08:04 Freq: Status: Active Protocol: Document 12/31/18 09:57 LRN (Rec: 12/31/18 18:59 LRN [id number]) Special Tests Lumbar Spine Special Tests Straight Leg Raise Test Results postive left for possible neural tension and soft tissue tightness Comments 70 deg's left due to LE tightness, 80 deg's right. PT-OP-M Strength Start: 12/31/18 08:04 Freq: Status: Active Protocol: Document 03/04/19 12:47 LRN (Rec: 03/04/19 15:13 LRN [id number]) Hip Strength Hip Manual Muscle Testing Right Abduction 3 Fair Adduction 3+ Fair+ Left Abduction 4- Good- Adduction 5 Normal PT-OP-Q Treatments Start: 12/31/18 08:04 Freq: Status: Active Protocol: Document 04/01/19 09:13 LRN (Rec: 04/01/19 09:57 LRN [id number]) Cardio Equipment Bicycle (Upright) Duration (Minutes) 8 Resistance 4 Seat Position 5 Other 70+ rpm Therapeutic Exercises Supine Exercises DKTC stretch Supine Exercise Name DKTC stretch Reps/Minutes 3' Hamstring/LE neural stretch Supine Exercise Name Hamstring/LE neural stretch Side bilateral Reps/Minutes 4' LE Roll in/out Supine Exercise Name LE Roll in/out with Kegel & deep breathing Side bilateral Reps/Minutes 10 x Comments Extra time for review TA Supine Exercise Name Bains training for automatic TA contraction Reps/Minutes 2' Kegel Supine Exercise Name Kegel in conjunction with LE roll in/out ex Sitting Exercises Trunk flex Sitting Exercise Name Reaching forward (table slide) Comments Pt must prevent lumbar flexion due to pain. Trunk rotation Sitting Exercise Name Reaching forward with rotation (table slide). Gait Training Gait Activity Gait for weight shift & posture Description Review of Gait correction Surface level Treatment Focus For hip shift R and level shoulders, core tight Neuro Re-Education Treatment Other Activities Core stab ex's Details Bridging and pivoting on hips with reaching foward/rot in sitting Comments Pt had lessening of back pain with training for stability vs allowing segmental lumbar flexion with bridging or reaching (forward or with rotation). Self-Care/Home Management Treatment Education Patient Education Home Exercise Program Activities Self-Care/Home Management Activities Reviewed HEP of self correction for rotated innominate. I/S pt in self correction technique for a R inflare/outflare. Reviewed previously issued HEP of T-Band ex's. PT-OP-T Assessment and Plan Start: 12/31/18 08:04 Freq: Status: Active Protocol: Document 04/01/19 09:13 LRN (Rec: 04/01/19 09:57 LRN [id number]) Physical Therapy Assessment Goals Four Impairment Excessive trunk sway with gait Short Term Goal (STG) Improve Hip strength with pt able to demonstrate good hip shift on single leg weightbearing. STG Duration 03/11/19 (02/18/19: Improving, good hip shift after training) Snf Goal (LTG) Pt will demonstrate improved gait mechanics of decreased trunk sway LTG Duration 05/11/19 (02/18/19 Improving, no sway after training) Three Impairment Poor body mechanics Short Term Goal (STG) Pt will be educated in proper body mechanics for bending, moving objects & sitting for sewing. STG Duration 03/11/19 (03/08/19: GOAL MET) Two Impairment Chronic low back pain rated 1 - 4/10 Short Term Goal (STG) Decrease R>L LBP to no greater than 1-2/10 with patient able to properly transfer and lift objects with no increase in pain greater than 2/10. STG Duration 01/21/19 (02/18/19: GOAL MET. Can lift 2# or less and transfer w/o pain) Service Station Cashier Goal (LTG) Decrease R>L LBP to no greater than 1/10 with pt able to manage her pain and to self identify her max capacity for lifting. LTG Duration 05/11/19 (02/18/19: Pain is 7/ 10 after lifting too heavy of weight) One Impairment Pt lacks appropriate self care HEP STG Duration 02/04/19 Service Station Cashier Goal (LTG) Pt will be independent with a self care HEP. LTG Duration 05/11/19 (: Pt needs review of self care mobs for SI dys) Progress Towards Goals Progress Comments Goal #1: Progressing. STG #2 MET LTG #2: Needs assessment. GOAL #3 MET. STG: #4 Need MMT of hip strength. LT MET. Assessment Summary Assessment Pt much improved, pain meds needed 1x in 1 month. She needed review of home ex's. Her lumbar spine has low tolerance to flex due to mechanical changes in her spine. No c/o pain if she is able to maintain neutral with movement. She appears to be able to maintain symmetry in the pelvis thus far. She has fair recall for correction techniques; therefore further training is needed. Assess LTG #2 & goal #4 STG/LTG before DC to indep HEP. Physical Therapy Plan Frequency and Duration Frequency of Treatment 2x/Week Plan of Care Start Date 12/31/18 Plan of Care End Date 05/11/19 Next Visit Focus/Plan Next Note Type Discharge Summary Next Visit Plan Monitor SI symmetry, review pt self correction technique for inflare/outflare & innominate rotation. Assess goals #1,#2 , #4. Place on indep HEP to meet goal #1.
--- NOTE | 2019-04-14 16:06 | PT-OP ANOTE ---
No Show. Pt mailbox was full; therefore unable to leave message for next appt.
--- NOTE | 2019-04-19 16:08 | PT.OTN ---
Current Diagnoses Other chronic pain (04/19/19) Low back pain (04/19/19) Muscle weakness (generalized) (04/19/19) Other abnormalities of gait and mobility (04/19/19) Physical Therapy Treatment Note PT-OP-A Visit Information Start: 12/31/18 08:04 Freq: Status: Active Protocol: Document 04/19/19 15:02 LRN (Rec: 04/19/19 16:06 LRN [id number]) Out-Patient Physical Therapy Visit Information Visit Information Visit Type Treatment Note Visit Note 12/22 after PN Visit Start Time 15:02 Visit Stop Time 15:43 Total Visit Minutes 41 Visit Number 17 Number of ANSWERER Visits 0 Evaluation Information Evaluation Date 12/31/18 Precautions Precautions Pt reported: R MALENA - 15 yrs ago Osteoarthritis PT-OP-B Current Condition Start: 12/31/18 08:04 Freq: Status: Active Protocol: Document 12/31/18 09:57 LRN (Rec: 12/31/18 10:49 LRN [id number]) Current Condition History of Current Condition Onset Date 3.5 weeks ago Current Complaints Ongoing off/on bouts of debilitatin back pain History of Current Condition Back pain since a teenager. Had to wear a brace as a teen because of damage noted from chiropractor. HAs had bouts of back pain. 3.5 weeks ago had onset of back pain that resolved after 3 weeks. Typically the pain resolves in 3-10 days. During her 3/5 weeks of pain she was seeing the chiropractor who she sees regularly (1/week to 1x every 2.5 weeks, without insurance 1x/2 months) for good self care. Currently she is aware of some pain and must position spine to get relief of pain. Pain 1/10 sitting. Pain is a dull aching, irritating, oppressive, constant. States she tries to deny it, then it takes me out. Bouts of pain onset is every 2-3 months. Prior Treatments and Tests X-rays from [facility]. 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 Treatment Goals Patient/Caregiver Goals Wants to be able to get better and need PT to make sure her bout of pain doesn't return. Prior Functional Status Baseline Function- ADL's Independent Baseline Function- Mobility Independent Baseline Function- Recreation/Hobbies Pet sit & dog sit. Cooking Current Functional Impairments (Reported) Functional Limitations- ADL's Can't help a child into lap (3 and 7 yr old) or pick the 3 yr old up. Personal Factors Other Personal Factors That May Effect Chronic low back pain, Therapy/Recovery arthritis, neck pain, controlled HBP, R MALENA, PT-OP-C Subjective Start: 12/31/18 08:04 Freq: Status: Active Protocol: Document 04/19/19 15:02 LRN (Rec: 04/19/19 16:06 LRN [id number]) OP-PT Subjective Patient Comments Patient Comments States there has been a long time without pain in the morning. States she has become more aware when she has pain to figure out what to change. PT-OP-E Functional Tests Start: 12/31/18 08:04 Freq: Status: Active Protocol: Document 12/31/18 09:57 LRN (Rec: 12/31/18 10:49 LRN [id number]) Functional Tests Timed Up and Go (TUG) Score 11 TUG Impairment Rating 1 to <20% Impaired (Score 11) PT-OP-F Manual Assessment Start: 12/31/18 08:04 Freq: Status: Active Protocol: Document 12/31/18 09:57 LRN (Rec: 12/31/18 18:59 LRN [id number]) Manual Assessments Soft Tissue Assessment Soft Tissue Mobility Assessment Muscle guarding and tenderness at L Gluteus Mina and along the L sacral border. PT-OP-G Mobility & Gait Start: 12/31/18 08:04 Freq: Status: Active Protocol: Document 12/31/18 09:57 LRN (Rec: 12/31/18 18:59 LRN [id number]) OP Mobility Evaluation Bed Mobility Supine to and from Sit Pt came up in sit up rotating in the direction she was transferring and placing her legs in a 90/90 scissored fashion. Sit to Supine she uses her R UE to assist the R leg. Transfers Sit to Stand Independent but with unequal weight bearing of the LE's. Car Transfers Uses R UE to assist R leg into car. OP Gait Assessment Comments Gait Comments Pt ambulates independently without assistive device with excessive trunk sway bilaterally. She ambulates with a Trendelenburg type gait bilaterally L>R. PT-OP-H Neuro Start: 12/31/18 08:04 Freq: Status: Active Protocol: Document 12/31/18 09:57 LRN (Rec: 12/31/18 18:59 LRN [id number]) Sensation Evaluation Gross Sensation Gross Sensation WNL Deep Tendon Reflex & Clonus Assessment Deep Tendon Reflex Right Achilles Deep Tendon Reflex 2+ Normal Left Achilles Deep Tendon Reflex 1+ Diminished Bilateral Patellar Deep Tendon Reflex 3+ Normal But Brisk PT-OP-J Posture/Palpation/Skin Start: 12/31/18 08:04 Freq: Status: Active Protocol: Document 12/31/18 09:57 LRN (Rec: 12/31/18 18:59 LRN [id number]) Posture Evaluation Comments Posture Comments Standing: Forward head, depressed R shoulder, decreased thoracic and lumbar curvature, pelvis neutral. Palpation Assessment Location Innominates Palpation Details R Leg long in supine, Longer in long sit. Sacrum Palpation Location L Lateral Border Palpation Findings Tenderness Hips Palpation Location Upper Gluteus Mina Palpation Findings Tenderness Lumbar spine Palpation Location L/S PA glides elicited no complaints of pain. PT-OP-K Range of Motion Start: 12/31/18 08:04 Freq: Status: Active Protocol: Document 12/31/18 09:57 LRN (Rec: 12/31/18 18:59 LRN [id number]) Hip Goniometric Range of Motion Hip Right Passive Testing Position Supine Straight Leg Raise 80 Extension 0 Internal Rotation 40 External Rotation 70 Left Passive Testing Position Supine Straight Leg Raise 70 Extension 5 Internal Rotation 55 External Rotation 55 PT-OP-L Special Tests Start: 12/31/18 08:04 Freq: Status: Active Protocol: Document 12/31/18 09:57 LRN (Rec: 12/31/18 18:59 LRN [id number]) Special Tests Lumbar Spine Special Tests Straight Leg Raise Test Results postive left for possible neural tension and soft tissue tightness Comments 70 deg's left due to LE tightness, 80 deg's right. PT-OP-M Strength Start: 12/31/18 08:04 Freq: Status: Active Protocol: Document 03/04/19 12:47 LRN (Rec: 03/04/19 15:13 LRN [id number]) Hip Strength Hip Manual Muscle Testing Right Abduction 3 Fair Adduction 3+ Fair+ Left Abduction 4- Good- Adduction 5 Normal PT-OP-Q Treatments Start: 12/31/18 08:04 Freq: Status: Active Protocol: Document 04/19/19 15:02 LRN (Rec: 04/19/19 16:06 LRN [id number]) Cardio Equipment Bicycle (Upright) Duration (Minutes) 8 Resistance 4 Seat Position 5 Other 70+ rpm Therapeutic Exercises Standing Exercises Gait-motor relearning Standing Exercise Name See Gait training Gait Training Gait Activity Gait for weight shift & posture Description Gait correction for lateral sway Device Used Book on head Surface level Treatment Focus For hip shift R and level shoulders, core tight Manual Therapy Treatment Soft Tissue Mobilization SIJ Body Location L Piriformis Mobilization Type Myofascial Release Intensity/Depth Moderate Body Position Prone Sacrum Body Location Correcting a L rotated & R SB sacrum Mobilization Type Myofascial Release Intensity/Depth Moderate Body Position Prone Joint Mobilizations SIJ Joint R SIJ Direction Correcting a R inflared innominate Body Position Supine Reps/Duration 8' Comments MFR Self-Care/Home Management Treatment Education Patient Education Home Exercise Program Activities Self-Care/Home Management Activities Reviewed pt education for self care if R innominate inflared and assessment for anteriorly rotated innominate treatment. PT-OP-T Assessment and Plan Start: 12/31/18 08:04 Freq: Status: Active Protocol: Document 04/19/19 15:02 LRN (Rec: 04/19/19 16:06 LRN [id number]) Physical Therapy Assessment Goals Four Impairment Excessive trunk sway with gait Short Term Goal (STG) Improve Hip strength with pt able to demonstrate good hip shift on single leg weightbearing. STG Duration 03/11/19 (02/18/19: Improving, good hip shift after training) Ict Customer Support Officer Goal (LTG) Pt will demonstrate improved gait mechanics of decreased trunk sway LTG Duration 05/11/19 (04/19/19: GOAL MET) Three Impairment Poor body mechanics Short Term Goal (STG) Pt will be educated in proper body mechanics for bending, moving objects & sitting for sewing. STG Duration 03/11/19 (03/08/19: GOAL MET) Two Impairment Chronic low back pain rated 1 - 4/10 Short Term Goal (STG) Decrease R>L LBP to no greater than 1-2/10 with patient able to properly transfer and lift objects with no increase in pain greater than 2/10. STG Duration 01/21/19 (02/18/19: GOAL MET. Can lift 2# or less and transfer w/o pain) [facility]cf Goal (LTG) Decrease R>L LBP to no greater than 1/10 with pt able to manage her pain and to self identify her max capacity for lifting. LTG Duration 05/11/19 (02/18/19: Pain is 7/ 10 after lifting too heavy of weight) One Impairment Pt lacks appropriate self care HEP STG Duration 02/04/19 Ict Customer Support Officer Goal (LTG) Pt will be independent with a self care HEP. LTG Duration 05/11/19 (: Pt needs review of self care mobs for SI dys) Progress Towards Goals Progress Towards Goals Goals Met Progress Comments Goal #1: Progressing, self care for rotated innominate. STG #2 MET LTG #2: Pain is reportedly 1/2 . GOAL #3 MET. STG: #4 Need MMT of hip strength. LTG: #4 MET. Assessment Summary Assessment Pt is having difficulty with self assessment of inflare. She is not able to visualize or palpate it. Pt may have to self correct based on symptoms. She is able to understand today for the first time self assessment for innominate rotation using a stick to align ASIS'. Still uncertain she truely understands. Will need review one more time. Physical Therapy Plan Frequency and Duration Frequency of Treatment 2x/Week Plan of Care Start Date 12/31/18 Plan of Care End Date 05/11/19 Next Visit Focus/Plan Next Note Type Discharge Summary Next Visit Plan Monitor SI symmetry, review pt self correction technique for inflare/outflare & innominate rotation. Assess goals #1,#2 LTG, #[address] on indep HEP to meet goal #1. DC to HEP.
--- NOTE | 2019-04-22 16:10 | PT.OTN ---
Current Diagnoses Other chronic pain (04/22/19) Low back pain (04/22/19) Muscle weakness (generalized) (04/22/19) Other abnormalities of gait and mobility (04/22/19) Physical Therapy Treatment Note PT-OP-A Visit Information Start: 12/31/18 08:04 Freq: Status: Active Protocol: Document 04/22/19 15:12 LRN (Rec: 04/22/19 16:05 LRN [id number]) Out-Patient Physical Therapy Visit Information Visit Information Visit Type Treatment Note Visit Start Time 15:12 Visit Stop Time 15:51 Total Visit Minutes 39 Visit Number 18 Number of STEEL ROLLER Visits 0 Evaluation Information Evaluation Date 12/31/18 Precautions Precautions Pt reported: R MALENA - 15 yrs ago Osteoarthritis PT-OP-B Current Condition Start: 12/31/18 08:04 Freq: Status: Active Protocol: Document 12/31/18 09:57 LRN (Rec: 12/31/18 10:49 LRN [id number]) Current Condition History of Current Condition Onset Date 3.5 weeks ago Current Complaints Ongoing off/on bouts of debilitatin back pain History of Current Condition Back pain since a teenager. Had to wear a brace as a teen because of damage noted from chiropractor. HAs had bouts of back pain. 3.5 weeks ago had onset of back pain that resolved after 3 weeks. Typically the pain resolves in 3-10 days. During her 3/5 weeks of pain she was seeing the chiropractor who she sees regularly (1/week to 1x every 2.5 weeks, without insurance 1x/2 months) for good self care. Currently she is aware of some pain and must position spine to get relief of pain. Pain 1/10 sitting. Pain is a dull aching, irritating, oppressive, constant. States she tries to deny it, then it takes me out. Bouts of pain onset is every 2-3 months. Prior Treatments and Tests X-rays from [facility]. 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 Treatment Goals Patient/Caregiver Goals Wants to be able to get better and need PT to make sure her bout of pain doesn't return. Prior Functional Status Baseline Function- ADL's Independent Baseline Function- Mobility Independent Baseline Function- Recreation/Hobbies Pet sit & dog sit. Cooking Current Functional Impairments (Reported) Functional Limitations- ADL's Can't help a child into lap (3 and 7 yr old) or pick the 3 yr old up. Personal Factors Other Personal Factors That May Effect Chronic low back pain, Therapy/Recovery arthritis, neck pain, controlled HBP, R MAELNA, PT-OP-C Subjective Start: 12/31/18 08:04 Freq: Status: Active Protocol: Document 04/22/19 15:12 LRN (Rec: 04/22/19 16:05 LRN [id number]) OP-PT Subjective Patient Comments Patient Comments States she knows she needs to continue with daily ex's because when she skips a day she has increased stiffness. Patient Questionnaires Oswestry Low Back Index Oswestry Score 2 Oswestry Impairment 1 to 19% Impaired (Score 1-19) OP-PT Pain Assessment Comments Pain Comments R hip and neck rated today 1/ 10. PT-OP-E Functional Tests Start: 12/31/18 08:04 Freq: Status: Active Protocol: Document 12/31/18 09:57 LRN (Rec: 12/31/18 10:49 LRN [id number]) Functional Tests Timed Up and Go (TUG) Score 11 TUG Impairment Rating 1 to <20% Impaired (Score 11) PT-OP-F Manual Assessment Start: 12/31/18 08:04 Freq: Status: Active Protocol: Document 12/31/18 09:57 LRN (Rec: 12/31/18 18:59 LRN [id number]) Manual Assessments Soft Tissue Assessment Soft Tissue Mobility Assessment Muscle guarding and tenderness at L Gluteus Mina and along the L sacral border. PT-OP-G Mobility & Gait Start: 12/31/18 08:04 Freq: Status: Active Protocol: Document 04/22/19 15:12 LRN (Rec: 04/22/19 16:05 LRN [id number]) OP Gait Assessment Gait Gait Assistance Required: Independent Able to Maintain Weight Bearing Status Yes During Gait Assistive Devices Assistive Device None Gait Deviations General Gait Pattern Lateral Trunk Lean Factors Limiting Gait Function Factors Limiting Gait Function Decreased Strength Comments Gait Comments Pt has mild trunk sway, but is able to correct her habiual lean with conscious thought. PT-OP-H Neuro Start: 12/31/18 08:04 Freq: Status: Active Protocol: Document 12/31/18 09:57 LRN (Rec: 12/31/18 18:59 LRN [id number]) Sensation Evaluation Gross Sensation Gross Sensation WNL Deep Tendon Reflex & Clonus Assessment Deep Tendon Reflex Right Achilles Deep Tendon Reflex 2+ Normal Left Achilles Deep Tendon Reflex 1+ Diminished Bilateral Patellar Deep Tendon Reflex 3+ Normal But Brisk PT-OP-J Posture/Palpation/Skin Start: 12/31/18 08:04 Freq: Status: Active Protocol: Document 12/31/18 09:57 LRN (Rec: 12/31/18 18:59 LRN [id number]) Posture Evaluation Comments Posture Comments Standing: Forward head, depressed R shoulder, decreased thoracic and lumbar curvature, pelvis neutral. Palpation Assessment Location Innominates Palpation Details R Leg long in supine, Longer in long sit. Sacrum Palpation Location L Lateral Border Palpation Findings Tenderness Hips Palpation Location Upper Gluteus Mina Palpation Findings Tenderness Lumbar spine Palpation Location L/S PA glides elicited no complaints of pain. PT-OP-K Range of Motion Start: 12/31/18 08:04 Freq: Status: Active Protocol: Document 12/31/18 09:57 LRN (Rec: 12/31/18 18:59 LRN [id number]) Hip Goniometric Range of Motion Hip Right Passive Testing Position Supine Straight Leg Raise 80 Extension 0 Internal Rotation 40 External Rotation 70 Left Passive Testing Position Supine Straight Leg Raise 70 Extension 5 Internal Rotation 55 External Rotation 55 PT-OP-L Special Tests Start: 12/31/18 08:04 Freq: Status: Active Protocol: Document 12/31/18 09:57 LRN (Rec: 12/31/18 18:59 LRN [id number]) Special Tests Lumbar Spine Special Tests Straight Leg Raise Test Results postive left for possible neural tension and soft tissue tightness Comments 70 deg's left due to LE tightness, 80 deg's right. PT-OP-M Strength Start: 12/31/18 08:04 Freq: Status: Active Protocol: Document 03/04/19 12:47 LRN (Rec: 03/04/19 15:13 LRN [id number]) Hip Strength Hip Manual Muscle Testing Right Abduction 3 Fair Adduction 3+ Fair+ Left Abduction 4- Good- Adduction 5 Normal PT-OP-Q Treatments Start: 12/31/18 08:04 Freq: Status: Active Protocol: Document 04/22/19 15:12 LRN (Rec: 04/22/19 16:05 LRN [id number]) Gym Equipment Cable Column (Body Solid) Hip Adduction Details Seat 5 holes Resistance 25# Reps/Time 10x Hip Abduction Details Seat 5 holes Resistance 15# Reps/Time 10 x Leg Extension Details Seat 5 holes showing Resistance 15# Reps/Time 10x Leg Curl Details Seat 5 holes showing Resistance 25# Reps/Time 10x 1 Therapeutic Exercises Sitting Exercises Knee ext Sitting Exercise Name Knee ext Side bilateral Resistance Lev 2 T-Band Comments Issued T-Band for home use Standing Exercises Weight shifting for SLS Standing Exercise Name Weight shifting and SLS Side right Gait-motor relearning Standing Exercise Name See Gait training Gait Training Gait Activity Gait for weight shift & posture Description Gait correction for lateral sway Surface level Treatment Focus For hip shift R and level shoulders, core tight Comments Use of mirror and reflexions on glass for training of self care. Self-Care/Home Management Treatment Activities Self-Care/Home Management Activities Issued Lev 2 T-Band for home use of knee strengthening ex's . PT-OP-T Assessment and Plan Start: 12/31/18 08:04 Freq: Status: Active Protocol: Document 04/22/19 15:12 LRN (Rec: 04/22/19 16:05 LRN [id number]) Physical Therapy Assessment Goals Four Impairment Excessive trunk sway with gait Short Term Goal (STG) Improve Hip strength with pt able to demonstrate good hip shift on single leg weightbearing. STG Duration 03/11/19 (04/22/19: GOAL MET, instability felt with R SLS) Assisted Goal (LTG) Pt will demonstrate improved gait mechanics of decreased trunk sway LTG Duration 05/11/19 (04/19/19: GOAL MET) Three Impairment Poor body mechanics Short Term Goal (STG) Pt will be educated in proper body mechanics for bending, moving objects & sitting for sewing. STG Duration 03/11/19 (03/08/19: GOAL MET) Two Impairment Chronic low back pain rated 1 - 4/10 Short Term Goal (STG) Decrease R>L LBP to no greater than 1-2/10 with patient able to properly transfer and lift objects with no increase in pain greater than 2/10. STG Duration 01/21/19 (02/18/19: GOAL MET. Can lift 2# or less and transfer w/o pain) Peanut Cleaner Goal (LTG) Decrease R>L LBP to no greater than 1/10 with pt able to manage her pain and to self identify her max capacity for lifting. LTG Duration 05/11/19 (04/22/19: GOAL MET. Pain is 0/10 after lifting) One Impairment Pt lacks appropriate self care HEP Peanut Cleaner Goal (LTG) Pt will be independent with a self care HEP. LTG Duration 05/11/19 (04/22/19: GOALS MET) Assessment Summary Assessment Pt has met goals. She habitually has a mild trunk sway with gait, but is able to control the sway with concentration on gait. She demonstrates good hip shift with SLS, but notes instability at the R hip joint on SLS. The pt has gained great awareness of her posture , body mechanics, gait and home self care program. Pt is ready for DC to independent HEP. Physical Therapy Plan Discharge Physical Therapy Discharge Reasons Goals Met Discharge Comments Pt to continue with her independent HEP and gait practice. Thank you for your referral.
== END 2019-04-22 16:00 ==
LOC: PHYS 15:00
PROVIDERS: PCP Nurse Practitioner; Visit Provider Nurse Practitioner
DX: M54.5 Low back pain (principal); G89.29 Other chronic pain; R26.89 Other abnormalities of gait and mobility; M62.81 Muscle weakness (generalized)
CPT/HCPCS: 97110; 97112; 97116; 97140; 97162; 97530; 97535

== ENCOUNTER → 2019-05-05 10:17 | Outpatient (CLI) | payer MEDICARE, MEDICAID, SELFPAY ==
[2019-05-05 11:35] LABS: Calcium 9.3 mg/dL (8.4-10.2); Phosphorous 5.4 mg/dL (2.8-4.1)
== END ==
PROVIDERS: PCP Nurse Practitioner Family; Visit Provider Internal Medicine Endocrinology, Diabetes & Metabolism
DX: E20.9 Hypoparathyroidism, unspecified (principal)
CPT/HCPCS: 36415; 82310; 84100

== ENCOUNTER → 2019-05-13 16:27 | Outpatient (CLI) | payer MEDICARE, MEDICAID, SELFPAY ==
[2019-05-13 17:08] LABS: Calcium 8.8 mg/dL (8.4-10.2); Phosphorous 4.9 mg/dL (2.8-4.1)
== END ==
PROVIDERS: Family Provider Nurse Practitioner Family; PCP Nurse Practitioner Family; Visit Provider Internal Medicine Endocrinology, Diabetes & Metabolism
DX: E20.9 Hypoparathyroidism, unspecified (principal)
CPT/HCPCS: 36415; 82310; 84100

== ENCOUNTER → 2019-05-20 10:29 | Outpatient (CLI) | payer MEDICARE, MEDICAID, SELFPAY ==
[2019-05-20 11:09] LABS: Hematocrit 34.4 % (36-46); Hemoglobin 11.5 g/dL (12.0-16.0); Mean Corpuscular HGB Conc 33.5 % (30-36); Mean Corpuscular Hemoglobin 30.7 PG (26-34); Mean Corpuscular Volume 91.7 fL (80-100); Platelet Count 386 X10^3/uL (150-400); Red Blood Cell Count 3.75 X10^6/uL (4.0-5.2); White Blood Cell Count 5.6 X10^3/uL (4.5-11.0)
[2019-05-20 11:55] LABS: Alanine Aminotransferase 25 IU/L (<35); Albumin 4.2 g/dL (3.5-5.0); Albumin Globulin Ratio 1.6 (1.0-2.8); Alkaline Phosphatase 64 U/L (38-126); Aspartate Aminotransferase 45 IU/L (14-36); BUN Creatinine Ratio 16.3 (6-22); Bilirubin Total 0.7 mg/dL (0.2-1.3); Blood Urea Nitrogen 13 mg/dL (7-17); Calcium 8.9 mg/dL (8.4-10.2); Carbon Dioxide 31 mmol/L (22-32); Chloride 95 mmol/L (98-107); Cholesterol 240 mg/dL (140-199); Estimated Glomerular Filt Rate > 60.0 mL/min (>60); Globulin 2.7 g/dL (1.7-4.1); Glucose 90 mg/dL (80-110); HDL Cholesterol 74 mg/dL (40-60); HEMOLYSIS < 15 (0-50); LDL Cholesterol Calculated 154 mg/dL (<100); Magnesium 1.6 mg/dL (1.6-2.3); Sodium 137 mmol/L (137-145); Total Protein 6.9 g/dL (6.3-8.2); Triglycerides 58 mg/dL (35-150)
[2019-05-20 12:23] LABS: TSH w/ Reflex to FT4 2.91 uIU/mL (0.47-4.68)
[2019-05-24 14:15] LABS: Parathyroid Hormone Int 5 pg/mL (14-64)
== END ==
PROVIDERS: PCP Nurse Practitioner Family; Visit Provider Nurse Practitioner Family
DX: Z00.00 Encounter for general adult medical examination without abnormal findings (principal); Z13.6 Encounter for screening for cardiovascular disorders; E20.9 Hypoparathyroidism, unspecified; Z86.39 Personal history of other endocrine, nutritional and metabolic disease
CPT/HCPCS: 36415; 80053; 80061; 83735; 83970; 84443; 85027

== ENCOUNTER → 2019-05-25 17:33 | Outpatient (CLI) | payer MEDICARE, MEDICAID, SELFPAY ==
[2019-05-25 19:17] LABS: Creatinine Urine Random 35.4 mg/dL
[2019-05-25 19:18] LABS: Collection Time Urine 24 Hours; Creatinine 24 Hour Urine 871 mg/day (800-1800); Creatinine Urine Random 36.3 mg/dL; Total Volume Urine 2400 mL
[2019-05-25 19:22] LABS: Microalbumi Creatinin Ratio Ur 16.9 ug/mg CR (<30); Microalbumin Urine Random < 0.6 mg/dL (0-1.6)
[2019-05-25 20:15] LABS: Calcium 24 Hour Urine 209 mg/day (100-300); Calcium Urine Random 8.7; Collection Time Urine 24 Hours; Total Volume Urine 2400 mL
== END ==
PROVIDERS: PCP Nurse Practitioner Family; Visit Provider Nurse Practitioner Family
DX: E20.9 Hypoparathyroidism, unspecified (principal); I10 Essential (primary) hypertension
CPT/HCPCS: 82043; 82340; 82570

== ENCOUNTER 2019-06-20 06:51 | Day surgery (SDC) | payer MEDICARE, MEDICAID, SELFPAY ==
[2019-06-20] VITALS (7 sets, daily range): BP systolic 95–135; BP diastolic 56–79; PULSE 75–88; RESP 12–96; TEMP 36.1–36.8; O2SAT 15–96; BMI 21.5
[2019-06-20] MEDS: SODIUM CHLORIDE 0.9% 1,000 ML 200 ML IV (07:35)
--- NOTE | 2019-06-20 07:53 | PM.HP.1 ---
History of Present Illness History of Present Illness Date Patient Seen: 06/20/19 Time Patient Seen: 07:54 Chief complaint: [id number] Narrative: Patient presents for colorectal screening. They have never had a prior colonoscopy. No personal or family history of colon cancer. On further history denies any recent gastrointestinal symptoms. No nausea, vomiting, abdominal pain, loss of appetite, unexplained weight loss, change in bowel habits, diarrhea, constipation, melena, hematochezia, or bright red blood per rectum. Patient History Medical History Cataracts, bilateral (Chronic ~2017) Chronic back pain (Chronic ~1963) Essential hypertension (Acute 2004) Hypoparathyroidism (Acute 1990) Low hemoglobin (Acute) Mixed hyperlipidemia (Acute 05/2019) Thyroid nodule (Chronic ~1990) Vitiligo (Inactive ~1963) Surgical History Status post total hip replacement, right (Acute) Family & Social History Family History Family/Other Mental health problem Tobacco & Substance use: Smoking Status Never smoker alcohol intake current Meds Home Medications and Allergies Home Medications Medication Instructions Recorded Confirmed Type Fish Oil 1 cap PO DAILY 04/19/18 06/01/19 History Vitamin B 1 dose PO DAILY 04/19/18 06/01/19 History Vitamin C 1 tab PO DAILY 04/19/18 06/01/19 History krill oil 1 cap PO DAILY 04/19/18 06/01/19 History 5HTP 100 mg PO BID 05/05/19 06/01/19 History calcitriol 0.5 mcg capsule 0.5 mcg PO BID cap 05/05/19 06/01/19 History calcium carbonate 500 mg calcium 250 mg PO DAILY PRN tab 05/05/19 06/01/19 History (1,250 mg) tablet essential enzymes PO DAILY 05/05/19 06/01/19 History hydrocodone 5 mg-acetaminophen 325 1 tab PO BID PRN #10 tab 05/05/19 06/01/19 Rx mg tablet lactobacillus combination no.9 4 8,000 mmu cells PO DAILY cap 05/05/19 06/01/19 History billion cell capsule magnesium hydroxide 400 mg/5 mL 400 mg PO DAILY PRN 05/05/19 06/01/19 History oral suspension melatonin 3 mg capsule 9 mg PO BEDTIME PRN cap 05/05/19 06/01/19 History turmeric PO 05/05/19 06/01/19 History +CBD Oil 1 cap PO DAILY 06/01/19 06/01/19 History benazepril 20 mg tablet 20 mg PO BEDTIME #90 tab 06/17/19 Rx Allergies Allergy/AdvReac Type Severity Reaction Status Date / Time No Known Drug Allergies Allergy Verified 06/20/19 07:45 Review of Systems Review of Systems ROS Unobtainable: All systems reviewed & are unremarkable except as noted in HPI and below Exam Vital Signs (past 8 hours): - 06/20/19 07:14 Temperature 97.6 F Pulse Rate 88 Respiratory Rate 16 Blood Pressure 135/79 Pulse Oximetry 94 Oxygen Delivery Method Room Air Narrative Exam Narrative: General-no acute distress, well nourished HEENT-moist mucous membranes, no scleral icterus Neck-supple, no lymphadenopathy Chest- non labored respirations, clear to auscultation bilaterally Cardiac-regular rate no peripheral edema Abdomen-soft, nontender, non distended Extremities-warm, well perfused Neurological-alert and oriented, no focal deficits Assessment & Plan Assessment & Plan narrative: The patient requires colorectal screening and colonoscopy is recommended. Technical details were discussed. Risks, benefits, alternatives explained. Risks including but not limited to myocardial infarction, aspiration, bleeding, pain, missed lesion, incomplete examination, need for further radiographic studies, colonic perforation, and need for major abdominal surgery were discussed. All questions were answered to their satisfaction, and they are in agreement with this plan.
[2019-06-20] MEDS: fentaNYL 250 MCG/5 ML INJ IV (08:13)
[2019-06-20] MEDS: MIDAZOLAM 5 MG/5 ML VIAL IV (08:13)
--- NOTE | 2019-06-20 08:28 | PM.OP.ENDO ---
Operative Date/Time/Diagnoses Date of procedure: 06/20/19 Time of procedure: 08:28 Pre-op diagnosis: Screening colonoscopy Post-op diagnosis: same Procedure & Clinicians Study performed: Colonoscopy Same procedure as scheduled: Yes Indications: 68-year-old female no prior colonoscopy presents for screening endoscopy Surgeon: Genaro Portillo Procedure Notes SCOAP/Timeout: Performed Procedure in detail: Patient placed in left lateral decubitus position. Time out was performed. Procedural sedation was administered with Versed and Fentanyl. A rectal exam demonstrated no external hemorrhoids no internal masses. Colonoscopy scope was placed into the rectum and advanced through the colon to the cecum. The ileocecal valve was identified. The scope was then slowly withdrawn examining colon thoroughly in all directions. The colonoscopy was notable for the following 1. Sigmoid diverticulosis 2. Quality of prep excellent 3. No masses polyps Scope withdrawal time: 7 Sedation minutes: 26 Findings: diverticulosis Specimen(s): none sent Complications: none Impression: Diverticulosis Post-procedure Recommendations: Colonscopy in 10 years Disposition: same day surgery
== END 2019-06-20 09:19 | disposition home or self-care (01) ==
PROVIDERS: PCP Nurse Practitioner Family; Visit Provider Surgery
PROC: 0DJD8ZZ Inspection of Lower Intestinal Tract, Via Natural or Artificial Opening Endoscopic (ICD-10-PCS; CPT 45378; principal; 2019-06-20 07:45)
DX: Z12.11 Encounter for screening for malignant neoplasm of colon (principal); I10 Essential (primary) hypertension; E20.9 Hypoparathyroidism, unspecified; K57.30 Diverticulosis of large intestine without perforation or abscess without bleeding
CPT/HCPCS: G0121; 99152; 99153; J2250; J3010

== ENCOUNTER → 2019-06-23 12:10 | Outpatient (CLI) | payer MEDICARE, MEDICAID, SELFPAY ==
[2019-06-23 15:13] LABS: Calcium 8.8 mg/dL (8.4-10.2)
== END ==
PROVIDERS: PCP Nurse Practitioner Family; Visit Provider Nurse Practitioner Family
DX: E83.51 Hypocalcemia (principal)
CPT/HCPCS: 36415; 82310

== ENCOUNTER → 2019-12-16 07:32 | Outpatient (CLI) | payer MEDICARE, MEDICAID, SELFPAY ==
[2019-12-16 10:57] LABS: Calcium 24 Hour Urine 254 mg/day (100-300); Calcium Urine Random 8.2 mg/dL; Collection Time Urine 24 Hours; Total Volume Urine 3100 mL
[2019-12-16 13:02] LABS: Hematocrit 34.9 % (36-46); Hemoglobin 11.7 g/dL (12.0-16.0); Mean Corpuscular HGB Conc 33.7 % (30-36); Mean Corpuscular Hemoglobin 30.9 PG (26-34); Mean Corpuscular Volume 91.7 fL (80-100); Platelet Count 320 X10^3/uL (150-400); Red Cell Distribution Width 13.4 % (11.6-14.8); White Blood Cell Count 5.7 X10^3/uL (4.5-11.0)
[2019-12-16 13:13] LABS: HEMOLYSIS < 15 (0-50); Iron 103 ug/dL (37-170)
[2019-12-16 13:15] LABS: Alanine Aminotransferase 30 IU/L (<35); Albumin 4.3 g/dL (3.5-5.0); Albumin Globulin Ratio 1.6 (1.0-2.8); Alkaline Phosphatase 53 U/L (38-126); Aspartate Aminotransferase 52 IU/L (14-36); Bilirubin Total 0.5 mg/dL (0.2-1.3); Blood Urea Nitrogen 15 mg/dL (7-17); Calcium 9.2 mg/dL (8.4-10.2); Carbon Dioxide 31 mmol/L (22-32); Chloride 97 mmol/L (98-107); Estimated Glomerular Filt Rate > 60.0 mL/min (>60); Globulin 2.7 g/dL (1.7-4.1); Glucose 90 mg/dL (80-110); HEMOLYSIS < 15 (0-50); Potassium 4.1 mmol/L (3.4-5.1); Sodium 135 mmol/L (137-145)
[2019-12-16 13:24] LABS: Percent Iron Saturation 33 % (15-50); Total Iron Binding Capacity 314 ug/dL (265-497); Transferrin 257 mg/dL (206-381)
[2019-12-16 13:50] LABS: Ferritin 23 ng/mL (11-264)
[2019-12-16 14:20] LABS: Folate > 20.0 ng/mL (2.76-20.0); Vitamin B12 199 pg/mL (239-931)
[2019-12-16 14:46] LABS: Creatinine Urine Random 40.9 mg/dL
[2019-12-16 14:52] LABS: Microalbumi Creatinin Ratio Ur 14.6 ug/mg CR (<30); Microalbumin Urine Random < 0.6 mg/dL (0-1.6)
[2019-12-16 15:02] LABS: Vitamin D 25 Hydroxy (D3) 56.1 ng/mL (30.0-100.0)
[2019-12-17 06:35] LABS: Calcium 8.9 mg/dL (8.7-10.3); Parathyroid Hormone, Intact 10 pg/mL (15-65)
[2019-12-17 10:38] LABS: Ionized Calcium 4.7 mg/dL (4.5-5.6)
== END ==
PROVIDERS: PCP Nurse Practitioner Family; Referring Provider Nurse Practitioner Family; Visit Provider Nurse Practitioner Family
DX: E20.9 Hypoparathyroidism, unspecified (principal); D64.9 Anemia, unspecified; R74.0 Nonspecific elevation of levels of transaminase and lactic acid dehydrogenase [LDH]; I10 Essential (primary) hypertension
CPT/HCPCS: 36415; 80053; 82043; 82306; 82310; 82330; 82340; 82570; 82607; 82728; 82746; 83540; 83550; 83970; 85027

== ENCOUNTER → 2020-02-04 12:24 | Outpatient (CLI) | payer MEDICARE, MEDICAID, SELFPAY ==
[2020-02-04 13:20] LABS: Calcium 8.7 mg/dL (8.4-10.2); Phosphorous 4.4 mg/dL (2.8-4.1)
[2020-02-04 14:12] LABS: Vitamin B12 567 pg/mL (239-931)
== END ==
PROVIDERS: PCP Nurse Practitioner Family; Referring Provider Nurse Practitioner Family; Visit Provider Nurse Practitioner Family
DX: E53.8 Deficiency of other specified B group vitamins (principal); E20.9 Hypoparathyroidism, unspecified
CPT/HCPCS: 36415; 82310; 82607; 84100

== ENCOUNTER → 2020-03-14 16:00 | Outpatient (CLI) | payer MEDICARE, MEDICAID, SELFPAY ==
[2020-03-14 17:00] LABS: Calcium 9.1 mg/dL (8.4-10.2)
== END ==
PROVIDERS: PCP Nurse Practitioner Family; Referring Provider Nurse Practitioner Family; Visit Provider Nurse Practitioner Family
DX: E20.9 Hypoparathyroidism, unspecified (principal); E83.51 Hypocalcemia
CPT/HCPCS: 36415; 82310

== ENCOUNTER → 2020-05-29 16:45 | Outpatient (CLI) | payer MEDICARE, MEDICAID, SELFPAY ==
[2020-05-29 17:29] LABS: Phosphorous 4.1 mg/dL (2.8-4.1)
[2020-05-29 18:16] LABS: Vitamin B12 517 pg/mL (239-931)
== END ==
PROVIDERS: PCP Nurse Practitioner Family; Referring Provider Nurse Practitioner Family; Visit Provider Nurse Practitioner Family
DX: E20.9 Hypoparathyroidism, unspecified (principal); E53.8 Deficiency of other specified B group vitamins
CPT/HCPCS: 36415; 82607; 84100

== ENCOUNTER → 2020-06-09 13:27 | Outpatient (CLI) | payer MEDICARE, MEDICAID, SELFPAY ==
--- NOTE | 2020-06-09 13:28 | DI.MG.S_ITS ---
BILATERAL DIGITAL SCREENING MAMMOGRAM 3D/2D WITH CAD: 06/09/2020 CLINICAL: Routine screening. Comparison is made to exams dated: 11/12/2018 mammogram - [facility] and 10/02/2011 mammogram - [facility]. The tissue of both breasts is extremely dense, which lowers the sensitivity of mammography. Current study was also evaluated with a Computer Aided Detection (CAD) system. No significant masses, calcifications, or other findings are seen in either breast. There has been no significant interval change. IMPRESSION: NEGATIVE There is no mammographic evidence of malignancy. A 1 year screening mammogram is recommended. This exam was interpreted at Station ID: [id number]. NOTE: For mammograms, a report in lay terms will be sent to the patient. Approximately 15% of breast malignancies will not be visualized mammographically. In the management of a palpable breast mass, a negative mammogram must not discourage biopsy of a clinically suspicious lesion. Electronically Signed By: Benjamín santacruz/leonard:06/11/2020 14:02:53 letter sent: Normal Exam ACR BI-RADS Category 1: Negative [id number]
== END ==
PROVIDERS: PCP Nurse Practitioner Family; Referring Provider Registered Nurse; Visit Provider Registered Nurse
DX: Z12.31 Encounter for screening mammogram for malignant neoplasm of breast (principal)
CPT/HCPCS: 77063; 77067

== ENCOUNTER → 2020-09-21 16:45 | Outpatient (CLI) | payer MEDICARE, MEDICAID, SELFPAY ==
--- NOTE | 2020-09-21 16:46 | DI.MRI.S_ITS ---
PROCEDURE: MR LUMBAR SPINE WO CON INDICATIONS: L5/S1 slip, previous L spine fx TECHNIQUE: Noncontrast sagittal T1 spin echo and T2 fast echo, sagittal STIR, axial T1 and T2 fast spin echo through the lumbar spine. In cases with scoliosis, additional coronal T2 fast spin echo may be performed. COMPARISON: [facility], MR, LUMBAR SPINE W/O CONTRAST, 12/18/2011, 17:16. FINDINGS: Image quality: Excellent. Alignment and Curvature: There is rightward scoliotic curvature with apex at L2-3. There is Grade I/II anterolithesis of L5 on S1 measuring 8 mm. Bone Marrow: Marrow is of normal overall signal. Mild reactive endplate changes are present throughout the lumbar spine. No acute vertebral body compression fractures. Spinal Cord: Conus medullaris terminates at the L1 level. Visualized cord demonstrates normal signal and size. Large predominately right sided Tarlov Paraspinous Soft Tissues: No paravertebral masses. Discs: Severe dessication is present at L3-4 thorugh L5-S1, moderate in L1-2, L2-3. L1-L2: Miimal disc bulge without spinal stenosis or foraminal narrowing. L2-L3: Minimal disc bulge with minimal canal narrowing. No foraminal narrowing. Facet and ligamentum flavum hypertrophy is present with minimal epidural lipomatosis. L3-L4: Mild disc bulge with minimal canal narrowing. Moderate left and mild right foraminal narrowing. Facet and ligamentum flavum hypertrophy is present with mild epidural lipomatosis. L4-L5: Mild disc bulge with minimal canal narrowing. Moderate right and mild left foraminal narrowing. Facet and ligamentum flavum hypertrophy is present. L5-S1: Mild disc bulge with minimal canal narrowing. Severe bilateral right greater than left foraminal narrowing, with nerve root flattening on the right. Biateral pars defect is present. Facet and ligamentum flavum hypertrophy is present with mild epidural lipomatosis. IMPRESSION: 1. Grade I/II anterolithesis of L5-S1. 2. Multilevel disc bulges. 3. Severe foraminal narrowing at L5-S1 secondary to anterolithesis, as well as facet hypertrophy. Dictated by: Charlee Armas M.D. on 09/24/2020 at 11:13 Approved by: Charlee Armas M.D. on 09/24/2020 at 12:13
== END ==
PROVIDERS: PCP Nurse Practitioner Family; Referring Provider Physical Medicine & Rehabilitation; Visit Provider Physical Medicine & Rehabilitation
DX: S32.020A Wedge compression fracture of second lumbar vertebra, initial encounter for closed fracture (principal); M43.17 Spondylolisthesis, lumbosacral region; M51.26 Other intervertebral disc displacement, lumbar region; M48.07 Spinal stenosis, lumbosacral region
CPT/HCPCS: 72148

== ENCOUNTER → 2020-10-03 13:42 | Outpatient (CLI) | payer MEDICARE, MEDICAID, SELFPAY ==
--- NOTE | 2020-10-03 13:44 | DI.RAD.S_ITS ---
PROCEDURE: XR LUMBAR SPINE MIN 4V INDICATIONS: L5/S1 slip, previous L spine fx TECHNIQUE: 5 views of the lumbar spine acquired, including flexion and extension views. COMPARISON: None. FINDINGS: Bones: 5 nonrib-bearing vertebrae are present. There is normal bony alignment. No vertebral body compression fractures. No suspicious bony lesions. Degenerative disc disease along the lumbosacral spine is moderately severe overall. There is very slight convex rightward scoliosis centered at the L2-3 level of the LS spine. Degenerative disc height reduction is mild at L1-2 and L2-3. It is moderately severe at L3-4, L4-5 and L5-S1 where grade 2 anterolisthesis is associated with both disc height reduction and endplate osteophyte formation. This also is associated with progressively greater facet osteoarthritis from L3 through S1. Ligamentous laxity is the likely cause. Soft tissues: Overlying bowel gas pattern is normal. No suspicious soft tissue calcifications. Flexion/extension: There is normal range of motion, with preserved normal alignment. IMPRESSION: The degenerative changes along the lumbosacral spine is moderately severe to severe over the lower half, with both disc height reduction and facet osteoarthritis, and this allows anterolisthesis grade 2 of L5 on S1 due to the prominent degenerative disc height reduction and facet osteoarthritic change present at that level. Significant spinal and foraminal stenosis is likely present at L4-5 and virtually certainly present at L5-S1. Dictated by: Anwtan Khan M.D. on 10/03/2020 at 15:56 Approved by: Antwan Khan M.D. on 10/03/2020 at 15:58
[2020-10-03 14:59] LABS: Calcium 8.5 mg/dL (8.4-10.2)
[2020-10-04 08:14] LABS: Calcium 8.5 mg/dL (8.7-10.3); Parathyroid Hormone, Intact 12 pg/mL (15-65)
== END ==
PROVIDERS: PCP Nurse Practitioner Family; Referring Provider Physical Medicine & Rehabilitation; Visit Provider Physical Medicine & Rehabilitation
DX: M43.17 Spondylolisthesis, lumbosacral region (principal); M47.817 Spondylosis without myelopathy or radiculopathy, lumbosacral region; E20.9 Hypoparathyroidism, unspecified; S32.020S Wedge compression fracture of second lumbar vertebra, sequela
CPT/HCPCS: 36415; 72110; 82310; 83970; 99215

== ENCOUNTER → 2020-11-28 15:50 | Outpatient (CLI) | payer MEDICARE, MEDICAID, SELFPAY ==
[2020-11-28 16:54] LABS: Alanine Aminotransferase 30 IU/L (<35); Albumin 4.2 g/dL (3.5-5.0); Albumin Globulin Ratio 1.3 (1.0-2.8); Alkaline Phosphatase 50 U/L (38-126); Aspartate Aminotransferase 47 IU/L (14-36); BUN Creatinine Ratio 20.8 (6-22); Bilirubin Total 0.3 mg/dL (0.2-1.3); Blood Urea Nitrogen 15 mg/dL (7-17); Carbon Dioxide 30 mmol/L (22-32); Chloride 101 mmol/L (98-107); Estimated Glomerular Filt Rate > 60.0 mL/min (>60); Globulin 3.2 g/dL (1.7-4.1); Glucose 153 mg/dL (80-110); HEMOLYSIS < 15 (0-50); Phosphorous 3.9 mg/dL (2.8-4.1); Potassium 3.6 mmol/L (3.4-5.1); Sodium 139 mmol/L (137-145); Total Protein 7.4 g/dL (6.3-8.2)
[2020-11-28 17:39] LABS: TSH w/ Reflex to FT4 3.05 uIU/mL (0.47-4.68)
[2020-11-28 17:41] LABS: Vitamin B12 210 pg/mL (239-931)
[2020-11-29 08:09] LABS: Calcium 8.7 mg/dL (8.7-10.3); Parathyroid Hormone, Intact 10 pg/mL (15-65)
== END ==
PROVIDERS: PCP Nurse Practitioner Family; Referring Provider Nurse Practitioner Family; Visit Provider Nurse Practitioner Family
DX: Z00.00 Encounter for general adult medical examination without abnormal findings (principal); E04.1 Nontoxic single thyroid nodule; E20.9 Hypoparathyroidism, unspecified; E53.8 Deficiency of other specified B group vitamins
CPT/HCPCS: 36415; 80053; 82310; 82607; 83970; 84100; 84443

== ENCOUNTER → 2020-12-08 12:39 | Outpatient (CLI) | payer MEDICARE, MEDICAID, SELFPAY ==
[2020-12-08 14:02] LABS: BUN Creatinine Ratio 18.3 (6-22); Blood Urea Nitrogen 13 mg/dL (7-17); Calcium 8.3 mg/dL (8.4-10.2); Carbon Dioxide 29 mmol/L (22-32); Chloride 103 mmol/L (98-107); Estimated Glomerular Filt Rate > 60.0 mL/min (>60); Glucose 98 mg/dL (80-110); HEMOLYSIS < 15 (0-50); Phosphorous 4.2 mg/dL (2.8-4.1); Potassium 3.8 mmol/L (3.4-5.1); Sodium 138 mmol/L (137-145)
== END ==
PROVIDERS: PCP Nurse Practitioner Family; Referring Provider Nurse Practitioner Family; Visit Provider Nurse Practitioner Family
DX: E20.9 Hypoparathyroidism, unspecified (principal)
CPT/HCPCS: 36415; 80069

== ENCOUNTER → 2020-12-19 14:08 | Outpatient (CLI) | payer MEDICARE, MEDICAID, SELFPAY ==
[2020-12-21 16:31] LABS: Fecal Immunochemical Test Negative (Negative)
== END ==
PROVIDERS: PCP Nurse Practitioner Family; Referring Provider Nurse Practitioner Family; Visit Provider Nurse Practitioner Family
DX: Z12.11 Encounter for screening for malignant neoplasm of colon (principal)
CPT/HCPCS: 82274

== ENCOUNTER → 2020-12-25 10:26 | Outpatient (CLI) | payer MEDICARE, MEDICAID, SELFPAY ==
--- NOTE | 2020-12-25 10:28 | DI.RAD.S_ITS ---
PROCEDURE: XR DEXA AXIAL SKELETON INDICATIONS: osteopenia COMPARISON: Located [facility], CR, XR DEXA AXIAL SKELETON, 12/09/2018, 13:46. FINDINGS: This blank DEXA report has been sent in error by the PACS system. The correct and complete report will be forthcoming in 1-2 days. Thank you for your patience and understanding. Dictated by: Aby Peck MD, PhD on 12/25/2020 at 17:32 Approved by: Aby Peck MD, PhD on 12/25/2020 at 17:32
== END ==
PROVIDERS: PCP Nurse Practitioner Family; Referring Provider Nurse Practitioner Family; Visit Provider Nurse Practitioner Family
DX: M81.0 Age-related osteoporosis without current pathological fracture (principal); Z78.0 Asymptomatic menopausal state; E20.9 Hypoparathyroidism, unspecified
CPT/HCPCS: 77080

== ENCOUNTER → 2021-01-19 14:08 | Outpatient (CLI) | payer MEDICARE, MEDICAID, SELFPAY ==
[2021-01-19 14:21] LABS: Hematocrit 35.9 % (36-46); Hemoglobin 11.9 g/dL (12.0-16.0); Mean Corpuscular Hemoglobin 30.4 PG (26-34); Mean Corpuscular Volume 91.9 fL (80-100); Platelet Count 358 X10^3/uL (150-400); Red Blood Cell Count 3.91 X10^6/uL (4.0-5.2); Red Cell Distribution Width 14.5 % (11.6-14.8); White Blood Cell Count 7.5 X10^3/uL (4.5-11.0)
[2021-01-19 14:47] LABS: Alanine Aminotransferase 30 IU/L (<35); Albumin 4.1 g/dL (3.5-5.0); Albumin Globulin Ratio 1.3 (1.0-2.8); Alkaline Phosphatase 55 U/L (38-126); Aspartate Aminotransferase 51 IU/L (14-36); BUN Creatinine Ratio 23.9 (6-22); Bilirubin Total 0.4 mg/dL (0.2-1.3); Bilirubin Unconjugated 0.3 mg/dL (0.0-1.1); Blood Urea Nitrogen 21 mg/dL (7-17); Carbon Dioxide 30 mmol/L (22-32); Chloride 99 mmol/L (98-107); Estimated Glomerular Filt Rate > 60.0 mL/min (>60); Globulin 3.2 g/dL (1.7-4.1); Glucose 104 mg/dL (80-110); HEMOLYSIS < 15 (0-50); Potassium 3.8 mmol/L (3.4-5.1); Sodium 137 mmol/L (137-145); Total Protein 7.3 g/dL (6.3-8.2)
[2021-01-19 15:36] LABS: Vitamin B12 468 pg/mL (239-931)
[2021-01-20 09:07] LABS: Parathyroid Hormone, Intact 13 pg/mL (15-65)
== END ==
PROVIDERS: PCP Nurse Practitioner Family; Referring Provider Nurse Practitioner Family; Visit Provider Nurse Practitioner Family
DX: D64.9 Anemia, unspecified (principal); E20.9 Hypoparathyroidism, unspecified; E83.51 Hypocalcemia; R74.01 Elevation of levels of liver transaminase levels; Z00.00 Encounter for general adult medical examination without abnormal findings; Z78.0 Asymptomatic menopausal state; E53.8 Deficiency of other specified B group vitamins
CPT/HCPCS: 36415; 80048; 80076; 82310; 82607; 83970; 85027

== ENCOUNTER → 2021-03-02 11:22 | Outpatient (CLI) | payer MEDICARE, MEDICAID, SELFPAY ==
[2021-03-02 11:38] LABS: Add Manual Diff / Slide Review NO; Basophils Absolute Auto 0 /uL (0-100); Basophils Percent Auto 0.7 % (0-2); Eosinophils Absolute Auto 100 /uL (0-450); Eosinophils Percent Auto 1.7 % (2-4); Hematocrit 35.5 % (36-46); Hemoglobin 11.7 g/dL (12.0-16.0); Lymphocytes Absolute Auto 2000 /uL (1100-4500); Lymphocytes Percent Auto 34.3 % (25-40); Mean Corpuscular HGB Conc 32.9 % (30-36); Mean Corpuscular Hemoglobin 30.3 PG (26-34); Monocytes Absolute Auto 600 /uL (0-900); Monocytes Percent Auto 9.5 % (3-14); Neutrophils Absolute Auto 3200 /uL (1500-7000); Neutrophils Percent Auto 53.8 % (50-75); Platelet Count 333 X10^3/uL (150-400); Red Blood Cell Count 3.86 X10^6/uL (4.0-5.2); Red Cell Distribution Width 13.9 % (11.6-14.8); White Blood Cell Count 5.9 X10^3/uL (4.5-11.0)
[2021-03-02 12:19] LABS: Alanine Aminotransferase 28 IU/L (<35); Albumin 4.2 g/dL (3.5-5.0); Albumin Globulin Ratio 1.4 (1.0-2.8); Alkaline Phosphatase 49 U/L (38-126); Aspartate Aminotransferase 42 IU/L (14-36); BUN Creatinine Ratio 22.2 (6-22); Bilirubin Total 0.5 mg/dL (0.2-1.3); Bilirubin Unconjugated 0.3 mg/dL (0.0-1.1); Blood Urea Nitrogen 18 mg/dL (7-17); Calcium 8.4 mg/dL (8.4-10.2); Carbon Dioxide 32 mmol/L (22-32); Chloride 101 mmol/L (98-107); Estimated Glomerular Filt Rate > 60.0 mL/min (>60); Globulin 3.1 g/dL (1.7-4.1); Glucose 118 mg/dL (80-110); HEMOLYSIS < 15 (0-50); Potassium 3.9 mmol/L (3.4-5.1); Sodium 138 mmol/L (137-145); Total Protein 7.3 g/dL (6.3-8.2)
== END ==
PROVIDERS: PCP Nurse Practitioner Family; Referring Provider Nurse Practitioner Family; Visit Provider Nurse Practitioner Family
DX: R19.8 Other specified symptoms and signs involving the digestive system and abdomen (principal); Z00.00 Encounter for general adult medical examination without abnormal findings; R74.01 Elevation of levels of liver transaminase levels
CPT/HCPCS: 36415; 80053; 80076; 85025

== ENCOUNTER → 2021-03-05 08:20 | Outpatient (CLI) | payer MEDICARE, MEDICAID, SELFPAY ==
--- NOTE | 2021-03-05 08:23 | DI.US.S_ITS ---
PROCEDURE: US ABDOMEN COMPLETE INDICATIONS: ABDOMINAL BLOAT AND ENLARGEMENT TECHNIQUE: Real-time scanning was performed of the abdominal and retroperitoneal organs, with image documentation. COMPARISON: [facility], CR, XR LUMBAR SPINE MIN 4V, 10/03/2020, 13:44. [facility], MR, MR LUMBAR SPINE WO CON, 09/21/2020, 16:51. FINDINGS: Liver: Liver is normal in size and homogeneous in echotexture. Gallbladder: Nondilated. No stones or sludge. Normal gallbladder wall thickness. No pericholecystic fluid. Negative sonographic Molina's sign. Biliary ducts: Intrahepatic bile ducts are non-dilated. Extrahepatic bile duct caliber measures 6 mm. Normal is 6-7 mm or less in diameter, or 10 mm or less post-cholecystectomy. Pancreas: Visualized portions of the pancreas are sonographically normal. The tail is not well seen. Spleen: Measures approximately 7.4 cm. Limited visualization. Kidneys: Kidneys are normal in size and echotexture. Right kidney measures 10.2 cm long; left kidney measures 10.2 cm long. No hydronephrosis. Echogenic focus in the left kidney inferior pole. No solid masses. Aorta: Visualized aorta is normal in caliber at less than 3 cm. Mild atherosclerotic plaque. Iliacs: Proximal common iliac arteries are normal in caliber at less than 2.5 cm. IVC: Intrahepatic inferior vena cava is patent. Miscellaneous: No free abdominal fluid. IMPRESSION: 1. No acute abnormality identified. No ascites. 2. No gallstones. 3. Possible small nonobstructing left kidney stone. Dictated by: Michael Ruffin M.D. on 03/05/2021 at 9:00 Approved by: Michael Ruffin M.D. on 03/05/2021 at 9:04
== END ==
PROVIDERS: PCP Nurse Practitioner Family; Referring Provider Nurse Practitioner Family; Visit Provider Nurse Practitioner Family
DX: R19.8 Other specified symptoms and signs involving the digestive system and abdomen (principal)
CPT/HCPCS: 76700

== ENCOUNTER → 2021-03-30 11:58 | Outpatient (CLI) | payer MEDICARE, MEDICAID, SELFPAY ==
[2021-03-30 12:30] LABS: Hematocrit 38.6 % (36-46); Hemoglobin 12.5 g/dL (12.0-16.0); Mean Corpuscular HGB Conc 32.5 % (30-36); Mean Corpuscular Hemoglobin 30.2 PG (26-34); Platelet Count 354 X10^3/uL (150-400); Red Blood Cell Count 4.15 X10^6/uL (4.0-5.2); Red Cell Distribution Width 14.3 % (11.6-14.8); White Blood Cell Count 6.6 X10^3/uL (4.5-11.0)
[2021-03-30 12:45] LABS: Alanine Aminotransferase 34 IU/L (<35); Albumin 4.4 g/dL (3.5-5.0); Albumin Globulin Ratio 1.5 (1.0-2.8); Alkaline Phosphatase 62 U/L (38-126); Aspartate Aminotransferase 50 IU/L (14-36); BUN Creatinine Ratio 24.7 (6-22); Bilirubin Total 0.4 mg/dL (0.2-1.3); Blood Urea Nitrogen 18 mg/dL (7-17); Calcium 8.8 mg/dL (8.4-10.2); Carbon Dioxide 32 mmol/L (22-32); Chloride 99 mmol/L (98-107); Estimated Glomerular Filt Rate > 60.0 mL/min (>60); Glucose 132 mg/dL (80-110); HEMOLYSIS < 15 (0-50); Phosphorous 4.5 mg/dL (2.8-4.1); Potassium 4.1 mmol/L (3.4-5.1); Sodium 138 mmol/L (137-145); Total Protein 7.4 g/dL (6.3-8.2)
[2021-03-30 13:15] LABS: TSH w/ Reflex to FT4 2.42 uIU/mL (0.47-4.68)
[2021-03-30 13:35] LABS: Vitamin B12 426 pg/mL (239-931)
[2021-03-30 13:51] LABS: Calcium 24 Hour Urine 154 mg/day (100-300); Calcium Urine Random 4.6 mg/dL; Collection Time Urine 24 Hours; Total Volume Urine 3350 mL
[2021-03-31 11:08] LABS: Calcium 8.7 mg/dL (8.7-10.3); Parathyroid Hormone, Intact 13 pg/mL (15-65)
== END ==
PROVIDERS: PCP Nurse Practitioner Family; Referring Provider Nurse Practitioner Family; Visit Provider Nurse Practitioner Family
DX: Z00.00 Encounter for general adult medical examination without abnormal findings (principal); E04.1 Nontoxic single thyroid nodule; E20.9 Hypoparathyroidism, unspecified; E83.51 Hypocalcemia; I10 Essential (primary) hypertension; E53.8 Deficiency of other specified B group vitamins
CPT/HCPCS: 36415; 80053; 82306; 82310; 82340; 82607; 83970; 84100; 84443; 85027

== ENCOUNTER → 2021-04-13 12:17 | Outpatient (CLI) | payer MEDICARE, MEDICAID, SELFPAY ==
[2021-04-13 12:53] LABS: Calcium 8.8 mg/dL (8.4-10.2); Phosphorous 4.3 mg/dL (2.8-4.1)
== END ==
PROVIDERS: PCP Nurse Practitioner Family; Referring Provider Internal Medicine Endocrinology, Diabetes & Metabolism; Visit Provider Internal Medicine Endocrinology, Diabetes & Metabolism
DX: E20.9 Hypoparathyroidism, unspecified (principal)
CPT/HCPCS: 36415; 82310; 84100

== ENCOUNTER → 2021-06-03 12:07 | Outpatient (CLI) | payer MEDICARE, MEDICAID, SELFPAY ==
[2021-06-03 22:01] LABS: Hep C Virus Ab w/Reflex Quant NEGATIVE s/c (NEGATIVE)
[2021-06-04 02:36] LABS: Hepatitis A Antibody Total Positive (Negative); Hepatitis B Surf AB Quant >1000.0 mIU/mL (Immunity>9.9)
[2021-06-04 04:21] LABS: Hepatitis B Core Antibody Negative (Negative)
[2021-06-06 17:53] LABS: Hepatitis B Surface Antigen NEGATIVE s/c (NEGATIVE)
== END ==
PROVIDERS: PCP Nurse Practitioner Family; Referring Provider Internal Medicine Gastroenterology; Visit Provider Internal Medicine Gastroenterology
DX: R79.89 Other specified abnormal findings of blood chemistry (principal)
CPT/HCPCS: 36415; 86704; 86706; 86708; 86803; 87340

== ENCOUNTER → 2021-06-05 14:50 | Outpatient (CLI) | payer MEDICARE, MEDICAID, SELFPAY ==
--- NOTE | 2021-06-05 14:51 | DI.US.S_ITS ---
PROCEDURE: US ABDOMEN LIMITED INDICATIONS: ?UMBILICAL HERNIA TECHNIQUE: Real-time focused scanning was performed of the abdomen, with image documentation. COMPARISON: None. FINDINGS: Fat containing umbilical hernia is noted. The herniated fat is partially reducible. Hernia neck measures approximately 1.9 x 1.3 centimeters. IMPRESSION: Fat containing, partially reducible umbilical hernia. Dictated by: Aby Peck MD, PhD on 06/05/2021 at 16:31 Approved by: Aby Peck MD, PhD on 06/05/2021 at 16:32
== END ==
PROVIDERS: PCP Nurse Practitioner Family; Referring Provider Registered Nurse Diabetes Educator; Visit Provider Registered Nurse Diabetes Educator
DX: K42.9 Umbilical hernia without obstruction or gangrene (principal)
CPT/HCPCS: 76705

== ENCOUNTER → 2021-06-20 15:55 | Outpatient (CLI) | payer MEDICARE, MEDICAID, SELFPAY ==
[2021-06-20 17:59] LABS: Calcium 8.3 mg/dL (8.4-10.2); Phosphorous 4.4 mg/dL (2.8-4.1)
== END ==
PROVIDERS: PCP Nurse Practitioner Family; Referring Provider Nurse Practitioner Family; Visit Provider Nurse Practitioner Family
DX: E20.9 Hypoparathyroidism, unspecified (principal)
CPT/HCPCS: 36415; 82310; 84100

== ENCOUNTER → 2021-06-25 14:27 | Outpatient (CLI) | payer MEDICARE, MEDICAID, SELFPAY ==
[2021-06-25 16:52] LABS: COVID19 -Nasal RAPID Negative (Negative)
== END ==
PROVIDERS: PCP Nurse Practitioner Family; Referring Provider Surgery; Visit Provider Surgery
DX: Z01.812 Encounter for preprocedural laboratory examination (principal); Z20.822 Contact with and (suspected) exposure to COVID-19; K42.9 Umbilical hernia without obstruction or gangrene
CPT/HCPCS: 87635; 99213

== ENCOUNTER → 2021-07-18 10:55 | Outpatient (CLI) | payer MEDICARE, MEDICAID, SELFPAY ==
[2021-07-18 11:29] LABS: Hematocrit 35.7 % (36-46); Hemoglobin 11.8 g/dL (12.0-16.0); Mean Corpuscular HGB Conc 33.1 % (30-36); Mean Corpuscular Hemoglobin 29.7 PG (26-34); Mean Corpuscular Volume 89.5 fL (80-100); Platelet Count 357 X10^3/uL (150-400); Red Blood Cell Count 3.99 X10^6/uL (4.0-5.2); Red Cell Distribution Width 14.1 % (11.6-14.8); White Blood Cell Count 5.5 X10^3/uL (4.5-11.0)
[2021-07-18 11:42] LABS: Alanine Aminotransferase 29 IU/L (<35); Albumin 4.4 g/dL (3.5-5.0); Albumin Globulin Ratio 1.3 (1.0-2.8); Alkaline Phosphatase 59 U/L (38-126); Aspartate Aminotransferase 46 IU/L (14-36); Bilirubin Total 0.5 mg/dL (0.2-1.3); Bilirubin Unconjugated 0.5 mg/dL (0.0-1.1); Globulin 3.3 g/dL (1.7-4.1); HEMOLYSIS < 15 (0-50); Total Protein 7.7 g/dL (6.3-8.2)
[2021-07-18 11:45] LABS: Alanine Aminotransferase 30 IU/L (<35); Albumin 4.4 g/dL (3.5-5.0); Albumin Globulin Ratio 1.4 (1.0-2.8); Alkaline Phosphatase 58 U/L (38-126); Aspartate Aminotransferase 47 IU/L (14-36); BUN Creatinine Ratio 12.3 (6-22); Bilirubin Total 0.5 mg/dL (0.2-1.3); Blood Urea Nitrogen 15 mg/dL (7-17); Calcium 8.1 mg/dL (8.4-10.2); Carbon Dioxide 32 mmol/L (22-32); Chloride 99 mmol/L (98-107); Cholesterol 269 mg/dL (140-199); Estimated Glomerular Filt Rate 43.3 mL/min (>60); Globulin 3.2 g/dL (1.7-4.1); Glucose 100 mg/dL (80-110); HDL Cholesterol 87 mg/dL (40-60); HEMOLYSIS < 15 (0-50); LDL Cholesterol Calculated 167 mg/dL (<100); Potassium 3.7 mmol/L (3.4-5.1); Sodium 138 mmol/L (137-145); Total Protein 7.6 g/dL (6.3-8.2); Triglycerides 73 mg/dL (35-150)
[2021-07-18 11:59] LABS: Vitamin D 25 Hydroxy (D3) 58.8 ng/mL (30.0-100.0)
[2021-07-18 12:34] LABS: Vitamin B12 339 pg/mL (239-931)
== END ==
PROVIDERS: PCP Nurse Practitioner Family; Referring Provider Internal Medicine Gastroenterology; Visit Provider Internal Medicine Gastroenterology
DX: R79.89 Other specified abnormal findings of blood chemistry (principal); E78.2 Mixed hyperlipidemia; M81.0 Age-related osteoporosis without current pathological fracture; E53.8 Deficiency of other specified B group vitamins; I10 Essential (primary) hypertension; Z00.00 Encounter for general adult medical examination without abnormal findings; E83.51 Hypocalcemia; Z13.6 Encounter for screening for cardiovascular disorders
CPT/HCPCS: 36415; 80053; 80061; 80076; 82306; 82607; 84100; 85027

== ENCOUNTER → 2021-09-02 15:38 | Outpatient (CLI) | payer MEDICARE, MEDICAID, SELFPAY ==
[2021-09-02 18:07] LABS: COVID19 -Nasal RAPID Negative (Negative)
== END ==
PROVIDERS: PCP Nurse Practitioner Family; Visit Provider Surgery
DX: Z01.812 Encounter for preprocedural laboratory examination (principal); Z20.822 Contact with and (suspected) exposure to COVID-19
CPT/HCPCS: 87635; C9803

== ENCOUNTER 2021-09-03 08:20 | Day surgery (SDC) | payer MEDICARE, MEDICAID, SELFPAY ==
[2021-08-29 10:50] VITALS: BMI 23.4
[2021-09-03] VITALS (8 sets, daily range): BP systolic 117–164; BP diastolic 66–96; PULSE 68–90; RESP 14–18; TEMP 36.3–36.8; O2SAT 18–100; BMI 23.4
[2021-09-03] MEDS: LACTATED RINGERS 1,000 ML 84 ML IV (09:10)
--- NOTE | 2021-09-03 09:22 | SUR.OPER ---
Supine on padded OR bed, head on pillow, arms secured on padded arm boards at <90 degrees abduction, legs uncrossed, safety belt at thigh, tape over blanket over lower legs.
--- NOTE | 2021-09-03 10:11 | PM.HP.1 ---
History of Present Illness History of Present Illness Date Patient Seen: 09/03/21 Time Patient Seen: 10:11 Chief complaint: AZC Narrative: 71-year-old woman with a symptomatic supraumbilical hernia. Please see the office note from June 25 for details. Patient History Medical History Abdominal enlargement Anemia Cataracts, bilateral (~2017) Chronic back pain (~1963) Compression fracture of L2 (1953) Elevated AST (SGOT) Essential hypertension (2004) Hepatitis A Hypoparathyroidism (1990) Incontinence Low hemoglobin Mixed hyperlipidemia (05/2019) Osteopenia after menopause Osteoporosis Rash and nonspecific skin eruption Raynauds disease Spondylolisthesis at L5-S1 level Thyroid nodule (~1990) Vitamin B12 deficiency Vitiligo (~1963) Surgical History Status post total hip replacement, right Family & Social History Family History Family/Other Mental health problem Social History: household members none Tobacco & Substance use: Smoking Status Never smoker alcohol intake current alcohol intake frequency 0-2 drinks per day Substance Use Type does not use Meds Home Medications and Allergies Home Medications Medication Instructions Recorded Confirmed Type Fish Oil 1 cap PO DAILY 04/19/18 09/03/21 History Vitamin C 1 tab PO DAILY 04/19/18 09/03/21 History krill oil 1 cap PO DAILY 04/19/18 09/03/21 History essential enzymes 1 tab PO DAILY 05/05/19 09/03/21 History lactobacillus combination no.9 4 8,000 mmu cells PO DAILY cap 05/05/19 09/03/21 History billion cell capsule (Adult 50 Plus Probiotic) magnesium hydroxide 400 mg/5 mL 400 mg PO DAILY PRN 05/05/19 09/03/21 History oral suspension +CBD Oil See Rx Instructions PO TID 12/07/19 09/03/21 History diclofenac sodium 1 % topical gel 4 g TOPICAL QID #100 g 11/15/20 08/29/21 Rx calcitriol 0.5 mcg capsule 0.25 mcg PO DAILY cap 12/13/20 09/03/21 History (Rocaltrol) cyanocobalamin (vitamin B-12) 1,000 mcg IM QMONTH #1 ml 12/18/20 09/03/21 Rx 1,000 mcg/mL injection solution zinc 25 mg PO DAILY 02/28/21 09/03/21 History hydrocodone 5 mg-acetaminophen 325 1 tab PO BID PRN #40 tab 05/22/21 09/03/21 Rx mg tablet calcium citrate 250 mg PO BID tab 07/02/21 09/03/21 History benazepril 20 mg tablet 20 mg PO DAILY 09/03/21 09/03/21 History cyclosporine 0.05 % eye drops in a 1 drp EYE-BOTH BID 09/03/21 09/03/21 History dropperette (Restasis) Allergies Allergy/AdvReac Type Severity Reaction Status Date / Time No Known Drug Allergies Allergy Verified 09/03/21 08:43 Exam Vital Signs (past 8 hours): - 09/03/21 09:06 Temperature 97.7 F Pulse Rate 90 Respiratory Rate 16 Blood Pressure 164/96 H Pulse Oximetry 98 Oxygen Delivery Method Room Air Const General: healthy appearing Resp Effort & Inspection: normal respiratory effort GI Other: Small reducible supraumbilical hernia Assessment & Plan Assessment and plan (1) Umbilical hernia: Qualifiers: Obstruction and gangrene presence: without obstruction or gangrene Qualified Code(s): K42.9 - Umbilical hernia without obstruction or gangrene Status: Acute Plan Plan for open supraumbilical hernia repair with mesh. She would like to proceed. COVID-19 COVID-19 status: Negative Result date/Date tested (Pos, Neg/Pending): 09/02/21 Time Spent With Patient Critical Care time: I spent a total of [] minutes of critical care time on this patient's care today; this time is exclusive of procedural time.
[2021-09-03] MEDS: CEFAZOLIN 2 GM/20 ML SYRINGE IV (10:25)
[2021-09-03] MEDS: LIDOCAINE 1% W/EPI 20 ML INJ (10:47)
[2021-09-03] MEDS: BUPIVACAINE 0.25% (PF) VIAL 30 ML INJ (10:48)
--- NOTE | 2021-09-03 11:16 | P.OP_ITS ---
Operative Date/Time/Diagnoses Date of procedure: 09/03/21 Time of procedure: 11:16 Pre-op diagnosis: Ventral hernia Post-op diagnosis: same Procedure & Clinicians Procedure: Open ventral hernia repair with mesh Same procedure as scheduled: Yes Surgeon: Ramón Velasquez Anesthesia Type: General Operative Notes Procedure in detail: Ancef was administered. The patient was brought to the operating room, placed on the table in the supine position and general endotracheal anesthesia was induced. The abdomen was prepped and draped in the usual fashion. A time-out was performed. A 5 cm transverse incision was made about 2 fingerbreadths above the umbilicus. Dissection was carried down to the hernia sac. The hernia appeared to contain only preperitoneal fat. The hernia was freed from the fascial ring. There appeared to be a 1 cm fascial defect and a smaller fascial defect just superior. The fatty contents of both defects were freed and allowed to fall back into the preperitoneum. The fascia was then closed with multiple interrupted 0 Ethibond sutures in a transverse fashion. Local anesthetic was injected into fascia around the defects. The subcutaneous adipose tissue was cleared off of the anterior sheath circumferentially about 2 cm in each directi on. A piece of polypropylene mesh was trimmed to fit over the fascial closure and secured with Tisseel. Once the Tisseel was dried the subcutaneous adipose tissue was closed with interrupted 3-0 Vicryl sutures. The skin was closed with multiple interrupted 3-0 Vicryl dermal sutures followed by a running 4 Monocryl subcuticular closure. Steri-Strips were applied and an abdominal binder was applied. Post-operative Condition: stable Disposition: PACU
--- NOTE | 2021-09-03 12:25 | SUR.PHASEII ---
d/c instructions discussed, pt voiced an understanding, binder in place, ice to site, remained c/d/i. [facility] table worker meds per pt request. Pt left unit in stable condition.
== END 2021-09-03 12:25 | disposition home or self-care (01) ==
PROVIDERS: PCP Nurse Practitioner Family; Referring Provider Surgery; Visit Provider Surgery
PROC: (CPT 49560; principal; 2021-09-03 09:45)
DX: K43.9 Ventral hernia without obstruction or gangrene (principal); I10 Essential (primary) hypertension; E03.9 Hypothyroidism, unspecified
CPT/HCPCS: 49560; 49568; J0690; J1100; J2250; J2405; J2704; J3010

== ENCOUNTER → 2021-09-21 12:21 | Outpatient (CLI) | payer MEDICARE, MEDICAID, SELFPAY ==
[2021-09-21 13:28] LABS: Alanine Aminotransferase 25 IU/L (<35); Albumin 4.2 g/dL (3.5-5.0); Albumin Globulin Ratio 1.4 (1.0-2.8); Alkaline Phosphatase 55 U/L (38-126); Aspartate Aminotransferase 41 IU/L (14-36); Bilirubin Total 0.6 mg/dL (0.2-1.3); Blood Urea Nitrogen 16 mg/dL (7-17); Carbon Dioxide 29 mmol/L (22-32); Chloride 100 mmol/L (98-107); Estimated Glomerular Filt Rate > 60.0 mL/min (>60); Globulin 2.9 g/dL (1.7-4.1); Glucose 97 mg/dL (80-110); HEMOLYSIS < 15 (0-50); Sodium 138 mmol/L (137-145); Total Protein 7.1 g/dL (6.3-8.2)
[2021-09-21 14:16] LABS: Vitamin B12 394 pg/mL (239-931)
[2021-09-22 10:56] LABS: Thyroid Peroxidase Antibodies 129 IU/mL (0-34)
[2021-09-22 11:56] LABS: Parathyroid Hormone Int 12 pg/mL (15-65)
[2021-09-23 14:39] LABS: Deamidated Gliadin Ab IgA 4 units (0-19); Deamidated Gliadin Ab IgG 1 units (0-19); Immunoglobulin A,Qn 269 mg/dL (64-422); t-Transglutaminase IgA <2 U/mL (0-3)
[2021-09-23 18:10] LABS: Ionized Calcium 4.4 mg/dL (4.5-5.6)
[2021-09-24 12:09] LABS: Intrinsic Factor Blocking Aby 12.1 AU/mL (0.0-1.1)
[2021-09-24 20:08] LABS: Anti Thyroglobulin Antibody <1.0 IU/mL (0.0-0.9)
== END ==
PROVIDERS: PCP Nurse Practitioner Family; Referring Provider Internal Medicine Endocrinology, Diabetes & Metabolism; Visit Provider Internal Medicine Endocrinology, Diabetes & Metabolism
DX: E20.9 Hypoparathyroidism, unspecified (principal)
CPT/HCPCS: 36415; 80053; 82330; 82607; 82784; 83516; 83970; 86340; 86376; 86800

== ENCOUNTER → 2021-10-26 11:30 | Outpatient (CLI) | payer MEDICARE, MEDICAID, SELFPAY ==
[2021-10-26 12:19] LABS: Hematocrit 34.5 % (36-46); Hemoglobin 11.7 g/dL (12.0-16.0); Mean Corpuscular HGB Conc 33.8 % (30-36); Mean Corpuscular Hemoglobin 29.9 PG (26-34); Mean Corpuscular Volume 88.5 fL (80-100); Platelet Count 357 X10^3/uL (150-400); Red Cell Distribution Width 14.3 % (11.6-14.8); White Blood Cell Count 6.4 X10^3/uL (4.5-11.0)
[2021-10-26 12:42] LABS: Alanine Aminotransferase 28 IU/L (<35); Albumin 4.2 g/dL (3.5-5.0); Albumin Globulin Ratio 1.4 (1.0-2.8); Alkaline Phosphatase 60 U/L (38-126); Aspartate Aminotransferase 48 IU/L (14-36); BUN Creatinine Ratio 20.5 (6-22); Bilirubin Total 0.5 mg/dL (0.2-1.3); Blood Urea Nitrogen 16 mg/dL (7-17); Calcium 8.2 mg/dL (8.4-10.2); Carbon Dioxide 31 mmol/L (22-32); Chloride 98 mmol/L (98-107); Cholesterol 272 mg/dL (140-199); Estimated Glomerular Filt Rate > 60 mL/min (>60); Glucose 92 mg/dL (80-110); HDL Cholesterol 89 mg/dL (40-60); HEMOLYSIS < 15 (0-50); LDL Cholesterol Calculated 169 mg/dL (<100); Phosphorous 4.9 mg/dL (2.8-4.1); Potassium 4.1 mmol/L (3.4-5.1); Sodium 136 mmol/L (137-145); Total Protein 7.2 g/dL (6.3-8.2); Triglycerides 71 mg/dL (35-150)
[2021-10-26 13:27] LABS: Vitamin B12 548 pg/mL (239-931)
== END ==
PROVIDERS: PCP Nurse Practitioner Family; Referring Provider Nurse Practitioner Family; Visit Provider Nurse Practitioner Family
DX: Z00.00 Encounter for general adult medical examination without abnormal findings (principal); I10 Essential (primary) hypertension; E20.9 Hypoparathyroidism, unspecified; E53.8 Deficiency of other specified B group vitamins; R79.89 Other specified abnormal findings of blood chemistry; E78.2 Mixed hyperlipidemia
CPT/HCPCS: 36415; 80053; 80061; 82607; 84100; 85027

== ENCOUNTER → 2021-11-30 11:22 | Outpatient (CLI) | payer MEDICARE, MEDICAID, SELFPAY ==
[2021-11-30 12:46] LABS: BUN Creatinine Ratio 26.2 (6-22); Blood Urea Nitrogen 22 mg/dL (7-17); Estimated Glomerular Filt Rate > 60 mL/min (>60)
== END ==
PROVIDERS: PCP Nurse Practitioner Family; Referring Provider Surgery; Visit Provider Surgery
DX: K43.2 Incisional hernia without obstruction or gangrene (principal)
CPT/HCPCS: 36415; 82565; 84520

== ENCOUNTER → 2021-12-03 10:36 | Outpatient (CLI) | payer MEDICARE, MEDICAID, SELFPAY ==
--- NOTE | 2021-12-03 12:22 | DI.CT.S_ITS ---
PROCEDURE: CT ABDOMEN PELVIS W CON INDICATIONS: Recurrent ventral hernia TECHNIQUE: After the administration of intravenous contrast, axial sections acquired from the lung bases to the pubic symphysis. Coronal and sagittal reformats were performed. For radiation dose reduction, the following was used: automated exposure control, adjustment of mA and/or kV according to patient size. COMPARISON: None. FINDINGS: Image quality: Excellent. Lung bases: Unremarkable. Heart: No significant findings. ABDOMEN: Liver: Unremarkable. Gallbladder: Unremarkable. Biliary ducts: Unremarkable. Pancreas: Unremarkable. Spleen: Unremarkable. Adrenal Glands: Unremarkable. Kidneys and Ureters: Unremarkable. Stomach and Bowel: Stomach, small bowel loops, and colon are unremarkable. Peritoneum: No abnormal intraperitoneal fluid. No free air. Ventral Wall: A midline ventral hernia measures 2.6 cm contains fat without bowel involvement Abdominal Nodes: No retroperitoneal or mesenteric adenopathy by size criteria. Vessels: Aorta and inferior vena cava are normal in size. PELVIS: Pelvic Organs: Unremarkable. Bladder: Unremarkable. Pelvic Nodes: No enlarged lymph nodes. Miscellaneous: No hernias are seen. Bones: Right hip prosthesis. L5 pars defects associated with grade 2 anterior spondylolisthesis. Large the perineural sacral cysts results in remodeling of the sacral foramina IMPRESSION: Small ventral hernia measures 2.6 cm contains fat without bowel involvement. Grade 2 isthmic spondylolisthesis at L5-S1 Approved by: Sami Alaniz M.D. on 12/03/2021 at 18:32
== END ==
PROVIDERS: Referring Provider Surgery; Visit Provider Surgery
DX: K43.2 Incisional hernia without obstruction or gangrene (principal); M43.17 Spondylolisthesis, lumbosacral region
CPT/HCPCS: 74177

== ENCOUNTER → 2022-01-08 17:13 | Outpatient (CLI) | payer MEDICARE, MEDICAID, SELFPAY ==
[2022-01-08 17:42] LABS: Add Manual Diff / Slide Review NO; Basophils Absolute Auto 0 /uL (0-100); Basophils Percent Auto 0.6 % (0-2); Eosinophils Absolute Auto 100 /uL (0-450); Hematocrit 33.9 % (36-46); Hemoglobin 11.2 g/dL (12.0-16.0); Lymphocytes Absolute Auto 2100 /uL (1100-4500); Lymphocytes Percent Auto 33.6 % (25-40); Mean Corpuscular HGB Conc 33.1 % (30-36); Mean Corpuscular Hemoglobin 28.8 PG (26-34); Mean Corpuscular Volume 87.1 fL (80-100); Monocytes Absolute Auto 600 /uL (0-900); Monocytes Percent Auto 8.6 % (3-14); Neutrophils Absolute Auto 3500 /uL (1500-7000); Neutrophils Percent Auto 55.2 % (50-75); Platelet Count 330 X10^3/uL (150-400); Red Cell Distribution Width 14.6 % (11.6-14.8); White Blood Cell Count 6.4 X10^3/uL (4.5-11.0)
[2022-01-08 17:57] LABS: Alanine Aminotransferase 27 IU/L (<35); Albumin 4.3 g/dL (3.5-5.0); Albumin Globulin Ratio 1.4 (1.0-2.8); Alkaline Phosphatase 59 U/L (38-126); Aspartate Aminotransferase 45 IU/L (14-36); BUN Creatinine Ratio 22.9 (6-22); Bilirubin Total 0.3 mg/dL (0.2-1.3); Blood Urea Nitrogen 19 mg/dL (7-17); Carbon Dioxide 30 mmol/L (22-32); Chloride 98 mmol/L (98-107); Estimated Glomerular Filt Rate > 60 mL/min (>60); Glucose 93 mg/dL (80-110); HEMOLYSIS < 15 (0-50); Potassium 3.6 mmol/L (3.4-5.1); Sodium 137 mmol/L (137-145); Total Protein 7.3 g/dL (6.3-8.2)
[2022-01-08 18:26] LABS: Creatinine Urine Random 43.3 mg/dL
[2022-01-08 18:32] LABS: Microalbumin Urine Random < 0.6 mg/dL (0-1.6)
[2022-01-08 18:41] LABS: TSH w/ Reflex to FT4 2.08 uIU/mL (0.47-4.68)
[2022-01-10 20:28] LABS: Calcium 8.4 mg/dL (8.7-10.3); Parathyroid Hormone, Intact 13 pg/mL (15-65)
== END ==
PROVIDERS: PCP Family Medicine; Referring Provider Family Medicine; Visit Provider Family Medicine
DX: K43.2 Incisional hernia without obstruction or gangrene (principal); M81.6 Localized osteoporosis [Lequesne]; E11.9 Type 2 diabetes mellitus without complications
CPT/HCPCS: 36415; 80053; 82043; 82310; 82570; 83970; 84443; 85025; Q3014

== ENCOUNTER → 2022-01-13 16:10 | Outpatient (CLI) | payer MEDICARE, MEDICAID, SELFPAY ==
[2022-01-13 16:36] LABS: COVID19 -Nasal RAPID Negative (Negative)
== END ==
PROVIDERS: PCP Family Medicine; Visit Provider Surgery
DX: Z20.822 Contact with and (suspected) exposure to COVID-19 (principal); Z01.812 Encounter for preprocedural laboratory examination
CPT/HCPCS: 87635; C9803

== ENCOUNTER 2022-01-14 06:29 | Day surgery (SDC) | payer MEDICARE, MEDICAID, SELFPAY ==
[2022-01-14 06:53] VITALS: BMI 22.4
[2022-01-14 07:04] VITALS: BP 148/97; PULSE 83; RESP 16; TEMP 36.2; O2SAT 97
--- NOTE | 2022-01-14 07:09 | SUR.OPER ---
Supine on padded OR bed, head on pillow, arms secured on padded arm boards at <90 degrees abduction, legs uncrossed, safety belt at thigh, tape over blanket over lower legs.
[2022-01-14] MEDS: LACTATED RINGERS 1,000 ML 84 ML IV (07:19)
--- NOTE | 2022-01-14 07:45 | PM.PREOP ---
Pre-operative Note COVID-19 COVID-19 status: Negative Result date/Date tested (Pos, Neg/Pending): 01/13/22 Interval Note History & Physical reviewed/Exam performed by Physician: Yes Changes to H&P: No ASA Class (for procedural sedation): II
[2022-01-14] MEDS: LIDOCAINE 1% W/EPI 20 ML INJ (08:36)
[2022-01-14] MEDS: CEFAZOLIN 2 GM IN 0.9 % NACL 100 ML IV (08:37)
[2022-01-14 08:58] VITALS: BP 95/58; PULSE 73; RESP 16; TEMP 36.4; O2SAT 96
[2022-01-14 09:03] VITALS: BP 97/63; PULSE 76; RESP 16; O2SAT 95
--- NOTE | 2022-01-14 09:05 | PM.OP.1 ---
Operative Date/Time/Diagnoses Date of procedure: 01/14/22 Time of procedure: 09:05 Pre-op diagnosis: Recurrent ventral hernia Post-op diagnosis: other ([place] umbilical hernia) Procedure & Clinicians Procedure: Umbilical hernia repair with mesh Same procedure as scheduled: No Surgeon: Ramón Velasquez Anesthesia Type: General Operative Notes Procedure in detail: The patient is a 71-year-old woman who had undergone a ventral epigastric hernia repair with mesh several months prior and had developed a recurrent bulge inferior to the prior scar which was felt to be a recurrence. Ancef was administered. The patient was brought to the operating room, placed on the table in the supine position and general anesthesia was induced via LMA. The abdomen was prepped and draped in the usual fashion. A time-out was performed. A 6 cm curvilinear incision was made just inferior to the umbilicus. The umbilical stalk was dissected free and grasped with a Nanci clamp. The umbilical stalk was divided at its base revealing the 1 cm oval defect in the fascia. There was some preperitoneal fat which was reduced. The fascia was cleared of subcutaneous adipose tissue in all directions over 1-2 cm. At the superior edge of the cleared fascia we could feel the inferior edge of the existing mesh. There was no recurrent defect there. A finger was inserted into the abdominal cavity and no other defects were palpable. We then injected some local anesthetic into planes above and below the fascia. The fascia was then closed with multiple interrupted 0 Ethibond sutures in a transverse fashion. A piece of polypropylene mesh was trimmed to fit over the fascial closure and secured with Tisseel. Once the Tisseel was dried we tacked the umbilical skin to the mesh with the 3-0 Vicryl stitch. The skin was closed with multiple interrupted 3-0 Vicryl dermal sutures followed by a running 4 Monocryl subcuticular closure. Steri-Strips were applied and an abdominal binder was applied. EBL: 10 mL Post-operative Condition: stable Disposition: PACU
[2022-01-14 09:08] VITALS: BP 109/71; PULSE 73; RESP 19; O2SAT 95
[2022-01-14 09:13] VITALS: BP 129/80; PULSE 72; RESP 16; O2SAT 96
[2022-01-14 09:17] VITALS: BP 132/78; PULSE 70; RESP 16; O2SAT 96
== END 2022-01-14 09:26 | disposition home or self-care (01) ==
PROVIDERS: PCP Family Medicine; Referring Provider Surgery; Visit Provider Surgery
PROC: (CPT 49585; principal; 2022-01-14 07:45)
DX: K42.9 Umbilical hernia without obstruction or gangrene (principal); I10 Essential (primary) hypertension; E03.9 Hypothyroidism, unspecified
CPT/HCPCS: 49585; J0690; J1100; J2250; J2405; J2704; J3010

== ENCOUNTER → 2022-03-22 07:56 | Outpatient (CLI) | payer MEDICARE, MEDICAID, SELFPAY ==
--- NOTE | 2022-03-22 08:00 | DI.MRI.S_ITS ---
PROCEDURE: MR CERVICAL SPINE WO CON INDICATIONS: Radiculopathy, cervical region// TECHNIQUE: Noncontrast sagittal T1 spin echo and T2 fast spin echo, sagittal STIR, foraminal oblique sagittal T2 fast spin echo, and axial gradient echo or T2 fast spin echo through the cervical spine. COMPARISON: None. FINDINGS: Image quality: Excellent. Alignment and Curvature: There is straightening of the normal cervical lordosis. There is minimal anterolisthesis at C4-C5, with minimal retrolisthesis at C6-C7. Bone Marrow: Marrow demonstrates normal overall signal. Spinal Cord: Visualized spinal cord has normal size and signal. No cerebellar tonsillar herniation. Paraspinous Soft Tissues: No paravertebral masses. Prevertebral soft tissues are normal in thickness. C2-C3: The disc height is well-preserved. Loss of disc signal is seen at this level. A mild degree of generalized disc osteophyte complex is seen. There is mild right-sided and moderate to prominent left-sided facet hypertrophy seen. There is at least moderate left-sided and no right-sided neural foraminal narrowing. Minimal central canal narrowing is seen. C3-C4: At least moderate loss of disc height and disc signal can be seen. Moderate disc osteophyte complex is seen, which is eccentric to the left. There is mild right-sided and at least moderate left-sided neural foraminal narrowing. There is moderate to severe left-sided and at least moderate right-sided neural foraminal narrowing. Moderate central canal narrowing is seen. There is associated mass effect upon the ventral spinal cord. C4-C5: Moderate to severe loss of disc height and disc signal can be seen. There is a degree vertebral body fusion seen. At least moderate disc osteophyte complex is seen. Uncovertebral joint hypertrophy is seen at this level. Moderate facet hypertrophy is seen, right worse than left. There is moderate to severe right-sided and at least moderate left-sided neural foraminal narrowing. Moderate central canal narrowing is seen. There is associated mass effect upon the ventral spinal cord. C5-C6: Moderate to severe loss of disc height and disc signal can be seen. Reactive marrow endplate changes are seen, which are hyperintense on T1-weighted and T2-weighted imaging and most consistent with fatty metaplasia (Modic type II changes). At least moderate disc osteophyte complex is seen. There is a central disc osteophyte protrusion. Uncovertebral joint hypertrophy is seen at this level. Moderate facet joint hypertrophy is seen. There is moderate to severe bilateral neural foraminal narrowing seen, right worse than left. At least moderate central canal narrowing is seen, with associated mass effect upon the ventral spinal cord. C6-C7: Moderate to severe loss of disc height and disc signal can be seen. Reactive marrow endplate changes are seen, which demonstrate mixed T1 weighted and T2-weighted signal, and are attributed to a combination of edema and fatty metaplasia (Modic type I and Modic type II changes). At least moderate disc osteophyte complex is seen, which is eccentric to the left. Uncovertebral joint hypertrophy is seen at this level. Wall there is a central disc osteophyte protrusion seen. Mild to moderate facet hypertrophy is seen. Moderate to severe bilateral neural foraminal narrowing can be seen. Moderate central canal narrowing is seen. There is associated mass effect upon the ventral spinal cord. C7-T1: At least moderate loss of disc height and disc signal can be seen. Moderate generalized disc osteophyte complex is seen. There is a central disc osteophyte protrusion seen. Mild to moderate facet hypertrophy is seen. There is moderate to severe bilateral neural foraminal narrowing seen. Moderate central canal narrowing is seen. IMPRESSION: Multiple levels of cervical spine degenerative change are seen, which are worst inferiorly. Straightening of the normal cervical lordosis is seen, which is commonly observed in patients with muscular spasm. Several levels of moderate to severe neural foraminal narrowing can be seen. Dictated by: Jayesh Xie M.D. on 03/24/2022 at 9:58 Approved by: Jayesh Xie M.D. on 03/24/2022 at 10:04
--- NOTE | 2022-03-22 08:01 | DI.MG.S_ITS ---
BILATERAL DIGITAL SCREENING MAMMOGRAM 3D/2D WITH CAD: 03/22/2022 CLINICAL: Routine screening. Comparison is made to exams dated: 06/09/2020 mammogram, 11/12/2018 mammogram - [facility], and 10/02/2011 mammogram - [facility]. Both breasts are extremely dense, which lowers the sensitivity of mammography (category d />75% glandular tissue). Current study was also evaluated with a Computer Aided Detection (CAD) system. No significant masses, calcifications, or other findings are seen in either breast. There has been no significant interval change. IMPRESSION: NEGATIVE There is no mammographic evidence of malignancy. A 1 year screening mammogram is recommended. Based on the Tyrer Cuzick model (a risk assessment model) the patient's lifetime risk is 11.2% and her 10 year risk is 9.2%. According to the ACR, ACS, and NCCN guidelines, an annual breast MRI exam along with mammogram is recommended if the patient's lifetime risk is 20% or greater. This exam was interpreted at Station ID: [id number]. NOTE: For mammograms, a report in lay terms will be sent to the patient. Approximately 15% of breast malignancies will not be visualized mammographically. In the management of a palpable breast mass, a negative mammogram must not discourage biopsy of a clinically suspicious lesion. Electronically Signed By: Itz anne/leonard:03/24/2022 09:17:29 letter sent: Normal Exam ACR BI-RADS Category 1: Negative [id number]
[2022-03-22 10:04] LABS: Alanine Aminotransferase 28 IU/L (<35); Albumin 4.3 g/dL (3.5-5.0); Albumin Globulin Ratio 1.3 (1.0-2.8); Alkaline Phosphatase 66 U/L (38-126); Aspartate Aminotransferase 43 IU/L (14-36); BUN Creatinine Ratio 20.5 (6-22); Bilirubin Total 0.4 mg/dL (0.2-1.3); Blood Urea Nitrogen 17 mg/dL (7-17); Carbon Dioxide 31 mmol/L (22-32); Chloride 96 mmol/L (98-107); Estimated Glomerular Filt Rate > 60 mL/min (>60); Globulin 3.4 g/dL (1.7-4.1); Glucose 107 mg/dL (80-110); HEMOLYSIS < 15 (0-50); Potassium 3.5 mmol/L (3.4-5.1); Sodium 136 mmol/L (137-145); Total Protein 7.7 g/dL (6.3-8.2)
[2022-03-22 10:16] LABS: HEMOLYSIS < 15 (0-50); Iron 68 ug/dL (37-170)
[2022-03-22 10:27] LABS: Percent Iron Saturation 18 % (15-50); Total Iron Binding Capacity 380 ug/dL (265-497); Transferrin 280 mg/dL (206-381)
[2022-03-22 10:36] LABS: Ferritin 9 ng/mL (11-264)
== END ==
PROVIDERS: PCP Family Medicine; Referring Provider Family Medicine; Visit Provider Family Medicine
DX: Z12.31 Encounter for screening mammogram for malignant neoplasm of breast (principal); M47.22 Other spondylosis with radiculopathy, cervical region; M48.02 Spinal stenosis, cervical region; D64.9 Anemia, unspecified; E20.0 Idiopathic hypoparathyroidism; E53.8 Deficiency of other specified B group vitamins; E78.2 Mixed hyperlipidemia; I10 Essential (primary) hypertension; M43.16 Spondylolisthesis, lumbar region; R74.01 Elevation of levels of liver transaminase levels
CPT/HCPCS: 36415; 72141; 77063; 77067; 80053; 82728; 83540; 83550; 84100; 85025

== ENCOUNTER → 2022-04-02 16:42 | Outpatient (CLI) | payer MEDICARE, MEDICAID, SELFPAY ==
[2022-04-02 17:10] LABS: COVID19 -Nasal RAPID Negative (Negative)
== END ==
PROVIDERS: Radiology Diagnostic Radiology; PCP Family Medicine; Referring Provider Internal Medicine Cardiovascular Disease; Visit Provider Internal Medicine Cardiovascular Disease
DX: Z20.822 Contact with and (suspected) exposure to COVID-19 (principal)
CPT/HCPCS: 87635; C9803

== ENCOUNTER → 2022-04-03 08:10 | Outpatient (CLI) | payer MEDICARE, MEDICAID, SELFPAY ==
--- NOTE | 2022-04-03 | DI.ECHO.S_ITS ---
[facility]+ [facility] +---------+ : : [address] : : : : [id number] : : : : Phone: [phone]---------+ Echocardiogram Report + + :Name: JORGE CALDERON I Study Date: 04/03/2022 Height: 66 in : :[facility] ReadingLocation: Weight: 138 lb : : Gender: Female BSA: 1.7 m2 : :: 1950 Age: 71 yrs BP: 133/87 mmHg: :Reason For Study: FATIGUE, HYPERTENSION, RT ATRIAL ENLARGEMENT : :Ordering Physician: JULIA, : :BENNIE Performed By: Floridalma Diaz : :Referring: LEEANN DUMONT : + + Interpretation Summary The left ventricle is grossly normal size. There is mild concentric left ventricular hypertrophy. The ejection fraction is estimated to be 60-65%. The right ventricle is normal in size and function. There is moderate tricuspid regurgitation. The right ventricular systolic pressure is estimated to be at least 21 mmHg based on an estimated right atrial pressure of 3 mm Hg. There is mild luminal irregularity and echogenicity in the abdominal aorta, suggestive of aortic atherosclerotic disease. Mild atherosclerotic plaque(s) in the aortic arch. Procedure: A two-dimensional transthoracic echocardiogram with color flow and Doppler was performed. The study quality was technically adequate. There is no prior echocardiogram noted for this patient. The patient was in sinus rhythm with heart rates between 73-80 bpm during the exam. Left Ventricle: There is mild concentric left ventricular hypertrophy. The left ventricle is grossly normal size. There is no thrombus. The ejection fraction is estimated to be 60-65%. There are no focal wall motion abnormalities. Diastolic parameters suggest a relaxation abnormality of the left ventricle, consistent with probable normal filling pressures. Right Ventricle: The right ventricle is normal in size and function. Atria: The left atrial size is normal. Right atrial size is normal. There is no Doppler evidence for an interatrial shunt. The thickening of interatrial septum suggests lipomatous hypertrophy. Mitral Valve: There is mild mitral annular calcification. The mitral valve chordae are thickened and/or calcified. There is trace mitral regurgitation. Aortic Valve: The aortic valve is trileaflet. The aortic valve opens well. There is mild aortic valve sclerosis. There is no aortic valve stenosis. No aortic regurgitation is present. Tricuspid Valve: The tricuspid valve leaflets are thin and pliable. There is moderate tricuspid regurgitation. The right ventricular systolic pressure is estimated to be at least 21 mmHg based on an estimated right atrial pressure of 3 mm Hg. Pulmonic Valve: The pulmonic valve is not well visualized. There is trace pulmonic regurgitation. Great Vessels: The aortic root is normal size. The dimensions of the ascending aorta are normal. There is mild luminal irregularity and echogenicity in the abdominal aorta, suggestive of aortic atherosclerotic disease. Mild atherosclerotic plaque(s) in the aortic arch. The IVC is of normal diameter and collapses greater than 50% with a sniff. This suggests a low right atrial pressure of 3 mm Hg. Pericardium/ Pleura There is no pericardial effusion. There is an anterior echo-free space consistent with a fat pad. There is no pleural effusion. MMode/2D Measurements & Calculations LVIDd: 3.8 cm LVOT diam: 2.0 cm LVIDs: 2.4 cm Ao root diam: 3.1 cm FS: 37.4 % asc Aorta Diam: 3.3 cm IVSd: 1.1 cm Ao Arch Diam (Prox Trans): 2.3 cm LVPWd: 1.2 cm LV burnett. diameter/BSA (cm/m^2): 2.2 LV sys. diameter/BSA (cm/m^2): 1.4 LA A2 area: 15.7 cm2 RA long axis: 3.8 cm LA A4 area: 13.0 cm2 RA area: 10.8 cm2 LA length (vol): 4.3 cm RA vol: 26.0 ml LA vol: 39.9 ml RA : 15.2 ml/m2 LA vol index: 23.3 ml/m2 IVC diam: 1.7 cm RVD1 (basal): 3.7 cm RVD2 (mid): 2.5 cm TAPSE: 2.0 cm Doppler Measurements & Calculations Ao V2 max: 140.6 cm/sec LVOT Max Meño: 94.6 cm/sec Ao V2 mean: 104.5 cm/sec LV V1 max P.6 mmHg Ao max P.9 mmHg LV V1 VTI: 19.2 cm Ao mean P.8 mmHg SANDRA(I,D): 2.0 cm2 Ao V2 VTI: 31.0 cm SANDRA(V,D): 2.2 cm2 sev ratio: 0.62 SANDRA indexed to BSA (cm^2/m^2): 1.2 MV E max meño: 63.0 cm/sec TR max meño: 210.2 cm/sec MV A max meño: 91.2 cm/sec TR max P.7 mmHg MV E/A: 0.69 PA V2 max: 89.6 cm/sec Med Peak E' Meño: 5.6 cm/sec PA V2 mean: 59.9 cm/sec E/E' med: 11.2 PA mean P.6 mmHg Lat Peak E' Meño: 6.5 cm/sec PA pr(Accel): 10.5 mmHg E/E' lat: 9.7 E/e' average: 10.5 MV dec time: 0.27 sec SV(LVOT): 61.9 ml Reading Physician:01:14 PM
--- NOTE | 2022-04-04 10:32 | DI.NM.S_ITS ---
DATE OF SERVICE: 04/03/2022 PROCEDURE: Exercise stress test. INDICATION: Fatigue, hypertension. CARDIAC STRESS: The patient underwent exercise stress test under the supervision of an attending staff. He walked on Robby protocol for 6 minutes, 01 second, achieved a maximum heart rate of 164, which was 112 percent of target heart rate. Baseline blood pressure 140/90 mmHg. Peak blood pressure 160/96 mmHg. The patient achieved 7 METs of workload and MIRELA -28 percent. No chest pain. [place] fatigue and dyspnea. Baseline rhythm was sinus. During stress, no convincing ischemic EKG changes seen. The patient has intermittent PACs and rare PVCs, as well as brief run of atrial tachycardia in recovery. No obvious atrial fibrillation or ventricular tachycardia seen. CONCLUSION: Exercise stress test is negative for inducible ischemia. Good exercise tolerance. Functional aerobic impairment -28 percent. Baseline blood pressure 140/90 mmHg and peak blood pressure 160/96 mmHg. Intermittent premature atrial contractions and rare premature ventricular contractions during stress and in recovery a short run of atrial tachycardia without any obvious atrial fibrillation or ventricular tachycardia. Overall, low-risk exercise stress test. Ashley Garcia - ANTONIO/chetan/fadi doc#: [id number]/job#: [id number] dd: 04/03/2022 17:31:00 dt: 04/03/2022 20:40:00 DICTATING /COPIES TO: Jaleesa Galarza MD COPIES MNE: TIFFANIE;
== END ==
PROVIDERS: PCP Family Medicine; Referring Provider Internal Medicine Cardiovascular Disease; Visit Provider Internal Medicine Cardiovascular Disease
DX: I08.2 Rheumatic disorders of both aortic and tricuspid valves (principal); I10 Essential (primary) hypertension; R53.83 Other fatigue
CPT/HCPCS: 93017; 93306

== ENCOUNTER → 2022-05-05 12:00 | Outpatient (CLI) | payer MEDICARE, MEDICAID, SELFPAY ==
[2022-05-05 16:41] LABS: Alanine Aminotransferase 35 IU/L (<35); Albumin 4.2 g/dL (3.5-5.0); Albumin Globulin Ratio 1.2 (1.0-2.8); Alkaline Phosphatase 68 U/L (38-126); Aspartate Aminotransferase 45 IU/L (14-36); BUN Creatinine Ratio 12.7 (6-22); Bilirubin Total 0.5 mg/dL (0.2-1.3); Blood Urea Nitrogen 15 mg/dL (7-17); Calcium 7.8 mg/dL (8.4-10.2); Carbon Dioxide 31 mmol/L (22-32); Chloride 97 mmol/L (98-107); Estimated Glomerular Filt Rate 49 mL/min (>60); Globulin 3.4 g/dL (1.7-4.1); Glucose 103 mg/dL (80-110); HEMOLYSIS < 15 (0-50); Potassium 3.9 mmol/L (3.4-5.1); Sodium 136 mmol/L (137-145); Total Protein 7.6 g/dL (6.3-8.2)
== END ==
PROVIDERS: PCP Family Medicine; Referring Provider Internal Medicine Endocrinology, Diabetes & Metabolism; Visit Provider Internal Medicine Endocrinology, Diabetes & Metabolism
DX: E20.0 Idiopathic hypoparathyroidism (principal)
CPT/HCPCS: 36415; 80053

== ENCOUNTER → 2022-05-30 15:31 | Outpatient (CLI) | payer MEDICARE, MEDICAID, SELFPAY ==
[2022-05-30 19:25] LABS: Calcium 24 Hour Urine 80 mg/day (100-300); Calcium Urine Random 2.5 mg/dL; Collection Time Urine 24 Hours; Total Volume Urine 3200 mL
[2022-05-30 19:25] LABS: Collection Time Urine 24 Hours; Creatinine 24 Hour Urine 1248 mg/day (800-1800); Total Volume Urine 3200 mL
== END ==
PROVIDERS: PCP Family Medicine; Referring Provider Internal Medicine Endocrinology, Diabetes & Metabolism; Visit Provider Internal Medicine Endocrinology, Diabetes & Metabolism
DX: E20.0 Idiopathic hypoparathyroidism (principal)
CPT/HCPCS: 82340; 82570

== ENCOUNTER → 2022-06-22 12:39 | Outpatient (CLI) | payer MEDICARE, MEDICAID, SELFPAY ==
[2022-06-22 13:33] LABS: Alanine Aminotransferase 33 IU/L (<35); Albumin 4.2 g/dL (3.5-5.0); Albumin Globulin Ratio 1.4 (1.0-2.8); Alkaline Phosphatase 78 U/L (38-126); Aspartate Aminotransferase 51 IU/L (14-36); BUN Creatinine Ratio 15.2 (6-22); Bilirubin Total 0.3 mg/dL (0.2-1.3); Blood Urea Nitrogen 12 mg/dL (7-17); Calcium 7.6 mg/dL (8.4-10.2); Carbon Dioxide 32 mmol/L (22-32); Chloride 94 mmol/L (98-107); Estimated Glomerular Filt Rate > 60 mL/min (>60); Globulin 3.1 g/dL (1.7-4.1); Glucose 103 mg/dL (80-110); HEMOLYSIS < 15 (0-50); Potassium 4.1 mmol/L (3.4-5.1); Sodium 135 mmol/L (137-145); Total Protein 7.3 g/dL (6.3-8.2)
== END ==
PROVIDERS: PCP Family Medicine; Referring Provider Internal Medicine Endocrinology, Diabetes & Metabolism; Visit Provider Internal Medicine Endocrinology, Diabetes & Metabolism
DX: E20.0 Idiopathic hypoparathyroidism (principal)
CPT/HCPCS: 36415; 80053

== ENCOUNTER → 2022-07-10 13:26 | Outpatient (CLI) | payer MEDICARE, MEDICAID, SELFPAY ==
[2022-07-10 14:23] LABS: Calcium 7.9 mg/dL (8.4-10.2)
[2022-07-10 15:51] LABS: Vitamin D 25 Hydroxy (D3) 55.4 ng/mL (30.0-100.0)
[2022-07-11 10:49] LABS: Parathyroid Hormone Int 9 pg/mL (15-65)
== END ==
PROVIDERS: PCP Family Medicine; Referring Provider Internal Medicine Endocrinology, Diabetes & Metabolism; Visit Provider Internal Medicine Endocrinology, Diabetes & Metabolism
DX: E20.0 Idiopathic hypoparathyroidism (principal)
CPT/HCPCS: 36415; 82306; 82310; 83970

== ENCOUNTER → 2022-07-16 13:14 | Outpatient (CLI) | payer MEDICARE, MEDICAID, SELFPAY ==
[2022-07-16 14:34] LABS: Calcium 8.5 mg/dL (8.4-10.2)
[2022-07-16 15:47] LABS: Collection Time Urine 24 Hours; Creatinine 24 Hour Urine 1000 mg/day (800-1800); Creatinine Urine Random 29.4 mg/dL; Total Volume Urine 3400 mL
[2022-07-16 17:15] LABS: Vitamin D 25 Hydroxy (D3) 67.7 ng/mL (30.0-100.0)
[2022-07-16 17:44] LABS: Calcium 24 Hour Urine 265 mg/day (100-300); Calcium Urine Random 7.8 mg/dL; Collection Time Urine 24 Hours; Total Volume Urine 3400 mL
[2022-07-17 09:15] LABS: Parathyroid Hormone Int 10 pg/mL (15-65)
== END ==
PROVIDERS: PCP Family Medicine; Referring Provider Internal Medicine Endocrinology, Diabetes & Metabolism; Visit Provider Internal Medicine Endocrinology, Diabetes & Metabolism
DX: E20.0 Idiopathic hypoparathyroidism (principal)
CPT/HCPCS: 36415; 82306; 82310; 82340; 82570; 83970

== ENCOUNTER → 2022-07-26 11:41 | Outpatient (CLI) | payer MEDICARE, MEDICAID, SELFPAY ==
[2022-07-26 14:28] LABS: Calcium 7.7 mg/dL (8.4-10.2); Magnesium 1.8 mg/dL (1.6-2.3); Phosphorous 5.4 mg/dL (2.8-4.1)
== END ==
PROVIDERS: PCP Family Medicine; Referring Provider Internal Medicine Endocrinology, Diabetes & Metabolism; Visit Provider Internal Medicine Endocrinology, Diabetes & Metabolism
DX: E20.0 Idiopathic hypoparathyroidism (principal)
CPT/HCPCS: 36415; 82310; 83735; 84100

== ENCOUNTER → 2022-08-01 14:54 | Outpatient (CLI) | payer MEDICARE, MEDICAID, SELFPAY ==
[2022-08-01 15:54] LABS: Calcium 8.1 mg/dL (8.4-10.2); Phosphorous 4.8 mg/dL (2.8-4.1)
== END ==
PROVIDERS: PCP Family Medicine; Referring Provider Internal Medicine Endocrinology, Diabetes & Metabolism; Visit Provider Internal Medicine Endocrinology, Diabetes & Metabolism
DX: E20.0 Idiopathic hypoparathyroidism (principal)
CPT/HCPCS: 36415; 82310; 84100

== ENCOUNTER → 2022-08-16 11:53 | Outpatient (CLI) | payer MEDICARE, MEDICAID, SELFPAY ==
[2022-08-19 07:46] LABS: Parathyroid Hormone Int 10 pg/mL (15-65)
== END ==
PROVIDERS: PCP Family Medicine; Referring Provider Internal Medicine Endocrinology, Diabetes & Metabolism; Visit Provider Internal Medicine Endocrinology, Diabetes & Metabolism
DX: E20.0 Idiopathic hypoparathyroidism (principal)
CPT/HCPCS: 36415; 82310; 83970; 84100

== ENCOUNTER → 2022-09-06 12:52 | Outpatient (CLI) | payer MEDICARE, MEDICAID, SELFPAY ==
[2022-09-06 13:43] LABS: Calcium 8.1 mg/dL (8.4-10.2); Phosphorous 4.8 mg/dL (2.8-4.1)
[2022-09-06 14:40] LABS: Vitamin D 25 Hydroxy (D3) 41.8 ng/mL (30.0-100.0)
[2022-09-09 07:51] LABS: Parathyroid Hormone Int 10 pg/mL (15-65)
== END ==
PROVIDERS: PCP Family Medicine; Referring Provider Internal Medicine Endocrinology, Diabetes & Metabolism; Visit Provider Internal Medicine Endocrinology, Diabetes & Metabolism
DX: E20.0 Idiopathic hypoparathyroidism (principal)
CPT/HCPCS: 36415; 82306; 82310; 83970; 84100

== ENCOUNTER → 2022-10-03 12:19 | Outpatient (CLI) | payer MEDICARE, MEDICAID, SELFPAY ==
[2022-10-03 13:30] LABS: Calcium 8.4 mg/dL (8.4-10.2); Phosphorous 4.9 mg/dL (2.8-4.1)
[2022-10-07 12:08] LABS: Parathyroid Hormone Int 10 pg/mL (15-65)
[2022-10-10 00:36] LABS: 25 hydroxy Vitamin D 2 5.5 ng/mL (.); 25 hydroxy Vitamin D3 55 ng/mL (.)
== END ==
PROVIDERS: PCP Family Medicine; Referring Provider Internal Medicine Endocrinology, Diabetes & Metabolism; Visit Provider Internal Medicine Endocrinology, Diabetes & Metabolism
DX: E20.0 Idiopathic hypoparathyroidism (principal)
CPT/HCPCS: 36415; 82306; 82310; 83970; 84100

== ENCOUNTER → 2022-10-07 14:42 | Outpatient (CLI) | payer MEDICARE, MEDICAID, SELFPAY ==
[2022-10-07 15:34] LABS: Alanine Aminotransferase 24 IU/L (<35); Albumin 4.3 g/dL (3.5-5.0); Albumin Globulin Ratio 1.4 (1.0-2.8); Alkaline Phosphatase 58 U/L (38-126); Aspartate Aminotransferase 38 IU/L (14-36); BUN Creatinine Ratio 22.1 (6-22); Bilirubin Total 0.2 mg/dL (0.2-1.3); Blood Urea Nitrogen 17 mg/dL (7-17); Calcium 7.9 mg/dL (8.4-10.2); Carbon Dioxide 32 mmol/L (22-32); Chloride 97 mmol/L (98-107); Estimated Glomerular Filt Rate > 60 mL/min (>60); Globulin 3.1 g/dL (1.7-4.1); Glucose 88 mg/dL (80-110); HEMOLYSIS < 15 (0-50); Potassium 3.9 mmol/L (3.4-5.1); Sodium 136 mmol/L (137-145); Total Protein 7.4 g/dL (6.3-8.2)
[2022-10-07 16:05] LABS: Ferritin 7 ng/mL (11-264)
[2022-10-07 16:15] LABS: HEMOLYSIS < 15 (0-50); Iron 33 ug/dL (37-170)
[2022-10-07 16:20] LABS: Vitamin B12 502 pg/mL (239-931)
[2022-10-07 16:27] LABS: Percent Iron Saturation 8 % (15-50); Total Iron Binding Capacity 404 ug/dL (265-497); Transferrin 315 mg/dL (206-381)
== END ==
PROVIDERS: PCP Family Medicine; Referring Provider Internal Medicine Endocrinology, Diabetes & Metabolism; Visit Provider Internal Medicine Endocrinology, Diabetes & Metabolism
DX: D64.9 Anemia, unspecified (principal); E20.0 Idiopathic hypoparathyroidism; B15.9 Hepatitis A without hepatic coma; E53.8 Deficiency of other specified B group vitamins
CPT/HCPCS: 36415; 80053; 82607; 82728; 83540; 83550; 83735

== ENCOUNTER → 2022-10-18 12:13 | Outpatient (CLI) | payer MEDICARE, MEDICAID, SELFPAY ==
[2022-10-18 13:18] LABS: BUN Creatinine Ratio 21.6 (6-22); Blood Urea Nitrogen 16 mg/dL (7-17); Calcium 8.3 mg/dL (8.4-10.2); Carbon Dioxide 31 mmol/L (22-32); Chloride 97 mmol/L (98-107); Estimated Glomerular Filt Rate > 60 mL/min (>60); Glucose 125 mg/dL (80-110); HEMOLYSIS < 15 (0-50); Potassium 4.1 mmol/L (3.4-5.1); Sodium 135 mmol/L (137-145)
== END ==
PROVIDERS: PCP Family Medicine; Referring Provider Internal Medicine Endocrinology, Diabetes & Metabolism; Visit Provider Internal Medicine Endocrinology, Diabetes & Metabolism
DX: E83.51 Hypocalcemia (principal); E20.0 Idiopathic hypoparathyroidism
CPT/HCPCS: 36415; 80048

== ENCOUNTER → 2022-11-08 12:19 | Outpatient (CLI) | payer MEDICARE, MEDICAID, SELFPAY ==
[2022-11-08 13:12] LABS: BUN Creatinine Ratio 19.2 (6-22); Blood Urea Nitrogen 15 mg/dL (7-17); Calcium 7.7 mg/dL (8.4-10.2); Carbon Dioxide 29 mmol/L (22-32); Chloride 97 mmol/L (98-107); Estimated Glomerular Filt Rate > 60 mL/min (>60); Glucose 149 mg/dL (80-110); HEMOLYSIS < 15 (0-50); Potassium 4.5 mmol/L (3.4-5.1); Sodium 136 mmol/L (137-145)
== END ==
PROVIDERS: PCP Family Medicine; Referring Provider Internal Medicine Endocrinology, Diabetes & Metabolism; Visit Provider Internal Medicine Endocrinology, Diabetes & Metabolism
DX: E20.0 Idiopathic hypoparathyroidism (principal)
CPT/HCPCS: 36415; 80048

== ENCOUNTER → 2022-11-15 12:12 | Outpatient (CLI) | payer MEDICARE, MEDICAID, SELFPAY ==
[2022-11-15 13:34] LABS: Blood Urea Nitrogen 17 mg/dL (7-17); Calcium 8.1 mg/dL (8.4-10.2); Carbon Dioxide 31 mmol/L (22-32); Chloride 94 mmol/L (98-107); Estimated Glomerular Filt Rate > 60 mL/min (>60); Glucose 135 mg/dL (80-110); HEMOLYSIS < 15 (0-50); Potassium 4.7 mmol/L (3.4-5.1); Sodium 133 mmol/L (137-145)
== END ==
PROVIDERS: PCP Family Medicine; Referring Provider Internal Medicine Endocrinology, Diabetes & Metabolism; Visit Provider Internal Medicine Endocrinology, Diabetes & Metabolism
DX: E20.0 Idiopathic hypoparathyroidism (principal)
CPT/HCPCS: 36415; 80048

== ENCOUNTER → 2022-11-22 10:40 | Outpatient (CLI) | payer MEDICARE, MEDICAID, SELFPAY ==
[2022-11-22 13:08] LABS: BUN Creatinine Ratio 21.3 (6-22); Blood Urea Nitrogen 16 mg/dL (7-17); Carbon Dioxide 31 mmol/L (22-32); Chloride 97 mmol/L (98-107); Estimated Glomerular Filt Rate > 60 mL/min (>60); Glucose 97 mg/dL (80-110); HEMOLYSIS < 15 (0-50); Phosphorous 5.1 mg/dL (2.8-4.1); Potassium 4.1 mmol/L (3.4-5.1); Sodium 134 mmol/L (137-145)
[2022-11-23 07:45] LABS: x Labcorp Estim. Avg Glu (eAG) 128 mg/dL (.); x Labcorp Hemoglobin A1c 6.1 % (4.8-5.6)
== END ==
PROVIDERS: PCP Family Medicine; Referring Provider Internal Medicine Endocrinology, Diabetes & Metabolism; Visit Provider Internal Medicine Endocrinology, Diabetes & Metabolism
DX: R73.9 Hyperglycemia, unspecified (principal); E20.0 Idiopathic hypoparathyroidism
CPT/HCPCS: 36415; 80048; 83036; 84100

== ENCOUNTER → 2022-12-03 13:43 | Outpatient (CLI) | payer MEDICARE, MEDICAID, SELFPAY ==
[2022-12-03 14:52] LABS: Add Manual Diff / Slide Review NO; Basophils Absolute Auto 0 /uL (0-100); Basophils Percent Auto 0.6 % (0-2); Eosinophils Absolute Auto 100 /uL (0-450); Hematocrit 31.7 % (36-46); Hemoglobin 10.2 g/dL (12.0-16.0); Lymphocytes Absolute Auto 2100 /uL (1100-4500); Lymphocytes Percent Auto 33.4 % (25-40); Mean Corpuscular HGB Conc 32.2 % (30-36); Mean Corpuscular Hemoglobin 26.7 PG (26-34); Mean Corpuscular Volume 82.9 fL (80-100); Monocytes Absolute Auto 600 /uL (0-900); Neutrophils Absolute Auto 3400 /uL (1500-7000); Platelet Count 391 X10^3/uL (150-400); Red Blood Cell Count 3.82 X10^6/uL (4.0-5.2); Red Cell Distribution Width 14.9 % (11.6-14.8); White Blood Cell Count 6.3 X10^3/uL (4.5-11.0)
[2022-12-03 15:41] LABS: Ferritin 9 ng/mL (11-264)
[2022-12-03 15:46] LABS: HEMOLYSIS < 15 (0-50); Iron 25 ug/dL (37-170)
[2022-12-03 15:58] LABS: Percent Iron Saturation 6 % (15-50); Total Iron Binding Capacity 421 ug/dL (265-497); Transferrin 318 mg/dL (206-381)
[2022-12-04 12:16] LABS: Blood Urea Nitrogen 19 mg/dL (7-17); Calcium 7.8 mg/dL (8.4-10.2); Carbon Dioxide 31 mmol/L (22-32); Chloride 96 mmol/L (98-107); Estimated Glomerular Filt Rate > 60 mL/min (>60); Glucose 102 mg/dL (80-110); HEMOLYSIS < 15 (0-50); Potassium 4.3 mmol/L (3.4-5.1); Sodium 136 mmol/L (137-145)
== END ==
PROVIDERS: PCP Family Medicine; Referring Provider Internal Medicine Endocrinology, Diabetes & Metabolism; Visit Provider Internal Medicine Endocrinology, Diabetes & Metabolism
DX: D64.9 Anemia, unspecified (principal); E20.0 Idiopathic hypoparathyroidism; E20.9 Hypoparathyroidism, unspecified; E61.1 Iron deficiency; I10 Essential (primary) hypertension
CPT/HCPCS: 36415; 80048; 82728; 83540; 83550; 85025

== ENCOUNTER → 2022-12-12 16:06 | Outpatient (CLI) | payer MEDICARE, MEDICAID, SELFPAY ==
[2022-12-12 16:50] LABS: BUN Creatinine Ratio 24.4 (6-22); Blood Urea Nitrogen 22 mg/dL (7-17); Calcium 8.1 mg/dL (8.4-10.2); Carbon Dioxide 31 mmol/L (22-32); Chloride 95 mmol/L (98-107); Estimated Glomerular Filt Rate > 60 mL/min (>60); Glucose 95 mg/dL (80-110); HEMOLYSIS < 15 (0-50); Potassium 3.9 mmol/L (3.4-5.1); Sodium 133 mmol/L (137-145)
== END ==
PROVIDERS: PCP Family Medicine; Referring Provider Internal Medicine Endocrinology, Diabetes & Metabolism; Visit Provider Internal Medicine Endocrinology, Diabetes & Metabolism
DX: E20.0 Idiopathic hypoparathyroidism (principal)
CPT/HCPCS: 36415; 80048

== ENCOUNTER → 2022-12-30 13:59 | Outpatient (CLI) | payer MEDICARE, MEDICAID, SELFPAY ==
[2022-12-30 15:35] LABS: Sodium Urine Random 30 mmol/L (30-90)
[2022-12-31 21:04] LABS: Osmolality Urine 241 mOsmol/kg (.)
== END ==
PROVIDERS: PCP Family Medicine; Referring Provider Internal Medicine Endocrinology, Diabetes & Metabolism; Visit Provider Internal Medicine Endocrinology, Diabetes & Metabolism
DX: E87.1 Hypo-osmolality and hyponatremia (principal)
CPT/HCPCS: 83935; 84300

== ENCOUNTER → 2023-01-10 10:23 | Outpatient (CLI) | payer MEDICARE, MEDICAID, SELFPAY ==
[2023-01-10 11:22] LABS: Add Manual Diff / Slide Review NO; Basophils Absolute Auto 100 /uL (0-100); Basophils Percent Auto 1.2 % (0-2); Eosinophils Absolute Auto 100 /uL (0-450); Eosinophils Percent Auto 1.5 % (2-4); Hematocrit 34.6 % (36-46); Hemoglobin 11.5 g/dL (12.0-16.0); Lymphocytes Absolute Auto 1500 /uL (1100-4500); Lymphocytes Percent Auto 29.8 % (25-40); Mean Corpuscular HGB Conc 33.1 % (30-36); Mean Corpuscular Hemoglobin 28.5 PG (26-34); Mean Corpuscular Volume 85.9 fL (80-100); Monocytes Absolute Auto 400 /uL (0-900); Monocytes Percent Auto 8.2 % (3-14); Neutrophils Absolute Auto 2900 /uL (1500-7000); Neutrophils Percent Auto 59.3 % (50-75); Platelet Count 320 X10^3/uL (150-400); Red Blood Cell Count 4.03 X10^6/uL (4.0-5.2); Red Cell Distribution Width 19.7 % (11.6-14.8); White Blood Cell Count 4.9 X10^3/uL (4.5-11.0)
[2023-01-10 11:31] LABS: HEMOLYSIS < 15 (0-50); Iron 136 ug/dL (37-170)
[2023-01-10 11:42] LABS: Percent Iron Saturation 45 % (15-50); Total Iron Binding Capacity 299 ug/dL (265-497); Transferrin 222 mg/dL (206-381)
[2023-01-10 12:07] LABS: Ferritin 118 ng/mL (11-264)
[2023-01-10 12:21] LABS: Vitamin B12 595 pg/mL (239-931)
== END ==
PROVIDERS: PCP Family Medicine; Referring Provider Family Medicine; Visit Provider Family Medicine
DX: D64.9 Anemia, unspecified (principal); E53.8 Deficiency of other specified B group vitamins
CPT/HCPCS: 36415; 82607; 82728; 83540; 83550; 85025

== ENCOUNTER 2023-01-24 09:37 | Emergency (ER) | payer MEDICARE, MEDICAID, SELFPAY ==
[2023-01-24 09:55] VITALS: BP 184/88; PULSE 82; RESP 20; TEMP 36.4; O2SAT 96; BMI 21.7
--- NOTE | 2023-01-24 10:01 | DI.CT.S_ITS ---
PROCEDURE: CT FACIAL BONES WO CON INDICATIONS: Fall onto face TECHNIQUE: Noncontrast 2.5 mm thick axial images acquired from the mandible through the frontal sinuses, with coronal and sagittal reformatting. For radiation dose reduction, the following was used: automated exposure control, adjustment of mA and/or kV according to patient size. COMPARISON: CT head from same date. FINDINGS: Image quality: Excellent. Bones and teeth: Orbital rinaldi are intact. Sinus rinaldi show no fracture or deformity. Nasal bones and septum are intact. Visualized portions of the mandible demonstrate no fractures or subluxation. Zygomatic arches are intact. Pterygoid plates are intact. Visualized portions of the skull base and auditory canals are intact. Sinuses: Paranasal sinuses are aerated, without fluid levels, mucosal thickening, or mucoceles. Mastoid air cells are aerated. Soft tissues: There is edema over the right greater than left cheek extending to the superior orbital rim. Normal appearance of the intraconal fat. No masses, or fluid collections. No enlarged lymph nodes. No soft tissue lacerations or debris. Vascular: Visualized vascular structures appear normal in the absence of contrast. Bony vascular foramina and canals are intact. IMPRESSION: Right greater than left preseptal edema without fracture. Dictated by: Maycol Nielsen M.D. on 01/24/2023 at 9:42 Approved by: Maycol Nielsen M.D. on 01/24/2023 at 9:44
--- NOTE | 2023-01-24 10:01 | DI.CT.S_ITS ---
PROCEDURE: CT HEAD/BRAIN WO CON INDICATIONS: Fall onto face TECHNIQUE: Noncontrast 4.5 mm thick angled axial sections acquired from the foramen magnum to the vertex, with coronal and sagittal reformats. For radiation dose reduction, the following was used: automated exposure control, adjustment of mA and/or kV according to patient size. COMPARISON: [facility], CT, CT FACIAL BONES WO CON, 01/24/2023, 10:09. FINDINGS: Image quality: Excellent. CSF spaces: Basal cisterns are patent. No extra-axial fluid collections. The ventricles are symmetric in size and shape. Brain: No intracranial bleeds or masses. There is cerebral volume loss for age, with resultant ventricular and sulcal prominence. There are periventricular and deep white matter chronic small vessel ischemic changes. There is intracranial internal carotid artery atherosclerosis. Skull and face: Calvarium and visualized facial bones appear intact, without suspicious lesions. Soft tissue swelling over the right cheek and preseptal orbit. Slight amount of edema over the left cheek. Normal appearance of the intraconal fat Sinuses: Visualized sinuses and mastoids are clear. IMPRESSION: No intracranial hemorrhage or fracture identified. Right greater than left cheek swelling and preseptal orbital edema Dictated by: Maycol Nielsen M.D. on 01/24/2023 at 9:38 Approved by: Maycol Nielsen M.D. on 01/24/2023 at 9:42
--- NOTE | 2023-01-24 11:23 | ED.FALL ---
HPI - Fall General Chief Complaint: Fall Stated Complaint: black fall from a fall Time Seen by Provider: 01/24/23 10:51 Source: patient Mode of arrival: Ambulatory Limitations: no limitations History of Present Illness HPI Narrative: This is a 72-year-old female with history of hypoparathyroid and hypertension. Patient states she was having her usual day was out in the garden, she walked into the household and caught the edge of her threshold with her toe fell forward and was able to get her arms upper catch herself. She states this happened yesterday. She has quite a bit of bruising around both eyes and over the cheeks. She states she has a mild headache today. She did not have 1 yesterday. No vision changes. No dizziness. She denies lost consciousness. Denies neck or back pain. States she is some generalized muscle aches but denies any other injuries. Denies nausea no vomiting. No chest pain or shortness of breath. No diarrhea constipation. No urinary incontinence. No numbness tingling or weakness. Normal movement of all extremities with no other issues. Patient states calcitriol and calcium citrate for hypopyon parathyroidism, benazepril for hypertension. No aspirin or other thinners. Patient states no major surgeries. She states her parathyroid does quit working about 30 years ago. No tobacco, no alcohol or illicit. Patient states she is been going to physical therapy to prevent falls. She states she does not normally fall. She presents today because she developed a little bit of headache which she did not have yesterday. Related Data Home Medications Medication Instructions Recorded Confirmed Fish Oil 1 cap PO DAILY 04/19/18 10/30/22 Vitamin C 1 tab PO DAILY 04/19/18 10/30/22 krill oil 1 cap PO DAILY 04/19/18 10/30/22 essential enzymes 1 tab PO DAILY 05/05/19 10/30/22 lactobacillus combination no.9 4 8,000 mmu cells PO DAILY 05/05/19 10/30/22 billion cell capsule (Adult 50 Plus Probiotic) magnesium hydroxide 400 mg/5 mL 400 mg PO DAILY PRN Constipation 05/05/19 10/30/22 oral suspension +CBD Oil See Rx Instructions PO TID 12/07/19 10/30/22 calcium citrate 400 mg PO QID 10/23/22 10/30/22 Previous Rx's Medication Instructions Recorded calcitriol 0.5 mcg capsule 0.25 mcg PO BID #180 caps 01/03/22 (Rocaltrol) cyanocobalamin (vitamin B-12) 1,000 mcg IM QMONTH #1 mL 02/11/22 1,000 mcg/mL injection solution benazepril 10 mg tablet 10 mg PO BID #180 tabs 09/04/22 ferrous sulfate 324 mg (65 mg 324 mg PO DAILY #90 tabs 10/23/22 iron) tablet,delayed release hydrocodone 5 mg-acetaminophen 325 1 tab PO BID PRN pain #40 tabs 12/29/22 mg tablet Allergies Allergy/AdvReac Type Severity Reaction Status Date / Time No Known Drug Allergies Allergy Verified 01/24/23 10:01 Review of Systems Review of Systems ROS Unobtainable: All systems reviewed & are unremarkable except as noted in HPI and below Patient History Medical History Abdominal enlargement Anemia Bilateral foot pain Cataracts, bilateral (~2017) Cervical somatic dysfunction Chronic back pain (~1963) Chronic pain in left shoulder Chronic right-sided low back pain without sciatica Compression fracture of L2 (1953) Cranial somatic dysfunction Elevated AST (SGOT) Essential hypertension (2004) Hepatitis A Hypoparathyroidism (1990) Iliotibial band syndrome of both sides Iliotibial band syndrome, right leg Incontinence Intermittent lightheadedness Low hemoglobin Lumbar region somatic dysfunction Mixed hyperlipidemia (05/2019) Osteopenia after menopause Osteoporosis Pelvic somatic dysfunction Rash and nonspecific skin eruption Raynauds disease Right buttock pain Sacral region somatic dysfunction Somatic dysfunction of lower extremity Spondylolisthesis at L5-S1 level Spondylolisthesis, lumbar region Thoracic region somatic dysfunction Thyroid nodule (~1990) Vitamin B12 deficiency Vitiligo (~1963) Surgical History Status post total hip replacement, right Family History Family/Other Mental health problem Social History household members: none Smoking Status: Never smoker second hand exposure: No alcohol intake: former substance use type: does not use Smoking Status: Never smoker alcohol intake frequency: 0-2 drinks per day Substance Use Type: does not use Exam Narrative Exam Narrative: GEN: Patient appears in mild distress. HEAD: Patient has significant periorbital bruising on the right and infraorbital bruising on the left along with raccoon sign and bruising across the forehead., No Vee sign. NECK: Nontender, painless range of motion, trachea midline Negative Nexus criteria, there is no midline line tenderness, distracting injury, altered mental status, neuro deficit, recent EtOH. EYES: PERRLA, EOMI, no scleral hematoma. ENT: External inspection normal, trachea is midline, TM's are normal no hemotypanum, Nares are clear, no septal hematoma, no dental or oral injury, airway is normal and with normal occlusion, No bony tenderness RESP: Chest is nontender and has symmetric movement, no ecchymosis, breath sounds are normal no crackles, wheezes or rales CVS: Heart sounds are normal, no murmur noted, No JVD. ABG/GI: Nontender, soft, normal bowel sounds, no distention, no organomegaly, pelvic rock is negative NEURO: Oriented AOx3, neuro is grossly intact, sensation and motor is normal all 4 extremities moving, cranial nerves II through XII are intact, GCS is 15 PSYCH: Normal mood and affect SKIN: Intact, warm and dry, no crepitus and without decubitus BACK: No CVA tenderness, no vertebral tenderness, no step-off's, no crepitus EXT: Atraumatic, hips are nontender, no pedal edema, normal color and temperature, normal range of motion of extremities with normal tendon exam, 2+ pulses in all four extremities Initial Vital Signs Initial Vital Signs: Vital Signs Temperature 97.6 F 01/24/23 09:55 Pulse Rate 82 01/24/23 09:55 Respiratory Rate 20 01/24/23 09:55 Blood Pressure 184/88 H 01/24/23 09:55 Pulse Oximetry 96 01/24/23 09:55 Oxygen Delivery Method Room Air 01/24/23 09:55 Scores GCS Kia coma scale eye opening: Spontaneous Kia coma scale verbal response: Orientated Kia coma scale motor response: Obey commands Kia coma scale total score: 15 Nexus Score for C-Spine Focal Neurologic deficit present: No Midline spinal tenderness present: No Altered level of conciousness present: No Intoxication present: No Distracting Injury Present: No Nexus Criteria for C-spine: 0 Course Orders Ordered: ED Orders 01/24/23 10:01 CT facial bones wo con Stat CT head/brain wo con Stat Vital Signs Vital signs: Vital Signs - 8 hr 01/24/23 11:49 Blood Pressure 168/85 H MDM - Fall Imaging Data CT scan - head: Radiologist's Impression: [address] [address] [address] Scan Report Signed Patient: Ashley Garcia I MR#: [id number] : 1950 Acct:[id number] Age/Sex: 72 / F Date of Service: 01/24/23 Loc: ED Accession Number: [id number] ?? Procedure: CT head/brain wo con Ordering Provider: Monica Hinkle D.O. PROCEDURE:? CT HEAD/BRAIN WO CON ? INDICATIONS:? Fall onto face ? TECHNIQUE:? Noncontrast 4.5 mm thick angled axial sections acquired from the foramen magnum to the vertex, with coronal and sagittal reformats.? For radiation dose reduction, the following was used:? automated exposure control, adjustment of mA and/or kV according to patient size.? ? COMPARISON:? [facility], CT, CT FACIAL BONES WO CON, 01/24/2023, 10:09. ? FINDINGS:? Image quality:? Excellent.? ? CSF spaces:? Basal cisterns are patent.? No extra-axial fluid collections.? The ventricles are symmetric in size and shape.? ? Brain:? No intracranial bleeds or masses.? There is cerebral volume loss for age, with resultant ventricular and sulcal prominence.? There are periventricular and deep white matter chronic small vessel ischemic changes.? There is intracranial internal carotid artery atherosclerosis.? ? Skull and face:? Calvarium and visualized facial bones appear intact, without suspicious lesions.? Soft tissue swelling over the right cheek and preseptal orbit.? Slight amount of edema over the left cheek.? Normal appearance of the intraconal fat ? Sinuses:? Visualized sinuses and mastoids are clear.? ? IMPRESSION:? No intracranial hemorrhage or fracture identified. Right greater than left cheek swelling and preseptal orbital edema ? Dictated by: Maycol Nielsen M.D. on 01/24/2023 at 9:38 ? ? Approved by: Maycol Nielsen M.D. on 01/24/2023 at 9:42?? CT Facial bones: Radiologist's Impression: Close Head CT (Signed) Maycol Nielsen - 01/24/[address] (Signed) Maycol Nielsen - 01/24/23 Radiology Report (Cancelled) Jaleesa Galarza - 04/04/22 Echocardiogram Ultrasound (Signed) Jaleesa Galarza - 04/03/22 Mammogram Screening (Signed) Itz Bronson - 03/22/22 Cervical Spine MRI (Signed) Jayesh Xie - 03/22/22 Abdomen/Pelvis CT (Signed) Sami Alaniz - 12/03/21 Abdomen Ultrasound (Signed) Aby Peck - 06/05/21 Abdomen Ultrasound (Signed) Michael Ruffin - 03/05/21 Bone Densitometry (Signed) Aby Peck - 12/25/20 DEXA Result 12/25/20 Lumbar Spine X-Ray (Signed) Antwan Khan - 10/03/20 Lumbar Spine MRI (Signed) Charlee Armas - 09/21/20 Mammogram Screening (Signed) Benjamín Almaguer - 06/09/20 Telemetry Strips 06/20/19 Bone Densitometry 12/09/18 Mammogram Screening (Signed) Ravindra Schwartz - 11/12/18 Chest X-Ray (Signed) Jayesh Xie - 04/19/18 [place] [address] CT Scan Report Signed Patient: Ashley Garcia I MR#: [id number] : 1950 Acct:[id number] Age/Sex: 72 / F Date of Service: 01/24/23 Loc: ED Accession Number: [id number] ?? Procedure: CT facial bones wo con Ordering Provider: Monica Hinkle D.O. PROCEDURE:? CT FACIAL BONES WO CON ? INDICATIONS:? Fall onto face ? TECHNIQUE:? Noncontrast 2.5 mm thick axial images acquired from the mandible through the frontal sinuses, with coronal and sagittal reformatting.? For radiation dose reduction, the following was used:? automated exposure control, adjustment of mA and/or kV according to patient size.? ? COMPARISON:? CT head from same date. ? FINDINGS:? Image quality:? Excellent.? ? Bones and teeth:? Orbital rinaldi are intact.? Sinus rinaldi show no fracture or deformity.? Nasal bones and septum are intact.? Visualized portions of the mandible demonstrate no fractures or subluxation.? Zygomatic arches are intact.? Pterygoid plates are intact.? Visualized portions of the skull base and auditory canals are intact.? ? Sinuses:? Paranasal sinuses are aerated, without fluid levels, mucosal thickening, or mucoceles.? Mastoid air cells are aerated.? ? Soft tissues:? There is edema over the right greater than left cheek extending to the superior orbital rim.? Normal appearance of the intraconal fat.? No masses, or fluid collections.? No enlarged lymph nodes.? No soft tissue lacerations or debris.? ? Vascular:? Visualized vascular structures appear normal in the absence of contrast.? Bony vascular foramina and canals are intact.? ? IMPRESSION:? Right greater than left preseptal edema without fracture. ? ? Dictated by: Maycol Nielsen M.D. on 01/24/2023 at 9:42 ? ? Approved by: Maycol Nielsen M.D. on 01/24/2023 at 9:44?? MDM Narrative Medical decision making narrative: 72-year-old female presents approximately 18 hours after fall, patient describes mechanical ground level fall was unable to catch herself and has significant bruising over her face and forehead. She developed a mild headache today so prompted her to come for evaluation. She denies any anticoagulants no aspirin, Plavix or other thinners. Patient has quite a bit of bruising. Head CT and facial bones are negative for fracture, bleed or other intracranial acute abnormality. Patient does not have any neck pain. C-spine imaging was deferred. Patient is otherwise very well-appearing and ambulating. She to does have some swelling consistent with her bruising. Discussed return precautions. Patient feels comfortable return home. She states very rare for her to fall she is actually been to PT to stabilize her core states she does not fall typically. She caught the toe on the edge of her threshold walking into the house and I suspect she just did not have enough time to catch herself. Discussed with patient if she feels she has increased fall risk there are some resources available she feels comfortable following with primary care as needed. Discharge Plan Departure Patient Disposition: Home Clinical Impression: Traumatic ecchymosis of face Instructions: DI for Concussion Activity Restrictions/Additional Instructions: You have quite a bit of bruising today this will probably take 1-2 weeks to really resolve and may take a little bit longer to completely resolve. Your imaging today of your head as well as facial bones shows no fractures or breaks of the bone. No bleed inside your brain. Please return for new or severe headaches, sudden vision changes, pack lightheadedness or passing out, new numbness, tingling or weakness, neck or back pain or other new or concerning changes. Prescriptions: No Action calcitriol [Rocaltrol] 0.5 mcg capsule 0.25 mcg PO BID Qty: 180 3RF Rx Instructions: stop generic brand cyanocobalamin (vitamin B-12) 1,000 mcg/mL solution 1,000 mcg IM QMONTH Qty: 1 11RF Rx Instructions: once monthly. benazepril 10 mg tablet 10 mg PO BID Qty: 180 2RF hydrocodone-acetaminophen 5-325 mg tablet 1 tab PO BID PRN (Reason: pain) Qty: 40 0RF Rx Instructions: take one as needed Adult 50 Plus Probiotic 4 billion cell capsule 8,000 mmu cells PO DAILY essential enzymes 1 tab PO DAILY Rx Instructions: 2-4 caps daily magnesium hydroxide 400 mg/5 mL suspension 400 mg PO DAILY PRN (Reason: Constipation) +CBD Oil See Rx Instructions PO TID Rx Instructions: 30 drops PO three times a day; 15 mg (1 tab) daily ferrous sulfate 324 mg (65 mg iron) tablet,delayed release (DR/EC) 324 mg PO DAILY Qty: 90 3RF Fish Oil 1 cap PO DAILY Vitamin C 1 tab PO DAILY krill oil 1 cap PO DAILY calcium citrate 250 mg calcium tablet 400 mg PO QID Referrals: Darien Adams MD [Primary Care Provider] - Stand Alone Forms: Patient Portal/API
[2023-01-24 11:49] VITALS: BP 168/85
== END 2023-01-24 11:50 | disposition home or self-care (01) ==
PROVIDERS: Emergency Provider Emergency Medicine; PCP Family Medicine
DX: S00.12XA Contusion of left eyelid and periocular area, initial encounter (principal); S00.11XA Contusion of right eyelid and periocular area, initial encounter; S00.83XA Contusion of other part of head, initial encounter; W01.0XXA Fall on same level from slipping, tripping and stumbling without subsequent striking against object, initial encounter; E20.0 Idiopathic hypoparathyroidism; E87.1 Hypo-osmolality and hyponatremia
CPT/HCPCS: 36415; 70450; 70486; 80048; 82306; 84100; 99281; 99284

== ENCOUNTER → 2023-01-24 11:46 | Outpatient (CLI) | payer MEDICARE, MEDICAID, SELFPAY ==
[2023-01-24 13:48] LABS: BUN Creatinine Ratio 15.9 (6-22); Blood Urea Nitrogen 11 mg/dL (7-17); Calcium 8.1 mg/dL (8.4-10.2); Carbon Dioxide 32 mmol/L (22-32); Chloride 96 mmol/L (98-107); Estimated Glomerular Filt Rate > 60 mL/min (>60); Glucose 88 mg/dL (80-110); HEMOLYSIS < 15 (0-50); Phosphorous 5.2 mg/dL (2.8-4.1); Potassium 3.8 mmol/L (3.4-5.1); Sodium 137 mmol/L (137-145)
[2023-01-24 14:49] LABS: Vitamin D 25 Hydroxy (D3) 51.3 ng/mL (30.0-100.0)
== END ==
PROVIDERS: PCP Family Medicine; Referring Provider Internal Medicine Endocrinology, Diabetes & Metabolism; Visit Provider Internal Medicine Endocrinology, Diabetes & Metabolism
DX: E20.0 Idiopathic hypoparathyroidism (principal); E87.1 Hypo-osmolality and hyponatremia
CPT/HCPCS: 36415; 80048; 82306; 84100

== ENCOUNTER → 2023-02-12 13:51 | Outpatient (CLI) | payer MEDICARE, MEDICAID, SELFPAY ==
[2023-02-12 14:42] LABS: BUN Creatinine Ratio 26.2 (6-22); Blood Urea Nitrogen 17 mg/dL (7-17); Calcium 8.5 mg/dL (8.4-10.2); Carbon Dioxide 34 mmol/L (22-32); Chloride 98 mmol/L (98-107); Estimated Glomerular Filt Rate > 60 mL/min (>60); Glucose 93 mg/dL (80-110); HEMOLYSIS < 15 (0-50); Phosphorous 4.8 mg/dL (2.8-4.1); Potassium 3.9 mmol/L (3.4-5.1); Sodium 138 mmol/L (137-145)
== END ==
PROVIDERS: PCP Family Medicine; Referring Provider Internal Medicine Endocrinology, Diabetes & Metabolism; Visit Provider Internal Medicine Endocrinology, Diabetes & Metabolism
DX: E20.0 Idiopathic hypoparathyroidism (principal)
CPT/HCPCS: 36415; 80048; 84100

== ENCOUNTER → 2023-02-24 16:02 | Outpatient (CLI) | payer MEDICARE, MEDICAID, SELFPAY | PROVIDERS: PCP Family Medicine; Referring Provider Internal Medicine Endocrinology, Diabetes & Metabolism; Visit Provider Internal Medicine Endocrinology, Diabetes & Metabolism | DX: E20.0 Idiopathic hypoparathyroidism (principal) | CPT/HCPCS: 82340; 82570 ==

== ENCOUNTER → 2023-03-10 11:01 | Outpatient (CLI) | payer MEDICAID, MEDICARE, SELFPAY ==
--- NOTE | 2023-03-10 11:08 | DI.RAD.S_ITS ---
Bone Density Report Name: JORGE CALDERON I Age: 72 Sex: Female Ethnicity: White Date of : 1950 Indication: postmenopausal; screening for osteoporosis; Referring Provider: MENDEL ADAMS Study: Bone densitometry was performed. Exam Date: March 10, 2023 Accession number: [id number] Bone Density: Region BMD T-score Z-score Classification AP Spine(L1-L4) 1.009 -0.3 2.0 Normal Femoral Neck (Left) 0.753 -0.9 1.2 Normal Total Hip (Left) 0.920 -0.2 1.6 Normal Total Forearm (Left) 0.491 -1.6 0.8 Osteopenia 1/3 Forearm (Left) 0.639 -0.9 1.6 Normal UD Forearm (Left) 0.300 -2.5 -0.7 Osteoporosis World Health Organization criteria for BMD impression classify patients as: Normal (T-score at or above -1.0), Osteopenia (T-score between -1.0 and -2.5), or Osteoporosis (T-score at or below -2.5). 10-year Fracture Risk: FRAX not reported because: All T-scores for Spine Total, Hip Total, Femoral Neck at or above -1.0 Previous Exams: -- Region Exam Age BMD T-score BMD Change BMD Change Date g/cm2 vs Baseline vs Previous -- AP Spine (L1-L4) 03/10/2023 72 1.009 -0.3 -0.072 (-6.7%)# -0.072 (-6.7%)# 12/25/2020 70 1.081 0.3 Total Hip(Left) 03/10/2023 72 0.920 -0.2 -0.022 (-2.3%)# -0.022 (-2.3%)# 12/25/2020 70 0.942 0.0 -- *Denotes significance at 95% confidence level, LSC for AP Spine = 0.022 g/cm2, LSC for Total Hip = 0.027 g/cm2 # Denotes dissimilar scan types or analysis methods Impression: The patient has normal bone mass. No significant bone loss was observed. Discussion: BONE DENSITY IS ABOVE THE MINIMUM DESIRABLE LEVEL AT ALL SKELETAL SITES TESTED. This patient's bone mineral density is above the minimum desirable level (T-score -1.0 or better) at all sites measured. The patient should follow a healthful lifestyle (good nutrition with adequate calcium and vitamin D, and appropriate weight-bearing exercise). Follow-Up: Consider repeating this study in 5 years or sooner if there is some new clinical indication. Reported by: KRISTEN WAYNE M.D. on 03/10/2023 11:44:00 AM.
[2023-03-10 12:51] LABS: Add Manual Diff / Slide Review NO; Basophils Absolute Auto 100 /uL (0-100); Eosinophils Absolute Auto 200 /uL (0-450); Eosinophils Percent Auto 3.9 % (2-4); Hemoglobin 12.4 g/dL (12.0-16.0); Lymphocytes Absolute Auto 1700 /uL (1100-4500); Lymphocytes Percent Auto 27.6 % (25-40); Mean Corpuscular HGB Conc 33.4 % (30-36); Mean Corpuscular Hemoglobin 29.9 PG (26-34); Mean Corpuscular Volume 89.5 fL (80-100); Monocytes Absolute Auto 500 /uL (0-900); Monocytes Percent Auto 8.8 % (3-14); Neutrophils Absolute Auto 3600 /uL (1500-7000); Neutrophils Percent Auto 58.7 % (50-75); Platelet Count 300 X10^3/uL (150-400); Red Blood Cell Count 4.13 X10^6/uL (4.0-5.2); Red Cell Distribution Width 17.3 % (11.6-14.8); White Blood Cell Count 6.2 X10^3/uL (4.5-11.0)
[2023-03-10 13:22] LABS: HEMOLYSIS < 15 (0-50); Iron 84 ug/dL (37-170)
[2023-03-10 13:27] LABS: BUN Creatinine Ratio 20.7 (6-22); Blood Urea Nitrogen 17 mg/dL (7-17); Calcium 8.5 mg/dL (8.4-10.2); Carbon Dioxide 27 mmol/L (22-32); Chloride 100 mmol/L (98-107); Estimated Glomerular Filt Rate > 60 mL/min (>60); Glucose 104 mg/dL (80-110); HEMOLYSIS < 15 (0-50); Phosphorous 5.4 mg/dL (2.8-4.1); Potassium 4.1 mmol/L (3.4-5.1); Sodium 136 mmol/L (137-145)
[2023-03-10 13:36] LABS: Percent Iron Saturation 28 % (15-50); Total Iron Binding Capacity 299 ug/dL (265-497); Transferrin 224 mg/dL (206-381)
[2023-03-10 13:59] LABS: Ferritin 70 ng/mL (11-264)
== END ==
PROVIDERS: PCP Family Medicine; Referring Provider Internal Medicine Endocrinology, Diabetes & Metabolism; Visit Provider Internal Medicine Endocrinology, Diabetes & Metabolism
DX: Z78.0 Asymptomatic menopausal state (principal); E20.0 Idiopathic hypoparathyroidism; R29.890 Loss of height; E83.51 Hypocalcemia; D64.9 Anemia, unspecified; E61.1 Iron deficiency
CPT/HCPCS: 36415; 77080; 77081; 80048; 82728; 83540; 83550; 84100; 85025

== ENCOUNTER → 2023-03-24 13:04 | Outpatient (CLI) | payer MEDICARE, MEDICAID, SELFPAY ==
[2023-03-24 13:58] LABS: Add Manual Diff / Slide Review NO; Basophils Absolute Auto 100 /uL (0-100); Basophils Percent Auto 0.9 % (0-2); Eosinophils Absolute Auto 200 /uL (0-450); Eosinophils Percent Auto 2.6 % (2-4); Hematocrit 38.6 % (36-46); Hemoglobin 12.9 g/dL (12.0-16.0); Lymphocytes Absolute Auto 2200 /uL (1100-4500); Lymphocytes Percent Auto 36.5 % (25-40); Mean Corpuscular HGB Conc 33.3 % (30-36); Mean Corpuscular Hemoglobin 29.9 PG (26-34); Mean Corpuscular Volume 89.7 fL (80-100); Monocytes Absolute Auto 500 /uL (0-900); Monocytes Percent Auto 8.8 % (3-14); Neutrophils Absolute Auto 3000 /uL (1500-7000); Neutrophils Percent Auto 51.2 % (50-75); Platelet Count 328 X10^3/uL (150-400); Red Blood Cell Count 4.31 X10^6/uL (4.0-5.2); Red Cell Distribution Width 16.5 % (11.6-14.8); White Blood Cell Count 5.9 X10^3/uL (4.5-11.0)
[2023-03-24 14:42] LABS: HEMOLYSIS < 15 (0-50); Iron 129 ug/dL (37-170)
[2023-03-24 14:54] LABS: Percent Iron Saturation 45 % (15-50); Total Iron Binding Capacity 287 ug/dL (265-497); Transferrin 210 mg/dL (206-381)
[2023-03-26 16:41] LABS: Albumin 3.9 g/dL (2.9-4.4); Alpha-1-Globulin 0.2 g/dL (0.0-0.4); Alpha-2-Globulin 0.6 g/dL (0.4-1.0); Globulin Total 2.7 g/dL (2.2-3.9); Protein, Total 6.6 g/dL (6.0-8.5)
== END ==
PROVIDERS: PCP Family Medicine; Referring Provider Family Medicine; Visit Provider Family Medicine
DX: E61.1 Iron deficiency (principal); D64.9 Anemia, unspecified
CPT/HCPCS: 36415; 83540; 83550; 84155; 84165; 85025

== ENCOUNTER → 2023-04-07 12:53 | Outpatient (CLI) | payer MEDICARE, MEDICAID, SELFPAY ==
[2023-04-07 15:18] LABS: BUN Creatinine Ratio 20.3 (6-22); Blood Urea Nitrogen 16 mg/dL (7-17); Calcium 8.5 mg/dL (8.4-10.2); Carbon Dioxide 30 mmol/L (22-32); Chloride 97 mmol/L (98-107); Estimated Glomerular Filt Rate > 60 mL/min (>60); Glucose 173 mg/dL (80-110); HEMOLYSIS < 15 (0-50); Magnesium 1.8 mg/dL (1.6-2.3); Potassium 4.2 mmol/L (3.4-5.1); Sodium 136 mmol/L (137-145)
== END ==
PROVIDERS: PCP Family Medicine; Referring Provider Internal Medicine Endocrinology, Diabetes & Metabolism; Visit Provider Internal Medicine Endocrinology, Diabetes & Metabolism
DX: E20.0 Idiopathic hypoparathyroidism (principal)
CPT/HCPCS: 36415; 80048; 83735

== ENCOUNTER → 2023-05-29 16:05 | Outpatient (CLI) | payer MEDICARE, MEDICAID, SELFPAY ==
[2023-05-29 17:03] LABS: Hemoglobin A1C% w Est Avg Glu 5.9 % (4.0-6.0)
[2023-05-29 17:30] LABS: BUN Creatinine Ratio 27.5 (6-22); Blood Urea Nitrogen 19 mg/dL (7-17); Calcium 8.7 mg/dL (8.4-10.2); Carbon Dioxide 31 mmol/L (22-32); Chloride 96 mmol/L (98-107); Estimated Glomerular Filt Rate > 60 mL/min (>60); Glucose 254 mg/dL (80-110); HEMOLYSIS < 15 (0-50); Magnesium 1.8 mg/dL (1.6-2.3); Phosphorous 4.4 mg/dL (2.8-4.1); Potassium 3.5 mmol/L (3.4-5.1); Sodium 135 mmol/L (137-145)
[2023-06-02 20:17] LABS: Calcium 8.4 mg/dL (8.7-10.3); Parathyroid Hormone, Intact 8 pg/mL (15-65)
[2023-06-03 21:27] LABS: Calcitonin <2.0 pg/mL (0.0-5.0)
== END ==
PROVIDERS: PCP Family Medicine; Referring Provider Internal Medicine Endocrinology, Diabetes & Metabolism; Visit Provider Internal Medicine Endocrinology, Diabetes & Metabolism
DX: R73.09 Other abnormal glucose (principal); E20.0 Idiopathic hypoparathyroidism; E87.1 Hypo-osmolality and hyponatremia
CPT/HCPCS: 36415; 80048; 82308; 82310; 83036; 83735; 83970; 84100

== ENCOUNTER → 2023-06-26 16:23 | Outpatient (CLI) | payer MEDICARE, MEDICAID, SELFPAY ==
[2023-06-26 17:26] LABS: BUN Creatinine Ratio 25.3 (6-22); Blood Urea Nitrogen 20 mg/dL (7-17); Calcium 7.7 mg/dL (8.4-10.2); Carbon Dioxide 32 mmol/L (22-32); Chloride 95 mmol/L (98-107); Estimated Glomerular Filt Rate > 60 mL/min (>60); Glucose 112 mg/dL (80-110); HEMOLYSIS < 15 (0-50); Magnesium 1.9 mg/dL (1.6-2.3); Potassium 3.5 mmol/L (3.4-5.1); Sodium 134 mmol/L (137-145)
== END ==
PROVIDERS: PCP Family Medicine; Referring Provider Internal Medicine Endocrinology, Diabetes & Metabolism; Visit Provider Internal Medicine Endocrinology, Diabetes & Metabolism
DX: E20.0 Idiopathic hypoparathyroidism (principal); R73.09 Other abnormal glucose
CPT/HCPCS: 36415; 80048; 83735

== ENCOUNTER → 2023-07-04 12:25 | Outpatient (CLI) | payer MEDICARE, MEDICAID, SELFPAY ==
[2023-07-06 07:45] LABS: Ionized Calcium 4.2 mg/dL (4.5-5.6)
[2023-07-08 08:44] LABS: Calcium 7.4 mg/dL (8.7-10.3); Parathyroid Hormone, Intact 8 pg/mL (15-65)
== END ==
LOC: LAB 12:26
PROVIDERS: PCP Family Medicine; Referring Provider Internal Medicine Endocrinology, Diabetes & Metabolism; Visit Provider Internal Medicine Endocrinology, Diabetes & Metabolism
DX: E20.0 Idiopathic hypoparathyroidism (principal)
CPT/HCPCS: 36415; 82310; 82330; 83970

== ENCOUNTER 2023-07-19 18:18 | Emergency (ER) | payer MEDICARE, MEDICAID, SELFPAY ==
[2023-07-19 18:42] VITALS: BP 177/89; PULSE 103; RESP 20; TEMP 36.7; O2SAT 98; BMI 21.7
[2023-07-19 19:40] LABS: Add Manual Diff / Slide Review NO; Basophils Absolute Auto 100 /uL (0-100); Basophils Percent Auto 0.9 % (0-2); Eosinophils Absolute Auto 200 /uL (0-450); Eosinophils Percent Auto 3.8 % (2-4); Hematocrit 36.9 % (36-46); Hemoglobin 12.1 g/dL (12.0-16.0); Lymphocytes Absolute Auto 2200 /uL (1100-4500); Lymphocytes Percent Auto 34.2 % (25-40); Mean Corpuscular HGB Conc 32.9 % (30-36); Mean Corpuscular Hemoglobin 30.2 PG (26-34); Monocytes Absolute Auto 600 /uL (0-900); Monocytes Percent Auto 9.8 % (3-14); Neutrophils Absolute Auto 3400 /uL (1500-7000); Neutrophils Percent Auto 51.3 % (50-75); Platelet Count 345 X10^3/uL (150-400); Red Blood Cell Count 4.01 X10^6/uL (4.0-5.2); Red Cell Distribution Width 14.2 % (11.6-14.8); White Blood Cell Count 6.6 X10^3/uL (4.5-11.0)
[2023-07-19 19:55] LABS: Alanine Aminotransferase 28 IU/L (<35); Albumin 4.1 g/dL (3.5-5.0); Albumin Globulin Ratio 1.2 (1.0-2.8); Alkaline Phosphatase 57 U/L (38-126); Aspartate Aminotransferase 51 IU/L (14-36); BUN Creatinine Ratio 28.2 (6-22); Bilirubin Total 0.4 mg/dL (0.2-1.3); Blood Urea Nitrogen 20 mg/dL (7-17); Calcium 8.8 mg/dL (8.4-10.2); Carbon Dioxide 32 mmol/L (22-32); Chloride 99 mmol/L (98-107); Estimated Glomerular Filt Rate > 60 mL/min (>60); Globulin 3.4 g/dL (1.7-4.1); Glucose 90 mg/dL (80-110); HEMOLYSIS < 15 (0-50); Potassium 3.8 mmol/L (3.4-5.1); Sodium 137 mmol/L (137-145); Total Protein 7.5 g/dL (6.3-8.2)
--- NOTE | 2023-07-19 22:36 | ED_ITS ---
HPI - Recheck/Abnormal Lab/Rx General Chief Complaint: Recheck/Abnormal Lab/Rx Stated Complaint: states hypocalcemic Time Seen by Provider: 07/19/23 20:35 Source: patient Mode of arrival: Ambulatory History of Present Illness HPI narrative: 72-year-old female with history of hypoparathyroidism and recurrent episodes of low calcium. She came in today concerned that her calcium was low. Says she feels mentally fuzzy, a bit shaky and weak. She has not had shortness of breath chest pain syncope or fevers. No nausea or vomiting. She has been taking calcium supplements at home. Related Data Home Medications Medication Instructions Recorded Confirmed Vitamin C 1 tab PO DAILY 04/19/18 02/12/23 krill oil 1 cap PO DAILY 04/19/18 02/12/23 essential enzymes 1 tab PO DAILY 05/05/19 02/12/23 lactobacillus combination no.9 4 8,000 mmu cells PO DAILY 05/05/19 02/12/23 billion cell capsule (Adult 50 Plus Probiotic) magnesium hydroxide 400 mg/5 mL 400 mg PO DAILY PRN Constipation 05/05/19 02/12/23 oral suspension calcium citrate 400 mg PO QID 10/23/22 02/12/23 Previous Rx's Medication Instructions Recorded calcitriol 0.5 mcg capsule 0.25 mcg (1/2 x 0.5 mcg) PO BID 01/03/22 (Rocaltrol) #180 caps cyanocobalamin (vitamin B-12) 1,000 mcg IM QMONTH #1 mL 02/11/22 1,000 mcg/mL injection solution ferrous sulfate 324 mg (65 mg 324 mg PO DAILY #90 tabs 10/23/22 iron) tablet,delayed release hydrocodone 5 mg-acetaminophen 325 1 tab PO BID PRN pain #40 tabs 03/29/23 mg tablet benazepril 10 mg tablet 10 mg PO BID #180 tabs 05/26/23 Allergies Allergy/AdvReac Type Severity Reaction Status Date / Time No Known Drug Allergies Allergy Verified 07/19/23 18:43 Patient History Medical History (Updated 07/19/23 @ 22:36 by Gerhard Ann MD) Iron deficiency Intermittent lightheadedness Iliotibial band syndrome of both sides Bilateral foot pain Sacral region somatic dysfunction Thoracic region somatic dysfunction Cervical somatic dysfunction Cranial somatic dysfunction Lumbar region somatic dysfunction Chronic right-sided low back pain without sciatica Chronic pain in left shoulder Spondylolisthesis, lumbar region Iliotibial band syndrome, right leg Somatic dysfunction of lower extremity Pelvic somatic dysfunction Right buttock pain Hepatitis A Osteoporosis Abdominal enlargement Osteopenia after menopause Elevated AST (SGOT) Anemia Compression fracture of L2 (1954) Spondylolisthesis at L5-S1 level Incontinence Vitamin B12 deficiency Rash and nonspecific skin eruption Raynauds disease Low hemoglobin Mixed hyperlipidemia (05/2019) Vitiligo (~1963) Chronic back pain (~1963) Cataracts, bilateral (~2017) Thyroid nodule (~1990) Essential hypertension (2004) Hypoparathyroidism (1990) Surgical History Status post total hip replacement, right Family History Family/Other Mental health problem Social History household members: none Smoking Status: Never smoker second hand exposure: No alcohol intake: former substance use type: does not use Smoking Status: Never smoker alcohol intake frequency: 0-2 drinks per day Substance Use Type: does not use Exam Narrative Exam Narrative: Alert, no acute distress HEENT: Normocephalic, atraumaitic moist mucus membranes Neck: Supple no midline tenderness Lungs: Clear to ascultaion, no respiratory distress Heart: Regular rhythm and rate no murmur Abdomen: Normal bowel sounds, soft and nontender Extremeties: Full range of motion no deformity Neuro: Alert and oriented, normal speech moves x4 deep tendon reflexes are normal and symmetric. No [place] Initial Vital Signs Initial Vital Signs: Vital Signs Temperature 98.1 F 07/19/23 18:42 Pulse Rate 103 H 07/19/23 18:42 Respiratory Rate 20 07/19/23 18:42 Blood Pressure 177/89 H 07/19/23 18:42 Pulse Oximetry 98 07/19/23 18:42 Oxygen Delivery Method Room Air 07/19/23 18:42 Course Orders Ordered: ED Orders 07/19/23 19:25 CMP [Comprehensive Metabolic Panel] Stat Complete Blood Count AUTO DIFF Stat Vital Signs Vital signs: Vital Signs - 8 hr 07/19/23 18:42 Temperature 98.1 F Pulse Rate 103 H Respiratory Rate 20 Blood Pressure 177/89 H Pulse Oximetry 98 Oxygen Delivery Method Room Air MDM - Recheck/Abnormal Lab/Rx Lab Data Lab results narrative: Calcium is normal, CBC with diff is unremarkable CMP is otherwise unremarkable. 07/19/23 19:25 07/19/23 19:25 Labs: Lab Results 07/19/23 Range/Units 19:25 WBC 6.6 (4.5-11.0) X10^3/uL RBC 4.01 (4.0-5.2) X10^6/uL Hgb 12.1 (12.0-16.0) g/dL Hct 36.9 (36-46) % MCV 92.0 (80-100) fL MCH 30.2 (26-34) PG MCHC 32.9 (30-36) % RDW 14.2 (11.6-14.8) % Plt Count 345 (150-400) X10^3/uL Neut % (Auto) 51.3 (50-75) % Lymph % (Auto) 34.2 (25-40) % [place] % (Auto) 9.8 (3-14) % Eos % (Auto) 3.8 (2-4) % Baso % (Auto) 0.9 (0-2) % Neut # (Auto) 3400 (3398-5611) /uL Lymph # (Auto) 2200 (0125-2808) /uL [place] # (Auto) 600 (0-900) /uL Eos # (Auto) 200 (0-450) /uL Baso # (Auto) 100 (0-100) /uL Sodium 137 (137-145) mmol/L Potassium 3.8 (3.4-5.1) mmol/L Chloride 99 (98-107) mmol/L Carbon Dioxide 32 (22-32) mmol/L BUN 20 H (7-17) mg/dL Creatinine 0.71 (0.52-1.04) mg/dL Estimated GFR > 60 (>60) mL/min BUN/Creatinine Ratio 28.2 H (6-22) Glucose 90 (80-110) mg/dL Calcium 8.8 (8.4-10.2) mg/dL Total Bilirubin 0.4 (0.2-1.3) mg/dL AST 51 H (14-36) IU/L ALT 28 (<35) IU/L Alkaline Phosphatase 57 (38-126) U/L Total Protein 7.5 (6.3-8.2) g/dL Albumin 4.1 (3.5-5.0) g/dL Globulin 3.4 (1.7-4.1) g/dL Albumin/Globulin Ratio 1.2 (1.0-2.8) MDM Narrative Medical decision making narrative: 72-year-old female with a history of hypoparathyroidism and hypocalcemia presenting concerned about hypocalcemia. Symptoms she describes are nonspecific. Exam is reassuring, vital signs are normal no physical exam findings for hypocalcemia and calcium is normal on labs. Patient is reassured and discharged home. Discharge Plan Departure Patient Disposition: Home Clinical Impression: Hypoparathyroidism Qualifiers: Hypoparathyroidism type: unspecified Qualified Code(s): E20.9 - Hypoparathyroidism, unspecified Activity Restrictions/Additional Instructions: Today, we saw you for concern about low calcium. Calcium is normal on our blood draw today. Your exam is otherwise reassuring. I think it is safe to go home and follow up soon with your primary care provider. Continue to take your supplemental calcium. If you are having acute symptoms such as chest pain shortness of breath fevers etc. recheck in the emergency department. Also, your blood work does suggest you might be a little dehydrated that could be contributing to your symptoms. Get adequate fluids. Prescriptions: No Action calcitriol [Rocaltrol] 0.5 mcg capsule 0.25 mcg PO BID Qty: 180 3RF Rx Instructions: stop generic brand cyanocobalamin (vitamin B-12) 1,000 mcg/mL solution 1,000 mcg IM QMONTH Qty: 1 11RF Rx Instructions: once monthly. hydrocodone-acetaminophen 5-325 mg tablet 1 tab PO BID PRN (Reason: pain) Qty: 40 0RF Rx Instructions: take one as needed benazepril 10 mg tablet 10 mg PO BID Qty: 180 2RF Adult 50 Plus Probiotic 4 billion cell capsule 8,000 mmu cells PO DAILY essential enzymes 1 tab PO DAILY Rx Instructions: 2-4 caps daily magnesium hydroxide 400 mg/5 mL suspension 400 mg PO DAILY PRN (Reason: Constipation) ferrous sulfate 324 mg (65 mg iron) tablet,delayed release (DR/EC) 324 mg PO DAILY Qty: 90 3RF Vitamin C 1 tab PO DAILY krill oil 1 cap PO DAILY calcium citrate 250 mg calcium tablet 400 mg PO QID Referrals: Darien Adams MD [Primary Care Provider] - Stand Alone Forms: Patient Portal/API
== END 2023-07-19 22:43 | disposition home or self-care (01) ==
PROVIDERS: Emergency Provider Emergency Medicine; PCP Family Medicine
DX: E20.9 Hypoparathyroidism, unspecified (principal)
CPT/HCPCS: 36415; 80053; 85025; 99281; 99283

== ENCOUNTER → 2023-08-11 14:34 | Outpatient (CLI) | payer MEDICARE, MEDICAID, SELFPAY | PROVIDERS: PCP Family Medicine; Visit Provider Physician Assistant | DX: R39.15 Urgency of urination (principal) | CPT/HCPCS: 87077; 87086; 87186 ==

== ENCOUNTER → 2023-08-28 11:54 | Outpatient (CLI) | payer MEDICARE, MEDICAID, SELFPAY | PROVIDERS: PCP Family Medicine; Visit Provider Family Medicine | DX: R30.0 Dysuria (principal) | CPT/HCPCS: 87086 ==

== ENCOUNTER → 2023-09-17 12:45 | Outpatient (CLI) | payer MEDICARE, MEDICAID, SELFPAY ==
--- NOTE | 2023-09-17 12:46 | DI.MRI.S_ITS ---
PROCEDURE: MR STROKE Pre- and post-contrast brain MRI, non-contrast brain MR angiogram, pre- and postcontrast neck MR angiogram INDICATIONS: short term memory loss TECHNIQUE: Brain: Noncontrast axial T1 spin echo, axial T2 fast spin echo, sagittal and axial FLAIR, coronal T2 fast spin echo, axial gradient echo, axial diffusion and ADC through the brain. After the administration of contrast, axial 3D VIBE of the cranial vasculature and brain. Brain MRA: Non-contrast 3-D time of flight MR angiogram, with multiple raauoej-ywmvsbdaa-zntrijxiht (MIP) reformats performed. Neck MRA: Axial and sagittal TruFISP through the neck. Coronal dynamic MR angiogram during administration of contrast in the arterial and venous phases, with 3-dimenstional zxlazeu-yjghpspyf-bdwygiamqi (MIP) reformats constructed from subtraction images. COMPARISON: [facility], CT, CT HEAD/BRAIN WO CON, 01/24/2023, 10:09. FINDINGS: Image quality: Excellent. BRAIN: CSF spaces: Ventricles are normal in size and shape. Basal cisterns are patent. No extra-axial fluid collections. Brain: There is an extra-axial mass seen anterior to the right frontal lobe, measuring up to 13 mm. This demonstrates a broad attachment to the dura. Prior hemosiderin deposition can be seen within the right frontal lobe, as on series 19, image 17. Barragan-white matter interface is normal. Diffusion weighted images show no acute infarct. Brainstem appears normal. Normal intravascular flow voids are present. No abnormal intracranial enhancement. Note is made of age-appropriate brain parenchymal volume loss and chronic small vessel ischemic changes. Skull and face: Calvarial marrow signal is normal. Orbits appear normal. Note is made of bilateral lens replacements. Sinuses: Sinuses and mastoids are clear. BRAIN MR ANGIOGRAM: Anterior circulation: Intracranial internal carotid arteries are normal in size and flow. There is a diminutive right A1 segment, with a corresponding robust left A1 segment. This is considered to be a normal developmental variant of the douglas of Chung, of typically no clinical consequence. The flow within the paired anterior cerebral arteries is otherwise normal and symmetric. The flow within the middle cerebral arteries is normal and symmetric. The anterior communicating artery is seen. No aneurysms are seen. Posterior circulation: The visualized portions of the vertebral arteries demonstrate normal caliber, and join to form a normal appearing basilar artery. The flow within the posterior cerebral arteries is normal and symmetric. No stenoses, occlusions, or aneurysms. NECK MR ANGIOGRAM: Carotids: Great vessels demonstrate a conventional anatomy as they arise from the aortic arch. The origins of the common carotid arteries appear patent. The calibers and courses of both common carotid arteries are normal. The bifurcation regions appear normal bilaterally. The internal carotid arteries demonstrate normal course and caliber. Posterior circulation: The origins of the vertebral arteries appear patent. More superior portions of both vertebral arteries demonstrate normal course and caliber, and join to form a normal appearing basilar artery. Miscellaneous: Subclavian arteries appear patent. Pre-contrast images through the neck show no soft tissue abnormalities. IMPRESSION: BRAIN MRI: No imaging explanation is found for this patient's presenting symptoms. No prior territorial infarct can be seen. No findings of acute or subacute infarction can be seen. 13 mm extra-axial mass seen anterior to the right frontal lobe, which represents a meningioma until proven otherwise. Prior hemosiderin deposition can be seen involving the right frontal lobe. Please correlate with patient history, including prior trauma. BRAIN MR ANGIOGRAM: No significant intracranial arterial abnormality is seen. Gupajp-hz-Cddtbg developmental anomalies are incidentally noted. NECK MR ANGIOGRAM: Within the arteries of the neck, no hemodynamically significant stenosis can be seen. Dictated by: Jaeysh Xie M.D. on 09/17/2023 at 13:38 Approved by: Jayesh Xie M.D. on 09/17/2023 at 13:42
--- NOTE | 2023-09-17 12:48 | DI.RAD.S_ITS ---
PROCEDURE: XR HAND LT MIN 3V INDICATIONS: bilateral thumb pain TECHNIQUE: Three views of the hand(s) acquired. COMPARISON: [facility], CR, XR HAND RT MIN 3V, 09/17/2023, 12:53. FINDINGS: Bones: There is severe 1st carpometacarpal joint space loss and flattening of the trapezium. There are prominent adjacent osteophytes. There is moderate to severe MCP joint space loss 1st, 2nd, and 3rd joints, and a scattered joint space loss with gall wing deformity and osseous remodeling at the 1st and 5th PIP and 2nd DIP joints. Subcortical cystic changes seen at the base of the 4th metacarpal and at the radiocarpal articulation. Soft tissues: No suspicious soft tissue calcifications. IMPRESSION: There are findings consistent with osteoarthritis, most severely affecting the 1st carpometacarpal joint. Dictated by: Bhumi Dillard M.D. on 09/17/2023 at 14:59 Approved by: Bhumi Dillard M.D. on 09/17/2023 at 15:02
--- NOTE | 2023-09-17 12:48 | DI.RAD.S_ITS ---
PROCEDURE: XR HAND RT MIN 3V INDICATIONS: bilateral thumb pain TECHNIQUE: 3 views of the hand(s) acquired. COMPARISON: None. FINDINGS: Bones: Moderately severe joint space loss at the 1st and 3rd metacarpal phalangeal joints. Moderate joint space loss with spurring of throughout the proximal interphalangeal joints. There is medial subluxation at the 5th PIP joint and lateral subluxation at the 1st PIP joint with dystrophic calcifications in the soft tissue. Small spurs present at the 2nd and 3rd DIP joints. Soft tissues: No suspicious soft tissue calcifications. IMPRESSION: Scattered arthritic changes, most pronounced at the MCP and PIP joints as described Dictated by: Bhumi Dillard M.D. on 09/17/2023 at 14:57 Approved by: Bhumi Dillard M.D. on 09/17/2023 at 14:59
== END ==
PROVIDERS: PCP Family Medicine; Referring Provider Family Medicine; Visit Provider Family Medicine
DX: D32.0 Benign neoplasm of cerebral meninges (principal); R41.3 Other amnesia; I10 Essential (primary) hypertension; M79.644 Pain in right finger(s); M79.645 Pain in left finger(s)
CPT/HCPCS: 70544; 70549; 70553; 73130; A9579

== ENCOUNTER → 2023-09-26 10:09 | Outpatient (CLI) | payer MEDICARE, MEDICAID, SELFPAY ==
[2023-09-26 10:50] LABS: Add Manual Diff / Slide Review NO; Basophils Absolute Auto 100 /uL (0-100); Basophils Percent Auto 0.9 % (0-2); Eosinophils Absolute Auto 200 /uL (0-450); Eosinophils Percent Auto 2.8 % (2-4); Hematocrit 37.4 % (36-46); Hemoglobin 12.3 g/dL (12.0-16.0); Lymphocytes Absolute Auto 1900 /uL (1100-4500); Lymphocytes Percent Auto 31.1 % (25-40); Mean Corpuscular HGB Conc 32.9 % (30-36); Mean Corpuscular Hemoglobin 30.2 PG (26-34); Mean Corpuscular Volume 91.8 fL (80-100); Monocytes Absolute Auto 500 /uL (0-900); Monocytes Percent Auto 8.1 % (3-14); Neutrophils Absolute Auto 3500 /uL (1500-7000); Neutrophils Percent Auto 57.1 % (50-75); Platelet Count 306 X10^3/uL (150-400); Red Blood Cell Count 4.07 X10^6/uL (4.0-5.2); Red Cell Distribution Width 13.7 % (11.6-14.8); White Blood Cell Count 6.2 X10^3/uL (4.5-11.0)
[2023-09-26 11:25] LABS: HEMOLYSIS < 15 (0-50); Iron 119 ug/dL (37-170)
[2023-09-26 11:36] LABS: Percent Iron Saturation 44 % (15-50); Total Iron Binding Capacity 268 ug/dL (265-497); Transferrin 223 mg/dL (206-381)
[2023-09-26 12:01] LABS: Ferritin 62 ng/mL (11-264)
[2023-09-26 12:15] LABS: Vitamin B12 Reflex MMA if <400 365 pg/mL (239-931)
[2023-09-30 07:35] LABS: Methylmalonic Acid,Serum 204 nmol/L (0-378)
== END ==
LOC: LAB 10:10
PROVIDERS: PCP Family Medicine; Referring Provider Family Medicine; Visit Provider Family Medicine
DX: R41.3 Other amnesia (principal); E61.1 Iron deficiency; R74.01 Elevation of levels of liver transaminase levels; D64.9 Anemia, unspecified
CPT/HCPCS: 36415; 82607; 82728; 83540; 83550; 83921; 85025

== ENCOUNTER → 2023-11-03 13:27 | Outpatient (CLI) | payer MEDICARE, MEDICAID, SELFPAY ==
[2023-11-03 19:11] LABS: Appearance Urine UA CLEAR; Bilirubin Urine UA NEGATIVE (NEGATIVE); Color Urine UA YELLOW; Glucose Urine UA NEGATIVE (Negative); Ketones Urine UA NEGATIVE (NEGATIVE); Leukocyte Esterase Urine UA 1+ (NEGATIVE); Nitrite Urine UA NEGATIVE (Negative); Occult Blood Urine UA NEGATIVE (Negative); Protein Urine UA NEGATIVE (Negative); Specific Gravity Urine UA <=1.005 (1.000-1.035); Urobilinogen Urine UA 0.2 E.U./dL (0.2)
[2023-11-03 19:25] LABS: Bacteria Urine Few (2-10); Culture Indicated Urine Specimen Cultured; RBC Urine None Seen (0-5/HPF); Squamous Epithelial Cell Urine 0-1 /HPF (0-5/HPF); Urine Volume 10mL (spun); WBC Urine 0-1/HPF (0-5/HPF)
== END ==
PROVIDERS: Family Provider Family Medicine; PCP Family Medicine; Visit Provider Family Medicine
DX: N39.0 Urinary tract infection, site not specified (principal)
CPT/HCPCS: 81001; 87086

== ENCOUNTER 2023-11-03 16:49 | Emergency (ER) | payer MEDICARE, MEDICAID, SELFPAY ==
[2023-11-03 16:55] VITALS: BP 174/82; PULSE 76; RESP 18; TEMP 36.9; O2SAT 98; BMI 20.9
--- NOTE | 2023-11-03 17:03 | DI.RAD.S_ITS ---
PROCEDURE: XR CHEST 1V INDICATIONS: chest pain TECHNIQUE: One view of the chest was acquired. COMPARISON: [facility], CR, XR CHEST 2V, 04/19/2018, 11:12. FINDINGS: Surgical changes and devices: None. Lungs and pleura: Lungs are clear. No pleural effusions or pneumothorax. Mediastinum: Mediastinal contours appear normal. Heart size is normal. Bones and chest wall: No suspicious bony lesions. Overlying soft tissues appear unremarkable. IMPRESSION: No acute cardiopulmonary abnormality is seen. Dictated by: Jean Paul Dodson M.D. on 11/03/2023 at 18:06 Approved by: Jean Paul Dodson M.D. on 11/03/2023 at 18:06
--- NOTE | 2023-11-03 17:27 | ED_ITS ---
HPI - General Adult <Jon Hobbs PA-C - Last Filed: 11/03/23 19:33> General Chief complaint: Hypertension Stated complaint: HTN, sent by MD Time Seen by Provider: 11/03/23 17:05 Source: patient Mode of arrival: Ambulatory History of Present Illness HPI narrative: 73-year-old female with past medical history essential hypertension, hypoparathyroidism, osteoporosis, vitamin B12 deficiency, hyperlipidemia presents to the ED for feeling shaky and having high blood pressure readings over the last week. Patient was seen earlier at her PCP's office for a routine scheduled vitamin B12 injection. Patient states that she had been feeling shaky all week, requested a blood pressure to be taken. The doctor's office noted a high blood pressure reading and in combination with patient's symptoms, sent her to the ED for further evaluation. Patient does note she has a history of hypoparathyroidism, and is concerned that she might be hypocalcemic as a result today. Patient states that she has come into the ED if you times with similar symptoms, suspecting hypocalcemia, however it has turned out to be dehydration instead. Patient states that she has not drunk enough water today yet. Patient states that she has been feeling more tired than usual when climbing stairs, feels shaky on the inside. Patient denies fever, chills, cough, rhinorrhea, chest pain, shortness of breath, nausea, vomiting, abdominal pain, dysuria, lightheadedness, dizziness, syncope. Patient states she has some balance issues at baseline, but denies any changes to that. Patient did have a urine tested at Dr. Mejia's office earlier today, was positive for leukocyte esterase and blood. Sample was sent to the lab for culture. No microbiology was performed on it. Related Data Previous Rx's Medication Instructions Recorded calcitriol 0.5 mcg capsule 0.25 mcg (1/2 x 0.5 mcg) PO BID 01/03/22 (Rocaltrol) #180 caps cyanocobalamin (vitamin B-12) 1,000 mcg IM QMONTH #1 mL 02/11/22 1,000 mcg/mL injection solution benazepril 10 mg tablet 10 mg PO BID #180 tabs 05/26/23 cephalexin 500 mg capsule 500 mg PO BID 5 days #10 caps 11/03/23 Allergies Allergy/AdvReac Type Severity Reaction Status Date / Time No Known Drug Allergies Allergy Verified 09/29/23 13:31 Review of Systems <Jon Hobbs PA-C - Last Filed: 11/03/23 19:33> Constitutional Constitutional: Denies chills, Reports fatigue, Denies fever(s), Denies frequent falls, Denies lethargy and Denies weakness Eyes Eyes: Denies change in vision, Denies eye discharge, Denies irritation and Denies loss of vision ENT Ears, Nose, Mouth, and Throat: Denies change in voice, Denies dizziness, Denies neck pain, Denies sore throat and Denies throat swelling Cardiovascular Cardiovascular: Denies chest pain, Denies irregular heart rhythm, Denies lightheadedness, Denies palpitations, Denies dyspnea, Denies dyspnea on exertion and Denies orthopnea Respiratory Respiratory: Denies cough, Denies dyspnea, Denies dyspnea on exertion and Denies wheezing Gastrointestinal Gastrointestinal: Denies abdominal pain, Denies change in bowel habits, Denies diarrhea, Denies nausea and Denies vomiting Musculoskeletal Musculoskeletal: Denies neck pain and Denies numbness Integumentary/Breasts Skin/Breast: Denies pruritus, Denies erythema, Denies rash and Denies wounds Neurologic Neurologic: Denies behavioral changes, Denies confusion, Denies dizziness, Denies frequent falls, Denies loss of vision, Denies numbness and Denies weakness Psychiatric Psychiatric: Denies anxiety, Denies behavioral changes, Denies confusion, Denies depression, Denies homicidal ideation and Denies suicidal ideation Endocrine Endocrine: Reports fatigue, Denies flushing and Denies palpitations Hematologic/Lymphatic Hematologic/Lymphatic: Denies easy bruising Allergic/Immunologic Allergic/Immunologic: Denies urticaria, Denies throat swelling and Denies wheezing Patient History <Jon Hobbs PA-C - Last Filed: 11/03/23 19:33> Medical History Meningioma of uncertain behavior Short-term memory loss Iron deficiency Intermittent lightheadedness Iliotibial band syndrome of both sides Bilateral foot pain Sacral region somatic dysfunction Thoracic region somatic dysfunction Cervical somatic dysfunction Cranial somatic dysfunction Lumbar region somatic dysfunction Chronic right-sided low back pain without sciatica Chronic pain in left shoulder Spondylolisthesis, lumbar region Iliotibial band syndrome, right leg Somatic dysfunction of lower extremity Pelvic somatic dysfunction Right buttock pain Hepatitis A Osteoporosis Abdominal enlargement Osteopenia after menopause Elevated AST (SGOT) Anemia Compression fracture of L2 (1954) Spondylolisthesis at L5-S1 level Incontinence Vitamin B12 deficiency Rash and nonspecific skin eruption Raynauds disease Low hemoglobin Mixed hyperlipidemia (05/2019) Vitiligo (~1963) Chronic back pain (~1963) Cataracts, bilateral (~2017) Thyroid nodule (~1990) Essential hypertension (2004) Hypoparathyroidism (1990) Surgical History Status post total hip replacement, right Family History Family/Other Mental health problem Social History household members: none Smoking Status: Never smoker second hand exposure: No alcohol intake: former substance use type: does not use Smoking Status: Never smoker alcohol intake frequency: 0-2 drinks per day Substance Use Type: does not use Exam <Jon Hobbs PA-C - Last Filed: 11/03/23 19:33> Narrative Exam Narrative: Const General:?cooperative, healthy appearing and comfortable [facility] Head:?normal to inspection Ears:?hearing grossly normal bilaterally Nose:?external nose normal Face and sinus:?normal facial exam and sinuses nontender Mouth:?oral mucosae normal Throat:?posterior oropharynx normal Eyes General:?appearance normal, both eyes and all related structures Neck Neck:?normal visual inspection and no lymphadenopathy noted Resp Effort & Inspection:?normal respiratory effort Auscultation:?clear to auscultation bilaterally Cardio Rate:?regular rate Rhythm:?regular rhythm GI Abdomen is soft, nondistended, nontender to palpation. Neuro General:?patient alert, patient awake and patient oriented x3 Initial Vital Signs Initial Vital Signs: Vital Signs Temperature 98.4 F 11/03/23 16:55 Pulse Rate 76 11/03/23 16:55 Respiratory Rate 18 11/03/23 16:55 Blood Pressure 174/82 H 11/03/23 16:55 Pulse Oximetry 98 11/03/23 16:55 Oxygen Delivery Method Room Air 11/03/23 16:55 <Brijesh Triplett DO - Last Filed: 11/03/23 19:55> Initial Vital Signs Initial Vital Signs: Vital Signs Temperature 98.4 F 11/03/23 16:55 Pulse Rate 76 11/03/23 16:55 Respiratory Rate 18 11/03/23 16:55 Blood Pressure 174/82 H 11/03/23 16:55 Pulse Oximetry 98 11/03/23 16:55 Oxygen Delivery Method Room Air 11/03/23 16:55 Course <Jon Hobbs PA-C - Last Filed: 11/03/23 19:33> Orders Ordered: ED Orders 11/03/23 17:03 XR chest 1V Stat EKG-12 Lead Stat 11/03/23 17:28 Complete Blood Count AUTO DIFF Stat Comprehensive Metabolic Panel Stat Lipase Stat Magnesium Stat PTT Partial Thromboplastin Rodrigue Stat Prothrombin Time INR Stat Troponin & CK Cardiac Panel Stat 11/03/23 17:40 Urine Microscopic Stat Discontinued Medications Aspirin (Aspirin 81 Mg Chew Tab) 324 mg PO NOW ONE Stop: 11/03/23 17:04 Last Admin: 11/03/23 17:28 Dose: Not Given Documented By: TITI Calcium Gluconate 4.65 meq/ (Sodium Chloride) 60 mls @ 180 mls/hr IV NOW ONE Stop: 11/03/23 18:47 Last Infusion: 11/03/23 19:20 Dose: Infused Documented By: Admin: 11/03/23 18:48 Dose: 180 mls/hr Documented By: JUAN J Sodium Chloride (Normal Saline 0.9%) 1,000 mls @ 1,000 mls/hr IV BOLUS ONE Stop: 11/03/23 19:50 Last Infusion: 11/03/23 19:39 Dose: Infused Documented By: TITI(2) Admin: 11/03/23 19:01 Dose: 1,000 mls/hr Documented By: JUAN J Vital Signs Vital signs: Vital Signs - 8 hr 11/03/23 16:55 11/03/23 19:00 11/03/23 19:00 Temperature 98.4 F Pulse Rate 76 68 Respiratory Rate 18 19 Blood Pressure 174/82 H 158/76 H Pulse Oximetry 98 96 Oxygen Delivery Method Room Air Room Air 11/03/23 19:25 11/03/23 19:25 11/03/23 19:30 Temperature Pulse Rate 69 68 Respiratory Rate 18 Blood Pressure 186/92 H Pulse Oximetry 95 95 Oxygen Delivery Method Room Air Room Air <Brijesh Triplett DO - Last Filed: 11/03/23 19:55> Orders Ordered: ED Orders 11/03/23 17:03 XR chest 1V Stat EKG-12 Lead Stat 11/03/23 17:28 Complete Blood Count AUTO DIFF Stat Comprehensive Metabolic Panel Stat Lipase Stat Magnesium Stat PTT Partial Thromboplastin Rodrigue Stat Prothrombin Time INR Stat Troponin & CK Cardiac Panel Stat 11/03/23 17:40 Urine Microscopic Stat Discontinued Medications Aspirin (Aspirin 81 Mg Chew Tab) 324 mg PO NOW ONE Stop: 11/03/23 17:04 Last Admin: 11/03/23 17:28 Dose: Not Given Documented By: TITI Calcium Gluconate 4.65 meq/ (Sodium Chloride) 60 mls @ 180 mls/hr IV NOW ONE Stop: 11/03/23 18:47 Last Infusion: 11/03/23 19:20 Dose: Infused Documented By: Admin: 11/03/23 18:48 Dose: 180 mls/hr Documented By: JUAN J Sodium Chloride (Normal Saline 0.9%) 1,000 mls @ 1,000 mls/hr IV BOLUS ONE Stop: 11/03/23 19:50 Last Infusion: 11/03/23 19:39 Dose: Infused Documented By: TITI(2) Admin: 11/03/23 19:01 Dose: 1,000 mls/hr Documented By: JUAN J Vital Signs Vital signs: Vital Signs - 8 hr 11/03/23 16:55 11/03/23 19:00 11/03/23 19:00 Temperature 98.4 F Pulse Rate 76 68 Respiratory Rate 18 19 Blood Pressure 174/82 H 158/76 H Pulse Oximetry 98 96 Oxygen Delivery Method Room Air Room Air 11/03/23 19:25 11/03/23 19:25 11/03/23 19:30 Temperature Pulse Rate 69 68 Respiratory Rate 18 Blood Pressure 186/92 H Pulse Oximetry 95 95 Oxygen Delivery Method Room Air Room Air Medical Decision Making <Jon Hobbs PA-C - Last Filed: 11/03/23 19:33> Lab Data 11/03/23 17:28 11/03/23 17:28 Labs: Lab Results 11/03/23 11/03/23 Range/Units 17:28 17:40 WBC 5.9 (4.5-11.0) X10^3/uL RBC 3.90 L (4.0-5.2) X10^6/uL Hgb 12.1 (12.0-16.0) g/dL Hct 35.6 L (36-46) % MCV 91.1 (80-100) fL MCH 31.0 (26-34) PG MCHC 34.1 (30-36) % RDW 14.3 (11.6-14.8) % Plt Count 344 (150-400) X10^3/uL Neut % (Auto) 56.1 (50-75) % Lymph % (Auto) 32.2 (25-40) % [place] % (Auto) 8.7 (3-14) % Eos % (Auto) 2.1 (2-4) % Baso % (Auto) 0.9 (0-2) % Neut # (Auto) 3300 (5400-9811) /uL Lymph # (Auto) 1900 (1158-4780) /uL [place] # (Auto) 500 (0-900) /uL Eos # (Auto) 100 (0-450) /uL Baso # (Auto) 100 (0-100) /uL PT 11.6 (9.4-12.5) SECONDS INR 1.0 (0.9-1.3) APTT 38 H (25.1-36.5) SECONDS Sodium 137 (137-145) mmol/L Potassium 3.9 (3.4-5.1) mmol/L Chloride 102 (98-107) mmol/L Carbon Dioxide 30 (22-32) mmol/L BUN 21 H (7-17) mg/dL Creatinine 0.79 (0.52-1.04) mg/dL Estimated GFR > 60 (>60) mL/min BUN/Creatinine Ratio 26.6 H (6-22) Glucose 94 (80-110) mg/dL Calcium 7.5 L (8.4-10.2) mg/dL Magnesium 2.1 (1.6-2.3) mg/dL Total Bilirubin 0.4 (0.2-1.3) mg/dL AST 38 H (14-36) IU/L ALT 21 (<35) IU/L Alkaline Phosphatase 65 (38-126) U/L Total Creatine Kinase 427 H (30-135) U/L Troponin I < 0.012 (0.01-0.034) ng/mL Total Protein 6.9 (6.3-8.2) g/dL Albumin 4.2 (3.5-5.0) g/dL Globulin 2.7 (1.7-4.1) g/dL Albumin/Globulin Ratio 1.6 (1.0-2.8) Lipase 148 (23-300) U/L Urine RBC None seen (0-5/HPF) Urine WBC None seen (0-5/HPF) Ur Squamous Epith Cells None seen (0-5/HPF) Urine Bacteria Few (2-10) H (None) Ur Culture Indicated? Cult not indicated Vol Urine Centrifuged 10ml (spun) MDM Narrative Medical decision making narrative: 73-year-old female with past medical history essential hypertension, hypoparathyroidism, osteoporosis, vitamin B12 deficiency, hyperlipidemia presents to the ED for feeling shaky and having high blood pressure readings over the last week. Concern for ACS versus hypocalcemia versus electrolyte derangement versus dehydration versus UTI versus other. Will obtain chest x- ray, EKG, labs, troponin, UA. Will re-evaluate. EKG is normal sinus rhythm with a ventricular rate of 72, QT/QTC of 422/462. No acute ST-T changes. No axis deviation. Chest x-ray without acute findings. Urine is positive for leukocyte esterase, negative for WBCs. Creatinine kinase is elevated to 427. Troponin within normal limits. Calcium mildly low at 7.5 with calcium corrected for albumin at 7.3. All other labs within normal limits. Given patient states that she feels somewhat shaky, she could be symptomatic from the hypocalcemia. Will replete with 1 g of IV calcium gluconate. Will give IV fluids. In further conversation with the patient, she did state that she has been assaulting her water due to her impression that it better hydrate her. Counseled patient to stop salting the water and reducing salt in the diet, since it might be elevating her blood pressure. Patient was thankful for the advice and agrees. Discussed findings with patient. Recommend continued hydration and calcium supplements. Recommend following up with PCP Dr. Mejia for the elevated blood pressure readings. ED return precautions discussed with patient. Patient verbalized understanding. Medical records reviewed: Yes <Brijesh Triplett DO - Last Filed: 11/03/23 19:55> Lab Data Labs: Lab Results 05/21/24 05/21/24 Range/Units 17:28 17:40 WBC 5.9 (4.5-11.0) X10^3/uL RBC 3.90 L (4.0-5.2) X10^6/uL Hgb 12.1 (12.0-16.0) g/dL Hct 35.6 L (36-46) % MCV 91.1 (80-100) fL MCH 31.0 (26-34) PG MCHC 34.1 (30-36) % RDW 14.3 (11.6-14.8) % Plt Count 344 (150-400) X10^3/uL Neut % (Auto) 56.1 (50-75) % Lymph % (Auto) 32.2 (25-40) % [place] % (Auto) 8.7 (3-14) % Eos % (Auto) 2.1 (2-4) % Baso % (Auto) 0.9 (0-2) % Neut # (Auto) 3300 (6245-2849) /uL Lymph # (Auto) 1900 (4399-1674) /uL [place] # (Auto) 500 (0-900) /uL Eos # (Auto) 100 (0-450) /uL Baso # (Auto) 100 (0-100) /uL PT 11.6 (9.4-12.5) SECONDS INR 1.0 (0.9-1.3) APTT 38 H (25.1-36.5) SECONDS Sodium 137 (137-145) mmol/L Potassium 3.9 (3.4-5.1) mmol/L Chloride 102 (98-107) mmol/L Carbon Dioxide 30 (22-32) mmol/L BUN 21 H (7-17) mg/dL Creatinine 0.79 (0.52-1.04) mg/dL Estimated GFR > 60 (>60) mL/min BUN/Creatinine Ratio 26.6 H (6-22) Glucose 94 (80-110) mg/dL Calcium 7.5 L (8.4-10.2) mg/dL Magnesium 2.1 (1.6-2.3) mg/dL Total Bilirubin 0.4 (0.2-1.3) mg/dL AST 38 H (14-36) IU/L ALT 21 (<35) IU/L Alkaline Phosphatase 65 (38-126) U/L Total Creatine Kinase 427 H (30-135) U/L Troponin I < 0.012 (0.01-0.034) ng/mL Total Protein 6.9 (6.3-8.2) g/dL Albumin 4.2 (3.5-5.0) g/dL Globulin 2.7 (1.7-4.1) g/dL Albumin/Globulin Ratio 1.6 (1.0-2.8) Lipase 148 (23-300) U/L Urine RBC None seen (0-5/HPF) Urine WBC None seen (0-5/HPF) Ur Squamous Epith Cells None seen (0-5/HPF) Urine Bacteria Few (2-10) H (None) Ur Culture Indicated? Cult not indicated Vol Urine Centrifuged 10ml (spun) Discharge Plan Departure Patient Disposition: Home Clinical Impression: Hypocalcemia High blood pressure Qualifiers: Hypertension type: unspecified Qualified Code(s): I10 - Essential (primary) hypertension Instructions: DI for High Blood Pressure, DI for Hypocalcemia Activity Restrictions/Additional Instructions: You were evaluated in the ED today for high blood pressure and feeling shaky. Your labs did show that your calcium was mildly low, we have given you a dose of calcium. You were also given some IV fluids for hydration. Please continue to stay well hydrated. Please follow-up with your PCP Dr. Mejia regarding your elevated blood pressure readings. Return to the ED if you have worsening symptoms, chest pain, shortness of breath. Prescriptions: No Action calcitriol [Rocaltrol] 0.5 mcg capsule 0.25 mcg PO BID Qty: 180 3RF Rx Instructions: stop generic brand cyanocobalamin (vitamin B-12) 1,000 mcg/mL solution 1,000 mcg IM QMONTH Qty: 1 11RF Rx Instructions: once monthly. benazepril 10 mg tablet 10 mg PO BID Qty: 180 2RF cephalexin 500 mg capsule 500 mg PO BID 5 Days Qty: 10 0RF Referrals: Darien Adams MD [Primary Care Provider] - Stand Alone Forms: Patient Portal/API ED Sign-out <Brijesh Triplett DO - Last Filed: 11/03/23 19:55> Cosign ED Attending Cosignature Attestation: Dr Triplett Co-Sign Statement: I was available for consultation during this patient's emergency department visit. This chart is signed by myself for administrative purposes only. I did not have direct contact with this patient during this visit. They were seen independently by the APC.
[2023-11-03 17:40] LABS: Add Manual Diff / Slide Review NO; Basophils Absolute Auto 100 /uL (0-100); Basophils Percent Auto 0.9 % (0-2); Eosinophils Absolute Auto 100 /uL (0-450); Eosinophils Percent Auto 2.1 % (2-4); Hematocrit 35.6 % (36-46); Hemoglobin 12.1 g/dL (12.0-16.0); Lymphocytes Absolute Auto 1900 /uL (1100-4500); Lymphocytes Percent Auto 32.2 % (25-40); Mean Corpuscular HGB Conc 34.1 % (30-36); Mean Corpuscular Volume 91.1 fL (80-100); Monocytes Absolute Auto 500 /uL (0-900); Monocytes Percent Auto 8.7 % (3-14); Neutrophils Absolute Auto 3300 /uL (1500-7000); Neutrophils Percent Auto 56.1 % (50-75); Platelet Count 344 X10^3/uL (150-400); Red Cell Distribution Width 14.3 % (11.6-14.8); White Blood Cell Count 5.9 X10^3/uL (4.5-11.0)
[2023-11-03 17:52] LABS: Prothrombin Time 11.6 SECONDS (9.4-12.5)
[2023-11-03 17:55] LABS: PTT Partial Thromboplastin Tim 38 SECONDS (25.1-36.5)
[2023-11-03 18:01] LABS: Alanine Aminotransferase 21 IU/L (<35); Albumin 4.2 g/dL (3.5-5.0); Alkaline Phosphatase 65 U/L (38-126); Aspartate Aminotransferase 38 IU/L (14-36); Blood Urea Nitrogen 21 mg/dL (7-17); Calcium 7.5 mg/dL (8.4-10.2); Carbon Dioxide 30 mmol/L (22-32); Chloride 102 mmol/L (98-107); Creatine Kinase 427 U/L (30-135); Glucose 94 mg/dL (80-110); HEMOLYSIS < 15 (0-50); Lipase 148 U/L (23-300); Magnesium 2.1 mg/dL (1.6-2.3); Potassium 3.9 mmol/L (3.4-5.1); Sodium 137 mmol/L (137-145)
[2023-11-03 18:02] LABS: Albumin Globulin Ratio 1.6 (1.0-2.8); BUN Creatinine Ratio 26.6 (6-22); Bilirubin Total 0.4 mg/dL (0.2-1.3); Estimated Glomerular Filt Rate > 60 mL/min (>60); Globulin 2.7 g/dL (1.7-4.1); Total Protein 6.9 g/dL (6.3-8.2)
[2023-11-03 18:05] LABS: Urine Volume 10mL (spun)
[2023-11-03 18:07] LABS: Bacteria Urine Few (2-10); Culture Indicated Urine Cult Not Indicated; RBC Urine None Seen (0-5/HPF); Squamous Epithelial Cell Urine None Seen (0-5/HPF); WBC Urine None Seen (0-5/HPF)
[2023-11-03 18:11] LABS: Troponin I < 0.012 ng/mL (0.01-0.034)
[2023-11-03] MEDS: CALCIUM GLUCONATE 4.65 MEQ in SODIUM CHLORIDE 0.9% 50 ML 180 MEQ IV (18:48)
[2023-11-03 19:00] VITALS: BP 158/76; PULSE 68; RESP 19; O2SAT 96
[2023-11-03] MEDS: SODIUM CHLORIDE 0.9% 1,000 ML 1000 ML IV (19:01)
[2023-11-03 19:25] VITALS: BP 186/92; PULSE 69; O2SAT 95
[2023-11-03 19:30] VITALS: PULSE 68; RESP 18; O2SAT 95
== END 2023-11-03 19:55 | disposition home or self-care (01) ==
PROVIDERS: Emergency Medicine; Emergency Provider Student in an Organized Health Care Education/Training Program; Family Provider Family Medicine; PCP Family Medicine; Referring Provider Family Medicine
DX: I10 Essential (primary) hypertension (principal); E83.51 Hypocalcemia; N39.0 Urinary tract infection, site not specified
CPT/HCPCS: 36415; 71045; 80053; 81001; 81015; 82550; 83690; 83735; 84484; 85025; 85610; 85730; 87086; 93005; 96365; 99284; J0612

== ENCOUNTER → 2023-11-07 12:04 | Outpatient (CLI) | payer MEDICARE, SELFPAY ==
[2023-11-07 12:44] LABS: Calcium 7.4 mg/dL (8.4-10.2)
== END ==
PROVIDERS: Family Provider Family Medicine; PCP Family Medicine; Referring Provider Family Medicine; Visit Provider Family Medicine
DX: E20.9 Hypoparathyroidism, unspecified (principal)
CPT/HCPCS: 36415; 82310

== ENCOUNTER → 2023-11-11 15:01 | Outpatient (CLI) | payer MEDICARE, SELFPAY ==
[2023-11-11 16:07] LABS: Calcium 8.3 mg/dL (8.4-10.2); Phosphorous 4.8 mg/dL (2.8-4.1)
== END ==
PROVIDERS: Family Provider Family Medicine; PCP Family Medicine; Referring Provider Family Medicine; Visit Provider Family Medicine
DX: E83.51 Hypocalcemia (principal)
CPT/HCPCS: 36415; 82310; 84100

== ENCOUNTER → 2023-11-18 16:07 | Outpatient (CLI) | payer MEDICARE, SELFPAY ==
[2023-11-18 18:03] LABS: Alanine Aminotransferase 22 IU/L (<35); Albumin 4.2 g/dL (3.5-5.0); Albumin Globulin Ratio 1.8 (1.0-2.8); Alkaline Phosphatase 55 U/L (38-126); Aspartate Aminotransferase 38 IU/L (14-36); BUN Creatinine Ratio 25.3 (6-22); Bilirubin Total 0.4 mg/dL (0.2-1.3); Blood Urea Nitrogen 19 mg/dL (7-17); Calcium 8.4 mg/dL (8.4-10.2); Carbon Dioxide 34 mmol/L (22-32); Chloride 98 mmol/L (98-107); Estimated Glomerular Filt Rate > 60 mL/min (>60); Globulin 2.4 g/dL (1.7-4.1); Glucose 98 mg/dL (80-110); HEMOLYSIS < 15 (0-50); Potassium 3.8 mmol/L (3.4-5.1); Sodium 137 mmol/L (137-145); Total Protein 6.6 g/dL (6.3-8.2)
== END ==
PROVIDERS: Family Provider Family Medicine; PCP Family Medicine; Referring Provider Family Medicine; Visit Provider Family Medicine
DX: E83.51 Hypocalcemia (principal); E20.9 Hypoparathyroidism, unspecified; I10 Essential (primary) hypertension
CPT/HCPCS: 36415; 80053

== ENCOUNTER → 2023-11-28 10:46 | Outpatient (CLI) | payer MEDICARE, SELFPAY ==
[2023-11-28 12:53] LABS: Calcium 8.2 mg/dL (8.4-10.2)
== END ==
PROVIDERS: Family Provider Family Medicine; PCP Family Medicine; Referring Provider Family Medicine; Visit Provider Family Medicine
DX: E83.51 Hypocalcemia (principal); E20.9 Hypoparathyroidism, unspecified
CPT/HCPCS: 36415; 82310

== ENCOUNTER → 2023-12-11 19:08 | Outpatient (CLI) | payer MEDICARE, SELFPAY | PROVIDERS: Family Provider Family Medicine; PCP Family Medicine; Visit Provider Nurse Practitioner Family | DX: R82.90 Unspecified abnormal findings in urine (principal) | CPT/HCPCS: 87086 ==

== ENCOUNTER → 2023-12-12 12:17 | Outpatient (CLI) | payer MEDICARE, SELFPAY ==
[2023-12-12 12:38] LABS: Appearance Urine UA CLEAR; Bilirubin Urine UA NEGATIVE (NEGATIVE); Color Urine UA YELLOW; Glucose Urine UA NEGATIVE (Negative); Ketones Urine UA NEGATIVE (NEGATIVE); Leukocyte Esterase Urine UA NEGATIVE (NEGATIVE); Nitrite Urine UA NEGATIVE (Negative); Occult Blood Urine UA NEGATIVE (Negative); Protein Urine UA NEGATIVE (Negative); Specific Gravity Urine UA <=1.005 (1.000-1.035); Urobilinogen Urine UA 0.2 E.U./dL (0.2)
[2023-12-12 12:52] LABS: Bacteria Urine None Seen; Culture Indicated Urine Cult Not Indicated; RBC Urine 0-1/HPF (0-5/HPF); Squamous Epithelial Cell Urine 0-1 /HPF (0-5/HPF); Urine Volume 10mL (spun); WBC Urine 0-1/HPF (0-5/HPF)
[2023-12-12 12:53] LABS: Calcium 8.6 mg/dL (8.4-10.2)
== END ==
PROVIDERS: Family Provider Family Medicine; PCP Family Medicine; Referring Provider Family Medicine; Visit Provider Family Medicine
DX: E83.51 Hypocalcemia (principal); R30.0 Dysuria
CPT/HCPCS: 81001; 82310

== ENCOUNTER → 2023-12-19 12:07 | Outpatient (CLI) | payer MEDICARE, MEDICAID, SELFPAY ==
[2023-12-19 13:39] LABS: TSH w/ Reflex to FT4 1.77 uIU/mL (0.47-4.68)
== END ==
PROVIDERS: Family Provider Family Medicine; PCP Family Medicine; Referring Provider Physician Assistant; Visit Provider Physician Assistant
DX: R53.83 Other fatigue (principal); R41.3 Other amnesia
CPT/HCPCS: 36415; 84443

== ENCOUNTER → 2024-01-14 15:57 | Outpatient (CLI) | payer MEDICARE, MEDICAID, SELFPAY ==
[2024-01-14 16:31] LABS: Calcium 8.1 mg/dL (8.4-10.2)
== END ==
PROVIDERS: Family Provider Family Medicine; PCP Family Medicine; Referring Provider Family Medicine; Visit Provider Family Medicine
DX: E83.51 Hypocalcemia (principal)
CPT/HCPCS: 36415; 82310

== ENCOUNTER → 2024-02-05 15:21 | Outpatient (CLI) | payer MEDICARE, MEDICAID, SELFPAY ==
[2024-02-05 16:46] LABS: Alanine Aminotransferase 23 IU/L (<35); Albumin 4.1 g/dL (3.5-5.0); Albumin Globulin Ratio 1.3 (1.0-2.8); Alkaline Phosphatase 59 U/L (38-126); Aspartate Aminotransferase 38 IU/L (14-36); BUN Creatinine Ratio 18.8 (6-22); Bilirubin Total 0.4 mg/dL (0.2-1.3); Blood Urea Nitrogen 15 mg/dL (7-17); Calcium 8.4 mg/dL (8.4-10.2); Carbon Dioxide 32 mmol/L (22-32); Chloride 98 mmol/L (98-107); Estimated Glomerular Filt Rate > 60 mL/min (>60); Globulin 3.2 g/dL (1.7-4.1); Glucose 88 mg/dL (80-110); HEMOLYSIS < 15 (0-50); Potassium 3.5 mmol/L (3.4-5.1); Sodium 136 mmol/L (137-145); Total Protein 7.3 g/dL (6.3-8.2)
[2024-02-06 09:11] LABS: Calcium 8.7 mg/dL (8.7-10.3); Parathyroid Hormone, Intact 8 pg/mL (15-65)
== END ==
PROVIDERS: Family Provider Family Medicine; PCP Family Medicine; Referring Provider Family Medicine; Visit Provider Family Medicine
DX: E20.9 Hypoparathyroidism, unspecified (principal); I10 Essential (primary) hypertension
CPT/HCPCS: 36415; 80053; 82310; 83970

== ENCOUNTER → 2024-04-02 11:26 | Outpatient (CLI) | payer MEDICARE, MEDICAID, SELFPAY ==
--- NOTE | 2024-04-02 11:27 | DI.MRI.S_ITS ---
PROCEDURE: MR HEAD/BRAIN WO/W CON INDICATIONS: follow up meningioma TECHNIQUE: Noncontrast axial T1 spin echo, axial T2 fast spin echo, sagittal and axial FLAIR, coronal T2 fast spin echo, axial gradient echo, axial diffusion and ADC through the brain. After the administration of contrast, axial and coronal and sagittal T1 spin echo with fat saturation through the brain. COMPARISON: [facility], CT, CT HEAD/BRAIN WO CON, 01/24/2023, 10:09. [facility], MR, MR STROKE, 09/17/2023, 13:11. FINDINGS: Image quality: Excellent. CSF spaces: Basal cisterns are patent. No extra-axial fluid collections. Ventricles are normal in size and shape. Brain: There is an extra-axial enhancing mass seen with a broad attachment to the dura or anterior to the right frontal lobe, as on series 14, image 108, measuring 13 x 8 mm in greatest axial dimension. Along the lateral aspect of the right frontal lobe, there is an additional area of extra-axial enhancement seen, as on series 14, image 144, measuring 13 by 5 mm. Encephalomalacia with hemosiderin deposition can be seen involving the anterior right frontal lobe. No midline shift. There is cerebral volume loss for age. There is periventricular white matter chronic small vessel ischemic change. The brainstem appears normal. Diffusion-weighted images demonstrate no acute infarct. No chronic ischemic insults. Normal intravascular flow voids are present. Skull and face: Calvarial marrow is normal in signal. Orbits appear normal. Note is made of bilateral lens replacements. Sinuses: Sinuses and mastoids appear clear. IMPRESSION: There is a stable 13 mm meningioma seen anterior to the right frontal lobe. Additional smaller focus of thickening along the dura of the right frontal lobe laterally, likely also representing a meningioma, also stable from the prior. Focal encephalomalacia with hemosiderin deposition can be seen within the right frontal lobe. Please correlate with known patient history. Dictated by: Jayesh Xie M.D. on 04/04/2024 at 11:00 Approved by: Jayesh Xie M.D. on 04/04/2024 at 11:10
== END ==
PROVIDERS: Family Provider Family Medicine; PCP Family Medicine; Referring Provider Family Medicine; Visit Provider Family Medicine
DX: R41.3 Other amnesia (principal); D42.9 Neoplasm of uncertain behavior of meninges, unspecified; G93.89 Other specified disorders of brain
CPT/HCPCS: 70553; A9579

== ENCOUNTER → 2024-04-19 15:24 | Outpatient (CLI) | payer MEDICARE, MEDICAID, SELFPAY ==
[2024-04-19 17:33] LABS: Add Manual Diff / Slide Review NO; Basophils Absolute Auto 100 /uL (0-100); Basophils Percent Auto 1.1 % (0-2); Eosinophils Absolute Auto 200 /uL (0-450); Eosinophils Percent Auto 3.8 % (2-4); Hematocrit 36.4 % (36-46); Hemoglobin 12.1 g/dL (12.0-16.0); Lymphocytes Absolute Auto 1900 /uL (1100-4500); Lymphocytes Percent Auto 30.9 % (25-40); Mean Corpuscular HGB Conc 33.4 % (30-36); Mean Corpuscular Hemoglobin 30.8 PG (26-34); Mean Corpuscular Volume 92.2 fL (80-100); Monocytes Absolute Auto 600 /uL (0-900); Monocytes Percent Auto 10.2 % (3-14); Neutrophils Absolute Auto 3200 /uL (1500-7000); Platelet Count 351 X10^3/uL (150-400); Red Blood Cell Count 3.94 X10^6/uL (4.0-5.2); Red Cell Distribution Width 14.7 % (11.6-14.8)
[2024-04-19 18:15] LABS: Alanine Aminotransferase 23 IU/L (<35); Albumin 3.9 g/dL (3.5-5.0); Albumin Globulin Ratio 1.3 (1.0-2.8); Alkaline Phosphatase 64 U/L (38-126); Aspartate Aminotransferase 40 IU/L (14-36); Bilirubin Total 0.3 mg/dL (0.2-1.3); Blood Urea Nitrogen 15 mg/dL (7-17); Calcium 7.6 mg/dL (8.4-10.2); Carbon Dioxide 26 mmol/L (22-32); Chloride 102 mmol/L (98-107); Estimated Glomerular Filt Rate > 60 mL/min (>60); Glucose 171 mg/dL (80-110); HEMOLYSIS < 15 (0-50); Potassium 3.9 mmol/L (3.4-5.1); Sodium 134 mmol/L (137-145); Total Protein 6.9 g/dL (6.3-8.2)
[2024-04-19 18:48] LABS: TSH w/ Reflex to FT4 2.58 uIU/mL (0.47-4.68)
== END ==
PROVIDERS: Family Provider Family Medicine; PCP Family Medicine; Referring Provider Family Medicine; Visit Provider Family Medicine
DX: E83.51 Hypocalcemia (principal); E20.9 Hypoparathyroidism, unspecified; I10 Essential (primary) hypertension; E78.2 Mixed hyperlipidemia; D64.9 Anemia, unspecified; M43.16 Spondylolisthesis, lumbar region; G62.9 Polyneuropathy, unspecified
CPT/HCPCS: 36415; 80053; 84443; 85025

== ENCOUNTER → 2024-04-26 11:36 | Outpatient (CLI) | payer MEDICARE, MEDICAID, SELFPAY ==
[2024-04-26 15:43] LABS: Creatinine Urine Random 24.21 mg/dL
[2024-04-26 15:50] LABS: Microalbumin Urine Random < 0.6 mg/dL (0-1.6)
[2024-04-28 06:06] LABS: Calcium 8.6 mg/dL (8.7-10.3); Parathyroid Hormone, Intact 8 pg/mL (15-65)
== END ==
PROVIDERS: Family Provider Family Medicine; PCP Family Medicine; Referring Provider Family Medicine; Visit Provider Family Medicine
DX: E83.51 Hypocalcemia (principal); E20.9 Hypoparathyroidism, unspecified; I10 Essential (primary) hypertension; E78.2 Mixed hyperlipidemia; D64.9 Anemia, unspecified; E53.8 Deficiency of other specified B group vitamins
CPT/HCPCS: 36415; 82043; 82310; 82570; 83970

== ENCOUNTER → 2024-06-14 14:41 | Outpatient (CLI) | payer MEDICARE, MEDICAID, SELFPAY ==
[2024-06-14 16:30] LABS: Calcium 8.2 mg/dL (8.4-10.2)
== END ==
LOC: LAB 14:41
PROVIDERS: Family Provider Family Medicine; PCP Family Medicine; Referring Provider Family Medicine; Visit Provider Family Medicine
DX: E83.51 Hypocalcemia (principal)
CPT/HCPCS: 36415; 82310

== ENCOUNTER → 2024-07-08 14:04 | Outpatient (CLI) | payer MEDICARE, MEDICAID, SELFPAY ==
[2024-07-08 16:24] LABS: Calcium 8.2 mg/dL (8.4-10.2)
== END ==
PROVIDERS: Family Provider Family Medicine; PCP Family Medicine; Referring Provider Family Medicine; Visit Provider Family Medicine
DX: E83.51 Hypocalcemia (principal)
CPT/HCPCS: 36415; 82310

== ENCOUNTER → 2024-07-19 11:57 | Outpatient (CLI) | payer MEDICARE, MEDICAID, SELFPAY ==
[2024-07-19 13:02] LABS: Calcium 7.6 mg/dL (8.4-10.2)
== END ==
LOC: LAB 12:02
PROVIDERS: Family Provider Family Medicine; PCP Family Medicine; Referring Provider Family Medicine; Visit Provider Family Medicine
DX: E83.51 Hypocalcemia (principal)
CPT/HCPCS: 36415; 82310

== ENCOUNTER → 2024-07-27 16:07 | Outpatient (CLI) | payer MEDICARE, MEDICAID, SELFPAY ==
[2024-07-27 17:45] LABS: Calcium 7.9 mg/dL (8.4-10.2)
== END ==
PROVIDERS: Family Provider Family Medicine; PCP Family Medicine; Referring Provider Family Medicine; Visit Provider Family Medicine
DX: E83.51 Hypocalcemia (principal)
CPT/HCPCS: 36415; 82310

== ENCOUNTER → 2024-08-11 16:26 | Outpatient (CLI) | payer MEDICARE, MEDICAID, SELFPAY ==
[2024-08-11 17:43] LABS: Calcium 8.5 mg/dL (8.4-10.2)
== END ==
LOC: LAB 16:26
PROVIDERS: Family Provider Family Medicine; PCP Family Medicine; Referring Provider Family Medicine; Visit Provider Family Medicine
DX: E83.51 Hypocalcemia (principal)
CPT/HCPCS: 36415; 82310

== ENCOUNTER → 2024-08-26 14:29 | Outpatient (CLI) | payer MEDICARE, SELFPAY ==
[2024-08-26 16:04] LABS: Calcium 7.8 mg/dL (8.4-10.2)
== END ==
PROVIDERS: Family Provider Family Medicine; PCP Family Medicine; Referring Provider Family Medicine; Visit Provider Family Medicine
DX: E83.51 Hypocalcemia (principal)
CPT/HCPCS: 36415; 82310

== ENCOUNTER → 2024-09-14 13:46 | Outpatient (CLI) | payer MEDICARE, SELFPAY ==
[2024-09-14 15:12] LABS: Calcium 8.9 mg/dL (8.4-10.2)
== END ==
PROVIDERS: Family Provider Family Medicine; PCP Family Medicine; Referring Provider Family Medicine; Visit Provider Family Medicine
DX: E83.51 Hypocalcemia (principal)
CPT/HCPCS: 36415; 82310

== ENCOUNTER → 2024-11-11 13:42 | Outpatient (CLI) | payer MEDICARE, SELFPAY ==
[2024-11-11 15:16] LABS: Calcium 8.2 mg/dL (8.4-10.2)
== END ==
PROVIDERS: Family Provider Family Medicine; PCP Family Medicine; Referring Provider Family Medicine; Visit Provider Family Medicine
DX: E83.51 Hypocalcemia (principal)
CPT/HCPCS: 36415; 82310

== ENCOUNTER → 2024-12-15 16:44 | Outpatient (CLI) | payer MEDICARE, SELFPAY ==
--- NOTE | 2024-12-15 16:47 | DI.RAD.S_ITS ---
PROCEDURE: XR LUMBAR SPINE 2-3V INDICATIONS: BACK PAIN TECHNIQUE: 3 views of the lumbar spine were acquired. COMPARISON: [facility], , XR LUMBAR SPINE MIN 4V, 10/03/2020, 13:44. FINDINGS: Bones: 5 [id number] vertebrae are present. Mild dextroscoliotic curvature. Grade 1/2 anterolisthesis of L5 on S1. Decreased osseous mineralization. No vertebral body compression fractures. No suspicious bony lesions. There is multilevel facet arthropathy, worse at L4-5 and L5-S1. Multilevel disc height loss with degenerative endplate changes and spurring is present. Partially visualized right hip arthroplasty. Soft tissues: Overlying bowel gas pattern is normal. No suspicious soft tissue calcifications. IMPRESSION: Multilevel degenerative changes of the lumbar spine with dextroscoliotic curvature. Stable anterolisthesis of L5 on S1. Dictated by: Gianfranco Stahl M.D. on 12/17/2024 at 16:08 Approved by: Gianfranco Stahl M.D. on 12/17/2024 at 16:10
== END ==
LOC: RAD 16:46
PROVIDERS: Family Provider Family Medicine; PCP Family Medicine; Referring Provider Family Medicine; Visit Provider Family Medicine
DX: M43.17 Spondylolisthesis, lumbosacral region (principal); M47.816 Spondylosis without myelopathy or radiculopathy, lumbar region; M47.817 Spondylosis without myelopathy or radiculopathy, lumbosacral region; M43.8X6 Other specified deforming dorsopathies, lumbar region; M54.50 Low back pain, unspecified; G89.29 Other chronic pain
CPT/HCPCS: 72100

== ENCOUNTER → 2024-12-23 11:14 | Outpatient (CLI) | payer MEDICARE, SELFPAY ==
[2024-12-23 12:20] LABS: Add Manual Diff / Slide Review NO; Hematocrit 38.0 % (36-46); Hemoglobin 12.8 g/dL (12.0-16.0); Lymphocytes Absolute Auto 1800 /uL (1100-4500); Mean Corpuscular HGB Conc 33.7 % (30-36); Mean Corpuscular Hemoglobin 30.9 PG (26-34); Mean Corpuscular Volume 91.8 fL (80-100); Platelet Count 324 X10^3/uL (150-400)
[2024-12-23 12:46] LABS: Alanine Aminotransferase 26 IU/L (<35); Albumin 4.5 g/dL (3.5-5.0); Albumin Globulin Ratio 1.5 (1.0-2.8); Alkaline Phosphatase 53 U/L (38-126); Blood Urea Nitrogen 19 mg/dL (7-17); Calcium 8.9 mg/dL (8.4-10.2); Carbon Dioxide 32 mmol/L (22-32); Chloride 98 mmol/L (98-107); Estimated Glomerular Filt Rate > 60 mL/min (>60); Globulin 3.1 g/dL (1.7-4.1); Glucose 108 mg/dL (70-99); HEMOLYSIS < 15 (0-50); Potassium 3.7 mmol/L (3.4-5.1); Sodium 138 mmol/L (137-145); Total Protein 7.6 g/dL (6.3-8.2)
[2024-12-23 13:37] LABS: Vitamin B12 468 pg/mL (239-931)
[2024-12-23 14:56] LABS: Vitamin D 25 Hydroxy (D3) 67.5 ng/mL (30.0-100.0)
== END ==
PROVIDERS: Family Provider Family Medicine; PCP Family Medicine; Referring Provider Family Medicine; Visit Provider Family Medicine
DX: I10 Essential (primary) hypertension (principal); M85.80 Other specified disorders of bone density and structure, unspecified site; E53.8 Deficiency of other specified B group vitamins; E78.2 Mixed hyperlipidemia; M81.6 Localized osteoporosis [Lequesne]; D64.9 Anemia, unspecified; Z78.0 Asymptomatic menopausal state
CPT/HCPCS: 36415; 80053; 82306; 82607; 83721; 85025

== ENCOUNTER → 2025-03-07 12:00 | Outpatient (CLI) | payer MEDICARE, SELFPAY ==
[2025-03-07 13:49] LABS: Calcium 8.4 mg/dL (8.4-10.2); Cholesterol 306 mg/dL (140-199); HDL Cholesterol 98 mg/dL (40-60); Triglycerides 46 mg/dL (35-150)
== END ==
PROVIDERS: PCP Family Medicine; Referring Provider Family Medicine; Visit Provider Family Medicine
DX: E78.2 Mixed hyperlipidemia (principal); E83.51 Hypocalcemia; I10 Essential (primary) hypertension; E20.9 Hypoparathyroidism, unspecified
CPT/HCPCS: 36415; 80061; 82310

== ENCOUNTER → 2025-05-16 11:36 | Outpatient (CLI) | payer MEDICARE, SELFPAY ==
[2025-05-16 11:59] LABS: Add Manual Diff / Slide Review NO; Hematocrit 36.9 % (36-46); Hemoglobin 12.3 g/dL (12.0-16.0); Lymphocytes Absolute Auto 1900 /uL (1100-4500); Mean Corpuscular HGB Conc 33.3 % (30-36); Mean Corpuscular Hemoglobin 30.1 PG (26-34); Mean Corpuscular Volume 90.5 fL (80-100); Platelet Count 356 X10^3/uL (150-400)
[2025-05-16 12:24] LABS: Alanine Aminotransferase 23 IU/L (<35); Albumin 4.5 g/dL (3.5-5.0); Albumin Globulin Ratio 1.6 (1.0-2.8); Alkaline Phosphatase 60 U/L (38-126); Blood Urea Nitrogen 18 mg/dL (7-17); Calcium 8.5 mg/dL (8.4-10.2); Carbon Dioxide 30 mmol/L (22-32); Chloride 98 mmol/L (98-107); Estimated Glomerular Filt Rate > 60 mL/min (>60); Globulin 2.9 g/dL (1.7-4.1); Glucose 107 mg/dL (70-99); HEMOLYSIS < 15 (0-50); Magnesium 1.8 mg/dL (1.6-2.3); Potassium 4.1 mmol/L (3.4-5.1); Sodium 139 mmol/L (137-145); Total Protein 7.4 g/dL (6.3-8.2)
[2025-05-16 12:57] LABS: TSH w/ Reflex to FT4 1.82 uIU/mL (0.47-4.68)
[2025-05-16 14:17] LABS: Vitamin D 25 Hydroxy (D3) 61.1 ng/mL (30.0-100.0)
== END ==
PROVIDERS: PCP Family Medicine; Referring Provider Physician Assistant; Visit Provider Physician Assistant
DX: R74.01 Elevation of levels of liver transaminase levels (principal); E83.51 Hypocalcemia; M81.6 Localized osteoporosis [Lequesne]; D64.9 Anemia, unspecified; E04.1 Nontoxic single thyroid nodule; I10 Essential (primary) hypertension; E20.9 Hypoparathyroidism, unspecified
CPT/HCPCS: 36415; 80053; 82306; 83735; 84443; 85025

== ENCOUNTER → 2025-06-13 11:44 | Outpatient (CLI) | payer MEDICARE, SELFPAY ==
[2025-06-13 12:45] LABS: Blood Urea Nitrogen 18 mg/dL (7-17); Calcium 8.2 mg/dL (8.4-10.2); Carbon Dioxide 32 mmol/L (22-32); Chloride 100 mmol/L (98-107); Estimated Glomerular Filt Rate > 60 mL/min (>60); Glucose 98 mg/dL (70-99); HEMOLYSIS < 15 (0-50); Potassium 4.3 mmol/L (3.4-5.1); Sodium 140 mmol/L (137-145)
== END ==
PROVIDERS: PCP Family Medicine; Referring Provider Family Medicine; Visit Provider Family Medicine
DX: E83.51 Hypocalcemia (principal)
CPT/HCPCS: 36415; 80048